=== PATIENT | male | born 1980 | race Caucasian/White ===

== ENCOUNTER 2019-06-20 10:55 | Observation (INO) | payer OTHER, SELFPAY ==
[2019-06-20 10:58] VITALS: BP 168/102; PULSE 108; RESP 18; TEMP 36.6; O2SAT 99; BMI 44.4
--- NOTE | 2019-06-20 11:11 | VDLE_ITS ---
Reason For Study: Pain and swelling RIGHT GSV is normal. CFV is compressible, spontaneous, phasic, competent and demonstrates normal augmentation. FV is compressible, spontaneous, phasic, competent and demonstrates normal augmentation. POP V is compressible, spontaneous, phasic, competent and demonstrates normal augmentation. T/P Trunk is compressible. PTV is compressible. RT PerV is compressible. Procedure Exam performed portable in ED. A preliminary report was called and/or faxed to ED. Interpretation Summary Deep veins of the right lower extremity are patent and compressible segmentally. There is no evidence of right lower extremity deep vein thrombosis. Valvular competence appears intact within the proximal deep venous system on the right . The right greater saphenous vein appears patent and compressible segmentally. Ordering Physician: Logan Espana Referring Physician: Godwin Sutton Performed By: Barbara Chamberlain RVT
[2019-06-20 11:12] VITALS: TEMP 36.6
[2019-06-20] MEDS: 0.9% Normal Saline 1,000 ML 1000 ML IV (11:22)
[2019-06-20 11:38] LABS: Absolute Lymphocyte Count 0.81 X10^3/uL (0.83-4.51); Absolute Neutrophil Count 4.1 X10^3/uL (2.0-7.7); Basophil# 0.01 X10^3/uL; Basophil% 0.2 % (0-1); Eosinophil# 0.03 X10^3/uL; Eosinophils% 0.5 % (0-5); Hematocrit 29.9 % (40-54); Hemoglobin 10.6 g/dL (13.0-16.5); Lymphocyte # 0.81 X10^3/ul (4.0); Lymphocyte % 13.9 % (19-41); Mean Corp Hgb Conc 35.5 g/dL (32-36); Mean Corpuscular Hgb 27.6 pg (27.0-32.0); Mean Corpuscular Volume 77.9 fL (80-94); Mean Platelet Vol. 11.1 fl (6.2-12.0); Monocyte# 0.83 X10^3/uL; Monocyte% 14.3 % (0-10); NRBC Flagged by Analyzer 0 % (0-5); Neutrophil # 4.11 X10^3/uL (2.7-7.7); Neutrophil % 70.6 % (47-70); Platelet Count 108 K/mm3 (150-450); RBC Distribution Width CV 12.4 % (11.6-14.6); RBC Distribution Width SD 34.7 fl (35.1-43.9); Red Blood Count 3.84 M/mm3 (4.6-6.2); White Blood Count 5.8 K/mm3 (4.4-11.0)
[2019-06-20 11:43] LABS: International Normalized Ratio 1.1; Prothrombin Time (Protime)PT. 13.9 SECONDS (11.7-14.9)
[2019-06-20 11:44] LABS: Partial Thromboplast Time 51.1 Seconds (24.1-36.2)
[2019-06-20 11:50] LABS: ALB/GLOB Ratio 0.8 RATIO (0.9-2.4); AST(SGOT) 25 U/L (15-37); Alanine Aminotransfer ALT/SGPT 30 U/L (16-61); Albumin, Serum 3.4 g/dL (3.2-5.0); Alkaline Phosphatase 71 U/L (45-117); Anion Gap 6 (5-15); BUN 51 mg/dL (7-18); BUN/Creat Ratio 21.8 RATIO (10-20); Calcium,Total 9.1 mg/dL (8.5-10.1); Chloride 102 mmol/L (98-107); Creatinine, Serum 2.34 mg/dL (0.70-1.30); EST Glomerular Filtration Rate 33 mL/min (>60); Est Glom Filt Rate - Afr Amer 40 mL/min (>60); Estimated Creatinine Clearance 53.41 ml/min; Globulin 4.2 g/dL (2.2-4.2); Glucose 194 mg/dL (74-106); Potassium 3.9 mmol/L (3.5-5.1); Protein, Total 7.6 g/dL (6.4-8.2); Sodium Level 135 mmol/L (136-145)
[2019-06-20 11:53] LABS: Mucous, Urine 0 SEEN /hpf (<or=2+)
[2019-06-20 11:54] LABS: Lactic Acid 0.9 mmol/L (0.4-2.0)
[2019-06-20 12:01] LABS: Color, Urine Yellow (Yellow); Glucose, Dipstick Normal (Normal); Ketone-Dipstick Negative (Negative); Leukocyte Esterase-Dipstick Negative /ul (Negative); Nitrite-Dipstick Negative (Negative); Occult Blood-Urine 250 /ul (Negative); Protein-Dipstick 100 mg/dl (Negative); Urine Bilirubin Dipstick Negative (Negative); Urine Clarity Sl. Cloudy (Clear); Urine Urobilinogen Normal (Normal)
[2019-06-20 12:06] LABS: Bacteria RARE /hpf (None Seen); Red Blood Cells-Urine 0-5 SEEN /hpf (0-5); Squamous Epithelial Cells - UA 0-5 SEEN /hpf (0-5); White Blood Cells 0-5 SEEN /hpf (0-5)
--- NOTE | 2019-06-20 13:06 | ED.VISSUMM ---
- ER Visit Summary Date of Service: 06/20/19 Chief Complaint: Abnormal labs History of Present Illness: The patient is a 38 M sent for abnormal labs. He had an elevated creatinine on June 16, and then it was repeated earlier today and had elevated. It went from 2.0-2.4. He denies any history of kidney disease. He is a diabetic and has a history of hypertension. He was told to discontinue his metformin. He continues to take insulin and losartan. He also reports right leg pain and swelling. He has right calf tenderness. This started since yesterday. No history of DVT. He has noticed a superficial ulceration to his right great toe. Physical Examination: Afebrile and vital signs unremarkable except blood pressure 168/102. Alert and oriented. Heart regular. Lungs clear. Right calf is diffusely tender and edematous. He has a superficial ulceration to his right great toe. No drainage, bleeding, or surrounding erythema. He does have some erythema to his mid lower leg. Test Results: Hemoglobin 10.6. Platelets 108. BUN 51 and creatinine 2.34. INR 1.1 and PTT 51.1. Urinalysis unremarkable. Lactate 0.9. Lower extremity ultrasound negative. Emergency Department Course and Treatment: Patient presents with acute kidney injury. I do not have baseline labs. He has no known history of kidney problems. He also has anemia and thrombocytopenia. Patient was treated with IV fluids. Lower extremity ultrasound was negative. I suspect he may have cellulitis and he was covered with cefazolin. He is not septic. It does not look like the toe ulceration communicates to the bone. Patient was discussed with Dr. Andrews and will be admitted for further care. Treatment Plan: As above Disposition: Admission Impression: 1. Acute kidney injury 2. Anemia 3. Thrombocytopenia 4. Right lower extremity cellulitis 5. Right foot ulceration This note was generated with [email or web address] dictation software. It may contain incorrect words, spelling, and punctuation that were not noted in review of the chart prior to signing ED Disposition - Plan for ED Patient: Referrals: Ryan Hendrickson PA [Primary Care Provider] -
[2019-06-20] MEDS: Cefazolin 1 GM/50 ML BAG IV ×2 (13:14→22:13)
[2019-06-20 13:15] VITALS: BP 165/98; PULSE 92; RESP 16; O2SAT 100
--- NOTE | 2019-06-20 13:21 | HP.PCM_ITS ---
Problem List (1) Cellulitis of right leg Status: Acute History of Present Illness Date of Admission: 06/20/19 Chief Complaint: abnormal labs The patient is a 38 year old M was brought into the hospital because his lab work was abnormal. Patient had elevated creatinine as outpatient and several days prior it was elevated around 2. Patient instructed to come to the emergency room. No baseline labs revealed compared to the patient states that he has not had a lab work done previously that he is aware of. States that he has been drinking plenty of water which he does continuously. Today, patient developed erythema involving his right lower extremity. Days prior, patient was having a fever chills and nausea but no rash at that time. He states that he may have had cellulitis several years back but nothing recently. Patient received ceftezole and in the emergency room. [] Past Medical History Medical History: Medical History (Last Updated 06/20/19 @ 13:28 by Calixto Andrews DO) DM2 (diabetes mellitus, type 2) E11.9 Neuropathy G62.9 CKD (chronic kidney disease) stage 3, GFR 30-59 ml/min N18.3 HTN (hypertension) I10 Allergies No Known Allergies Allergy (Verified 06/20/19 10:56) Home Medications: Ambulatory Orders Medication Instructions Recorded Insulin Glargine,Hum.rec.anlog 25 unit SQ DAILY 06/20/19 [Lantus] Losartan Potassium [Cozaar] 125 mg PO DAILY 06/20/19 Psychiatric History: No pertinent psych hx Smoking Status: Never smoker Tobacco Use: Non-smoker Alcohol: None Drugs: None - *Family History Maternal History Items: Diabetes Paternal History Items: Diabetes Review of Systems Constitutional: Denies: Chills, Fever, Weight Change Eyes: Denies: Blurred vision, Double vision HEENT: Denies: Head Aches, Sinus Congestion, Sinus Drainage Cardiovascular: Denies: Chest Pain, Palpitations Respiratory: Denies: Cough, Shortness of breath at rest, Sputum production Gastrointestinal: Reports: Nausea. Denies: Abdominal Pain, Vomiting Genitourinary: Denies: Dysuria Musculoskeletal: Denies: Joint Pain, Joint Tenderness Skin: Reports: Wounds - ulcer under right great toe for 2-3 weeks. erythema of RLE. Neurological: Reports: - - neuropathy in feet. Denies: Focal weakness, Numbness, Tingling Psychiatric: Denies: Anxiety, Depression Hematologic/ Lymphatic: Denies: Easy Bruising, Easy Bleeding, Hx of blood clot Comment: A 10 point review of systems were negative except as mentioned in the history of present illness and the other review of systems. VTE Information - Inpt Only VTE Present on Admission: No VTE Mechan Device Prophylaxis: None VTE Pharm Prophylaxis ordered?: No Reason prophylaxis not ordered:: Procedure Not Indicated Patient Problems: Active and Suspected Problems Cellulitis of right leg (Acute) - Physical Exam General: Alert, No apparent distress HEENT: Atraumatic, Normocephalic Oral: Moist Mucosa, No Gingival or Mucosal Lesions/ Ulcerations Neck: No Nodes, Thyroid Normal Size and Texture Lungs: Clear to auscultation, Normal air movement, No rhonchi, No wheeze, No rales Cardiovascular: Regular rate, Regular Rhythm, Normal S1, Normal S2, No murmurs Abdomen: Bowel Sounds Present, Soft, Non Tender, Non-Distended, No Hepato- splenomegaly Extremities: No edema, No Calf Tenderness Skin: - - Superficial ulceration under the right great toe. No purulence can be expressed. Does have erythema with petechial type lesions involving the distal right lower extremity extending proximally up to the knee. Musculoskeletal: No Tenderness to Palpation of Joints or Extremities, No Muscle Wasting Neurological: Neuro grossly intact, Muscle tone normal, Sensory exam intact to light touch and pain Psych/Mental Status: Normal Affect, Appropriate Vital Signs Temp Pulse Resp BP Pulse Ox 36.6 C 92 16 165/98 H 100 06/20/19 11:12 06/20/19 13:15 06/20/19 13:15 06/20/19 13:15 06/20/19 13:15 Oxygen Delivery Method Room Air Weight: 170.097 kg Body Mass Index (BMI) 44.4 Laboratory Tests Past 24 Hrs 06/20/19 06/20/19 06/20/19 11:21 11:21 11:21 WBC 5.8 RBC 3.84 L Hgb 10.6 L Hct 29.9 L MCV 77.9 L MCH 27.6 MCHC 35.5 RDW Std Deviation 34.7 L RDW Coeff of Juli 12.4 Plt Count 108 L MPV 11.1 Immature Gran % (Auto) 0.500 Neut % (Auto) 70.6 H Lymph % (Auto) 13.9 L [place] % (Auto) 14.3 H Eos % (Auto) 0.5 Baso % (Auto) 0.2 Absolute Neuts (auto) 4.1 Absolute Lymphs (auto) 0.81 L Nucleated RBC % 0 PT 13.9 INR 1.1 APTT 51.1 H Sodium 135 L Potassium 3.9 Chloride 102 Carbon Dioxide 27.0 Anion Gap 6 BUN 51 H Creatinine 2.34 H Estim Creat Clear Calc 53.41 Est GFR (MDRD) Af Amer 40 L Est GFR (MDRD) Non-Af 33 L BUN/Creatinine Ratio 21.8 H Glucose 194 H Lactic Acid Calcium 9.1 Total Bilirubin 0.60 AST 25 ALT 30 Alkaline Phosphatase 71 Total Protein 7.6 Albumin 3.4 Globulin 4.2 Albumin/Globulin Ratio 0.8 L Urine Color Urine Clarity Urine pH Ur Specific [place] Urine Protein Urine Glucose (UA) Urine Ketones Urine Occult Blood Urine Nitrite Urine Bilirubin Urine Urobilinogen Ur Leukocyte Esterase Urine RBC Urine WBC Ur Squamous Epith Cells Urine Bacteria Urine Mucus 06/20/19 06/20/19 11:21 11:40 WBC RBC Hgb Hct MCV MCH MCHC RDW Std Deviation RDW Coeff of Juli Plt Count MPV Immature Gran % (Auto) Neut % (Auto) Lymph % (Auto) [place] % (Auto) Eos % (Auto) Baso % (Auto) Absolute Neuts (auto) Absolute Lymphs (auto) Nucleated RBC % PT INR APTT Sodium Potassium Chloride Carbon Dioxide Anion Gap BUN Creatinine Estim Creat Clear Calc Est GFR (MDRD) Af Amer Est GFR (MDRD) Non-Af BUN/Creatinine Ratio Glucose Lactic Acid 0.9 Calcium Total Bilirubin AST ALT Alkaline Phosphatase Total Protein Albumin Globulin Albumin/Globulin Ratio Urine Color Yellow Urine Clarity Sl. Cloudy Urine pH 6.0 Ur Specific [place] 1.010 Urine Protein 100 H Urine Glucose (UA) Normal Urine Ketones Negative Urine Occult Blood 250 H Urine Nitrite Negative Urine Bilirubin Negative Urine Urobilinogen Normal Ur Leukocyte Esterase Negative Urine RBC 0-5 SEEN Urine WBC 0-5 SEEN Ur Squamous Epith Cells 0-5 SEEN Urine Bacteria RARE Urine Mucus 0 SEEN Assessment/Plan All Active Problems Cellulitis of right leg (Acute) 1. Right lower extremity cellulitis * Patient received cefazolin in the emergency room and will continue with that 2. right great toe ulcer * superficial * check xray, if negative, then check MRI to eval for osteomyelitis * off-loading surgical shoe for now 3. CKD3, suspected * No baseline but I suspect the patient is currently at it * Follow-up lab work in the a.m. * If this is indeed chronic, as I suspect, then patient will need follow-up with nephrology as outpatient 4. Diabetes mellitus type 2 * Patient on basal insulin at home. We will start him on sliding scale prandial here * Check an A1c 5. Hypertension * Elevated here * Continue to monitor * Continue losartan for now 6. Thrombocytopenia * Unknown baseline * Monitor 7. VTE prophylaxis: Currently, the patient is observation status, and therefore VTE prophylaxis is not indicated. Discussed with the patient's mother at bedside. Code Visit OBSV E&M: 24361 Initial observation care L3
[2019-06-20 13:49] LABS: Erythrocyte Sedimentation Rate 45 mm/hr (0-15)
[2019-06-20 15:29] VITALS: BMI 43.2
[2019-06-20 15:30] VITALS: BMI 43.3
--- NOTE | 2019-06-20 15:50 | RAD_ITS ---
STUDY: X-RAY - RIGHT FOOT CLINICAL: Male, 38 years old. Ulcer great toe TECHNIQUE: 3 view(s) of the foot. COMPARISON: None. FINDINGS: Normal talus, calcaneus, and tarsal bones. Normal visualized subtalar, talonavicular, calcaneocuboid, tarsal and tarsometatarsal articulations. Normal metatarsi. Normal metatarsophalangeal joint of the great toe. Normal tibial and fibular sesamoid bones. Normal interphalangeal joint of the great toe. Normal phalanges of the great toe. Normal second through fifth metatarsophalangeal joints. Normal interphalangeal joints and phalanges of the lesser toes. The soft tissue structures are unremarkable. RAD/Foot min 3 Views IMPRESSION: Normal x-ray examination of the foot. Unremarkable great toe. Triple phase bone scan or MRI would be more sensitive if clinically warranted. Electronically Signed: Dale Clemons MD at 16:33 EDT , Service support ,
--- NOTE | 2019-06-20 15:58 | MRI_ITS ---
HISTORY: Plantar surface distal phalanx. Toe. Pain for 2 days. Diabetes. Right foot open wound big toe. Plantar surface blister. Dime-sized. Redness.. Technique: Sagittal coronal and axial images were obtained through the right metatarsals and phalanges. Post gadolinium T1 fat-sat series were obtained. 30 mL of Dotarem intravenous gadolinium was utilized. 8 series. 247 images.. Findings: Edema is present mostly within the dorsum of the foot. There is an ulcer on the medial plantar aspect of the great toe, at the level of the proximal first phalanx. No underlying abscess is perceived. The adjacent marrow is not edematous. The adjacent marrow is not enhance. Some inner phalangeal joint arthritis is present. Some metatarsal phalangeal joint arthritis is present. There is been fairly severe fatty infiltration of the muscles of the foot. No pathological tendon thickening or enhancement is perceived. MRI/Lower Ext No Joint W/WO Cont IMPRESSION: Cellulitis over the dorsum of the foot. Ulcer on the plantar medial surface of the great toe at the level of the distal end of the first proximal phalanx. This extends to the flexor tendon. No abscess. No evidence for osteomyelitis. at 2057 Reported and signed by: Vel Rodriguez MD Electronically Signed: Vel Rodriguez MD at 20:55 EDT Tel , Service support ,
[2019-06-20 16:06] LABS: Hemoglobin A1c 8.5 % (4.2-6.3)
[2019-06-20] MEDS: Insulin Lispro 100 UNIT/ML INSULN.PEN SC (16:23)
[2019-06-20 16:25] LABS: Bedside Glucose 165 mg/dL (70-110)
[2019-06-20] MEDS: Glucerna Shake 120 ML LIQUID PO (16:27)
[2019-06-20] MEDS: 0.9% Normal Saline 1,000 ML 150 ML IV (16:29)
[2019-06-20] MEDS: Losartan Potassium 100 MG Tablet PO (18:11)
[2019-06-20] MEDS: hydroCHLOROthiazide 25 MG Tablet PO (18:11)
[2019-06-20 18:15] VITALS: BP 155/97; PULSE 97; RESP 16; TEMP 36.9; O2SAT 100
[2019-06-20 22:10] LABS: Bedside Glucose 199 mg/dL (70-110)
[2019-06-21 00:15] VITALS: BP 144/88; PULSE 96; RESP 18; TEMP 37.3; O2SAT 98
[2019-06-21] MEDS: Cefazolin 1 GM/50 ML BAG IV ×3 (06:16→21:35)
[2019-06-21 06:17] VITALS: BP 144/84; PULSE 87; RESP 18; TEMP 37.3; O2SAT 99
[2019-06-21 06:20] LABS: Absolute Lymphocyte Count 0.99 X10^3/uL (0.83-4.51); Absolute Neutrophil Count 3.1 X10^3/uL (2.0-7.7); Basophil# 0.02 X10^3/uL; Basophil% 0.4 % (0-1); Eosinophil# 0.05 X10^3/uL; Eosinophils% 1.1 % (0-5); Hematocrit 25.8 % (40-54); Lymphocyte # 0.99 X10^3/ul (4.0); Lymphocyte % 20.8 % (19-41); Mean Corp Hgb Conc 34.9 g/dL (32-36); Mean Corpuscular Hgb 27.4 pg (27.0-32.0); Mean Corpuscular Volume 78.7 fL (80-94); Mean Platelet Vol. 10.6 fl (6.2-12.0); Monocyte% 12.6 % (0-10); NRBC Flagged by Analyzer 0 % (0-5); Neutrophil # 3.07 X10^3/uL (2.7-7.7); Neutrophil % 64.7 % (47-70); Platelet Count 107 K/mm3 (150-450); RBC Distribution Width CV 12.3 % (11.6-14.6); RBC Distribution Width SD 35.2 fl (35.1-43.9); Red Blood Count 3.28 M/mm3 (4.6-6.2); White Blood Count 4.8 K/mm3 (4.4-11.0)
[2019-06-21] MEDS: Insulin Lispro 100 UNIT/ML INSULN.PEN SC ×3 (06:28→16:58)
[2019-06-21 06:42] LABS: ALB/GLOB Ratio 0.8 RATIO (0.9-2.4); AST(SGOT) 18 U/L (15-37); Alanine Aminotransfer ALT/SGPT 25 U/L (16-61); Albumin, Serum 2.8 g/dL (3.2-5.0); Alkaline Phosphatase 59 U/L (45-117); Anion Gap 8 (5-15); BUN 44 mg/dL (7-18); BUN/Creat Ratio 21.8 RATIO (10-20); Calcium,Total 8.4 mg/dL (8.5-10.1); Chloride 107 mmol/L (98-107); Creatinine, Serum 2.02 mg/dL (0.70-1.30); EST Glomerular Filtration Rate 39 mL/min (>60); Est Glom Filt Rate - Afr Amer 47 mL/min (>60); Estimated Creatinine Clearance 61.88 ml/min; Globulin 3.6 g/dL (2.2-4.2); Glucose 156 mg/dL (74-106); Potassium 4.2 mmol/L (3.5-5.1); Protein, Total 6.4 g/dL (6.4-8.2); Sodium Level 137 mmol/L (136-145)
[2019-06-21 06:55] LABS: Bedside Glucose 164 mg/dL (70-110)
--- NOTE | 2019-06-21 08:15 | CON.PCM_ITS ---
Reason for Consult Date of Consultation: 06/21/19 Reason for Consultation: Right 1st toe ulcer History of Present Illness: The patient is a 38 year old gentleman with history of diabetes, peripheral neuropathy and other medical problems was seen this morning for right 1st toe ulcer. Patient relates to having ulceration in past, was healed, but recently opened. He relates he has followed with Dr. Shaver in past. Patient relates last time wound was present he used faizan, which he still has at home. He also relates he has had an offloading shoe in the past, but not sure where it is now. Patient has redness and swelling of the right leg. Patient had right foot xrays and MRI which were negative for osteomyelitis. It was noted the ulcer extended to the flexor tendon per radiology read on the MRI. WBC normal. Patient afebrile, resting comfortably in bed. He denies any pain, no fever, chills, nausea or vomiting. Past Medical History Medical History: Medical History (Last Updated 06/20/19 @ 13:28 by Calixto Andrews DO) DM2 (diabetes mellitus, type 2) E11.9 Neuropathy G62.9 CKD (chronic kidney disease) stage 3, GFR 30-59 ml/min N18.3 HTN (hypertension) I10 Allergies No Known Allergies Allergy (Verified 06/20/19 10:56) Home Medications: Ambulatory Orders Medication Instructions Recorded Aspirin E.C. [Ecotrin] 81 mg PO DAILY@0800 06/20/19 Insulin Glargine,Hum.rec.anlog 25 unit SQ QHS 06/20/19 [Lantus] Losartan/Hydrochlorothiazide 1 tab PO DAILY 06/20/19 [Losartan-Hctz 100-25 mg Tab] Metformin HCl [Metformin HCl ER] 750 mg PO DAILY 06/20/19 Psychiatric History: No pertinent psych hx Smoking Status: Never smoker Tobacco Use: Non-smoker Alcohol: None Drugs: None - *Family History Maternal History Items: Diabetes Paternal History Items: Diabetes Patient Problems: Active and Suspected Problems (Last Updated 06/20/19 @ 13:28 by Calixto Andrews DO) Cellulitis of right leg (Acute) - Physical Exam General: Alert, Oriented x3, Cooperative, No apparent distress Extremities: Capillary Refill Less than 3 Seconds, No Calf Tenderness, Peripheral Pulses Normal, - - There is ulceration to the plantar right hallux down to subcutaneous tissue, there is some overlying callus and nonviable tissue, which was debrided and underlying tissue healthy and viable, granular base, no undermining, there is no maloder, no fluctuance, no visible abscess, no crepitus, there is cellulitis to the right lower extremity. There is no probe to bone or deep tissue, no flexor tendon involvement clinically right foot. There are no open lesions left foot or ankle. Pedal pulses intact, CFT < 2 seconds bilateral 1-5 toes. There is peripheral neuropathy present bilateral lower extremity. Chronic charcot foot deformity left - no evidence of acute charcot neuroarthropathy bilateral foot. Muscle strength intact to foot/ankle bilateral. No POP or pain on ROM to the foot/ankle bilateral. Vital Signs Temp Pulse Resp BP Pulse Ox 99.2 F H 87 18 144/84 H 99 06/21/19 06:17 06/21/19 06:17 06/21/19 06:17 06/21/19 06:17 06/21/19 06:17 Oxygen Delivery Method Room Air Weight: 165.607 kg Body Mass Index (BMI) 43.2 Intake and Output for Last 24 Hours 06/19/19 06/20/19 06/21/19 23:59 23:59 23:59 Intake Total 1859 Balance 1859 Laboratory Tests Past 24 Hrs 06/20/19 06/20/19 06/20/19 11:21 11:21 11:21 WBC 5.8 RBC 3.84 L Hgb 10.6 L Hct 29.9 L MCV 77.9 L MCH 27.6 MCHC 35.5 RDW Std Deviation 34.7 L RDW Coeff of Juli 12.4 Plt Count 108 L MPV 11.1 Immature Gran % (Auto) 0.500 Neut % (Auto) 70.6 H Lymph % (Auto) 13.9 L [place] % (Auto) 14.3 H Eos % (Auto) 0.5 Baso % (Auto) 0.2 Absolute Neuts (auto) 4.1 Absolute Lymphs (auto) 0.81 L Nucleated RBC % 0 ESR PT 13.9 INR 1.1 APTT 51.1 H Sodium 135 L Potassium 3.9 Chloride 102 Carbon Dioxide 27.0 Anion Gap 6 BUN 51 H Creatinine 2.34 H Estim Creat Clear Calc 53.41 Est GFR (MDRD) Af Amer 40 L Est GFR (MDRD) Non-Af 33 L BUN/Creatinine Ratio 21.8 H Glucose 194 H Hemoglobin A1c Lactic Acid Calcium 9.1 Total Bilirubin 0.60 AST 25 ALT 30 Alkaline Phosphatase 71 C-React Prot Ext Range Total Protein 7.6 Albumin 3.4 Globulin 4.2 Albumin/Globulin Ratio 0.8 L Urine Color Urine Clarity Urine pH Ur Specific [place] Urine Protein Urine Glucose (UA) Urine Ketones Urine Occult Blood Urine Nitrite Urine Bilirubin Urine Urobilinogen Ur Leukocyte Esterase Urine RBC Urine WBC Ur Squamous Epith Cells Urine Bacteria Urine Mucus 06/20/19 06/20/19 06/20/19 11:21 11:21 11:21 WBC RBC Hgb Hct MCV MCH MCHC RDW Std Deviation RDW Coeff of Juli Plt Count MPV Immature Gran % (Auto) Neut % (Auto) Lymph % (Auto) [place] % (Auto) Eos % (Auto) Baso % (Auto) Absolute Neuts (auto) Absolute Lymphs (auto) Nucleated RBC % ESR 45 H PT INR APTT Sodium Potassium Chloride Carbon Dioxide Anion Gap BUN Creatinine Estim Creat Clear Calc Est GFR (MDRD) Af Amer Est GFR (MDRD) Non-Af BUN/Creatinine Ratio Glucose Hemoglobin A1c Lactic Acid 0.9 Calcium Total Bilirubin AST ALT Alkaline Phosphatase C-React Prot Ext Range 113.00 H Total Protein Albumin Globulin Albumin/Globulin Ratio Urine Color Urine Clarity Urine pH Ur Specific [place] Urine Protein Urine Glucose (UA) Urine Ketones Urine Occult Blood Urine Nitrite Urine Bilirubin Urine Urobilinogen Ur Leukocyte Esterase Urine RBC Urine WBC Ur Squamous Epith Cells Urine Bacteria Urine Mucus 06/20/19 06/20/19 06/21/19 11:21 11:40 06:08 WBC 4.8 RBC 3.28 L Hgb 9.0 L Hct 25.8 L MCV 78.7 L MCH 27.4 MCHC 34.9 RDW Std Deviation 35.2 RDW Coeff of Juli 12.3 Plt Count 107 L MPV 10.6 Immature Gran % (Auto) 0.400 Neut % (Auto) 64.7 Lymph % (Auto) 20.8 [place] % (Auto) 12.6 H Eos % (Auto) 1.1 Baso % (Auto) 0.4 Absolute Neuts (auto) 3.1 Absolute Lymphs (auto) 0.99 Nucleated RBC % 0 ESR PT INR APTT Sodium Potassium Chloride Carbon Dioxide Anion Gap BUN Creatinine Estim Creat Clear Calc Est GFR (MDRD) Af Amer Est GFR (MDRD) Non-Af BUN/Creatinine Ratio Glucose Hemoglobin A1c 8.5 H Lactic Acid Calcium Total Bilirubin AST ALT Alkaline Phosphatase C-React Prot Ext Range Total Protein Albumin Globulin Albumin/Globulin Ratio Urine Color Yellow Urine Clarity Sl. Cloudy Urine pH 6.0 Ur Specific [place] 1.010 Urine Protein 100 H Urine Glucose (UA) Normal Urine Ketones Negative Urine Occult Blood 250 H Urine Nitrite Negative Urine Bilirubin Negative Urine Urobilinogen Normal Ur Leukocyte Esterase Negative Urine RBC 0-5 SEEN Urine WBC 0-5 SEEN Ur Squamous Epith Cells 0-5 SEEN Urine Bacteria RARE Urine Mucus 0 SEEN 06/21/19 06:08 WBC RBC Hgb Hct MCV MCH MCHC RDW Std Deviation RDW Coeff of Juli Plt Count MPV Immature Gran % (Auto) Neut % (Auto) Lymph % (Auto) [place] % (Auto) Eos % (Auto) Baso % (Auto) Absolute Neuts (auto) Absolute Lymphs (auto) Nucleated RBC % ESR PT INR APTT Sodium 137 Potassium 4.2 Chloride 107 Carbon Dioxide 22.0 Anion Gap 8 BUN 44 H Creatinine 2.02 H Estim Creat Clear Calc 61.88 Est GFR (MDRD) Af Amer 47 L Est GFR (MDRD) Non-Af 39 L BUN/Creatinine Ratio 21.8 H Glucose 156 H Hemoglobin A1c Lactic Acid Calcium 8.4 L Total Bilirubin 0.40 AST 18 ALT 25 Alkaline Phosphatase 59 C-React Prot Ext Range Total Protein 6.4 Albumin 2.8 L Globulin 3.6 Albumin/Globulin Ratio 0.8 L Urine Color Urine Clarity Urine pH Ur Specific [place] Urine Protein Urine Glucose (UA) Urine Ketones Urine Occult Blood Urine Nitrite Urine Bilirubin Urine Urobilinogen Ur Leukocyte Esterase Urine RBC Urine WBC Ur Squamous Epith Cells Urine Bacteria Urine Mucus POC Glucose 06/21/19 06/20/19 06/20/19 06:25 22:06 16:20 POC Glucose 164 H 199 H 165 H Assessment/Plan All Active Problems (Last Updated 06/20/19 @ 13:28 by Calixto Andrews DO) Cellulitis of right leg (Acute) Ulceration down to subcutaneous tissue plantar right hallux Cellulitis right lower extremity Poorly controlled diabetes with peripheral neuropathy Other Co-morbidities Reviewed diagnostic data, reviewed labs, right foot xray and MRI findings and images. No evidence of osteomyelitis or abscess formation. Clinically no involvement of the flexor tendon. A culture has been obtained and sent to microbiology for further evaluation. Continue with antibiotics and adjust pending culture results. Ulceration right hallux was debrided using a 15 blade removing nonviable callus tissue, this was done down to the subcutaneous tissue in excisional fashion. Faizan and overlying gauze and silvino dressing applied. Keep ulcer offloaded at all times. Patient has surgical shoe, and will need to follow up [facility] to add offloading insert. Podiatry will follow, thank you for consultation.
--- NOTE | 2019-06-21 09:21 | NURSING ---
wound photo: right great toe
[2019-06-21 09:32] VITALS: BP 150/85; PULSE 94; RESP 18; TEMP 36.9; O2SAT 95
[2019-06-21] MEDS: Glucerna Shake 120 ML LIQUID PO (09:33)
[2019-06-21] MEDS: Aspirin E.C. 81 MG Tablet PO (09:34)
[2019-06-21] MEDS: Losartan Potassium 100 MG Tablet PO (09:34)
[2019-06-21] MEDS: hydroCHLOROthiazide 25 MG Tablet PO (09:34)
--- NOTE | 2019-06-21 10:09 | CON.PCM_ITS ---
Problem List (1) Cellulitis of right leg Status: Acute Reason for Consult: foot infection Consulted by: Dr. Andrews History of Present Illness: The patient is a 38 year old M with DM neuropathy, presented with 2-3 days of progressive R 1st toe swelling, pain, redness. Pain was burning in nature, worse with walking. Some associated nausea and fatigue. No fever. Had callus/blister at that site prior to worsening. No recent abx, no prior h/o foot infection or MRSA, no drainage. Came to ED, admitted on cefazolin, MRI done, podiatry has seen. Feeling much better. Full ROS performed and neg except as noted above. - Medical History Surgical History: includes: DM, neuropathy, obesity Allergies/Adverse Reactions: Allergies No Known Allergies Allergy (Verified 06/20/19 10:56) Home Medications: Ambulatory Orders Medication Instructions Recorded Aspirin E.C. [Ecotrin] 81 mg PO DAILY@0800 06/20/19 Insulin Glargine,Hum.rec.anlog 25 unit SQ QHS 06/20/19 [Lantus] Losartan/Hydrochlorothiazide 1 tab PO DAILY 06/20/19 [Losartan-Hctz 100-25 mg Tab] Metformin HCl [Metformin HCl ER] 750 mg PO DAILY 06/20/19 - Social History Tobacco Use: non-smoker Vital Signs Temp Pulse Resp BP Pulse Ox 98.5 F 94 18 150/85 H 95 06/21/19 09:32 06/21/19 09:32 06/21/19 09:32 06/21/19 09:32 06/21/19 09:32 Oxygen Delivery Method Room Air Weight: 165.607 kg Body Mass Index (BMI) 43.2 Laboratory Tests Past 24 Hrs 06/20/19 06/20/19 06/20/19 11:21 11:21 11:21 WBC 5.8 RBC 3.84 L Hgb 10.6 L Hct 29.9 L MCV 77.9 L MCH 27.6 MCHC 35.5 RDW Std Deviation 34.7 L RDW Coeff of Juli 12.4 Plt Count 108 L MPV 11.1 Immature Gran % (Auto) 0.500 Neut % (Auto) 70.6 H Lymph % (Auto) 13.9 L [place] % (Auto) 14.3 H Eos % (Auto) 0.5 Baso % (Auto) 0.2 Absolute Neuts (auto) 4.1 Absolute Lymphs (auto) 0.81 L Nucleated RBC % 0 ESR PT 13.9 INR 1.1 APTT 51.1 H Sodium 135 L Potassium 3.9 Chloride 102 Carbon Dioxide 27.0 Anion Gap 6 BUN 51 H Creatinine 2.34 H Estim Creat Clear Calc 53.41 Est GFR (MDRD) Af Amer 40 L Est GFR (MDRD) Non-Af 33 L BUN/Creatinine Ratio 21.8 H Glucose 194 H Hemoglobin A1c Lactic Acid Calcium 9.1 Total Bilirubin 0.60 AST 25 ALT 30 Alkaline Phosphatase 71 C-React Prot Ext Range Total Protein 7.6 Albumin 3.4 Globulin 4.2 Albumin/Globulin Ratio 0.8 L Urine Color Urine Clarity Urine pH Ur Specific [place] Urine Protein Urine Glucose (UA) Urine Ketones Urine Occult Blood Urine Nitrite Urine Bilirubin Urine Urobilinogen Ur Leukocyte Esterase Urine RBC Urine WBC Ur Squamous Epith Cells Urine Bacteria Urine Mucus S.aureus Protein A PCR MRSA (PCR) 06/20/19 06/20/19 06/20/19 11:21 11:21 11:21 WBC RBC Hgb Hct MCV MCH MCHC RDW Std Deviation RDW Coeff of Juli Plt Count MPV Immature Gran % (Auto) Neut % (Auto) Lymph % (Auto) [place] % (Auto) Eos % (Auto) Baso % (Auto) Absolute Neuts (auto) Absolute Lymphs (auto) Nucleated RBC % ESR 45 H PT INR APTT Sodium Potassium Chloride Carbon Dioxide Anion Gap BUN Creatinine Estim Creat Clear Calc Est GFR (MDRD) Af Amer Est GFR (MDRD) Non-Af BUN/Creatinine Ratio Glucose Hemoglobin A1c Lactic Acid 0.9 Calcium Total Bilirubin AST ALT Alkaline Phosphatase C-React Prot Ext Range 113.00 H Total Protein Albumin Globulin Albumin/Globulin Ratio Urine Color Urine Clarity Urine pH Ur Specific [place] Urine Protein Urine Glucose (UA) Urine Ketones Urine Occult Blood Urine Nitrite Urine Bilirubin Urine Urobilinogen Ur Leukocyte Esterase Urine RBC Urine WBC Ur Squamous Epith Cells Urine Bacteria Urine Mucus S.aureus Protein A PCR MRSA (PCR) 06/20/19 06/20/19 06/21/19 11:21 11:40 06:08 WBC 4.8 RBC 3.28 L Hgb 9.0 L Hct 25.8 L MCV 78.7 L MCH 27.4 MCHC 34.9 RDW Std Deviation 35.2 RDW Coeff of Juli 12.3 Plt Count 107 L MPV 10.6 Immature Gran % (Auto) 0.400 Neut % (Auto) 64.7 Lymph % (Auto) 20.8 [place] % (Auto) 12.6 H Eos % (Auto) 1.1 Baso % (Auto) 0.4 Absolute Neuts (auto) 3.1 Absolute Lymphs (auto) 0.99 Nucleated RBC % 0 ESR PT INR APTT Sodium Potassium Chloride Carbon Dioxide Anion Gap BUN Creatinine Estim Creat Clear Calc Est GFR (MDRD) Af Amer Est GFR (MDRD) Non-Af BUN/Creatinine Ratio Glucose Hemoglobin A1c 8.5 H Lactic Acid Calcium Total Bilirubin AST ALT Alkaline Phosphatase C-React Prot Ext Range Total Protein Albumin Globulin Albumin/Globulin Ratio Urine Color Yellow Urine Clarity Sl. Cloudy Urine pH 6.0 Ur Specific [place] 1.010 Urine Protein 100 H Urine Glucose (UA) Normal Urine Ketones Negative Urine Occult Blood 250 H Urine Nitrite Negative Urine Bilirubin Negative Urine Urobilinogen Normal Ur Leukocyte Esterase Negative Urine RBC 0-5 SEEN Urine WBC 0-5 SEEN Ur Squamous Epith Cells 0-5 SEEN Urine Bacteria RARE Urine Mucus 0 SEEN S.aureus Protein A PCR MRSA (PCR) 06/21/19 06/21/19 06:08 07:50 WBC RBC Hgb Hct MCV MCH MCHC RDW Std Deviation RDW Coeff of Juli Plt Count MPV Immature Gran % (Auto) Neut % (Auto) Lymph % (Auto) [place] % (Auto) Eos % (Auto) Baso % (Auto) Absolute Neuts (auto) Absolute Lymphs (auto) Nucleated RBC % ESR PT INR APTT Sodium 137 Potassium 4.2 Chloride 107 Carbon Dioxide 22.0 Anion Gap 8 BUN 44 H Creatinine 2.02 H Estim Creat Clear Calc 61.88 Est GFR (MDRD) Af Amer 47 L Est GFR (MDRD) Non-Af 39 L BUN/Creatinine Ratio 21.8 H Glucose 156 H Hemoglobin A1c Lactic Acid Calcium 8.4 L Total Bilirubin 0.40 AST 18 ALT 25 Alkaline Phosphatase 59 C-React Prot Ext Range Total Protein 6.4 Albumin 2.8 L Globulin 3.6 Albumin/Globulin Ratio 0.8 L Urine Color Urine Clarity Urine pH Ur Specific [place] Urine Protein Urine Glucose (UA) Urine Ketones Urine Occult Blood Urine Nitrite Urine Bilirubin Urine Urobilinogen Ur Leukocyte Esterase Urine RBC Urine WBC Ur Squamous Epith Cells Urine Bacteria Urine Mucus S.aureus Protein A PCR Pending MRSA (PCR) Pending - Other Studies Radiology: [] reviewed Other Studies: [] Route of nutrition/ use of supplements: [] Nutritional Intake: [] IV Site: [] Au Catheter: [] - Physical Exam General: Alert, Oriented x3, Cooperative, No apparent distress HEENT: Atraumatic, PERRLA, EOMI Neck: Supple, No Nodes Lungs: Clear to auscultation, Normal air movement Cardiovascular: Regular rate, Regular Rhythm, No murmurs Abdomen: Soft, Non Tender, Non-Distended Extremities: No cyanosis Skin: Ulcer/ Wound - reviewed photo, shallow R 1st toe wound IV Site: Peripheral, without redness Musculoskeletal: No Tenderness to Palpation of Joints or Extremities Neurological: Cranial nerves II-XII grossly intact - Assessment/Plan Antibiotics: [] Assessment/Plan: [] Active and Suspected Problems (Last Updated 06/20/19 @ 13:28 by Calixto Andrews DO) Cellulitis of right leg (Acute) Infected DM R 1st toe wound with h/o peripheral neuropathy - cx and pcr pending. Podiatry following, did not see signs of deeper involvement. Responding well to cefazolin. Cr improved. No fever, no leukocytosis. Plan on home with short course po abx. Will follow, thank you.
--- NOTE | 2019-06-21 10:32 | PN_ITS ---
Patient Problems: Active and Suspected Problems (Last Updated 06/20/19 @ 13:28 by Calixto Andrews DO) Cellulitis of right leg (Acute) Subjective: Feeling good. Decreased erythema of RLE. Vitals/I&O's: Vital Signs Temp Pulse Resp BP Pulse Ox 36.9 C 94 18 150/85 H 95 06/21/19 09:32 06/21/19 09:32 06/21/19 09:32 06/21/19 09:32 06/21/19 09:32 Oxygen Delivery Method Room Air Weight: 165.607 kg Body Mass Index (BMI) 43.2 Intake and Output for Last 24 Hours 06/19/19 06/20/19 06/21/19 23:59 23:59 23:59 Intake Total 1859 Balance 1859 General: Alert, No apparent distress HEENT: Atraumatic, Normocephalic Oral: Moist Mucosa, No Gingival or Mucosal Lesions/ Ulcerations Extremities: No Calf Tenderness, Edema Skin: - - decreased erthema of medial RLE. foot bandaged--did not remove. Psych/Mental Status: Normal Affect, Appropriate Laboratory Results 06/20/19 11:21: WBC 5.8, RBC 3.84 L, Hgb 10.6 L, Hct 29.9 L, MCV 77.9 L, MCH 27.6, MCHC 35.5, RDW Std Deviation 34.7 L, RDW Coeff of Juli 12.4, Plt Count 108 L, MPV 11.1, Immature Gran % (Auto) 0.500, Neut % (Auto) 70.6 H, Lymph % (Auto) 13.9 L, [place] % (Auto) 14.3 H, Eos % (Auto) 0.5, Baso % (Auto) 0.2, Absolute Neuts (auto) 4.1, Absolute Lymphs (auto) 0.81 L, Nucleated RBC % 0 06/20/19 11:21: PT 13.9, INR 1.1, APTT 51.1 H 06/20/19 11:21: Sodium 135 L, Potassium 3.9, Chloride 102, Carbon Dioxide 27.0, Anion Gap 6, BUN 51 H, Creatinine 2.34 H, Estim Creat Clear Calc 53.41, Est GFR (MDRD) Af Amer 40 L, Est GFR (MDRD) Non-Af 33 L, BUN/Creatinine Ratio 21.8 H, Glucose 194 H, Calcium 9.1, Total Bilirubin 0.60, AST 25, ALT 30, Alkaline Phosphatase 71, Total Protein 7.6, Albumin 3.4, Globulin 4.2, Albumin/Globulin Ratio 0.8 L 06/20/19 11:21: Lactic Acid 0.9 06/20/19 11:21: ESR 45 H 06/20/19 11:21: C-React Prot Ext Range 113.00 H 06/20/19 11:21: Hemoglobin A1c 8.5 H 06/20/19 11:40: Urine Color Yellow, Urine Clarity Sl. Cloudy, Urine pH 6.0, Ur Specific [place] 1.010, Urine Protein 100 H, Urine Glucose (UA) Normal, Urine Ketones Negative, Urine Occult Blood 250 H, Urine Nitrite Negative, Urine Bilirubin Negative, Urine Urobilinogen Normal, Ur Leukocyte Esterase Negative, Urine RBC 0-5 SEEN, Urine WBC 0-5 SEEN, Ur Squamous Epith Cells 0-5 SEEN, Urine Bacteria RARE, Urine Mucus 0 SEEN 06/20/19 16:20: POC Glucose 165 H 06/20/19 22:06: POC Glucose 199 H 06/21/19 06:08: WBC 4.8, RBC 3.28 L, Hgb 9.0 L, Hct 25.8 L, MCV 78.7 L, MCH 27.4, MCHC 34.9, RDW Std Deviation 35.2, RDW Coeff of Juli 12.3, Plt Count 107 L, MPV 10.6, Immature Gran % (Auto) 0.400, Neut % (Auto) 64.7, Lymph % (Auto) 20.8, [place] % (Auto) 12.6 H, Eos % (Auto) 1.1, Baso % (Auto) 0.4, Absolute Neuts (auto) 3.1, Absolute Lymphs (auto) 0.99, Nucleated RBC % 0 06/21/19 06:08: Sodium 137, Potassium 4.2, Chloride 107, Carbon Dioxide 22.0, Anion Gap 8, BUN 44 H, Creatinine 2.02 H, Estim Creat Clear Calc 61.88, Est GFR (MDRD) Af Amer 47 L, Est GFR (MDRD) Non-Af 39 L, BUN/Creatinine Ratio 21.8 H, Glucose 156 H, Calcium 8.4 L, Total Bilirubin 0.40, AST 18, ALT 25, Alkaline Phosphatase 59, Total Protein 6.4, Albumin 2.8 L, Globulin 3.6, Albumin/Globulin Ratio 0.8 L 06/21/19 06:25: POC Glucose 164 H 06/21/19 07:50: S.aureus Protein A PCR Pending, MRSA (PCR) Pending Current Medications Acetaminophen (Tylenol) 650 mg PO Q6H PRN PRN PRN Reason: Mild Pain (1-3)/Temp > 100.7 F Aspirin (Ecotrin) 81 mg PO DAILY@0800 [facility] Last Admin: 06/21/19 09:34 Dose: 81 mg Documented by: Dextrose (D50w Syringe) 0 gm IV X1 PRN; Protocol PRN Reason: Hypoglycemia Glucagon () 1 mg IM .X1 PRN PRN Reason: Hypoglycemia Hydrochlorothiazide (Hctz) 25 mg PO DAILY [facility] Last Admin: 06/21/19 09:34 Dose: 25 mg Documented by: Cefazolin Sodium () 1 gm in 50 mls @ 150 mls/hr IV Q8 [facility] Last Admin: 06/21/19 06:16 Dose: 150 mls/hr Documented by: Insulin Glargine (Lantus (Bkc)) 25 units SC DAILY [facility] Last Admin: 06/21/19 09:34 Dose: 25 units Documented by: Insulin Human Lispro (Humalog Kwikpen (Bkc)) 0 unit SC TIDAC [facility]; Protocol Last Admin: 06/21/19 06:28 Dose: 1 u Documented by: Losartan Potassium (Cozaar) 100 mg PO DAILY [facility] Last Admin: 06/21/19 09:34 Dose: 100 mg Documented by: Melatonin (Melatonin) 3 mg PO QHS PRN PRN PRN Reason: INSOMNIA Nutritional Formula (Lactose Free) (Glucerna Shake) 120 ml PO TIDCM [facility] Last Admin: 06/21/19 09:33 Dose: 120 ml Documented by: Ondansetron HCl (Zofran) 4 mg IV Q8H PRN PRN PRN Reason: NAUSEA/VOMITING Senna/Docusate Sodium (Senokot-S, Luci-Colace) 2 tablet PO BID PRN PRN PRN Reason: Constipation Sodium Chloride () 10 - 40 ml IV UD PRN PRN Reason: SALINE FLUSH Medical Necessity - Tobacco Use Smoking Status: Never smoker Tobacco Use: Non-smoker Assessment/Plan All Active Problems (Last Updated 06/20/19 @ 13:28 by Calixto Andrews DO) Cellulitis of right leg (Acute) 1. Right lower extremity cellulitis * Patient received cefazolin in the emergency room and will continue with that 2. right great toe ulcer * superficial * off-loading surgical shoe for now * MRI suggested involvement of flexor tendon. * DW Dr. Johnson, who evaluated and did not feel it actually involved the tendon, clinically. * Deep culture performed. 3. CKD3, suspected * No baseline but I suspect the patient is currently at it * Creatinine down to 2.02 * Follow up with nephrology as outpt * DW patient about proper glycemic and BP control 4. Diabetes mellitus type 2 * Patient on basal insulin at home. We will start him on sliding scale prandial here * A1c 8.5 * Metformin d/c'd given CKD * Increase basal insulin 5. Hypertension * Elevated here * Continue to monitor * Continue losartan for now 6. Thrombocytopenia * Maybe at baseline * Follow up as outpt. 7. VTE prophylaxis: Given prolonged hospitalization, will add LMWH. Greater than 25 minutes, of which greater than 50% of the time was counselling the patient about cellulitis, ulcer. Code Visit Inpatient E&M: 60441 Subs Hosp L2
[2019-06-21 11:36] LABS: Bedside Glucose 249 mg/dL (70-110)
[2019-06-21 13:58] LABS: M R Staph aureus DNA By PCR Negative (Negative); Probe Check PASS; Specimen Processing Control PASS; Staph aureus DNA By PCR NEGATIVE (Negative)
[2019-06-21 14:31] VITALS: BP 154/95; PULSE 91; RESP 16; TEMP 37.1; O2SAT 97
[2019-06-21 16:55] LABS: Bedside Glucose 240 mg/dL (70-110)
[2019-06-21 20:31] VITALS: BP 154/98; PULSE 94; RESP 16; TEMP 37.1; O2SAT 99
[2019-06-21] MEDS: 0.9% NaCl Peripheral Flush Adult/Peds IV ×2 (21:35→22:42)
[2019-06-21 22:51] LABS: Bedside Glucose 235 mg/dL (70-110)
[2019-06-22 02:31] VITALS: BP 145/97; PULSE 85; RESP 16; TEMP 36.8; O2SAT 100
[2019-06-22] MEDS: Cefazolin 1 GM/50 ML BAG IV (06:35)
[2019-06-22] MEDS: 0.9% NaCl Peripheral Flush Adult/Peds IV (06:37)
[2019-06-22 06:40] LABS: Bedside Glucose 192 mg/dL (70-110)
[2019-06-22] MEDS: Insulin Lispro 100 UNIT/ML INSULN.PEN SC (06:46)
[2019-06-22 08:08] VITALS: BP 159/100; PULSE 83; RESP 18; TEMP 36.6; O2SAT 100
[2019-06-22] MEDS: Aspirin E.C. 81 MG Tablet PO (08:10)
[2019-06-22] MEDS: hydroCHLOROthiazide 25 MG Tablet PO (08:14)
--- NOTE | 2019-06-22 10:04 | PCM.PROGNOTE ---
Patient Problems: Active and Suspected Problems (Last Updated 06/20/19 @ 13:28 by Calixto Andrews DO) Cellulitis of right leg (Acute) Subjective: Patient was seen today for follow up ulcer right 1st toe with cellulitis right lower extremity. He relates he slept well, no complaints, no pain, no complaints of fever, chills, nausea or vomiting. He is resting comfortably in bed. - Physical Exam General: Alert, Oriented x3, Cooperative, No apparent distress Vital Signs Temp Pulse Resp BP Pulse Ox 97.8 F 83 18 159/100 H 100 06/22/19 08:08 06/22/19 08:08 06/22/19 08:08 06/22/19 08:08 06/22/19 08:08 Oxygen Delivery Method Room Air Weight: 165.6 kg Body Mass Index (BMI) 43.2 Intake and Output for Last 24 Hours 06/20/19 06/21/19 06/22/19 23:59 23:59 23:59 Intake Total 5310 / 5310 200 / 200 Output Total 0 / 0 Balance 5310 / 5310 200 / 200 Microbiology Past 72 Hours 06/21/19 07:50 Gram Stain - Final Wound - Toe Laboratory Tests Past 24 Hrs 06/21/19 07:50 S.aureus Protein A PCR NEGATIVE MRSA (PCR) Negative POC Glucose 06/22/19 06/21/19 06/21/19 06:33 22:45 16:53 POC Glucose 192 H 235 H 240 H 06/21/19 11:26 POC Glucose 249 H Medical Necessity - Tobacco Use Smoking Status: Never smoker Tobacco Use: Non-smoker Assessment/Plan All Active Problems (Last Updated 06/20/19 @ 13:28 by Calixto Andrews DO) Cellulitis of right leg (Acute) Ulceration down to subcutaneous tissue plantar right hallux - improving Cellulitis right lower extremity - resolving Poorly controlled diabetes with peripheral neuropathy Other Co-morbidities Reviewed diagnostic data, reviewed labs, right foot xray and MRI findings and images - No evidence of osteomyelitis or abscess formation. Clinically no involvement of the flexor tendon. Cellulitis much improved, ulcer healing. A culture has been obtained and sent to microbiology for further evaluation - final results pending. Continue with antibiotics and adjust pending culture results - patient followed up Infectious Disease/Dr. Spangler. Continue with daily dressing changes. Shanel and overlying gauze and silvino dressing applied. Keep ulcer offloaded at all times. Patient has surgical shoe, and will need to [facility] to add offloading insert. [facility].
--- NOTE | 2019-06-22 10:06 | PCM.DC.POD ---
Weight Bearing Status: No weight bearing - No weightbearing right foot especially to toes, ok to put weight only on heel for transitions and for balance. Keep extremity elevated above heart level: Right Leg Cleanse incision/area with: - - Wound care right 1st toe. Cleanse with normal saline solution. Apply faizan with overlying gauze and silvino dressing. Change daily. Allergies/Adverse Reactions: Allergies No Known Allergies Allergy (Verified 06/20/19 10:56) Medications to take at Discharge Aspirin E.C. [Ecotrin] 81 mg PO DAILY@0800 06/20/19 Insulin Glargine,Hum.rec.anlog [Lantus] 25 unit SQ QHS 06/20/19 Losartan/Hydrochlorothiazide [Losartan-Hctz 100-25 mg Tab] 1 tab PO DAILY 06/20/19 Metformin HCl [Metformin HCl ER] 750 mg PO DAILY 06/20/19 Primary Care Physician: Ryan Hendrickson PA [Primary Care Provider] - Test Results: Test results from this visit will be discussed in further detail at your follow-up appointment, if applicable. Please Follow Up With: Sudarshan Johnson DPM - [facility], [address], [place] [address] When: within 1 week, sooner if needed
--- NOTE | 2019-06-22 10:37 | NURSING ---
wound photo: right lower leg
--- NOTE | 2019-06-22 11:00 | DS.PCM_ITS ---
Discharge Date and Diagnosis - Problem List Patient Problems: Active and Suspected Problems (Last Updated 06/20/19 @ 13:28 by Calixto Andrews DO) Cellulitis of right leg (Acute) Date of Admission: 06/20/19 Date of Discharge: 06/22/19 - Primary Discharge Diagnosis Active and Suspected Problems (Last Updated 06/20/19 @ 13:28 by Calixto Andrews DO) Cellulitis of right leg (Acute) 1. Right lower extremity cellulitis * improving * Patient received cefazolin in the emergency room and will continue with that * DW Dr. Spangler, 5 more days of Keflex 2. right great toe ulcer * superficial * off-loading surgical shoe for now * MRI suggested involvement of flexor tendon. * DW Dr. Johnson, who evaluated and did not feel it actually involved the tendon, clinically. * Deep culture performed, wound culture pending. 3. CKD3, suspected * No baseline but I suspect the patient is currently at it * Creatinine down to 2.02 * Follow up with nephrology as outpt * DW patient about proper glycemic and BP control 4. Diabetes mellitus type 2 * Patient on basal insulin at home. We will start him on sliding scale prandial here * A1c 8.5 * Metformin d/c'd given CKD * Increase basal insulin 5. Hypertension * Elevated here * Continue to monitor * Continue losartan for now 6. Thrombocytopenia * Maybe at baseline * Follow up as outpt. Hospital Course and Treatment Imaging Results: Clinical Impression(s) from Imaging Studies Foot X-Ray 06/20/19 15:50 IMPRESSION: Normal x-ray examination of the foot. Unremarkable great toe. Triple phase bone scan or MRI would be more sensitive if clinically warranted. Electronically Signed: Dale Clemons MD at 16:33 EDT , Service support , Lower Extremity MRI 06/20/19 15:58 IMPRESSION: Cellulitis over the dorsum of the foot. Ulcer on the plantar medial surface of the great toe at the level of the distal end of the first proximal phalanx. This extends to the flexor tendon. No abscess. No evidence for osteomyelitis. at 2057 Reported and signed by: Vel Rodriguez MD Electronically Signed: Vel Rodriguez MD at 20:55 EDT Tel , Service support , Consultations 06/21/19 07:16 Consult: Onc/Wound/flagstone layer Routine Comment: Operations: None Procedures: - - bedside debridement of right great toe. Summary of Care Provided: The patient is a 38 year old M sent to the emergency room due to abnormal labs but was also found to have a right lower extremity cellulitis. Patient was started cefazolin and has improved. Seen in consultation by podiatry as well as infectious disease. Patient did have a wound on the anterior aspect of his right great toe. MRI showed possibly involving the tendon but podiatry, on t heir exam, did not feel that actually involve the tendon. Patient have offloading shoes while he is up and follow-up with podiatry in the coming weeks. Patient does have what appears to be chronic kidney disease likely related with high blood pressure and diabetes. Patient advised to follow-up with nephrology as outpatient. Patient made aware that he is not in any imminent danger for falling into dialysis or anything like that nature. [] Patient Problems: Active and Suspected Problems (Last Updated 06/20/19 @ 13:28 by Calixto Andrews DO) Cellulitis of right leg (Acute) - Physical Exam General: Alert, No apparent distress HEENT: Atraumatic, Normocephalic Oral: Moist Mucosa, No Gingival or Mucosal Lesions/ Ulcerations Extremities: No Calf Tenderness, Edema Skin: - - decreased erythema of RLE. Psych/Mental Status: Normal Affect, Appropriate Vital Signs Temp Pulse Resp BP Pulse Ox 36.6 C 83 18 159/100 H 100 06/22/19 08:08 06/22/19 08:08 06/22/19 08:08 06/22/19 08:08 06/22/19 08:08 Oxygen Delivery Method Room Air Weight: 165.6 kg Body Mass Index (BMI) 43.2 Intake and Output for Last 24 Hours 06/20/19 06/21/19 06/22/19 23:59 23:59 23:59 Intake Total 5310 / 5310 200 / 200 Output Total 0 / 0 Balance 5310 / 5310 200 / 200 Microbiology Past 72 Hours 06/21/19 07:50 Gram Stain - Final Wound - Toe Laboratory Tests Past 24 Hrs 06/21/19 07:50 S.aureus Protein A PCR NEGATIVE MRSA (PCR) Negative POC Glucose 06/22/19 06/21/19 06/21/19 06:33 22:45 16:53 POC Glucose 192 H 235 H 240 H 06/21/19 11:26 POC Glucose 249 H Discharge Diet: 1999 Calorie Control Diet Discharge Activity: Return to Normal Activity Weight Bearing Status: No weight bearing - No weightbearing right foot especially to toes, ok to put weight only on heel for transitions and for balance. Keep extremity elevated above heart level: Right Leg Cleanse incision/area with: - - Wound care right 1st toe. Cleanse with normal saline solution. Apply faizan with overlying gauze and silvino dressing. Change daily. Home Medications: Medications to take at Discharge Aspirin E.C. [Ecotrin] 81 mg PO DAILY@0800 06/20/19 Losartan/Hydrochlorothiazide [Losartan-Hctz 100-25 mg Tab] 1 tab PO DAILY 06/20/19 Cephalexin [Keflex] 500 mg PO TID #5 cap 06/22/19 Insulin Glargine [Lantus SoloStar Pen] 30 units SC DAILY pen 06/22/19 Following Prescrptions Were Given to Patient: Cephalexin [Keflex] 500 mg PO TID #5 cap Transmission Status: Pending to [facility]/pharmacy #[id number] Primary Care Physician: Ryan Hendrickson PA [Primary Care Provider] - Please Follow Up With: Sudarshan Johnson DPM - [facility], [address] [place] [address], [place] [address] When: within 1 week, sooner if needed Please Follow Up With: Dominga Barnhart DO - nephrology follow up. When: 1-2 months Disposition: Home Minutes spent on discharge:: 32 Patient Condition:: Good Medical Necessity - Tobacco Use Smoking Status: Never smoker Tobacco Use: Non-smoker Meaningful Use Info Meaningful Use Diagnoses (Choose all that apply): None applicable Code Visit Inpatient E&M: 66449 Disch Hosp
--- NOTE | 2019-06-22 11:06 | PCM.DC ---
- Discharge Diagnoses Current Active Problems: Current Active and Chronic Problems (Last Updated 06/20/19 @ 13:28 by Calixto Andrews DO) Cellulitis of right leg (Acute) You will use the following diet at home:: Calorie/Carbohydrate Controlled (specify 1200, 1400, etc) - 2000 Your food should be the consistency of: Regular Your liquids should be the consistency of: Regular/Thin Discharge Activity: Return to Normal Activity Weight Bearing Status: No weight bearing - No weightbearing right foot especially to toes, ok to put weight only on heel for transitions and for balance. Keep extremity elevated above heart level: Right Leg Call your doctor if you observe: Fever of 101 or Higher, - - increased erthema of RLE Cleanse incision/area with: - - Wound care right 1st toe. Cleanse with normal saline solution. Apply faizan with overlying gauze and silvino dressing. Change daily. Allergies/Adverse Reactions: Allergies No Known Allergies Allergy (Verified 06/20/19 10:56) Medications to take at Discharge Aspirin E.C. [Ecotrin] 81 mg PO DAILY@0800 06/20/19 Losartan/Hydrochlorothiazide [Losartan-Hctz 100-25 mg Tab] 1 tab PO DAILY 06/20/19 Cephalexin [Keflex] 500 mg PO TID #5 cap 06/22/19 Insulin Glargine [Lantus SoloStar Pen] 30 units SC DAILY pen 06/22/19 The following prescriptions were given: Cephalexin [Keflex] 500 mg PO TID #5 cap Transmission Status: Pending to [facility]/pharmacy #[id number] Primary Care Physician: Ryan Hendrickson PA [Primary Care Provider] - Test Results: Test results from this visit will be discussed in further detail at your follow-up appointment, if applicable. Please Follow Up With: Sudarshan Johnson DPM - [facility], [address], [address], [place] [address] When: within 1 week, sooner if needed Please Follow Up With: Dominga Barnhart DO - nephrology follow up. When: 1-2 months Proposed Discharge Date: 06/22/19
[2019-06-22 11:35] VITALS: BP 154/102; PULSE 89; RESP 18; TEMP 36.4; O2SAT 99
[2019-06-22] MEDS: Losartan Potassium 100 MG Tablet PO (11:44)
[2019-06-22 11:51] LABS: Bedside Glucose 294 mg/dL (70-110)
== END 2019-06-22 12:00 | disposition home or self-care (01) ==
LOC: ED 11:57 → MS3 06-21 09:51
PROVIDERS: Emergency Provider Emergency Medicine; Family Provider Physician Assistant; PCP Physician Assistant
DX: E11.621 Type 2 diabetes mellitus with foot ulcer (principal); L03.115 Cellulitis of right lower limb; E11.40 Type 2 diabetes mellitus with diabetic neuropathy, unspecified; N17.9 Acute kidney failure, unspecified; E11.22 Type 2 diabetes mellitus with diabetic chronic kidney disease; I12.9 Hypertensive chronic kidney disease with stage 1 through stage 4 chronic kidney disease, or unspecified chronic kidney disease; N18.3 Chronic kidney disease, stage 3 (moderate); L97.518 Non-pressure chronic ulcer of other part of right foot with other specified severity; Z79.4 Long term (current) use of insulin; Z79.82 Long term (current) use of aspirin; Z79.899 Other long term (current) drug therapy; D69.6 Thrombocytopenia, unspecified; L84 Corns and callosities
CPT/HCPCS: 11042; 36415; 73630; 73720; 80053; 81001; 82962; 83036; 83605; 85025; 85610; 85652; 85730; 86140; 87070; 87077; 87186; 87205; 87640; 93971; 96361; 96365; 96366; 97802; 99218; 99285; A9585; J7030; J7040; A4216; G0378

== ENCOUNTER 2021-09-18 13:27 | Emergency (ER) | payer OTHER, SELFPAY ==
[2021-09-18 13:28] VITALS: BP 168/91; PULSE 95; RESP 17; TEMP 36.5; O2SAT 100; BMI 42.7
--- NOTE | 2021-09-18 14:19 | EDS_ITS ---
HPI HPI - GI History of Present Illness Chief Complaint: Abd Pain Narrative Narrative: Patient presents with right flank to right lower quadrant abdominal pain that has had for the last 2 days. He has not had any vomiting or diarrhea. Of note, he had peritoneal dialysis catheter placed approximately 2 weeks ago. Last week it was checked. He had this done at the [facility]. He is having right lower quadrant to right flank pain. He denies any fever, but states he feels cold. No rigors. He does still make urine but denies any dysuria. He states that he has diabetes type 2 and that they are starting his dialysis early. He was sent in by his electro tech, Dr. Jay for evaluation of his peritoneal fluid and for hepatitis panel. Patient denies any exacerbating or alleviating factors to his abdominal pain. [facility] Medical History CKD (chronic kidney disease) CKD (chronic kidney disease) stage 3, GFR 30-59 ml/min DM2 (diabetes mellitus, type 2) HTN (hypertension) Neuropathy Home Medications aspirin 81 mg PO DAILY@0800 06/20/19 [History Last Taken 06/17/19] losartan-hydrochlorothiazide 1 tab PO DAILY 06/20/19 [History Last Taken 06/19/19] cephalexin 500 mg PO TID #5 cap 06/22/19 [Rx Last Taken Unknown] insulin glargine 30 units SUBCUT DAILY pen 06/22/19 [Rx Last Taken Unknown] Allergy/AdvReac Type Severity Reaction Status Date / Time No Known Allergies Allergy Verified 09/18/21 13:28 Social History Smoking Status: Never smoker ROS ROS ED ROS Narrative Constitutional: No fever, no shaking chills. HEENT: No sore throat. No neck pain. No loss of vision. No rhinorrhea. Cardiovascular: No chest pain. No palpitations. No pedal edema. Respiratory: No cough, no shortness of breath. Abdominal: Right flank to right lower quadrant abdominal pain. No nausea. No vomiting. Genitourinary: No dysuria. No hematuria. Musculoskeletal: No myalgias. No arthralgias. Neurologic: No headaches. No dizziness. No lightheadedness. Skin: No rash. No change in color. Psychiatric: No depression. No anxiety. EXAM Physical Exam Narrative Exam Narrative: Afebrile. Vital signs noted. HEENT: Normocephalic. Atraumatic. PERRL, EOMI. Neck soft and supple. No point tenderness or step off. Cardiovascular: Regular rate and rhythm. No murmurs, rubs, or gallops appreciated. Respiratory: No tachypnea. Lungs clear to auscultation bilaterally. Gastrointestinal: Abdomen soft, mild tenderness to palpation right flank, with normoactive bowel sounds. No rebound or guarding. Positive peritoneal dialysis catheter on left side of abdomen. Laparoscopic port incisions appear clean, dry, and intact without surrounding erythema or purulent drainage. Neurological: Awake. Alert. Nonfocal, nonlateralizing. Skin: No rash. Normal color. No pallor. Musculoskeletal: No pedal edema. Full range of motion extremities. Const Vital Signs: 09/18/21 13:28 09/18/21 16:36 Temperature 97.7 F L Temperature Source Temporal Pulse Rate 95 87 Respiratory Rate 17 18 Blood Pressure 168/91 H 186/94 H Blood Pressure Mean 116 124 Pulse Ox 100 97 Oxygen Delivery Method Room Air Room Air MDM MDM MDM Narrative Medical decision making narrative: Comprehensive work-up was pursued. Dialysis nurse will be called to obtain cell count and cultures of his peritoneal fluid. I have also ordered a hepatitis panel as requested by nephrology. However, I feel he needs additional work-up for his right flank to the lower quadrant abdominal pain. I will obtain basic laboratories including CBC and CMP along with urinalysis, and a CT of the abdomen and pelvis without contrast. WBC count is normal at 10.9, hemoglobin 9.8, normal platelet count of 151. Electrolyte panel shows potassium slightly elevated 5.4, creatinine elevated at 6.0 consistent with his need for peritoneal dialysis. Glucose appropriately elevated at 153 with a normal anion gap of 8. Urinalysis shows negative nitrites and WBCs 0-5. I do not feel that antibiotics are indicated. Clinically, I do not feel that he has peritonitis. He is not febrile, he does not have a white count, and his pain is more in the right lower quadrant. I did obtain a CT of the abdomen and pelvis which showed no acute process. I was able to discuss the patient with Dr. Jay who sent him in. In discussion with the dialysis nurse, he has not started peritoneal dialysis, so there is no fluid to obtain. The plan will be for the patient to be discharged home. Dr. Jay will check with him on Tuesday to see if he has persistent abdominal pain, and he would be required to visit the dialysis center to obtain the washings for cell count and peritoneal fluid culture. I feel he can be discharged safely home with follow-up. Return instructions to the emergency department were reviewed. Patient and mother agreeable to the plan. Disposition is discharged home in stable condition. Lab Data Attestation: I reviewed the patient's lab results. Labs: Laboratory Results - last 24 hr 09/18/21 09/18/21 09/18/21 14:30 14:30 15:08 WBC 10.9 RBC 3.67 L Hgb 9.8 L Hct 28.4 L MCV 77.4 L MCH 26.7 L MCHC 34.5 RDW Std Deviation 36.0 RDW Coeff of Juli 12.8 Plt Count 151 MPV 10.6 Immature Gran % (Auto) 0.500 Neut % (Auto) 88.2 H Lymph % (Auto) 4.6 L [place] % (Auto) 6.0 Eos % (Auto) 0.4 Baso % (Auto) 0.3 Absolute Neuts (auto) 9.7 H Absolute Lymphs (auto) 0.50 L Nucleated RBC % 0 Sodium 136 Potassium 5.4 H Chloride 105 Carbon Dioxide 23.0 Anion Gap 8 BUN 77 H Creatinine 6.00 H Estim Creat Clear Calc 20.42 Est GFR (MDRD) Af Amer 13 L Est GFR (MDRD) Non-Af 11 L BUN/Creatinine Ratio 12.8 Glucose 153 H Calcium 9.1 Total Bilirubin 0.50 AST 11 L ALT 17 Alkaline Phosphatase 129 H Total Protein 7.6 Albumin 3.1 L Globulin 4.5 H Albumin/Globulin Ratio 0.7 L Urine Color Yellow Urine Clarity Sl. Cloudy Urine pH 6.5 Ur Specific [place] 1.010 Urine Protein 500 H Urine Glucose (UA) 100 H Urine Ketones Negative Urine Occult Blood 150 H Urine Nitrite Negative Urine Bilirubin Negative Urine Urobilinogen Normal Ur Leukocyte Esterase Negative Urine RBC 5-10 SEEN Urine WBC 0-5 SEEN Ur Squamous Epith Cells 0-5 SEEN Urine Bacteria 0 SEEN Urine Mucus 0 SEEN Radiography Diagnostic Testing: Clinical Impression(s) from Imaging Studies Abdomen/Pelvis CT 09/18/21 14:53 IMPRESSION: Multiple small gallstones are seen along the dependent portion of the gallbladder lumen. A peritoneal dialysis catheter is seen with the tip in the pelvis. Electronically Signed: Ludwin Conte MD at 15:16 EST , Service support , Discharge Plan Triage Chief Complaint: Abd Pain ED Provider: Yohan Tran Dx/Rx/DC Orders Prescriptions: No Action aspirin 81 MG tablet 81 mg PO DAILY@0800 RF: 0 losartan-hydrochlorothiazide 100MG-2 tablet 1 tab PO DAILY RF: 0 insulin glargine 100 UNITS/ML insulin pen 30 units subcut DAILY RF: 0 cephalexin 500 MG capsule 500 mg PO TID Qty: 5 RF: 0 Primary Care Provider: Ryan Hendrickson
[2021-09-18 14:42] LABS: Absolute Neutrophil Count 9.7 X10^3/uL (2.0-7.7); Basophil# 0.03 X10^3/uL; Basophil% 0.3 % (0-1); Eosinophil# 0.04 X10^3/uL; Eosinophils% 0.4 % (0-5); Hematocrit 28.4 % (40-54); Hemoglobin 9.8 g/dL (13.0-16.5); Lymphocyte % 4.6 % (19-41); Mean Corp Hgb Conc 34.5 g/dL (32-36); Mean Corpuscular Hgb 26.7 pg (27.0-32.0); Mean Corpuscular Volume 77.4 fL (80-94); Mean Platelet Vol. 10.6 fl (6.2-12.0); Monocyte# 0.65 X10^3/uL; NRBC Flagged by Analyzer 0 % (0-5); Neutrophil # 9.65 X10^3/uL (2.7-7.7); Neutrophil % 88.2 % (47-70); POSITIVE DIFFERENTIAL YES; Platelet Count 151 K/mm3 (150-450); RBC Distribution Width CV 12.8 % (11.6-14.6); Red Blood Count 3.67 M/mm3 (4.6-6.2); White Blood Count 10.9 K/mm3 (4.4-11.0)
[2021-09-18 14:43] LABS: Differential Indicated SCAN CRITERIA MET
--- NOTE | 2021-09-18 14:53 | CT_ITS ---
STUDY: CT ABDOMEN AND PELVIS WITHOUT CONTRAST REASON FOR EXAM: Male, 40 years old. Abdominal pain. RADIATION DOSAGE (If Supplied By Facility): CTDIvol = ( 24.18 ) mGy, DLP = ( 1534.48 ) mGycm TECHNIQUE: Transaxial images were obtained from the dome of the diaphragm to the symphysis pubis without oral contrast, and without intravenous contrast. Sagittal and coronal images were reconstructed. Individualized dose optimization techniques were used for this CT. COMPARISON: None. FINDINGS: The visualized lung bases are unremarkable. Mild degree of coronary artery calcifications. Normal liver. There are multiple small gallstones in the dependent portion of the gallbladder lumen.. Normal spleen. Normal pancreas. Normal bilateral adrenal glands. 2 mm nonobstructive calculus is seen in the upper pole calyx of the right kidney. Normal left kidney. Normal visualized stomach. Normal small intestine. There are multiple colonic diverticula consistent with diverticulosis. The appendix is visualized and appears normal. There is scattered atherosclerotic calcification of the abdominal aorta, without a demonstrated aneurysm. Normal inferior vena cava. Normal retroperitoneum. Normal urinary bladder. Calcification of the vas deferens bilaterally. A peritoneal dialysis catheter is seen with the tip in the pelvis. Normal abdominal wall. Increased kyphosis and increased lumbar lordosis. CT/Abdomen/Pelvis without Cont IMPRESSION: Multiple small gallstones are seen along the dependent portion of the gallbladder lumen. A peritoneal dialysis catheter is seen with the tip in the pelvis. Electronically Signed: Ludwin Conte MD at 15:16 EST , Service support ,
[2021-09-18 14:54] LABS: ALB/GLOB Ratio 0.7 RATIO (0.9-2.4); AST(SGOT) 11 U/L (15-37); Alanine Aminotransfer ALT/SGPT 17 U/L (16-61); Albumin, Serum 3.1 g/dL (3.2-5.0); Alkaline Phosphatase 129 U/L (45-117); Anion Gap 8 (5-15); BUN 77 mg/dL (7-18); BUN/Creat Ratio 12.8 RATIO (10-20); Calcium,Total 9.1 mg/dL (8.5-10.1); Chloride 105 mmol/L (98-107); EST Glomerular Filtration Rate 11 mL/min (>60); Est Glom Filt Rate - Afr Amer 13 mL/min (>60); Estimated Creatinine Clearance 20.42 ml/min; Globulin 4.5 g/dL (2.2-4.2); Glucose 153 mg/dL (74-106); Potassium 5.4 mmol/L (3.5-5.1); Protein, Total 7.6 g/dL (6.4-8.2); Sodium Level 136 mmol/L (136-145)
[2021-09-18 15:20] LABS: Bacteria 0 SEEN /hpf (None Seen); Mucous, Urine 0 SEEN /hpf (<or=2+)
[2021-09-18 15:23] LABS: Color, Urine Yellow (Yellow); Glucose, Dipstick 100 mg/dl (Normal); Ketone-Dipstick Negative (Negative); Leukocyte Esterase-Dipstick Negative /ul (Negative); Nitrite-Dipstick Negative (Negative); Occult Blood-Urine 150 /ul (Negative); Protein-Dipstick 500 mg/dl (Negative); Urine Bilirubin Dipstick Negative (Negative); Urine Clarity Sl. Cloudy (Clear); Urine Urobilinogen Normal (Normal); Urine pH 6.5 (5.0 - 8.0)
[2021-09-18 15:34] LABS: Red Blood Cells-Urine 5-10 SEEN /hpf (0-5); Squamous Epithelial Cells - UA 0-5 SEEN /hpf (0-5); White Blood Cells 0-5 SEEN /hpf (0-5)
[2021-09-18 16:36] VITALS: BP 186/94; PULSE 87; RESP 18; O2SAT 97
[2021-09-20 10:07] LABS: HEPATITIS B SURFACE AG Negative (Negative); Hepatitis A IgM Antibody Negative (Negative); Hepatitis B Core AB IgM Negative (Negative)
[2021-09-20 11:37] LABS: Hep C Antibodies 0.1 s/co ratio (0.0-0.9)
== END 2021-09-18 17:25 | disposition home or self-care (01) ==
PROVIDERS: Emergency Provider Emergency Medicine; PCP Physician Assistant
DX: R10.31 Right lower quadrant pain (principal); E11.22 Type 2 diabetes mellitus with diabetic chronic kidney disease; N18.30 Chronic kidney disease, stage 3 unspecified; Z99.2 Dependence on renal dialysis
CPT/HCPCS: 74176; 80053; 80074; 81001; 85025; 99283

== ENCOUNTER 2022-02-04 09:15 | Outpatient (RCR) | payer OTHER, SELFPAY ==
[2022-01-21 08:54] VITALS: BP 143/82; PULSE 95; RESP 20; TEMP 36.8
--- NOTE | 2022-01-21 13:19 | PCM.WC.HP ---
History of Present Illness Date of Service: 01/21/22 Chief Complaint: Post surgical wound History of Wound: Mr Eden is a 41yo who was referred to the wound center by his PCP for post surgical wound closure/care. Had presented to [facility] about 2 weeks ago due to an abdominal abscess. Had incision and drainage done. Surgery was uneventful. Transferred to a [facility] however he left AMA after 2 days because he states that he did not receive good care. Plan was for a wound VAC which he received at his house without any instructions. He states that he has been dressing it with gauze daily to twice daily. He reports some drainage, not foul-smelling. He denies chills, fever or feeling of unwell. Last A1c per patient was about 3 months ago and it was 7.8. Currently on insulin both long-acting and mealtime. He does not know if he had an A1c drawn during his most recent hospital stay. [facility] Medical History (Updated 01/21/22 @ 13:[address] Clyde Cevallos MD) CKD (chronic kidney disease) CKD (chronic kidney disease) stage 3, GFR 30-59 ml/min DM2 (diabetes mellitus, type 2) End stage renal disease on dialysis History of abdominal abscess HTN (hypertension) Insulin dependent diabetes mellitus Neuropathy Nonhealing surgical wound Home Medications aspirin 81 mg PO DAILY@0800 06/20/19 [History Last Taken 06/17/19] losartan-hydrochlorothiazide 1 tab PO DAILY 06/20/19 [History Last Taken 06/19/19] cephalexin 500 mg PO TID #5 cap 06/22/19 [Rx Last Taken Unknown] insulin glargine 30 units SUBCUT DAILY pen 06/22/19 [Rx Last Taken Unknown] amlodipine 5 mg PO DAILY 01/21/22 [History Last Taken Unknown] carvedilol 12.5 mg PO BID 01/21/22 [History Last Taken Unknown] hydralazine TID 01/21/22 [History Last Taken Unknown] insulin glargine [Lantus U-100 Insulin] 10 unit SUBCUT DAILY 01/21/22 [History Last Taken Unknown] Allergy/AdvReac Type Severity Reaction Status Date / Time No Known Allergies Allergy Verified 01/21/22 09:15 Social History (System 10/13/21 @ 08:26 by Autumn Vila) Smoking Status: Never smoker ROS Constitutional Constitutional: Denies fatigue, fever(s), frequent falls, headache(s) or increased appetite Eyes Eyes: Denies change in vision, decreased night vision, diplopia, discharge from eye(s), discongugate gaze or exophthalmos ENT HEENT: Denies dysphagia, ear discharge, ear pain, epistaxis, facial pain or foreign body in nose Cardiovascular Cardiovascular: Denies chest pain at rest, clubbing, cold extremities, dyspnea at rest, easily tiring during activity or erythema on extremities Respiratory/Chest Respiratory/Chest: Denies dusky skin, dyspnea, dyspnea on exertion, excessive phlegm production, hemoptysis or nail bed cyanosis Gastrointestinal Gastrointestinal: Denies abdominal pain, anorexia, chewing difficulty, coffee ground emesis, constipation, cramping, diarrhea or dysphagia Genitourinary Genitourinary: Denies anuria, burning urination, genital lesions, genital pain or low back pain Musculoskeletal Musculoskeletal: Denies joint stiffness, joint swelling, loss of height, muscle cramps or muscle spasms Integumentary Integumentary: Denies erythema, furuncle, hirsutism, jaundice, lesions or nail changes Neurologic Neurologic: Denies abnormal gait, burning sensations, confusion, convulsions, disequilibrium, dizziness or focal weakness Psychiatric Psychiatric: Denies cognitive impairment, confusion, depression, mood swings, panic attacks, suicidal ideation or suicidal thoughts Endocrine Endocrinology: Denies excessive sweating, fatigue, flushing, heat intolerance, increase in ring/shoe/hat size, palpitations or polydipsia Allergic/Immunologic Allergic/Immunologic: Denies tongue swelling, hives, urticaria, eczemia or wheezing Vital Signs Vital Signs Vital Signs: 01/21/22 08:54 Temperature 98.2 F Temperature Source Temporal Pulse Rate 95 Respiratory Rate 20 H Blood Pressure 143/82 H Blood Pressure Mean 102 Blood Pressure Source Monitor Physical Exam Const alert, oriented x3 and no apparent distress General Appearance: cooperative, comfortable and well kempt HEENT normocephalic and head/scalp atraumatic Head and Scalp: normal to inspection and normocephalic Eyes EOMs intact bilaterally General Eye: normal appearance of both eyes Neck full ROM General: normal visual inspection Resp normal respiratory effort and normal air movement Effort and Inspection: able to speak in complete sentences Cardio regular rate, regular rhythm, S1 normal heart sound and S2 normal heart sound Extremity normal to inspection and full ROM Skin Wounds: wounds noted Neuro oriented x3, CN's II-XII intact bilaterally, moves all extremities and no focal motor deficits Psych mental status grossly normal Appearance: grossly normal Attitude: calm Speech: normal speech Thought Process: normal thought process Debridement Note Debridement Note Wound debrided: Left lower abdomen Type of Debridement: Excisional debridement Anesthesia Used: 4% Lidocaine Solution Depth: Down to and including healthy tissue and in the subcutaneous layer Percentage of wound debrided: 100 Instrument Used: 7mm curette Tissue Removed: Devitalized tissue Severity: Fat Layer Exposed Amount of bleeding with debridement: Mild Bleeding Controlled with: Pressure Patient tolerated procedure: Patient tolerated procedure well Post-Debridement Measurements and Additional Note: Post-Debridement Measurements/Treatment - Nurse 1 - General Ulcer Assessment Start: 01/21/22 07:57 Freq: Status: Active Protocol: MIKE Activity Type Activity Date Activity User E-Sign Co-Sign Detail Recorded Client Recorded Date Recorded By Document 01/21/22 08:54 DL [id number] 01/21/22 09:11 DL 01/21/22 08:54 - Today's Visit Information Type of service Initial Visit Arrival Mode Ambulatory Transfer Assistance None Patient Identification Verified (Name & Yes ) Patient Requires Transmission-Based No Precautions Vital Signs Temperature (97.8 F-99.1 F) 98.2 F Temperature Source Temporal Pulse Rate (60-100) 95 Pulse Location Monitor Respiratory Rate (12-18) 20 H Respiratory rate source Observation Blood Pressure (90/60-120/80) 143/82 H Blood Pressure Mean 102 Source Monitor Pain Scale: 0-10 Numeric Is Patient Pain Free? Yes #1 L Abd -Description Dull -Alleviating Factors/Interventions Inactivity/ Resting -Effectiveness of Alleviating Factor/ Completely Intervention effective Communication Assessment Preferred language Lithuanian Able to Read Yes Able to Write No Communication Tools None Right Hearing Abillity Normal Left Hearing Abillity Normal Visual Assistive Devices None Teaching Assessment Preferences Verbal,Written, Demonstration Barriers to Learning None Readiness To Learn Good Willingness to Engage in Self Management Med Activies Readiness to Engage in Self Management Med Activities Anxiety Level Calm Cooperation Cooperative Perception Coherent Interest in Health Problem Asks Questions Education Importance Acknowledges Need Does Patient Smoke tobacco or other No substances Smoking Status Never smoker Is Patient Diabetic Yes Functional Assessment Recent Decline in Ability to Perform Denies Any Declines Culture/Yazidism/Communications Specialist Cultural/Yazidism Needs that may affect No Treatment Plan Would you allow our hospital spinning lathe operator to No meet you for the purpose of spiritual/ emotional support? Communications Specialist to contact place of adventist No WC - Nurse 1 - General Ulcer Measurement Start: 01/21/22 07:57 Freq: Status: Active Protocol: Activity Type Activity Date Activity User E-Sign Co-Sign Detail Recorded Client Recorded Date Recorded By Document 01/21/22 08:54 DL [id number] 01/21/22 09:11 DL 01/21/22 08:54 Wound Center Nurse 1 #1 L Abd -Current Size (cm) - Length 1 -Current Size (cm) - Width 5 -Current Size (cm) - Depth 2.5 -Total Square Cm 5 -Photo Taken Yes -Tunneling Position (O'clock) 3 -Tunneling Distance (cm) 12.2 -Classification - Thickness Full Thickness without Exposed Support Structure -Exudate Amt Medium -Exudate Type Serosanguineous -Wound Margin Distinct, Outline Attached -Granulation Amt Large (67-100%) -Granulation Quality Red -Necrosis Amt None Present (0 %) -Structure Exposed N/A -Texture (Luci-wound Skin Appearance) Scarring -Moisture (Luci-wound Skin Appearance) No Abnormality -Color (Luci-wound Skin Appearance) Assessed -Temperature (Luci-wound Skin No Abnormality Appearance) (Pt Warm) -Tenderness on Palpation (Luci-wound No Skin Appearance) -Ulcer Cleansing Soap and Water -Foul Odor after Cleansing No -Anesthetic Used 4% Lidocaine Solution WC - Nurse 2 - General Ulcer CM Notes Start: 01/21/22 07:57 Freq: Status: Active Protocol: Activity Type Activity Date Activity User E-Sign Co-Sign Detail Recorded Client Recorded Date Recorded By Document 01/21/22 09:37 MW [id number] 01/21/22 09:49 MW 01/21/22 09:37 Wound Center Nurse 2 -Time 09:38 -Correct Patient Yes -Correct Side, Site, Position Yes -Correct Procedure Yes -Procedure Performed Yes -Type of Procedure Debridement -Clinical Debridement Subcutaneous -Tissue Removed Subcutaneous -Post Debridement (cm) - Length 0.2 -Post Debridement (cm) - Width 6.0 -Post Debridement (cm) - Depth 3.8 -Total Square (Post) (cm) 1.20 -Area of Debridement (cm) - Length 0.2 -Area of Debridement (cm) - Width 6.0 -Total Square (Area) (cm) 1.20 -Tunneling Yes -Tunneling Position (O'clock) 3 -Tunneling Distance (cm) 15 -Undermining/Tunneling No -Circular Undermining No -Wound/Ulcer Outcome Not Healed -Ulcer Cleansing Rinsed/ Irrigated with Saline -Foul Odor after Cleansing No -Bioengineered Tissue No -Bleeding Controlled with Pressure -Treatment Response Procedure Tolerated Well -Offloading No -Debridement - Subq, 1st 20sq cm Yes Pain Scale: 0-10 Numeric Is Patient Pain Free? Yes - Nurse 3 - General Ulcer D/C NN Start: 01/21/22 07:57 Freq: Status: Active Protocol: Activity Type Activity Date Activity User E-Sign Co-Sign Detail Recorded Client Recorded Date Recorded By Document 01/21/22 10:33 DL [id number] 01/21/22 10:34 DL 01/21/22 10:33 Wound Care Nurse 3 #1 L Abd -Ulcer Cleansing Rinsed/ Irrigated with Saline -Foul Odor after Cleansing No -Primary Dressing Applied Aquacel Extra -Primary Dressing Covered/Secured with Dry Gauze, Secured with Tape -Other Covering ABD -Aquacel Extra 1 Treatment Response Procedure Tolerated Well Pain Scale: 0-10 Numeric Is Patient Pain Free? Yes - Visit Discharge Discharge Condition Stable Ambulatory Status Ambulatory Transportation Private Auto Charges/Coding Visit Charges Office Visits / Consults: 10250 OV L3 New Procedures Integumentary [id number]: [id number] Jessie subq tissue 20 sq cm/< Assessment/Plan Assessment/Plan (1) Nonhealing surgical wound: CODE(S): T81.89XA - Other complications of procedures, not elsewhere classified, initial encounter (2) History of abdominal abscess: CODE(S): Z87.898 - Personal history of other specified conditions (3) Insulin dependent diabetes mellitus: (4) End stage renal disease on dialysis: CODE(S): N18.6 - End stage renal disease; Z99.2 - Dependence on renal dialysis PLAN: Debridement done as documented above, procedure was well-tolerated. Wound bed looks good. Tunneling 3 and 9:00. Agree with wound VAC, start at 125 mmHg. Will need home health, prescription for home health signed. For now, Aquacel extra daily to twice daily depending on drainage. Cover with gauze and ABD. Optimal diabetes control. States that he uses long-acting insulin and mealtime insulin. Will request records from recent labs done on his hospital stay. Increase protein intake also discussed, patient voiced understanding. His questions were answered and he was advised to call with any further questions or concerns. Follow-up in a week. This note was generated with [employer] dictation software. It may contain incorrect words, spelling, and punctuation that were not noted in checking the note before signing.
[2022-01-28 09:02] VITALS: BP 152/88; PULSE 97; RESP 20; TEMP 36.9
--- NOTE | 2022-01-28 09:53 | PN.PCM_ITS ---
History of Present Illness Date of Service: 01/28/22 Chief Complaint: Post surgical wound History of Wound: Mr Eden is a 41yo who was referred to the wound center by his PCP for post surgical wound closure/care. Had presented to [facility] about 2 weeks ago due to an abdominal abscess. Had incision and drainage done. Surgery was uneventful. Transferred to a long-term however he left AMA after 2 days because he states that he did not receive good care. Plan was for a wound VAC which he received at his house without any instructions. He states that he has been dressing it with gauze daily to twice daily. He reports some drainage, not foul-smelling. He denies chills, fever or feeling of unwell. Last A1c per patient was about 3 months ago and it was 7.8. Currently on insulin both long-acting and mealtime. He does not know if he had an A1c drawn during his most recent hospital stay. Progress of Wound: Yet to start his wound VAC, just received it in the mail. Has been applying Aquacel extra daily. Subjective Subjective No new concerns at this time. Objective Data Objective Data Vital Signs: Vital Signs Temp Pulse Resp BP 98.4 F 97 20 H 152/88 H 01/28/22 09:02 01/28/22 09:02 01/28/22 09:02 01/28/22 09:02 Charges/Coding Procedures Integumentary [id number]: [id number] Jessie subq tissue 20 sq cm/< Physical Exam Const alert, oriented x3 and no apparent distress General Appearance: cooperative, comfortable and well kempt HEENT normocephalic and head/scalp atraumatic Head and Scalp: normal to inspection and normocephalic Eyes EOMs intact bilaterally General Eye: normal appearance of both eyes Neck full ROM General: normal visual inspection Resp normal respiratory effort and normal air movement Effort and Inspection: able to speak in complete sentences Extremity normal to inspection and full ROM Skin Wounds: wounds noted Neuro oriented x3, CN's II-XII intact bilaterally, moves all extremities and no focal motor deficits Psych mental status grossly normal Appearance: grossly normal Attitude: calm Speech: normal speech Thought Process: normal thought process Debridement Note Debridement Note Wound debrided: Left Lower abdomen ( Groin) Type of Debridement: Excisional debridement Anesthesia Used: 4% Lidocaine Solution Depth: Down to and including healthy tissue and in the subcutaneous layer Percentage of wound debrided: 100 Instrument Used: 5mm curette Tissue Removed: Slough and devitalized tissue Severity: Fat Layer Exposed Amount of bleeding with debridement: Mild Bleeding Controlled with: Pressure Patient tolerated procedure: Patient tolerated procedure well Post-Debridement Measurements and Additional Note: Post-Debridement Measurements/Treatment WC - Nurse 1 - General Ulcer Assessment Start: 01/21/22 07:57 Freq: Status: Active Protocol: MIKE Activity Type Activity Date Activity User E-Sign Co-Sign Detail Recorded Client Recorded Date Recorded By Document 01/21/22 08:54 DL [id number] 01/21/22 09:11 DL Document 01/28/22 09:02 DL [id number] 01/28/22 09:12 DL 01/21/22 01/28/22 08:54 09:02 WC - Today's Visit Information Type of service Initial Visit Follow-up Visit (Physician/[facility] ) Arrival Mode Ambulatory Ambulatory Transfer Assistance None None Patient Identification Verified (Name & Yes Yes ) Patient Requires Transmission-Based No Precautions Finger Stick Blood Sugar(mg/dl) (if 183 indicated): Blood Sugar Stated by Patient Vital Signs Temperature (97.8 F-99.1 F) 98.2 F 98.4 F Temperature Source Temporal Temporal Pulse Rate (60-100) 95 97 Pulse Location Monitor Monitor Respiratory Rate (12-18) 20 H 20 H Respiratory rate source Observation Observation Blood Pressure (90/60-120/80) 143/82 H 152/88 H Blood Pressure Mean (mm Hg) 102 109 Source Monitor History Since Last Visit- (Skip if this is Patient's initial visit) Have you changed medications since your No last visit? Any new allergies or adverse reactions No Had a fall/change in ADL's that may No increase risk of falls Signs or symptoms of abuse and/or No neglect since last visit Have you been in the hospital since your No last visit? Has dressing in place as prescribed Yes Has compression in place as prescribed N/A Has offloadiing in place as prescribed N/A Experienced any changes in pain level or No management Pain Scale: 0-10 Numeric Is Patient Pain Free? Yes Yes #1 L Abd -Description Dull -Alleviating Factors/Interventions Inactivity/ Resting -Effectiveness of Alleviating Factor/ Completely Intervention effective Communication Assessment Preferred language [place] Able to Read Yes Able to Write No Communication Tools None Right Hearing Abillity Normal Left Hearing Abillity Normal Visual Assistive Devices None Teaching Assessment Preferences Verbal,Written, Demonstration Barriers to Learning None Readiness To Learn Good Willingness to Engage in Self Management Med Activies Readiness to Engage in Self Management Med Activities Anxiety Level Calm Cooperation Cooperative Perception Coherent Interest in Health Problem Asks Questions Education Importance Acknowledges Need Does Patient Smoke tobacco or other No substances Smoking Status Never smoker Is Patient Diabetic Yes Functional Assessment Recent Decline in Ability to Perform Denies Any Declines Culture/Restorationism/Television Director Cultural/Restorationism Needs that may affect No Treatment Plan Would you allow our [facility] braille operator to No meet you for the purpose of spiritual/ emotional support? Television Director to contact place of mosque No WC - Nurse 1 - General Ulcer Measurement Start: 01/21/22 07:57 Freq: Status: Active Protocol: Activity Type Activity Date Activity User E-Sign Co-Sign Detail Recorded Client Recorded Date Recorded By Document 01/21/22 08:54 DL [id number] 01/21/22 09:11 DL Document 01/28/22 09:02 DL [id number] 01/28/22 09:12 DL 01/21/22 01/28/22 08:54 09:02 Wound Center Nurse 1 #2 L ABD -Current Size (cm) - Length 1 0.8 -Current Size (cm) - Width 5 5.2 -Current Size (cm) - Depth 2.5 2.8 -Total Square Cm 5 4.16 -Photo Taken Yes No -Tunneling Yes -Tunneling Position (O'clock) 3 3 -Tunneling Distance (cm) 12.2 13.5 -Classification - Thickness Full Thickness without Exposed Support Structure -Exudate Amt Medium Medium -Exudate Type Serosanguineous Serosanguineous -Wound Margin Distinct, Distinct, Outline Outline Attached Attached -Granulation Amt Large (67-100%) Large (67-100%) -Granulation Quality Red Red -Necrosis Amt None Present (0 None Present (0 %) %) -Structure Exposed N/A N/A -Texture (Lcui-wound Skin Appearance) Scarring Scarring -Moisture (Luci-wound Skin Appearance) No Abnormality No Abnormality -Color (Luci-wound Skin Appearance) Assessed No Abnormality -Temperature (Luci-wound Skin No Abnormality No Abnormality Appearance) (Pt Warm) (Pt Warm) -Tenderness on Palpation (Luci-wound No No Skin Appearance) -Ulcer Cleansing Soap and Water Not Cleansed -Foul Odor after Cleansing No No -Anesthetic Used 4% Lidocaine 4% Lidocaine Solution Solution WC - Nurse 2 - General Ulcer CM Notes Start: 01/21/22 07:57 Freq: Status: Active Protocol: Activity Type Activity Date Activity User E-Sign Co-Sign Detail Recorded Client Recorded Date Recorded By Document 01/21/22 09:37 MW [id number] 01/21/22 09:49 MW Document 01/28/22 09:26 MW [id number] 01/28/22 09:36 MW 01/21/22 01/28/22 09:37 09:26 Wound Center Nurse 2 #2 L ABD -Time 09:38 09:27 -Correct Patient Yes Yes -Correct Side, Site, Position Yes Yes -Correct Procedure Yes Yes -Procedure Performed Yes Yes -Type of Procedure Debridement Debridement -Clinical Debridement Subcutaneous Subcutaneous -Tissue Removed Subcutaneous Subcutaneous -Post Debridement (cm) - Length 0.2 0.2 -Post Debridement (cm) - Width 6.0 5.5 -Post Debridement (cm) - Depth 3.8 3.4 -Total Square (Post) (cm) 1.20 1.10 -Area of Debridement (cm) - Length 0.2 0.2 -Area of Debridement (cm) - Width 6.0 5.5 -Total Square (Area) (cm) 1.20 1.10 -Tunneling Yes Yes -Tunneling Position (O'clock) 3 3 -Tunneling Distance (cm) 15 11.8 -Undermining/Tunneling No -Circular Undermining No No -Wound/Ulcer Outcome Not Healed Not Healed -Ulcer Cleansing Rinsed/ Rinsed/ Irrigated with Irrigated with Saline Saline -Foul Odor after Cleansing No No -Bioengineered Tissue No No -Bleeding Controlled with Pressure Pressure -Treatment Response Procedure Procedure Tolerated Well Tolerated Well -Offloading No No -Debridement - Subq, 1st 20sq cm Yes Yes Pain Scale: 0-10 Numeric Is Patient Pain Free? Yes Yes DION - Nurse 3 - General Ulcer D/C NN Start: 01/21/22 07:57 Freq: Status: Active Protocol: Activity Type Activity Date Activity User E-Sign Co-Sign Detail Recorded Client Recorded Date Recorded By Document 01/21/22 10:33 DL [id number] 01/21/22 10:34 DL Document 01/28/22 09:36 MW [id number] 01/28/22 09:43 MW 01/21/22 01/28/22 10:33 09:36 Wound Care Nurse 3 #2 L ABD -Ulcer Cleansing Rinsed/ Rinsed/ Irrigated with Irrigated with Saline Saline -Foul Odor after Cleansing No No -Negative Pressure Wound Therapy N/A -Primary Dressing Applied Aquacel Extra Aquacel Extra, Mepilex Border -Primary Dressing Covered/Secured with Dry Gauze, Dry Gauze Secured with Tape -Other Covering ABD -Aquacel Extra 1 1 -Mepilex Border 1 Treatment Response Procedure Procedure Tolerated Well Tolerated Well Pain Scale: 0-10 Numeric Is Patient Pain Free? Yes Yes Teaching: Wound Center Dressing Your Wound -Person Taught Patient -Teaching Method Discussion, Demonstration -Response to teaching Verbalize understanding WC - Visit Discharge Discharge Condition Stable Stable Ambulatory Status Ambulatory Ambulatory Transportation Private Auto Private Auto Accompanied by self Medication Reconcilliation completed & No provided to patient/care provider Assessment/Plan Assessment/Plan (1) Nonhealing surgical wound: CODE(S): T81.89XA - Other complications of procedures, not elsewhere classified, initial encounter (2) History of abdominal abscess: CODE(S): Z87.898 - Personal history of other specified conditions (3) Insulin dependent diabetes mellitus: (4) End stage renal disease on dialysis: CODE(S): N18.6 - End stage renal disease; Z99.2 - Dependence on renal dialysis PLAN: Debridement done as documented above, procedure was well-tolerated. Tunneling and depth with some improvement. Yet to start his wound VAC. Has received the wound vac however did not have the white foam for tunneling and so we cannot start this today. Will come in on Tuesday for nurse visit and to initiate wound VAC. For now, continue Aquacel extra daily to twice daily depend ing on drainage. Cover with gauze and ABD. When available, start Wound Vac at 125 mmHg. Unable to get home health and so he will have his changes here on Tuesday and . Optimal diabetes control. States that he uses long-acting insulin and mealtime insulin. Increase protein intake also discussed, patient voiced understanding. His questions were answered and he was advised to call with any further questions or concerns. Follow-up in a week. This note was generated with [employer] dictation software. It may contain incorrect words, spelling, and punctuation that were not noted in checking the note before signing.
[2022-02-01 13:11] VITALS: BP 189/94; PULSE 93; TEMP 36.1
[2022-02-04 09:04] VITALS: BP 145/82; PULSE 92; RESP 18; TEMP 36.6
--- NOTE | 2022-02-04 09:42 | PN.PCM_ITS ---
History of Present Illness Date of Service: 02/04/22 Chief Complaint: Post surgical wound History of Wound: Mr Eden is a 41yo who was referred to the wound center by his PCP for post surgical wound closure/care. Had presented to [facility] about 2 weeks ago due to an abdominal abscess. Had incision and drainage done. Surgery was uneventful. Transferred to a senior care however he left AMA after 2 days because he states that he did not receive good care. Plan was for a wound VAC which he received at his house without any instructions. He states that he has been dressing it with gauze daily to twice daily. He reports some drainage, not foul-smelling. He denies chills, fever or feeling of unwell. Last A1c per patient was about 3 months ago and it was 7.8. Currently on insulin both long-acting and mealtime. He does not know if he had an A1c drawn during his most recent hospital stay. Progress of Wound: Started wound VAC on Tuesday. Started at 125 mmHg. Tolerating it well so far. Wound is improving. Subjective Subjective No new concerns at this time Objective Data Objective Data Vital Signs: Vital Signs Temp Pulse Resp BP 98 F 92 18 145/82 H 02/04/22 09:04 02/04/22 09:04 02/04/22 09:04 02/04/22 09:04 Oxygen Delivery Method Room Air Charges/Coding Procedures Integumentary 111xxx-113xx: 28087 Jessie subq tissue 20 sq cm/< Physical Exam Const alert, oriented x3 and no apparent distress General Appearance: cooperative, comfortable and well kempt HEENT normocephalic and head/scalp atraumatic Head and Scalp: normal to inspection and normocephalic Eyes EOMs intact bilaterally General Eye: normal appearance of both eyes Neck full ROM General: normal visual inspection Resp normal respiratory effort and normal air movement Effort and Inspection: able to speak in complete sentences Extremity normal to inspection and full ROM Skin Wounds: wounds noted Neuro oriented x3, CN's II-XII intact bilaterally, moves all extremities and no focal motor deficits Psych mental status grossly normal Appearance: grossly normal Attitude: calm Speech: normal speech Thought Process: normal thought process Debridement Note Debridement Note Wound debrided: Left lower abdomen( Groin ) Type of Debridement: Excisional debridement Anesthesia Used: 4% Lidocaine Solution Depth: Down to and including healthy tissue and in the subcutaneous layer Percentage of wound debrided: 100 Instrument Used: 5mm curette Tissue Removed: Slough and devitalized tissue Severity: Fat Layer Exposed Amount of bleeding with debridement: Mild Bleeding Controlled with: Pressure Patient tolerated procedure: Patient tolerated procedure well Post-Debridement Measurements and Additional Note: Post-Debridement Measurements/Treatment WC - Nurse 1 - General Ulcer Assessment Start: 01/21/22 07:57 Freq: Status: Active Protocol: MIKE Activity Type Activity Date Activity User E-Sign Co-Sign Detail Recorded Client Recorded Date Recorded By Document 01/21/22 08:54 DL [id number] 01/21/22 09:11 DL Document 01/28/22 09:02 DL [id number] 01/28/22 09:12 DL Document 02/01/22 13:11 KR [id number] 02/01/22 13:13 KR Document 02/04/22 09:04 MT [id number] 02/04/22 09:16 MT 01/21/22 01/28/22 02/01/22 08:54 09:02 13:11 - Today's Visit Information Type of service Initial Visit Follow-up Visit Nurse-only (Physician/ESCROW PROCESSOR Visit ) Arrival Mode Ambulatory Ambulatory Ambulatory Transfer Assistance None None Accompanied by Patient Identification Verified (Name & Yes Yes Yes ) Patient Requires Transmission-Based No Precautions Finger Stick Blood Sugar(mg/dl) (if 183 142 indicated): Blood Sugar Stated by Stated by Patient Patient Vital Signs Temperature (97.8 F-99.1 F) 98.2 F 98.4 F 97.0 F L Temperature Source Temporal Temporal Temporal Pulse Rate (60-100) 95 97 93 Pulse Location Monitor Monitor Monitor Respiratory Rate (12-18) 20 H 20 H Respiratory rate source Observation Observation Oxygen Delivery Method Blood Pressure (90/60-120/80) 143/82 H 152/88 H 189/94 H Blood Pressure Mean (mm Hg) 102 109 125 Source Monitor Monitor Position Sitting Blood Pressure Location Left Arm History Since Last Visit- (Skip if this is Patient's initial visit) Have you changed medications since your No No last visit? Any new allergies or adverse reactions No No Had a fall/change in ADL's that may No No increase risk of falls Signs or symptoms of abuse and/or No No neglect since last visit Have you been in the hospital since your No No last visit? Has dressing in place as prescribed Yes Yes Has compression in place as prescribed N/A N/A Has offloadiing in place as prescribed N/A N/A Experienced any changes in pain level or No No management Left Footwear Regular Shoe Right Footwear Regular Shoe Pain Scale: 0-10 Numeric Is Patient Pain Free? Yes Yes Yes #1 L Abd -Description Dull -Alleviating Factors/Interventions Inactivity/ Resting -Effectiveness of Alleviating Factor/ Completely Intervention effective Communication Assessment Preferred language Kittitian Able to Read Yes Able to Write No Communication Tools None Right Hearing Abillity Normal Left Hearing Abillity Normal Visual Assistive Devices None Teaching Assessment Preferences Verbal,Written, Demonstration Barriers to Learning None Readiness To Learn Good Willingness to Engage in Self Management Med Activies Readiness to Engage in Self Management Med Activities Anxiety Level Calm Cooperation Cooperative Perception Coherent Interest in Health Problem Asks Questions Education Importance Acknowledges Need Does Patient Smoke tobacco or other No substances Smoking Status Never smoker Is Patient Diabetic Yes Functional Assessment Recent Decline in Ability to Perform Denies Any Declines Culture/Yazidism/Home Management Supervisor Cultural/Yazidism Needs that may affect No Treatment Plan Would you allow our hospital director of guidance to No meet you for the purpose of spiritual/ emotional support? Home Management Supervisor to contact place of nondenominational No 02/04/22 09:04 WC - Today's Visit Information Type of service Follow-up Visit (Physician/ESCROW PROCESSOR ) Arrival Mode Ambulatory Transfer Assistance Accompanied by self Patient Identification Verified (Name & Yes ) Patient Requires Transmission-Based Precautions Finger Stick Blood Sugar(mg/dl) (if 127 indicated): Blood Sugar Stated by Patient Vital Signs Temperature (97.8 F-99.1 F) 98 F Temperature Source Temporal Pulse Rate (60-100) 92 Pulse Location Monitor Respiratory Rate (12-18) 18 Respiratory rate source Observation Oxygen Delivery Method Room Air Blood Pressure (90/60-120/80) 145/82 H Blood Pressure Mean (mm Hg) 103 Source Monitor Position Sitting Blood Pressure Location Right Arm History Since Last Visit- (Skip if this is Patient's initial visit) Have you changed medications since your last visit? Any new allergies or adverse reactions Had a fall/change in ADL's that may increase risk of falls Signs or symptoms of abuse and/or neglect since last visit Have you been in the hospital since your last visit? Has dressing in place as prescribed Yes Has compression in place as prescribed N/A Has offloadiing in place as prescribed N/A Experienced any changes in pain level or No management Left Footwear Regular Shoe Right Footwear Regular Shoe Pain Scale: 0-10 Numeric Is Patient Pain Free? Yes #1 L Abd -Description -Alleviating Factors/Interventions -Effectiveness of Alleviating Factor/ Intervention Communication Assessment Preferred language Able to Read Able to Write Communication Tools Right Hearing Abillity Left Hearing Abillity Visual Assistive Devices Teaching Assessment Preferences Barriers to Learning Readiness To Learn Willingness to Engage in Self Management Activies Readiness to Engage in Self Management Activities Anxiety Level Cooperation Perception Interest in Health Problem Education Importance Does Patient Smoke tobacco or other substances Smoking Status Is Patient Diabetic Functional Assessment Recent Decline in Ability to Perform Culture/Yazidism/Home Management Supervisor Cultural/Yazidism Needs that may affect Treatment Plan Would you allow our [facility] director of guidance to meet you for the purpose of spiritual/ emotional support? Home Management Supervisor to contact place of nondenominational WC - Nurse 1 - General Ulcer Measurement Start: 01/21/22 07:57 Freq: Status: Active Protocol: Activity Type Activity Date Activity User E-Sign Co-Sign Detail Recorded Client Recorded Date Recorded By Document 01/21/22 08:54 DL [id number] 01/21/22 09:11 DL Document 01/28/22 09:02 DL [id number] 01/28/22 09:12 DL Document 02/04/22 09:04 VA [id number] 02/04/22 09:16 VA 01/21/22 01/28/22 02/04/22 08:54 09:02 09:04 Wound Center Nurse 1 #2 L ABD -Current Size (cm) - Length 1 0.8 4.2 -Current Size (cm) - Width 5 5.2 0.5 -Current Size (cm) - Depth 2.5 2.8 1.3 -Total Square Cm 5 4.16 2.10 -Photo Taken Yes No -Tunneling Yes Yes -Tunneling Position (O'clock) 3 3 3 -Tunneling Distance (cm) 12.2 13.5 11 -Classification - Thickness Full Thickness without Exposed Support Structure -Exudate Amt Medium Medium Small -Exudate Type Serosanguineous Serosanguineous Serosanguineous -Wound Margin Distinct, Distinct, Flat & Intact Outline Outline Attached Attached -Granulation Amt Large (67-100%) Large (67-100%) Large (67-100%) -Granulation Quality Red Red Red -Necrosis Amt None Present (0 None Present (0 None Present (0 %) %) %) -Structure Exposed N/A N/A -Texture (Luci-wound Skin Appearance) Scarring Scarring Assessed -Moisture (Luci-wound Skin Appearance) No Abnormality No Abnormality Assessed -Color (Luci-wound Skin Appearance) Assessed No Abnormality Assessed -Temperature (Luci-wound Skin No Abnormality No Abnormality No Abnormality Appearance) (Pt Warm) (Pt Warm) (Pt Warm) -Tenderness on Palpation (Luci-wound No No Yes Skin Appearance) -Ulcer Cleansing Soap and Water Not Cleansed Soap and Water -Foul Odor after Cleansing No No -Anesthetic Used 4% Lidocaine 4% Lidocaine 4% Lidocaine Solution Solution Solution Lower Limb Edema Present NA WC - Nurse 2 - General Ulcer CM Notes Start: 01/21/22 07:57 Freq: Status: Active Protocol: Activity Type Activity Date Activity User E-Sign Co-Sign Detail Recorded Client Recorded Date Recorded By Document 01/21/22 09:37 MW [id number] 01/21/22 09:49 MW Document 01/28/22 09:26 MW [id number] 01/28/22 09:36 MW Document 02/04/22 09:36 MW [id number] 02/04/22 09:40 MW 01/21/22 01/28/22 02/04/22 09:37 09:26 09:36 Wound Center Nurse 2 #2 L ABD -Time 09:38 09:27 09:36 -Correct Patient Yes Yes Yes -Correct Side, Site, Position Yes Yes Yes -Correct Procedure Yes Yes Yes -Procedure Performed Yes Yes Yes -Type of Procedure Debridement Debridement Debridement -Clinical Debridement Subcutaneous Subcutaneous Subcutaneous -Tissue Removed Subcutaneous Subcutaneous Subcutaneous -Post Debridement (cm) - Length 0.2 0.2 0.1 -Post Debridement (cm) - Width 6.0 5.5 4.0 -Post Debridement (cm) - Depth 3.8 3.4 2.8 -Total Square (Post) (cm) 1.20 1.10 0.40 -Area of Debridement (cm) - Length 0.2 0.2 0.1 -Area of Debridement (cm) - Width 6.0 5.5 4.0 -Total Square (Area) (cm) 1.20 1.10 0.40 -Tunneling Yes Yes Yes -Tunneling Position (O'clock) 3 3 3 -Tunneling Distance (cm) 15 11.8 15.0 -Undermining/Tunneling No No -Circular Undermining No No No -Wound/Ulcer Outcome Not Healed Not Healed Not Healed -Ulcer Cleansing Rinsed/ Rinsed/ Rinsed/ Irrigated with Irrigated with Irrigated with Saline Saline Saline -Foul Odor after Cleansing No No No -Bioengineered Tissue No No No -Bleeding Controlled with Pressure Pressure Pressure -Treatment Response Procedure Procedure Procedure Tolerated Well Tolerated Well Tolerated Well -Offloading No No No -Debridement - Subq, 1st 20sq cm Yes Yes Yes Pain Scale: 0-10 Numeric Is Patient Pain Free? Yes Yes Yes WC - Nurse 3 - General Ulcer D/C NN Start: 01/21/22 07:57 Freq: Status: Active Protocol: Activity Type Activity Date Activity User E-Sign Co-Sign Detail Recorded Client Recorded Date Recorded By Document 01/21/22 10:33 DL [id number] 01/21/22 10:34 DL Document 01/28/22 09:36 MW [id number] 01/28/22 09:43 MW Document 02/01/22 13:11 KR [id number] 02/01/22 13:13 KR 01/21/22 01/28/22 02/01/22 10:33 09:36 13:11 Wound Care Nurse 3 #2 L ABD -Ulcer Cleansing Rinsed/ Rinsed/ Soap and Water Irrigated with Irrigated with Saline Saline -Foul Odor after Cleansing No No -Negative Pressure Wound Therapy N/A Continue -Setting (mmHg) 125 -Negative Pressure is Continuous -Regranex (If Applicable) Continue -Primary Dressing Applied Aquacel Extra Aquacel Extra, Mepilex Border -Primary Dressing Covered/Secured with Dry Gauze, Dry Gauze Secured with Tape -Other Covering ABD -NPWT Application Charge NPWT > 50 sq cm ($) -Aquacel Extra 1 1 -Mepilex Border 1 Treatment Response Procedure Procedure Tolerated Well Tolerated Well Vital Signs Temperature (97.8 F-99.1 F) 97.0 F L Temperature Source Temporal Pulse Rate (60-100) 93 Pulse Location Monitor Blood Pressure (90/60-120/80) 189/94 H Blood Pressure Mean (mm Hg) 125 Source Monitor Position Sitting Blood Pressure Location Left Arm Pain Scale: 0-10 Numeric Is Patient Pain Free? Yes Yes Yes Teaching: Wound Center Dressing Your Wound -Person Taught Patient -Teaching Method Discussion, Demonstration -Response to teaching Verbalize understanding WC - Visit Discharge Discharge Condition Stable Stable Stable Ambulatory Status Ambulatory Ambulatory Ambulatory Transportation Private Auto Private Auto Private Auto Accompanied by self Medication Reconcilliation completed & No provided to patient/care provider Assessment/Plan Assessment/Plan (1) Nonhealing surgical wound: CODE(S): T81.89XA - Other complications of procedures, not elsewhere classified, initial encounter (2) History of abdominal abscess: CODE(S): Z87.898 - Personal history of other specified conditions (3) Insulin dependent diabetes mellitus: (4) End stage renal disease on dialysis: CODE(S): N18.6 - End stage renal disease; Z99.2 - Dependence on renal dialysis PLAN: Debridement done as documented above, procedure was well-tolerated. Tolerating wound VAC well so far, wound is improving. Tunneling still persistent. Increase Wound Vac to 150 mmHg. Unable to get home health and so he will have his changes here on Tuesday and . Optimal diabetes control. Increased protein intake also discussed. His questions were answered and he was advised to call with any further questions or concerns. Follow-up in a week. This note was generated with [employer] dictation software. It may contain incorrect words, spelling, and punctuation that were not noted in checking the note before signing.
== END 2022-02-04 23:59 | disposition home or self-care (01) ==
LOC: WC 09:15
PROVIDERS: PCP Physician Assistant; Visit Provider Internal Medicine
DX: T81.89XA Other complications of procedures, not elsewhere classified, initial encounter (principal); Z99.2 Dependence on renal dialysis; E11.40 Type 2 diabetes mellitus with diabetic neuropathy, unspecified; E11.22 Type 2 diabetes mellitus with diabetic chronic kidney disease; I12.0 Hypertensive chronic kidney disease with stage 5 chronic kidney disease or end stage renal disease; N18.6 End stage renal disease; K65.1 Peritoneal abscess; Z79.4 Long term (current) use of insulin; Z79.82 Long term (current) use of aspirin; Z79.899 Other long term (current) drug therapy; Y83.8 Other surgical procedures as the cause of abnormal reaction of the patient, or of later complication, without mention of misadventure at the time of the procedure
CPT/HCPCS: 11042; 97605; 97606; 99213; G0463

== ENCOUNTER 2022-02-21 01:03 | Emergency (ER) | payer OTHER, SELFPAY ==
[2022-02-21 01:04] VITALS: BP 196/100; PULSE 118; RESP 15; TEMP 37; O2SAT 98; BMI 39.4
[2022-02-21 01:06] VITALS: BP 196/100; PULSE 118; RESP 15; TEMP 37; O2SAT 98
--- NOTE | 2022-02-21 01:26 | EDS_ITS ---
HPI History of Present Illness Chief Complaint: Wound Check Informant: patient Onset/Context/Timing Onset: Today (16 hrs or so) Context: Gradual Onset Timing: Continuous Quality: sore Location: at lower abdominal scar Current Severity: Mild Maximum Severity: Moderate Worsened by: palpation Relieved by: after spontaneously ruptured tonight JPTA Associated Symptoms Associated Symptoms: none Narrative Narrative: Patient developed a tender swollen area spontaneously this morning, it worsened throughout the day, at the location of a surgical scar in his lower abdomen. He states he had a peritoneal dialysis catheter that was subsequently removed, this incision was part of the surgery to put it in but not the site at which the catheter was emanating from. The surgery was in November. He has a wound VAC from a abscess/infection that he was admitted [facility] for on IV antibiotics and had poor healing. He has end-stage renal disease and diabetes. He states tonight, he was doing something and the wound spontaneously ruptured and drained a foul-smelling bloody fluid which it is still doing. He made an appointment with someone at his PCPs office for after the weekend but since it ruptured and not he came in. Denies any fevers chills systemic symptoms. [facility] Medical History CKD (chronic kidney disease) CKD (chronic kidney disease) stage 3, GFR 30-59 ml/min DM2 (diabetes mellitus, type 2) End stage renal disease on dialysis History of abdominal abscess HTN (hypertension) Insulin dependent diabetes mellitus Neuropathy Nonhealing surgical wound Home Medications insulin glargine 30 units SUBCUT DAILY pen 06/22/19 [Rx Last Taken Unknown] amlodipine 5 mg PO DAILY 01/21/22 [History Last Taken Unknown] carvedilol 12.5 mg PO BID 01/21/22 [History Last Taken Unknown] hydralazine 25 mg PO TID 01/21/22 [History Last Taken Unknown] insulin glargine [Lantus U-100 Insulin] 60 unit SUBCUT QHS 01/21/22 [History Last Taken Unknown] doxycycline monohydrate 100 mg PO BID #14 capsule 02/21/22 [Rx Last Taken Unknown] Allergy/AdvReac Type Severity Reaction Status Date / Time No Known Allergies Allergy Verified 02/21/22 01:07 Social History Smoking Status: Never smoker ROS ROS ED Constitutional Constitutional ED: Denies chills or fever(s) Gastrointestinal Gastrointestinal: Denies diarrhea, nausea or vomiting Musculoskeletal Musculoskeletal: Denies extremity pain or neck pain Integumentary Reports as per HPI and wounds; Denies Abrasions or rash Neurologic Neurologic: Denies paresthesias or weakness EXAM Physical Exam Const Vital Signs: 02/21/22 01:04 02/21/22 01:06 Temperature 98.6 F 98.6 F Temperature Source Temporal Temporal Pulse Rate 118 H 118 H Respiratory Rate 15 15 Blood Pressure 196/100 H 196/100 H Blood Pressure Mean 132 132 Pulse Ox 98 98 Oxygen Delivery Method Room Air Room Air Positive well nourished and well developed General Appearance ED: well developed and NAD Neck full ROM and supple GI soft to palpation and non-tender GI Narrative: Patient has wound VAC intact with a good seal left lateral lower quadrant. This is a good 15 cm away from the current wound which spontaneously ruptured tonight, infraumbilical, it is superficial in the abdominal wall. Pushing on the area where there are 2 openings in the middle of a surgical scar, there is foul-smelling serosanguineous/purulent material that is thin and expressible. Nursing stated that when they were evaluating her prior to me if it was a lot more than it is now which is barely any. Entire lesion is approximately 3 cm in diameter. No skin induration or erythema. Back/Spine normal ROM and normal to inspection Extremity normal to inspection and full ROM Neuro oriented x3, no focal motor deficits and no sensory deficits noted Sensorium / Orientation: alert Psych mental status grossly normal and thought process normal Skin Skin Narrative: Spontaneously ruptured wound/abscess infraumbilical abdominal wall. Nontender. No surrounding cellulitis. Rashes: no rashes MDM MDM MDM Narrative Medical decision making narrative: I expressed all the fluid that I could from the wound. I irrigated it with 60 cc of sterile saline using a blunt needle, there is no discomfort to the patient and all of the fluid was expressed out of the wound, a fresh dressing was placed with bacitracin, and he was started on doxycycline. I do not think this needs to be further opened up more than it already is, since he already has wounds that are poor at healing and has risk factors for this, I will place him on antibiotics. I do not know what the organism was but he states once he was discharged from the hospital with his other wound he was placed on Augmentin, suggesting it was not MRSA. He had a wound on his toe in the past that was cultured here and it was mostly strep and staph that was not MRSA. Most of them were sensitive to doxycycline so I started him on that give him a dose tonight. Discharge Plan Triage Chief Complaint: Wound Check ED Provider: Austen Bond Dx/Rx/DC Orders Clinical Impression: Abdominal wall abscess Instructions: ED Abscess Incision And Drainage Prescriptions: New doxycycline monohydrate 100 MG capsule 100 mg PO BID Qty: 14 RF: 0 No Action insulin glargine 100 UNITS/ML insulin pen 30 units subcut DAILY RF: 0 carvedilol 12.5 mg Tablet 12.5 mg PO BID RF: 0 hydralazine 25 mg Tablet 25 mg PO TID RF: 0 amlodipine 5 mg Tablet 5 mg PO DAILY RF: 0 Lantus U-100 Insulin 100 unit/mL Cartridge 60 unit SUBCUT QHS RF: 0 Primary Care Provider: Ryan Hendrickson Referrals: Ryan Hendrickson PA [Primary Care Provider] - [facility] appointment Disposition Disposition: Home, Self Care
[2022-02-21] MEDS: Doxycycline 100 MG CAPSULE PO (01:30)
[2022-02-21 01:33] VITALS: BP 154/84; PULSE 108; RESP 16; O2SAT 97
== END 2022-02-21 01:37 | disposition home or self-care (01) ==
LOC: ED 01:36
PROVIDERS: Emergency Provider Emergency Medicine; PCP Physician Assistant; Visit Provider Emergency Medicine
DX: L02.211 Cutaneous abscess of abdominal wall (principal); I12.0 Hypertensive chronic kidney disease with stage 5 chronic kidney disease or end stage renal disease; N18.6 End stage renal disease; Z79.899 Other long term (current) drug therapy
CPT/HCPCS: 99283

== ENCOUNTER 2022-03-04 09:00 | Outpatient (RCR) | payer OTHER, SELFPAY ==
[2022-02-05 00:50] VITALS: BP 145/82; PULSE 92; RESP 18; TEMP 36.6
[2022-02-08 13:33] VITALS: BP 192/98; PULSE 98; RESP 16; TEMP 35.7
[2022-02-11 08:01] VITALS: BP 148/90; PULSE 102; RESP 18; TEMP 36.7
--- NOTE | 2022-02-11 08:45 | PCM.WC.PN ---
History of Present Illness Date of Service: 02/11/22 Chief Complaint: Post surgical wound History of Wound: Mr Eden is a 41yo who was referred to the wound center by his PCP for post surgical wound closure/care. Had presented to [facility] about 2 weeks ago due to an abdominal abscess. Had incision and drainage done. Surgery was uneventful. Transferred to a skilled nursing however he left AMA after 2 days because he states that he did not receive good care. Plan was for a wound VAC which he received at his house without any instructions. He states that he has been dressing it with gauze daily to twice daily. He reports some drainage, not foul-smelling. He denies chills, fever or feeling of unwell. Last A1c per patient was about 3 months ago and it was 7.8. Currently on insulin both long-acting and mealtime. He does not know if he had an A1c drawn during his most recent hospital stay. Progress of Wound: Tolerating wound VAC well. Wound is improving. Denies any new concerns at this time. Subjective Subjective No new concerns. Objective Data Objective Data Vital Signs: Vital Signs Temp Pulse Resp BP 98.1 F 102 H 18 148/90 H 02/11/22 08:01 02/11/22 08:01 02/11/22 08:01 02/11/22 08:01 Charges/Coding Procedures Integumentary 111xxx-113xx: 48757 Jessie subq tissue 20 sq cm/< Physical Exam Const alert, oriented x3 and no apparent distress General Appearance: cooperative, comfortable and well kempt HEENT normocephalic and head/scalp atraumatic Head and Scalp: normal to inspection and normocephalic Eyes EOMs intact bilaterally General Eye: normal appearance of both eyes Neck full ROM General: normal visual inspection Resp normal respiratory effort and normal air movement Effort and Inspection: able to speak in complete sentences Extremity normal to inspection and full ROM Skin Wounds: wounds noted Neuro oriented x3, CN's II-XII intact bilaterally, moves all extremities and no focal motor deficits Psych mental status grossly normal Appearance: grossly normal Attitude: calm Speech: normal speech Thought Process: normal thought process Debridement Note Debridement Note Wound debrided: Left groin (lower abdomen) Type of Debridement: Excisional debridement Anesthesia Used: 4% Lidocaine Solution Depth: Down to and including healthy tissue and in the subcutaneous layer Percentage of wound debrided: 100 Instrument Used: 5mm curette Tissue Removed: Slough and devitalized tissue Severity: Fat Layer Exposed Amount of bleeding with debridement: Mild Bleeding Controlled with: Pressure Patient tolerated procedure: Patient tolerated procedure well Post-Debridement Measurements and Additional Note: Post-Debridement Measurements/Treatment DION - Nurse 1 - General Ulcer Assessment Start: 02/08/22 13:32 Freq: Status: Active Protocol: MIKE Activity Type Activity Date Activity User E-Sign Co-Sign Detail Recorded Client Recorded Date Recorded By Document 02/08/22 13:33 DL [id number] 02/08/22 13:35 DL Document 02/11/22 08:01 DL [id number] 02/11/22 08:06 DL 02/08/22 02/11/22 13:33 08:01 WC - Today's Visit Information Type of service Follow-up Visit Follow-up Visit (Physician/SHEET METAL HELPER (Physician/SHEET METAL HELPER ) ) Arrival Mode Ambulatory Ambulatory Transfer Assistance None None Patient Identification Verified (Name & Yes Yes ) Patient Requires Transmission-Based No No Precautions Finger Stick Blood Sugar(mg/dl) (if 119 indicated): Blood Sugar Stated by Patient Vital Signs Temperature (97.8 F-99.1 F) 96.2 F L 98.1 F Temperature Source Temporal Temporal Pulse Rate (60-100) 98 102 H Pulse Location Monitor Monitor Respiratory Rate (12-18) 16 18 Respiratory rate source Observation Observation Blood Pressure (90/60-120/80) 192/98 H 148/90 H Blood Pressure Mean (mm Hg) 129 109 Source Monitor Monitor History Since Last Visit- (Skip if this is Patient's initial visit) Have you changed medications since your No No last visit? Any new allergies or adverse reactions No No Had a fall/change in ADL's that may No No increase risk of falls Signs or symptoms of abuse and/or No No neglect since last visit Have you been in the hospital since your No No last visit? Has dressing in place as prescribed Yes Has compression in place as prescribed N/A N/A Has offloadiing in place as prescribed N/A N/A Experienced any changes in pain level or No No management Pain Scale: 0-10 Numeric Is Patient Pain Free? Yes Yes DION - Nurse 1 - General Ulcer Measurement Start: 02/08/22 13:32 Freq: Status: Active Protocol: Activity Type Activity Date Activity User E-Sign Co-Sign Detail Recorded Client Recorded Date Recorded By Document 02/08/22 13:33 DL [id number] 02/08/22 13:35 DL Document 02/11/22 08:01 DL [id number] 02/11/22 08:06 DL 02/08/22 02/11/22 13:33 08:01 Wound Center Nurse 1 #2 L ABD -Current Size (cm) - Length 0.4 -Current Size (cm) - Width 2 -Current Size (cm) - Depth 2 -Total Square Cm 0.8 -Photo Taken Yes -Tunneling Position (O'clock) 3 -Tunneling Distance (cm) 10.2 -Exudate Amt Medium -Exudate Type Serosanguineous -Wound Margin Distinct, Distinct, Outline Outline Attached Attached -Granulation Amt Large (67-100%) -Granulation Quality Red -Necrosis Amt None Present (0 %) -Structure Exposed N/A N/A -Texture (Luci-wound Skin Appearance) Scarring Scarring -Moisture (Luci-wound Skin Appearance) No Abnormality No Abnormality -Color (Luci-wound Skin Appearance) No Abnormality No Abnormality -Temperature (Luci-wound Skin No Abnormality No Abnormality Appearance) (Pt Warm) (Pt Warm) -Tenderness on Palpation (Luci-wound No Skin Appearance) -Ulcer Cleansing Soap and Water Soap and Water -Foul Odor after Cleansing No No -Anesthetic Used 4% Lidocaine Solution WC - Nurse 2 - General Ulcer CM Notes Start: 02/08/22 13:32 Freq: Status: Active Protocol: Activity Type Activity Date Activity User E-Sign Co-Sign Detail Recorded Client Recorded Date Recorded By Document 02/11/22 08:32 MW [id number] 02/11/22 08:37 MW 02/11/22 08:32 Wound Center Nurse 2 -Time 08:32 -Correct Patient Yes -Correct Side, Site, Position Yes -Correct Procedure Yes -Procedure Performed Yes -Type of Procedure Debridement -Clinical Debridement Subcutaneous -Tissue Removed Subcutaneous -Post Debridement (cm) - Length 0.1 -Post Debridement (cm) - Width 2.5 -Post Debridement (cm) - Depth 1.9 -Total Square (Post) (cm) 0.25 -Area of Debridement (cm) - Length 0.1 -Area of Debridement (cm) - Width 2.5 -Total Square (Area) (cm) 0.25 -Tunneling Yes -Tunneling Position (O'clock) 3 -Tunneling Distance (cm) 10.0 -Undermining/Tunneling No -Circular Undermining No -Wound/Ulcer Outcome Not Healed -Ulcer Cleansing Rinsed/ Irrigated with Saline -Foul Odor after Cleansing No -Bioengineered Tissue No -Bleeding Controlled with Pressure -Treatment Response Procedure Tolerated Well -Offloading No -Debridement - Subq, 1st 20sq cm Yes Pain Scale: 0-10 Numeric Is Patient Pain Free? Yes WC - Nurse 3 - General Ulcer D/C NN Start: 02/08/22 13:32 Freq: Status: Active Protocol: Activity Type Activity Date Activity User E-Sign Co-Sign Detail Recorded Client Recorded Date Recorded By Document 02/08/22 13:33 DL [id number] 02/08/22 13:35 DL Document 02/11/22 08:39 DL [id number] 02/11/22 08:42 DL 02/08/22 02/11/22 13:33 08:39 Vital Signs Temperature (97.8 F-99.1 F) 96.2 F L Temperature Source Temporal Pulse Rate (60-100) 98 Pulse Location Monitor Respiratory Rate (12-18) 16 Respiratory rate source Observation Blood Pressure (90/60-120/80) 192/98 H Blood Pressure Mean (mm Hg) 129 Source Monitor Pain Scale: 0-10 Numeric Is Patient Pain Free? Yes Yes Wound Care Nurse 3 #2 L ABD -Ulcer Cleansing Soap and Water Rinsed/ Irrigated with Saline -Foul Odor after Cleansing No No -Negative Pressure Wound Therapy Continue Continue -Setting (mmHg) 150 150 -Negative Pressure is Continuous Continuous -NPWT Application Charge NPWT </= 50 sq NPWT > 50 sq cm cm ($) ($) Treatment Response Procedure Procedure Tolerated Well Tolerated Well WC - Visit Discharge Discharge Condition Stable Stable Ambulatory Status Ambulatory Ambulatory Transportation Private Auto Private Auto Assessment/Plan Assessment/Plan (1) Nonhealing surgical wound: CODE(S): T81.89XA - Other complications of procedures, not elsewhere classified, initial encounter (2) History of abdominal abscess: CODE(S): Z87.898 - Personal history of other specified conditions (3) Insulin dependent diabetes mellitus: (4) End stage renal disease on dialysis: CODE(S): N18.6 - End stage renal disease; Z99.2 - Dependence on renal dialysis PLAN: Debridement done as documented above, procedure was well-tolerated. Tolerating wound VAC well so far, wound is improving. Tunneling still present but some improvement noted.. Continue wound VAC at 150 mmHg. Unable to get home health and so he will have his changes here on Tuesday and . Optimal diabetes control. Increased protein intake also discussed. His questions were answered and he was advised to call with any further questions or concerns. Follow-up in 2 weeks. This note was generated with [employer] dictation software. It may contain incorrect words, spelling, and punctuation that were not noted in checking the note before signing.
[2022-02-15 13:15] VITALS: PULSE 92; TEMP 36.1
[2022-02-18 08:03] VITALS: BP 127/79; PULSE 91; RESP 18; TEMP 36
[2022-02-22 13:37] VITALS: BP 172/103; PULSE 105; RESP 16; TEMP 36.2
[2022-02-25 08:09] VITALS: BP 137/90; PULSE 103; RESP 16; TEMP 36.8
--- NOTE | 2022-02-25 09:11 | PCM.WC.PN ---
History of Present Illness Date of Service: 02/25/22 Chief Complaint: Post surgical wound History of Wound: Mr Eden is a 41yo who was referred to the wound center by his PCP for post surgical wound closure/care. Had presented to [facility] about 2 weeks ago due to an abdominal abscess. Had incision and drainage done. Surgery was uneventful. Transferred to a intermediate however he left AMA after 2 days because he states that he did not receive good care. Plan was for a wound VAC which he received at his house without any instructions. He states that he has been dressing it with gauze daily to twice daily. He reports some drainage, not foul-smelling. He denies chills, fever or feeling of unwell. Last A1c per patient was about 3 months ago and it was 7.8. Currently on insulin both long-acting and mealtime. He does not know if he had an A1c drawn during his most recent hospital stay. Progress of Wound: Initial postsurgical wound is healing well however, presents with a new mid upper abdomen opening/ulceration. He states that it started out with a swelling which subsequently started draining blood. Went to the emergency room where he had further probing and manipulation with small substances expressed. Area since then has opened up even further. This was a previous surgical scar/site. Has another area of swelling in his lower abdomen. Subjective Subjective No acute concerns at this time. Objective Data Objective Data Vital Signs: Vital Signs Temp Pulse Resp BP 98.2 F 103 H 16 137/90 H 02/25/22 08:09 02/25/22 08:09 02/25/22 08:09 02/25/22 08:09 Oxygen Delivery Method Room Air Charges/Coding Procedures Integumentary 111xxx-113xx: [id number] Jessie subq tissue 20 sq cm/< Physical Exam Const alert, oriented x3 and no apparent distress General Appearance: cooperative, comfortable and well kempt HEENT normocephalic and head/scalp atraumatic Head and Scalp: normal to inspection and normocephalic Eyes EOMs intact bilaterally General Eye: normal appearance of both eyes Neck full ROM General: normal visual inspection Resp normal respiratory effort and normal air movement Effort and Inspection: able to speak in complete sentences Extremity normal to inspection and full ROM Skin Wounds: wounds noted Neuro oriented x3, CN's II-XII intact bilaterally, moves all extremities and no focal motor deficits Psych mental status grossly normal Appearance: grossly normal Attitude: calm Speech: normal speech Thought Process: normal thought process Debridement Note Debridement Note Wound debrided: Left-sided lower abdomen/groin Type of Debridement: Excisional debridement Anesthesia Used: 4% Lidocaine Solution Depth: Down to and including healthy tissue and in the subcutaneous layer Percentage of wound debrided: 100 Instrument Used: 5mm curette Tissue Removed: Slough and devitalized tissue Severity: Fat Layer Exposed Amount of bleeding with debridement: Mild Bleeding Controlled with: Pressure Patient tolerated procedure: Patient tolerated procedure well Post-Debridement Measurements and Additional Note: Post-Debridement Measurements/Treatment - Nurse 1 - General Ulcer Assessment Start: 02/08/22 13:32 Freq: Status: Active Protocol: MIKE Activity Type Activity Date Activity User E-Sign Co-Sign Detail Recorded Client Recorded Date Recorded By Document 02/08/22 13:33 DL [id number] 02/08/22 13:35 DL Document 02/11/22 08:01 DL [id number] 02/11/22 08:06 DL Document 02/15/22 13:15 KR [id number] 02/15/22 13:35 KR Document 02/18/22 08:03 DL [id number] 02/18/22 08:22 DL Document 02/22/22 13:37 [facility] [id number] 02/22/22 13:39 [facility] Document 02/25/22 08:09 [facility] [id number] 02/25/22 08:22 [facility] 02/08/22 02/11/22 02/15/22 13:33 08:01 13:15 - Today's Visit Information Type of service Follow-up Visit Follow-up Visit Nurse-only (Physician/SERVICE CLEANER (Physician/SERVICE CLEANER Visit ) ) Arrival Mode Ambulatory Ambulatory Ambulatory Transfer Assistance None None Patient Identification Verified (Name & Yes Yes Yes ) Patient Requires Transmission-Based No No Precautions Finger Stick Blood Sugar(mg/dl) (if 119 indicated): Blood Sugar Stated by Patient Vital Signs Temperature (97.8 F-99.1 F) 96.2 F L 98.1 F 97.0 F L Temperature Source Temporal Temporal Temporal Pulse Rate (60-100) 98 102 H 92 Pulse Location Monitor Monitor Monitor Respiratory Rate (12-18) 16 18 Respiratory rate source Observation Observation Oxygen Delivery Method Blood Pressure (90/60-120/80) 192/98 H 148/90 H Blood Pressure Mean (mm Hg) 129 109 Source Monitor Monitor Position Blood Pressure Location Comment History Since Last Visit- (Skip if this is Patient's initial visit) Have you changed medications since your No No No last visit? Any new allergies or adverse reactions No No No Had a fall/change in ADL's that may No No No increase risk of falls Signs or symptoms of abuse and/or No No No neglect since last visit Have you been in the hospital since your No No No last visit? Has dressing in place as prescribed Yes Yes Has compression in place as prescribed N/A N/A N/A Has offloadiing in place as prescribed N/A N/A N/A Experienced any changes in pain level or No No No management Left Footwear Right Footwear Other Footwear Pain Scale: 0-10 Numeric Is Patient Pain Free? Yes Yes Yes 02/18/22 02/22/22 02/25/22 08:03 13:37 08:09 - Today's Visit Information Type of service Nurse-only Nurse-only Follow-up Visit Visit Visit (Physician/SERVICE CLEANER ) Arrival Mode Ambulatory Ambulatory Ambulatory Transfer Assistance Stretcher None None Patient Identification Verified (Name & Yes Yes Yes ) Patient Requires Transmission-Based No No No Precautions Finger Stick Blood Sugar(mg/dl) (if didnt check 110 indicated): Blood Sugar Stated by Stated by Patient Patient Vital Signs Temperature (97.8 F-99.1 F) 96.8 F L 97.2 F L 98.2 F Temperature Source Temporal Temporal Temporal Pulse Rate (60-100) 91 105 H 103 H Pulse Location Monitor Monitor Monitor Respiratory Rate (12-18) 18 16 16 Respiratory rate source Observation Observation Observation Oxygen Delivery Method Room Air Room Air Blood Pressure (90/60-120/80) 127/79 H 172/103 H 137/90 H Blood Pressure Mean (mm Hg) 95 126 105 Source Monitor Monitor Monitor Position Sitting Sitting Blood Pressure Location Left Arm Left Arm Comment Removed VAC deputy chief counsel pt ea yesterday to visit on bp's. shower. pt states they' re always ^ before dialysis History Since Last Visit- (Skip if this is Patient's initial visit) Have you changed medications since your No No No last visit? Any new allergies or adverse reactions No No No Had a fall/change in ADL's that may No No No increase risk of falls Signs or symptoms of abuse and/or No No No neglect since last visit Have you been in the hospital since your No Yes No last visit? Has dressing in place as prescribed No No Yes Has compression in place as prescribed N/A N/A N/A Has offloadiing in place as prescribed N/A N/A Experienced any changes in pain level or No No No management Left Footwear Regular Shoe Regular Shoe Right Footwear Regular Shoe Regular Shoe Other Footwear showered and removed vac prior to visit Pain Scale: 0-10 Numeric Is Patient Pain Free? Yes Yes Yes WC - Nurse 1 - General Ulcer Measurement Start: 02/08/22 13:32 Freq: Status: Active Protocol: Activity Type Activity Date Activity User E-Sign Co-Sign Detail Recorded Client Recorded Date Recorded By Document 02/08/22 13:33 DL [id number] 02/08/22 13:35 DL Document 02/11/22 08:01 DL [id number] 02/11/22 08:06 DL Document 02/18/22 08:03 DL [id number] 02/18/22 08:22 DL Document 02/25/22 08:09 BMF [id number] 02/25/22 08:22 BMF 02/08/22 02/11/22 02/18/22 13:33 08:01 08:03 Wound Center Nurse 1 #3- L MIDLINE ABD -Combined with other wound -Current Size (cm) - Length -Current Size (cm) - Width -Current Size (cm) - Depth -Total Square Cm -Date of Last Picture (Recall this field) -Photo Taken -Epithelialization -Tunneling -Undermining/Tunneling -Circular Undermining -Exudate Amt -Exudate Type -Wound Margin -Granulation Amt -Granulation Quality -Slough/Fibrin -Necrosis Amt -Texture (Luci-wound Skin Appearance) -Moisture (Luci-wound Skin Appearance) -Color (Luci-wound Skin Appearance) -Temperature (Luci-wound Skin Appearance) -Tenderness on Palpation (Luci-wound Skin Appearance) -Ulcer Cleansing -Foul Odor after Cleansing -Anesthetic Used #2 L ABD -Combined with other wound -Current Size (cm) - Length 0.4 3 -Current Size (cm) - Width 2 -Current Size (cm) - Depth 2 -Total Square Cm 0.8 -Date of Last Picture (Recall this field) -Photo Taken Yes -Epithelialization -Tunneling -Tunneling Position (O'clock) 3 3 -Tunneling Distance (cm) 10.2 5.8 -Undermining/Tunneling -Circular Undermining -Exudate Amt Medium Small -Exudate Type Serosanguineous Serosanguineous -Wound Margin Distinct, Distinct, Distinct, Outline Outline Outline Attached Attached Attached -Granulation Amt Large (67-100%) Large (67-100%) -Granulation Quality Red Red -Slough/Fibrin -Necrosis Amt None Present (0 None Present (0 %) %) -Structure Exposed N/A N/A N/A -Texture (Luci-wound Skin Appearance) Scarring Scarring Scarring -Moisture (Luci-wound Skin Appearance) No Abnormality No Abnormality No Abnormality -Color (Luci-wound Skin Appearance) No Abnormality No Abnormality No Abnormality -Temperature (Luci-wound Skin No Abnormality No Abnormality Appearance) (Pt Warm) (Pt Warm) -Tenderness on Palpation (Luci-wound No Skin Appearance) -Ulcer Cleansing Soap and Water Soap and Water Soap and Water -Foul Odor after Cleansing No No No -Anesthetic Used 4% Lidocaine Solution 02/25/22 08:09 Wound Center Nurse 1 #3- L MIDLINE ABD -Combined with other wound No -Current Size (cm) - Length 0.3 -Current Size (cm) - Width 2.3 -Current Size (cm) - Depth 3.4 -Total Square Cm 0.69 -Date of Last Picture (Recall this 02/25/22 field) -Photo Taken Yes -Epithelialization None Present -Tunneling No -Undermining/Tunneling No -Circular Undermining No -Exudate Amt Medium -Exudate Type Sanguineous -Wound Margin Distinct, Outline Attached -Granulation Amt Large (67-100%) -Granulation Quality Red -Slough/Fibrin No -Necrosis Amt None Present (0 %) -Texture (Luci-wound Skin Appearance) Assessed, Scarring -Moisture (Luci-wound Skin Appearance) Assessed -Color (Luci-wound Skin Appearance) Assessed -Temperature (Luci-wound Skin No Abnormality Appearance) (Pt Warm) -Tenderness on Palpation (Luci-wound No Skin Appearance) -Ulcer Cleansing Soap and Water -Foul Odor after Cleansing No -Anesthetic Used 4% Lidocaine Solution #2 L ABD -Combined with other wound No -Current Size (cm) - Length 0.1 -Current Size (cm) - Width 1.3 -Current Size (cm) - Depth 0.8 -Total Square Cm 0.13 -Date of Last Picture (Recall this 02/25/22 field) -Photo Taken Yes -Epithelialization None Present -Tunneling Yes -Tunneling Position (O'clock) 3 -Tunneling Distance (cm) 5.4 -Undermining/Tunneling No -Circular Undermining No -Exudate Amt Medium -Exudate Type Sanguineous -Wound Margin Distinct, Outline Attached -Granulation Amt Large (67-100%) -Granulation Quality Red -Slough/Fibrin No -Necrosis Amt None Present (0 %) -Structure Exposed -Texture (Luci-wound Skin Appearance) Assessed, Scarring -Moisture (Luci-wound Skin Appearance) Assessed -Color (Luci-wound Skin Appearance) Assessed -Temperature (Luci-wound Skin No Abnormality Appearance) (Pt Warm) -Tenderness on Palpation (Luci-wound No Skin Appearance) -Ulcer Cleansing Soap and Water -Foul Odor after Cleansing No -Anesthetic Used 4% Lidocaine Solution WC - Nurse 2 - General Ulcer CM Notes Start: 02/08/22 13:32 Freq: Status: Active Protocol: Activity Type Activity Date Activity User E-Sign Co-Sign Detail Recorded Client Recorded Date Recorded By Document 02/11/22 08:32 MW [id number] 02/11/22 08:37 MW Document 02/25/22 08:29 MW [id number] 02/25/22 08:42 MW 02/11/22 02/25/22 08:32 08:29 Wound Center Nurse 2 #3- L MIDLINE ABD -Time 08:30 -Correct Patient Yes -Correct Side, Site, Position Yes -Correct Procedure Yes -Procedure Performed Yes -Type of Procedure Debridement -Clinical Debridement Subcutaneous -Tissue Removed Subcutaneous -Post Debridement (cm) - Length 0.4 -Post Debridement (cm) - Width 2.7 -Post Debridement (cm) - Depth 2.7 -Total Square (Post) (cm) 1.08 -Area of Debridement (cm) - Length 0.4 -Area of Debridement (cm) - Width 2.7 -Total Square (Area) (cm) 1.08 -Tunneling No -Undermining/Tunneling No -Circular Undermining No -Wound/Ulcer Outcome Not Healed -Ulcer Cleansing Rinsed/ Irrigated with Saline -Foul Odor after Cleansing No -Bioengineered Tissue No -Bleeding Controlled with Pressure -Treatment Response Procedure Tolerated Well -Offloading No -Debridement - Subq, 1st 20sq cm Yes #2 L ABD -Time 08:32 08:30 -Correct Patient Yes Yes -Correct Side, Site, Position Yes Yes -Correct Procedure Yes Yes -Procedure Performed Yes Yes -Type of Procedure Debridement Debridement -Clinical Debridement Subcutaneous Subcutaneous -Tissue Removed Subcutaneous Subcutaneous -Post Debridement (cm) - Length 0.1 0.1 -Post Debridement (cm) - Width 2.5 1.5 -Post Debridement (cm) - Depth 1.9 1.5 -Total Square (Post) (cm) 0.25 0.15 -Area of Debridement (cm) - Length 0.1 0.1 -Area of Debridement (cm) - Width 2.5 1.5 -Total Square (Area) (cm) 0.25 0.15 -Tunneling Yes Yes -Tunneling Position (O'clock) 3 3 -Tunneling Distance (cm) 10.0 6.3 -Undermining/Tunneling No No -Circular Undermining No No -Wound/Ulcer Outcome Not Healed Not Healed -Ulcer Cleansing Rinsed/ Rinsed/ Irrigated with Irrigated with Saline Saline -Foul Odor after Cleansing No No -Bioengineered Tissue No No -Bleeding Controlled with Pressure Pressure -Treatment Response Procedure Procedure Tolerated Well Tolerated Well -Offloading No No -Debridement - Subq, 1st 20sq cm Yes No Pain Scale: 0-10 Numeric Is Patient Pain Free? Yes Yes - Nurse 3 - General Ulcer D/C NN Start: 02/08/22 13:32 Freq: Status: Active Protocol: Activity Type Activity Date Activity User E-Sign Co-Sign Detail Recorded Client Recorded Date Recorded By Document 02/08/22 13:33 DL [id number] 02/08/22 13:35 DL Document 02/11/22 08:39 DL [id number] 02/11/22 08:42 DL Edit Result 02/11/22 08:39 DL (1) [id number] 02/11/22 14:34 PL Document 02/15/22 13:15 KR [id number] 02/15/22 13:35 KR Document 02/18/22 08:22 DL [id number] 02/18/22 08:27 DL Document 02/22/22 13:37 BMF [id number] 02/22/22 13:39 BMF Document 02/25/22 08:45 MW [id number] 02/25/22 08:47 MW (1) #2 L ABD - NPWT Application Charge NPWT > 50 sq cm ($ => NPWT & Debridement ) => (nc) 02/08/22 02/11/22 02/15/22 13:33 08:39 13:15 Vital Signs Temperature (97.8 F-99.1 F) 96.2 F L 97.0 F L Temperature Source Temporal Temporal Pulse Rate (60-100) 98 92 Pulse Location Monitor Monitor Respiratory Rate (12-18) 16 Respiratory rate source Observation Oxygen Delivery Method Blood Pressure (90/60-120/80) 192/98 H Blood Pressure Mean (mm Hg) 129 Source Monitor Position Blood Pressure Location Comment Pain Scale: 0-10 Numeric Is Patient Pain Free? Yes Yes Yes Teaching: Wound Center Dressing Your Wound -Person Taught -Teaching Method -Response to teaching Wound Care Nurse 3 #3- L MIDLINE ABD -Ulcer Cleansing -Foul Odor after Cleansing -Negative Pressure Wound Therapy -Other Dressing -Other Covering #2 L ABD -Ulcer Cleansing Soap and Water Rinsed/ Rinsed/ Irrigated with Irrigated with Saline Saline -Foul Odor after Cleansing No No -Negative Pressure Wound Therapy Continue Continue Continue -Setting (mmHg) 150 150 -Negative Pressure is Continuous Continuous Continuous -Regranex (If Applicable) Continue -Other Dressing -Other Covering -NPWT Application Charge NPWT </= 50 sq NPWT & NPWT </= 50 sq cm ($) Debridement (nc cm ($) ) Treatment Response Procedure Procedure Tolerated Well Tolerated Well WC - Visit Discharge Discharge Condition Stable Stable Stable Ambulatory Status Ambulatory Ambulatory Ambulatory Transportation Private Auto Private Auto Private Auto Accompanied by Medication Reconcilliation completed & provided to patient/care provider Clinical Summary of Care Provided 02/18/22 02/22/22 02/25/22 08:22 13:37 08:45 Vital Signs Temperature (97.8 F-99.1 F) 97.2 F L Temperature Source Temporal Pulse Rate (60-100) 105 H Pulse Location Monitor Respiratory Rate (12-18) 16 Respiratory rate source Observation Oxygen Delivery Method Room Air Blood Pressure (90/60-120/80) 172/103 H Blood Pressure Mean (mm Hg) 126 Source Monitor Position Sitting Blood Pressure Location Left Arm Comment deputy chief counsel pt ea visit on bp's. pt states they' re always ^ before dialysis Pain Scale: 0-10 Numeric Is Patient Pain Free? Yes Yes Yes Teaching: Wound Center Dressing Your Wound -Person Taught Patient -Teaching Method Discussion -Response to teaching Verbalize understanding Wound Care Nurse 3 #3- L MIDLINE ABD -Ulcer Cleansing Rinsed/ Irrigated with Saline -Foul Odor after Cleansing No -Negative Pressure Wound Therapy N/A -Other Dressing black foam -Other Covering wound vac #2 L ABD -Ulcer Cleansing Soap and Water Soap and Water Rinsed/ Irrigated with Saline -Foul Odor after Cleansing No No No -Negative Pressure Wound Therapy Continue Continue N/A -Setting (mmHg) 150 150 -Negative Pressure is Continuous Continuous -Regranex (If Applicable) -Other Dressing black foam -Other Covering white foam to tunnel -NPWT Application Charge NPWT > 50 sq cm NPWT </= 50 sq NPWT & ($) cm ($) Debridement (nc ) Treatment Response Procedure Procedure Procedure Tolerated Well Tolerated Well Tolerated Well WC - Visit Discharge Discharge Condition Stable Stable Stable Ambulatory Status Ambulatory Ambulatory Ambulatory Transportation Private Auto Private Auto Private Auto Accompanied by self Medication Reconcilliation completed & No provided to patient/care provider Clinical Summary of Care Provided Yes Additional Wound Wound debrided: Mid ( Superior ) abdomen Type of Debridement: Excisional debridement Anesthesia Used: 4% Lidocaine Solution Depth: Down to and including healthy tissue and in the subcutaneous layer Percentage of wound debrided: 100 Instrument Used: 5mm curette Tissue Removed: Slough and devitalized tissue Severity: Fat Layer Exposed Amount of bleeding with debridement: Mild Bleeding Controlled with: Compression and gauze Patient tolerated procedure: Patient tolerated procedure well Assessment/Plan Assessment/Plan (1) Nonhealing surgical wound: CODE(S): T81.89XA - Other complications of procedures, not elsewhere classified, initial encounter (2) History of abdominal abscess: CODE(S): Z87.898 - Personal history of other specified conditions (3) Insulin dependent diabetes mellitus: (4) End stage renal disease on dialysis: CODE(S): N18.6 - End stage renal disease; Z99.2 - Dependence on renal dialysis (5) Skin ulcer of abdominal wall with fat layer exposed: CODE(S): L98.492 - Non-pressure chronic ulcer of skin of other sites with fat layer exposed (6) Abdominal wall abscess: CODE(S): L02.211 - Cutaneous abscess of abdominal wall PLAN: Debridement done as documented above, procedure was well-tolerated. Initial nonhealing surgical wound is improving however presents with a new mid abdominal ulcer which appears to have started out as an abscess again. Has a little area of abscess in his lower abdomen as well. It appears that he may have skin colonization. He was advised to do/use Hibiclens wash daily. Instructions given on how to. Tolerating wound VAC well so far, left-sided wound is improving. Tunneling still present but some improvement noted.. Continue wound VAC at 150 mmHg. Bridge with mid abdominal ulcer. Unable to get home health and so he will have his changes here on Tuesday and . Optimal diabetes control. Increased protein intake also discussed. His questions were answered and he was advised to call with any further questions or concerns. Follow-up in 1 week. This note was generated with [email or web address] software. It may contain incorrect words, spelling, and punctuation that were not noted in checking the note before signing.
[2022-03-01 13:25] VITALS: BP 180/97; PULSE 96; RESP 16; TEMP 35.7
[2022-03-04 08:57] VITALS: BP 149/89; PULSE 100; RESP 20; TEMP 36.6
--- NOTE | 2022-03-04 12:24 | PN.PCM_ITS ---
History of Present Illness Date of Service: 03/04/22 Chief Complaint: Post surgical wound History of Wound: Mr Eden is a 41yo who was referred to the wound center by his PCP for post surgical wound closure/care. Had presented to [facility] about 2 weeks ago due to an abdominal abscess. Had incision and drainage done. Surgery was uneventful. Transferred to a longterm however he left AMA after 2 days because he states that he did not receive good care. Plan was for a wound VAC which he received at his house without any instructions. He states that he has been dressing it with gauze daily to twice daily. He reports some drainage, not foul-smelling. He denies chills, fever or feeling of unwell. Last A1c per patient was about 3 months ago and it was 7.8. Currently on insulin both long-acting and mealtime. He does not know if he had an A1c drawn during his most recent hospital stay. Progress of Wound: Improving. No new concerns at this time. Objective Data Objective Data Vital Signs: Vital Signs Temp Pulse Resp BP 98 F 100 20 H 149/89 H 03/04/22 08:57 03/04/22 08:57 03/04/22 08:57 03/04/22 08:57 Oxygen Delivery Method Room Air Charges/Coding Procedures Integumentary [id number]: [id number] Jessie subq tissue 20 sq cm/< Physical Exam Const alert, oriented x3 and no apparent distress General Appearance: cooperative, comfortable and well kempt HEENT normocephalic and head/scalp atraumatic Head and Scalp: normal to inspection and normocephalic Eyes EOMs intact bilaterally General Eye: normal appearance of both eyes Neck full ROM General: normal visual inspection Resp normal respiratory effort and normal air movement Effort and Inspection: able to speak in complete sentences Extremity normal to inspection and full ROM Skin Wounds: wounds noted Neuro oriented x3, CN's II-XII intact bilaterally, moves all extremities and no focal motor deficits Psych mental status grossly normal Appearance: grossly normal Attitude: calm Speech: normal speech Thought Process: normal thought process Debridement Note Debridement Note Wound debrided: Mid abdomen Type of Debridement: Excisional debridement Anesthesia Used: 4% Lidocaine Solution Depth: Down to and including healthy tissue and in the subcutaneous layer Percentage of wound debrided: 100 Instrument Used: 5mm curette Tissue Removed: Slough and devitalized tissue Severity: Fat Layer Exposed Amount of bleeding with debridement: Mild Bleeding Controlled with: Pressure Patient tolerated procedure: Patient tolerated procedure well Post-Debridement Measurements and Additional Note: Post-Debridement Measurements/Treatment - Nurse 1 - General Ulcer Assessment Start: 02/08/22 13:32 Freq: Status: Active Protocol: MIKE Activity Type Activity Date Activity User E-Sign Co-Sign Detail Recorded Client Recorded Date Recorded By Document 02/08/22 13:33 DL [id number] 02/08/22 13:35 DL Document 02/11/22 08:01 DL [id number] 02/11/22 08:06 DL Document 02/15/22 13:15 KR [id number] 02/15/22 13:35 KR Document 02/18/22 08:03 DL [id number] 02/18/22 08:22 DL Document 02/22/22 13:37 BMF [id number] 02/22/22 13:39 BMF Document 02/25/22 08:09 BMF [id number] 02/25/22 08:22 BMF Document 03/01/22 13:25 BMF [id number] 03/01/22 13:29 BMF Document 03/04/22 08:57 DL [id number] 03/04/22 09:06 DL 02/08/22 02/11/22 02/15/22 13:33 08:01 13:15 - Today's Visit Information Type of service Follow-up Visit Follow-up Visit Nurse-only (Physician/[facility]ER (Physician/CRATER AND PACKER Visit ) ) Arrival Mode Ambulatory Ambulatory Ambulatory Transfer Assistance None None Patient Identification Verified (Name & Yes Yes Yes ) Patient Requires Transmission-Based No No Precautions Finger Stick Blood Sugar(mg/dl) (if 119 indicated): Blood Sugar Stated by Patient Vital Signs Temperature (97.8 F-99.1 F) 96.2 F L 98.1 F 97.0 F L Temperature Source Temporal Temporal Temporal Pulse Rate (60-100) 98 102 H 92 Pulse Location Monitor Monitor Monitor Respiratory Rate (12-18) 16 18 Respiratory rate source Observation Observation Oxygen Delivery Method Blood Pressure (90/60-120/80) 192/98 H 148/90 H Blood Pressure Mean (mm Hg) 129 109 Source Monitor Monitor Position Blood Pressure Location Comment History Since Last Visit- (Skip if this is Patient's initial visit) Have you changed medications since your No No No last visit? Any new allergies or adverse reactions No No No Had a fall/change in ADL's that may No No No increase risk of falls Signs or symptoms of abuse and/or No No No neglect since last visit Have you been in the hospital since your No No No last visit? Has dressing in place as prescribed Yes Yes Has compression in place as prescribed N/A N/A N/A Has offloadiing in place as prescribed N/A N/A N/A Experienced any changes in pain level or No No No management Left Footwear Right Footwear Other Footwear Pain Scale: 0-10 Numeric Is Patient Pain Free? Yes Yes Yes 02/18/22 02/22/22 02/25/22 08:03 13:37 08:09 WC - Today's Visit Information Type of service Nurse-only Nurse-only Follow-up Visit Visit Visit (Physician/CRATER [employer] PACKER ) Arrival Mode Ambulatory Ambulatory Ambulatory Transfer Assistance Stretcher None None Patient Identification Verified (Name & Yes Yes Yes ) Patient Requires Transmission-Based No No No Precautions Finger Stick Blood Sugar(mg/dl) (if didnt check 110 indicated): Blood Sugar Stated by Stated by Patient Patient Vital Signs Temperature (97.8 F-99.1 F) 96.8 F L 97.2 F L 98.2 F Temperature Source Temporal Temporal Temporal Pulse Rate (60-100) 91 105 H 103 H Pulse Location Monitor Monitor Monitor Respiratory Rate (12-18) 18 16 16 Respiratory rate source Observation Observation Observation Oxygen Delivery Method Room Air Room Air Blood Pressure (90/60-120/80) 127/79 H 172/103 H 137/90 H Blood Pressure Mean (mm Hg) 95 126 105 Source Monitor Monitor Monitor Position Sitting Sitting Blood Pressure Location Left Arm Left Arm Comment Removed VAC adoption counselor pt ea yesterday to visit on bp's. shower. pt states they' re always ^ before dialysis History Since Last Visit- (Skip if this is Patient's initial visit) Have you changed medications since your No No No last visit? Any new allergies or adverse reactions No No No Had a fall/change in ADL's that may No No No increase risk of falls Signs or symptoms of abuse and/or No No No neglect since last visit Have you been in the hospital since your No Yes No last visit? Has dressing in place as prescribed No No Yes Has compression in place as prescribed N/A N/A N/A Has offloadiing in place as prescribed N/A N/A Experienced any changes in pain level or No No No management Left Footwear Regular Shoe Regular Shoe Right Footwear Regular Shoe Regular Shoe Other Footwear showered and removed vac prior to visit Pain Scale: 0-10 Numeric Is Patient Pain Free? Yes Yes Yes 03/01/22 03/04/22 13:25 08:57 WC - Today's Visit Information Type of service Nurse-only Follow-up Visit Visit (Physician/[employer]ER ) Arrival Mode Ambulatory Cane Transfer Assistance None None Patient Identification Verified (Name & Yes Yes ) Patient Requires Transmission-Based No No Precautions Finger Stick Blood Sugar(mg/dl) (if didnt check indicated): Blood Sugar Stated by Patient Vital Signs Temperature (97.8 F-99.1 F) 96.2 F L 98 F Temperature Source Temporal Temporal Pulse Rate (60-100) 96 100 Pulse Location Monitor Monitor Respiratory Rate (12-18) 16 20 H Respiratory rate source Observation Observation Oxygen Delivery Method Room Air Blood Pressure (90/60-120/80) 180/97 H 149/89 H Blood Pressure Mean (mm Hg) 124 109 Source Monitor Monitor Position Sitting Blood Pressure Location Left Arm Comment History Since Last Visit- (Skip if this is Patient's initial visit) Have you changed medications since your No No last visit? Any new allergies or adverse reactions No No Had a fall/change in ADL's that may No No increase risk of falls Signs or symptoms of abuse and/or No No neglect since last visit Have you been in the hospital since your No No last visit? Has dressing in place as prescribed Yes Yes Has compression in place as prescribed N/A N/A Has offloadiing in place as prescribed N/A N/A Experienced any changes in pain level or No No management Left Footwear Regular Shoe Right Footwear Regular Shoe Other Footwear pt removed drsg prior to visit to shower Pain Scale: 0-10 Numeric Is Patient Pain Free? Yes Yes - Nurse 1 - General Ulcer Measurement Start: 02/08/22 13:32 Freq: Status: Active Protocol: Activity Type Activity Date Activity User E-Sign Co-Sign Detail Recorded Client Recorded Date Recorded By Document 02/08/22 13:33 DL [id number] 02/08/22 13:35 DL Document 02/11/22 08:01 DL [id number] 02/11/22 08:06 DL Document 02/18/22 08:03 DL [id number] 02/18/22 08:22 DL Document 02/25/22 08:09 BMF [id number] 02/25/22 08:22 BMF Document 03/04/22 08:57 DL [id number] 03/04/22 09:06 DL 02/08/22 02/11/22 02/18/22 13:33 08:01 08:03 Wound Center Nurse 1 #3- L MIDLINE ABD -Combined with other wound -Current Size (cm) - Length -Current Size (cm) - Width -Current Size (cm) - Depth -Total Square Cm -Date of Last Picture (Recall this field) -Photo Taken -Epithelialization -Tunneling -Tunneling Position (O'clock) -Tunneling Distance (cm) -Undermining/Tunneling -Circular Undermining -Exudate Amt -Exudate Type -Wound Margin -Granulation Amt -Granulation Quality -Slough/Fibrin -Necrosis Amt -Structure Exposed -Texture (Luci-wound Skin Appearance) -Moisture (Luci-wound Skin Appearance) -Color (Luci-wound Skin Appearance) -Temperature (Luci-wound Skin Appearance) -Tenderness on Palpation (Luci-wound Skin Appearance) -Ulcer Cleansing -Foul Odor after Cleansing -Anesthetic Used #2 L ABD -Combined with other wound -Current Size (cm) - Length 0.4 3 -Current Size (cm) - Width 2 -Current Size (cm) - Depth 2 -Total Square Cm 0.8 -Date of Last Picture (Recall this field) -Photo Taken Yes -Epithelialization -Tunneling -Tunneling Position (O'clock) 3 3 -Tunneling Distance (cm) 10.2 5.8 -Undermining/Tunneling -Circular Undermining -Exudate Amt Medium Small -Exudate Type Serosanguineous Serosanguineous -Wound Margin Distinct, Distinct, Distinct, Outline Outline Outline Attached Attached Attached -Granulation Amt Large (67-100%) Large (67-100%) -Granulation Quality Red Red -Slough/Fibrin -Necrosis Amt None Present (0 None Present (0 %) %) -Structure Exposed N/A N/A N/A -Texture (Luci-wound Skin Appearance) Scarring Scarring Scarring -Moisture (Luci-wound Skin Appearance) No Abnormality No Abnormality No Abnormality -Color (Luci-wound Skin Appearance) No Abnormality No Abnormality No Abnormality -Temperature (Luci-wound Skin No Abnormality No Abnormality Appearance) (Pt Warm) (Pt Warm) -Tenderness on Palpation (Luci-wound No Skin Appearance) -Ulcer Cleansing Soap and Water Soap and Water Soap and Water -Foul Odor after Cleansing No No No -Anesthetic Used 4% Lidocaine Solution 02/25/22 03/04/22 08:09 08:57 Wound Center Nurse 1 #3- L MIDLINE ABD -Combined with other wound No -Current Size (cm) - Length 0.3 0.2 -Current Size (cm) - Width 2.3 1.7 -Current Size (cm) - Depth 3.4 5 -Total Square Cm 0.69 0.34 -Date of Last Picture (Recall this 02/25/22 field) -Photo Taken Yes No -Epithelialization None Present -Tunneling No -Tunneling Position (O'clock) 12 -Tunneling Distance (cm) 5 -Undermining/Tunneling No -Circular Undermining No -Exudate Amt Medium Medium -Exudate Type Sanguineous Sanguineous -Wound Margin Distinct, Distinct, Outline Outline Attached Attached -Granulation Amt Large (67-100%) Large (67-100%) -Granulation Quality Red Red -Slough/Fibrin No -Necrosis Amt None Present (0 None Present (0 %) %) -Structure Exposed N/A -Texture (Luci-wound Skin Appearance) Assessed, Scarring Scarring -Moisture (Luci-wound Skin Appearance) Assessed No Abnormality -Color (Luci-wound Skin Appearance) Assessed No Abnormality -Temperature (Luci-wound Skin No Abnormality No Abnormality Appearance) (Pt Warm) (Pt Warm) -Tenderness on Palpation (Luci-wound No No Skin Appearance) -Ulcer Cleansing Soap and Water Soap and Water -Foul Odor after Cleansing No No -Anesthetic Used 4% Lidocaine 4% Lidocaine Solution Solution #2 L ABD -Combined with other wound No -Current Size (cm) - Length 0.1 0.2 -Current Size (cm) - Width 1.3 0.5 -Current Size (cm) - Depth 0.8 0.4 -Total Square Cm 0.13 0.10 -Date of Last Picture (Recall this 02/25/22 field) -Photo Taken Yes No -Epithelialization None Present -Tunneling Yes -Tunneling Position (O'clock) 3 9 -Tunneling Distance (cm) 5.4 4.2 -Undermining/Tunneling No -Circular Undermining No -Exudate Amt Medium Medium -Exudate Type Sanguineous Serosanguineous -Wound Margin Distinct, Distinct, Outline Outline Attached Attached -Granulation Amt Large (67-100%) Large (67-100%) -Granulation Quality Red Red -Slough/Fibrin No -Necrosis Amt None Present (0 None Present (0 %) %) -Structure Exposed N/A -Texture (Luci-wound Skin Appearance) Assessed, Scarring Scarring -Moisture (Luci-wound Skin Appearance) Assessed No Abnormality -Color (Luci-wound Skin Appearance) Assessed No Abnormality -Temperature (Luci-wound Skin No Abnormality No Abnormality Appearance) (Pt Warm) (Pt Warm) -Tenderness on Palpation (Luci-wound No No Skin Appearance) -Ulcer Cleansing Soap and Water Soap and Water -Foul Odor after Cleansing No No -Anesthetic Used 4% Lidocaine 4% Lidocaine Solution Solution WC - Nurse 2 - General Ulcer CM Notes Start: 02/08/22 13:32 Freq: Status: Active Protocol: Activity Type Activity Date Activity User E-Sign Co-Sign Detail Recorded Client Recorded Date Recorded By Document 02/11/22 08:32 MW [id number] 02/11/22 08:37 MW Document 02/25/22 08:29 MW [id number] 02/25/22 08:42 MW Document 03/04/22 09:17 MW [id number] 03/04/22 09:24 MW 02/11/22 02/25/22 03/04/22 08:32 08:29 09:17 Wound Center Nurse 2 #3- L MIDLINE ABD -Time 08:30 09:17 -Correct Patient Yes Yes -Correct Side, Site, Position Yes Yes -Correct Procedure Yes Yes -Procedure Performed Yes Yes -Type of Procedure Debridement Debridement -Clinical Debridement Subcutaneous Subcutaneous -Tissue Removed Subcutaneous Subcutaneous -Post Debridement (cm) - Length 0.4 0.1 -Post Debridement (cm) - Width 2.7 2.0 -Post Debridement (cm) - Depth 2.7 2.5 -Total Square (Post) (cm) 1.08 0.20 -Area of Debridement (cm) - Length 0.4 0.1 -Area of Debridement (cm) - Width 2.7 2.0 -Total Square (Area) (cm) 1.08 0.20 -Tunneling No No -Undermining/Tunneling No No -Circular Undermining No No -Wound/Ulcer Outcome Not Healed Not Healed -Ulcer Cleansing Rinsed/ Rinsed/ Irrigated with Irrigated with Saline Saline -Foul Odor after Cleansing No No -Bioengineered Tissue No No -Bleeding Controlled with Pressure Pressure -Treatment Response Procedure Procedure Tolerated Well Tolerated Well -Offloading No No -Debridement - Subq, 1st 20sq cm Yes Yes #2 L ABD -Time 08:32 08:30 09:18 -Correct Patient Yes Yes Yes -Correct Side, Site, Position Yes Yes Yes -Correct Procedure Yes Yes Yes -Procedure Performed Yes Yes Yes -Type of Procedure Debridement Debridement Debridement -Clinical Debridement Subcutaneous Subcutaneous Subcutaneous -Tissue Removed Subcutaneous Subcutaneous Subcutaneous -Post Debridement (cm) - Length 0.1 0.1 0.1 -Post Debridement (cm) - Width 2.5 1.5 0.5 -Post Debridement (cm) - Depth 1.9 1.5 1.1 -Total Square (Post) (cm) 0.25 0.15 0.05 -Area of Debridement (cm) - Length 0.1 0.1 0.1 -Area of Debridement (cm) - Width 2.5 1.5 0.5 -Total Square (Area) (cm) 0.25 0.15 0.05 -Tunneling Yes Yes Yes -Tunneling Position (O'clock) 3 3 3 -Tunneling Distance (cm) 10.0 6.3 4.4 -Undermining/Tunneling No No No -Circular Undermining No No No -Wound/Ulcer Outcome Not Healed Not Healed Not Healed -Ulcer Cleansing Rinsed/ Rinsed/ Rinsed/ Irrigated with Irrigated with Irrigated with Saline Saline Saline -Foul Odor after Cleansing No No No -Bioengineered Tissue No No No -Bleeding Controlled with Pressure Pressure Pressure -Treatment Response Procedure Procedure Procedure Tolerated Well Tolerated Well Tolerated Well -Offloading No No No -Debridement - Subq, 1st 20sq cm Yes No No Pain Scale: 0-10 Numeric Is Patient Pain Free? Yes Yes Yes WC - Nurse 3 - General Ulcer D/C NN Start: 02/08/22 13:32 Freq: Status: Active Protocol: Activity Type Activity Date Activity User E-Sign Co-Sign Detail Recorded Client Recorded Date Recorded By Document 02/08/22 13:33 DL [id number] 02/08/22 13:35 DL Document 02/11/22 08:39 DL [id number] 02/11/22 08:42 DL Edit Result 02/11/22 08:39 DL (1) [id number] 02/11/22 14:34 PL Document 02/15/22 13:15 KR [id number] 02/15/22 13:35 KR Document 02/18/22 08:22 DL [id number] 02/18/22 08:27 DL Document 02/22/22 13:37 BMF [id number] 02/22/22 13:39 BMF Document 02/25/22 08:45 MW [id number] 02/25/22 08:47 MW Document 03/01/22 13:25 BMF [id number] 03/01/22 13:29 BMF Document 03/04/22 09:30 BMF [id number] 03/04/22 09:31 BMF (1) #2 L ABD - NPWT Application Charge NPWT > 50 sq cm ($ => NPWT & Debridement ) => (nc) 02/08/22 02/11/22 02/15/22 13:33 08:39 13:15 Vital Signs Temperature (97.8 F-99.1 F) 96.2 F L 97.0 F L Temperature Source Temporal Temporal Pulse Rate (60-100) 98 92 Pulse Location Monitor Monitor Respiratory Rate (12-18) 16 Respiratory rate source Observation Oxygen Delivery Method Blood Pressure (90/60-120/80) 192/98 H Blood Pressure Mean (mm Hg) 129 Source Monitor Position Blood Pressure Location Comment Pain Scale: 0-10 Numeric Is Patient Pain Free? Yes Yes Yes Teaching: Wound Center Dressing Your Wound -Person Taught -Teaching Method -Response to teaching Wound Care Nurse 3 #3- L MIDLINE ABD -Ulcer Cleansing -Foul Odor after Cleansing -Negative Pressure Wound Therapy -Setting (mmHg) -Negative Pressure is -Other Dressing -Other Covering -NPWT Application Charge #2 L ABD -Ulcer Cleansing Soap and Water Rinsed/ Rinsed/ Irrigated with Irrigated with Saline Saline -Foul Odor after Cleansing No No -Negative Pressure Wound Therapy Continue Continue Continue -Setting (mmHg) 150 150 -Negative Pressure is Continuous Continuous Continuous -Regranex (If Applicable) Continue -Other Dressing -Other Covering -NPWT Application Charge NPWT </= 50 sq NPWT & NPWT </= 50 sq cm ($) Debridement (nc cm ($) ) Treatment Response Procedure Procedure Tolerated Well Tolerated Well WC - Visit Discharge Discharge Condition Stable Stable Stable Ambulatory Status Ambulatory Ambulatory Ambulatory Transportation Private Auto Private Auto Private Auto Accompanied by Medication Reconcilliation completed & provided to patient/care provider Clinical Summary of Care Provided 02/18/22 02/22/22 02/25/22 08:22 13:37 08:45 Vital Signs Temperature (97.8 F-99.1 F) 97.2 F L Temperature Source Temporal Pulse Rate (60-100) 105 H Pulse Location Monitor Respiratory Rate (12-18) 16 Respiratory rate source Observation Oxygen Delivery Method Room Air Blood Pressure (90/60-120/80) 172/103 H Blood Pressure Mean (mm Hg) 126 Source Monitor Position Sitting Blood Pressure Location Left Arm Comment adoption counselor pt ea visit on bp's. pt states they' re always ^ before dialysis Pain Scale: 0-10 Numeric Is Patient Pain Free? Yes Yes Yes Teaching: Wound Center Dressing Your Wound -Person Taught Patient -Teaching Method Discussion -Response to teaching Verbalize understanding Wound Care Nurse 3 #3- L MIDLINE ABD -Ulcer Cleansing Rinsed/ Irrigated with Saline -Foul Odor after Cleansing No -Negative Pressure Wound Therapy N/A -Setting (mmHg) -Negative Pressure is -Other Dressing black foam -Other Covering wound vac -NPWT Application Charge #2 L ABD -Ulcer Cleansing Soap and Water Soap and Water Rinsed/ Irrigated with Saline -Foul Odor after Cleansing No No No -Negative Pressure Wound Therapy Continue Continue N/A -Setting (mmHg) 150 150 -Negative Pressure is Continuous Continuous -Regranex (If Applicable) -Other Dressing black foam -Other Covering white foam to tunnel -NPWT Application Charge NPWT > 50 sq cm NPWT </= 50 sq NPWT & ($) cm ($) Debridement (nc ) Treatment Response Procedure Procedure Procedure Tolerated Well Tolerated Well Tolerated Well WC - Visit Discharge Discharge Condition Stable Stable Stable Ambulatory Status Ambulatory Ambulatory Ambulatory Transportation Private Auto Private Auto Private Auto Accompanied by self Medication Reconcilliation completed & No provided to patient/care provider Clinical Summary of Care Provided Yes 03/01/22 03/04/22 13:25 09:30 Vital Signs Temperature (97.8 F-99.1 F) 96.2 F L Temperature Source Temporal Pulse Rate (60-100) 96 Pulse Location Monitor Respiratory Rate (12-18) 16 Respiratory rate source Observation Oxygen Delivery Method Room Air Blood Pressure (90/60-120/80) 180/97 H Blood Pressure Mean (mm Hg) 124 Source Monitor Position Sitting Blood Pressure Location Left Arm Comment Pain Scale: 0-10 Numeric Is Patient Pain Free? Yes Yes Teaching: Wound Center Dressing Your Wound -Person Taught -Teaching Method -Response to teaching Wound Care Nurse 3 #3- L MIDLINE ABD -Ulcer Cleansing Soap and Water Rinsed/ Irrigated with Saline -Foul Odor after Cleansing No No -Negative Pressure Wound Therapy Continue Continue -Setting (mmHg) 150 150 -Negative Pressure is Continuous Continuous -Other Dressing vac per dl mender hand -Other Covering -NPWT Application Charge NPWT </= 50 sq NPWT - Multiple cm ($) Locations #2 L ABD -Ulcer Cleansing Soap and Water Rinsed/ Irrigated with Saline -Foul Odor after Cleansing No No -Negative Pressure Wound Therapy Continue Continue -Setting (mmHg) 150 150 -Negative Pressure is Continuous Continuous -Regranex (If Applicable) -Other Dressing vac per dl mender hand -Other Covering -NPWT Application Charge NPWT - Multiple NPWT & Locations Debridement (nc ) Treatment Response Procedure Procedure Tolerated Well Tolerated Well WC - Visit Discharge Discharge Condition Stable Stable Ambulatory Status Ambulatory Ambulatory Transportation Private Auto Private Auto Accompanied by Medication Reconcilliation completed & provided to patient/care provider Clinical Summary of Care Provided Additional Wound Wound debrided: Left lower abdomen/groin Type of Debridement: Excisional debridement Anesthesia Used: 4% Lidocaine Solution Depth: Down to and including healthy tissue and in the subcutaneous layer Percentage of wound debrided: 100 Instrument Used: 3mm curette Tissue Removed: Slough and devitalized tissue Severity: Fat Layer Exposed Amount of bleeding with debridement: Mild Bleeding Controlled with: Pressure Patient tolerated procedure: Patient tolerated procedure well Assessment/Plan Assessment/Plan (1) Nonhealing surgical wound: CODE(S): T81.89XA - Other complications of procedures, not elsewhere classified, initial encounter (2) History of abdominal abscess: CODE(S): Z87.898 - Personal history of other specified conditions (3) Insulin dependent diabetes mellitus: (4) End stage renal disease on dialysis: CODE(S): N18.6 - End stage renal disease; Z99.2 - Dependence on renal dialysis (5) Skin ulcer of abdominal wall with fat layer exposed: CODE(S): L98.492 - Non-pressure chronic ulcer of skin of other sites with fat layer exposed (6) Abdominal wall abscess: CODE(S): L02.211 - Cutaneous abscess of abdominal wall PLAN: Debridement done as documented above, procedure was well-tolerated. Improving. No new concerns at this time. Continue wound VAC at 150 mmHg to left lower abdomen/groin. Bridge with mid abdominal ulcer. Unable to get home health and so he will have his changes here on Tuesday and . Optimal diabetes control. Increased protein intake also discussed. His questions were answered and he was advised to call with any further questions or concerns. Follow-up in 1 week. This note was generated with [employer] dictation software. It may contain incorrect words, spelling, and punctuation that were not noted in checking the note before signing.
== END 2022-03-06 23:59 | disposition home or self-care (01) ==
LOC: WC 09:00
PROVIDERS: PCP Physician Assistant; Visit Provider Internal Medicine
DX: T81.89XA Other complications of procedures, not elsewhere classified, initial encounter (principal); E11.622 Type 2 diabetes mellitus with other skin ulcer; L98.492 Non-pressure chronic ulcer of skin of other sites with fat layer exposed; Z99.2 Dependence on renal dialysis; E11.22 Type 2 diabetes mellitus with diabetic chronic kidney disease; N18.6 End stage renal disease; Z79.4 Long term (current) use of insulin; L02.211 Cutaneous abscess of abdominal wall
CPT/HCPCS: 11042; 97605; 97606

== ENCOUNTER 2022-03-25 08:15 | Outpatient (RCR) | payer OTHER, SELFPAY ==
[2022-03-07 00:41] VITALS: BP 149/89; PULSE 100; RESP 20; TEMP 36.6
[2022-03-08 13:47] VITALS: BP 184/98; PULSE 92; RESP 20; TEMP 36.8
[2022-03-11 08:06] VITALS: BP 157/93; PULSE 93; RESP 16; TEMP 35.9
--- NOTE | 2022-03-11 10:23 | PCM.WC.PN ---
History of Present Illness Date of Service: 03/11/22 Chief Complaint: Post surgical wound History of Wound: Mr Eden is a 41yo who was referred to the wound center by his PCP for post surgical wound closure/care. Had presented to [facility] about 2 weeks ago due to an abdominal abscess. Had incision and drainage done. Surgery was uneventful. Transferred to a fpc however he left AMA after 2 days because he states that he did not receive good care. Plan was for a wound VAC which he received at his house without any instructions. He states that he has been dressing it with gauze daily to twice daily. He reports some drainage, not foul-smelling. He denies chills, fever or feeling of unwell. Last A1c per patient was about 3 months ago and it was 7.8. Currently on insulin both long-acting and mealtime. He does not know if he had an A1c drawn during his most recent hospital stay. Progress of Wound: No significant change in size. Had some concerns with the foam doing changes. Objective Data Objective Data Vital Signs: Vital Signs Temp Pulse Resp BP 96.7 F L 93 16 157/93 H 03/11/22 08:06 03/11/22 08:06 03/11/22 08:06 03/11/22 08:06 Oxygen Delivery Method Room Air Charges/Coding Procedures Integumentary 111xxx-113xx: [id number] Jessie subq tissue 20 sq cm/< Physical Exam Const alert, oriented x3 and no apparent distress General Appearance: cooperative, comfortable and well kempt HEENT normocephalic and head/scalp atraumatic Head and Scalp: normal to inspection and normocephalic Eyes EOMs intact bilaterally General Eye: normal appearance of both eyes Neck full ROM General: normal visual inspection Resp normal respiratory effort and normal air movement Effort and Inspection: able to speak in complete sentences Extremity normal to inspection and full ROM Skin Wounds: wounds noted Neuro oriented x3, CN's II-XII intact bilaterally, moves all extremities and no focal motor deficits Psych mental status grossly normal Appearance: grossly normal Attitude: calm Speech: normal speech Thought Process: normal thought process Debridement Note Debridement Note Wound debrided: Mid upper abdomen Type of Debridement: Excisional debridement Anesthesia Used: 4% Lidocaine Solution Depth: Down to and including healthy tissue and in the subcutaneous layer Percentage of wound debrided: 100 Instrument Used: 5mm curette Tissue Removed: Slough and devitalized tissue Severity: Fat Layer Exposed Amount of bleeding with debridement: Mild Bleeding Controlled with: Pressure Patient tolerated procedure: Patient tolerated procedure well Post-Debridement Measurements and Additional Note: Post-Debridement Measurements/Treatment [facility] Nurse 1 - General Ulcer Assessment Start: 03/08/22 13:47 Freq: Status: Active Protocol: MIKE Activity Type Activity Date Activity User E-Sign Co-Sign Detail Recorded Client Recorded Date Recorded By Document 03/08/22 13:47 DL [id number] 03/08/22 13:51 DL Document 03/11/22 08:06 BM [id number] 03/11/22 08:12 BMF 03/08/22 03/11/22 13:47 08:06 - Today's Visit Information Type of service Nurse-only Follow-up Visit Visit (Physician/ELECTRON[employer] WARFARE SPECIALIST ) Arrival Mode Ambulatory Ambulatory Transfer Assistance None None Patient Identification Verified (Name & Yes Yes ) Patient Requires Transmission-Based No No Precautions Vital Signs Temperature (97.8 F-99.1 F) 98.3 F 96.7 F L Temperature Source Temporal Temporal Pulse Rate (60-100) 92 93 Pulse Location Monitor Monitor Respiratory Rate (12-18) 20 H 16 Respiratory rate source Observation Observation Oxygen Delivery Method Room Air Blood Pressure (90/60-120/80) 184/98 H 157/93 H Blood Pressure Mean (mm Hg) 126 114 Source Monitor Monitor Position Supine Blood Pressure Location Left Arm History Since Last Visit- (Skip if this is Patient's initial visit) Have you changed medications since your No No last visit? Any new allergies or adverse reactions No No Had a fall/change in ADL's that may No No increase risk of falls Signs or symptoms of abuse and/or No No neglect since last visit Have you been in the hospital since your No No last visit? Has dressing in place as prescribed No Has compression in place as prescribed Yes N/A Has offloadiing in place as prescribed N/A N/A Experienced any changes in pain level or No No management Left Footwear Regular Shoe Regular Shoe Right Footwear Regular Shoe Regular Shoe Other Footwear showered and removed vac prior to visit Pain Scale: 0-10 Numeric Is Patient Pain Free? Yes Yes [facility] Nurse 1 - General Ulcer Measurement Start: 03/08/22 13:47 Freq: Status: Active Protocol: Activity Type Activity Date Activity User E-Sign Co-Sign Detail Recorded Client Recorded Date Recorded By Document 03/11/22 08:06 [facility] [id number] 03/11/22 08:12 [facility] 03/11/22 08:06 Wound Center Nurse 1 #3- L MIDLINE ABD -Current Size (cm) - Length 0.2 -Current Size (cm) - Width 2 -Current Size (cm) - Depth 0.6 -Total Square Cm 0.4 -Date of Last Picture (Recall this 03/11/22 field) -Photo Taken Yes -Epithelialization Small 1-33% -Tunneling No -Undermining/Tunneling No -Circular Undermining No -Exudate Amt Medium -Exudate Type Sanguineous -Wound Margin Distinct, Outline Attached -Granulation Amt Large (67-100%) -Granulation Quality Red -Slough/Fibrin No -Necrosis Amt None Present (0 %) -Texture (Luci-wound Skin Appearance) Assessed, Scarring -Moisture (Luci-wound Skin Appearance) Assessed -Color (Luci-wound Skin Appearance) Assessed -Temperature (Luci-wound Skin No Abnormality Appearance) (Pt Warm) -Tenderness on Palpation (Luci-wound No Skin Appearance) -Ulcer Cleansing Rinsed/ Irrigated with Saline -Foul Odor after Cleansing No -Anesthetic Used 4% Lidocaine Solution #2 L ABD -Combined with other wound No -Current Size (cm) - Length 0.1 -Current Size (cm) - Width 0.4 -Current Size (cm) - Depth 0.3 -Total Square Cm 0.04 -Date of Last Picture (Recall this 03/11/22 field) -Photo Taken Yes -Epithelialization Small 1-33% -Tunneling Yes -Tunneling Position (O'clock) 3 -Tunneling Distance (cm) 3.6 -Undermining/Tunneling No -Circular Undermining No -Exudate Amt Medium -Exudate Type Sanguineous -Wound Margin Distinct, Outline Attached -Granulation Amt Large (67-100%) -Granulation Quality Red -Slough/Fibrin No -Necrosis Amt None Present (0 %) -Texture (Luci-wound Skin Appearance) Assessed, Scarring -Moisture (Luci-wound Skin Appearance) Assessed -Color (Luci-wound Skin Appearance) Assessed -Temperature (Luci-wound Skin No Abnormality Appearance) (Pt Warm) -Tenderness on Palpation (Luci-wound No Skin Appearance) -Ulcer Cleansing Rinsed/ Irrigated with Saline -Foul Odor after Cleansing No -Anesthetic Used 4% Lidocaine Solution WC - Nurse 2 - General Ulcer CM Notes Start: 03/08/22 13:47 Freq: Status: Active Protocol: Activity Type Activity Date Activity User E-Sign Co-Sign Detail Recorded Client Recorded Date Recorded By Document 03/11/22 08:30 MW [id number] 03/11/22 08:42 MW 03/11/22 08:30 Wound Center Nurse 2 #3- L MIDLINE ABD -Time 08:31 -Correct Patient Yes -Correct Side, Site, Position Yes -Correct Procedure Yes -Procedure Performed Yes -Type of Procedure Debridement -Clinical Debridement Subcutaneous -Tissue Removed Subcutaneous -Post Debridement (cm) - Length 0.1 -Post Debridement (cm) - Width 1.8 -Post Debridement (cm) - Depth 3.5 -Total Square (Post) (cm) 0.18 -Area of Debridement (cm) - Length 0.1 -Area of Debridement (cm) - Width 3.5 -Total Square (Area) (cm) 0.35 -Tunneling No -Undermining/Tunneling No -Circular Undermining No -Wound/Ulcer Outcome Not Healed -Ulcer Cleansing Rinsed/ Irrigated with Saline -Foul Odor after Cleansing No -Bioengineered Tissue No -Treatment Response Procedure Tolerated Well -Offloading No -Debridement - Subq, 1st 20sq cm Yes #2 L ABD -Time 08:32 -Correct Patient Yes -Correct Side, Site, Position Yes -Correct Procedure Yes -Procedure Performed Yes -Type of Procedure Debridement -Clinical Debridement Subcutaneous -Tissue Removed Subcutaneous -Post Debridement (cm) - Length 0.1 -Post Debridement (cm) - Width 0.5 -Post Debridement (cm) - Depth 1.0 -Total Square (Post) (cm) 0.05 -Area of Debridement (cm) - Length 0.1 -Area of Debridement (cm) - Width 0.5 -Total Square (Area) (cm) 0.05 -Tunneling Yes -Tunneling Position (O'clock) 3 -Tunneling Distance (cm) 4.5 -Undermining/Tunneling No -Circular Undermining No -Wound/Ulcer Outcome Not Healed -Ulcer Cleansing Rinsed/ Irrigated with Saline -Foul Odor after Cleansing No -Bioengineered Tissue No -Bleeding Controlled with Pressure -Treatment Response Procedure Tolerated Well -Offloading No -Debridement - Subq, 1st 20sq cm No Pain Scale: 0-10 Numeric Is Patient Pain Free? Yes - Nurse 3 - General Ulcer D/C NN Start: 03/08/22 13:47 Freq: Status: Active Protocol: Activity Type Activity Date Activity User E-Sign Co-Sign Detail Recorded Client Recorded Date Recorded By Document 03/08/22 13:47 DL [id number] 03/08/22 13:51 DL Document 03/11/22 08:44 BMF [id number] 03/11/22 08:45 BMF 03/08/22 03/11/22 13:47 08:44 Vital Signs Temperature (97.8 F-99.1 F) 98.3 F Temperature Source Temporal Pulse Rate (60-100) 92 Pulse Location Monitor Respiratory Rate (12-18) 20 H Respiratory rate source Observation Blood Pressure (90/60-120/80) 184/98 H Blood Pressure Mean (mm Hg) 126 Source Monitor Pain Scale: 0-10 Numeric Is Patient Pain Free? Yes Yes Wound Care Nurse 3 #3- L MIDLINE ABD -Ulcer Cleansing Soap and Water Rinsed/ Irrigated with Saline -Foul Odor after Cleansing No No -Negative Pressure Wound Therapy Continue Continue -Setting (mmHg) 150 150 -Negative Pressure is Continuous Continuous -Other Dressing white foam; drsg per [place] educational speech language clinician -NPWT Application Charge NPWT </= 50 sq NPWT & cm ($) Debridement (nc ) #2 L ABD -Ulcer Cleansing Soap and Water Rinsed/ Irrigated with Saline -Foul Odor after Cleansing No No -Negative Pressure Wound Therapy Continue -Setting (mmHg) 150 -Negative Pressure is Continuous -Primary Dressing Applied Aquacel Extra -Other Dressing drsg per [place] educational speech language clinician -Primary Dressing Covered/Secured with Secured with Tape,Other -Other Covering abd -NPWT Application Charge NPWT - Multiple Locations -Aquacel Extra 1 Treatment Response Procedure Procedure Tolerated Well Tolerated Well WC - Visit Discharge Discharge Condition Stable Stable Ambulatory Status Ambulatory Ambulatory Transportation Private Auto Private Auto Additional Wound Wound debrided: Left Lower abdomen( Groin ) Type of Debridement: Excisional debridement Anesthesia Used: 4% Lidocaine Solution Depth: Down to and including healthy tissue and in the subcutaneous layer Percentage of wound debrided: 100 Instrument Used: 3mm curette and - (1mm) Tissue Removed: Slough and devitalized tissue Severity: Fat Layer Exposed Amount of bleeding with debridement: Mild Bleeding Controlled with: Pressure Assessment/Plan Assessment/Plan (1) Nonhealing surgical wound: CODE(S): T81.89XA - Other complications of procedures, not elsewhere classified, initial encounter (2) History of abdominal abscess: CODE(S): Z87.898 - Personal history of other specified conditions (3) Insulin dependent diabetes mellitus: (4) End stage renal disease on dialysis: CODE(S): N18.6 - End stage renal disease; Z99.2 - Dependence on renal dialysis (5) Skin ulcer of abdominal wall with fat layer exposed: CODE(S): L98.492 - Non-pressure chronic ulcer of skin of other sites with fat layer exposed (6) Abdominal wall abscess: CODE(S): L02.211 - Cutaneous abscess of abdominal wall PLAN: Debridement done as documented above, procedure was well-tolerated. No significant change in the past week. Wound VAC holiday to left sided abdomen/groin wound and continue wound VAC at 150 mmHg to the mid abdominal (upper) wound. Unable to get home health and so he will have his changes here on Tuesday and . Pack left lower abdomen/groin wound with Aquacel extra. Change daily to twice daily depending on drainage. Optimal diabetes control. Increased protein intake also discussed. His questions were answered and he was advised to call with any further questions or concerns. Follow-up in 1 week. This note was generated with [employer]ation software. It may contain incorrect words, spelling, and punctuation that were not noted in checking the note before signing.
[2022-03-15 13:17] VITALS: BP 143/98; PULSE 97; RESP 18; TEMP 36.8
[2022-03-18 08:59] VITALS: BP 151/100; PULSE 95; RESP 18; TEMP 36.3
--- NOTE | 2022-03-18 12:57 | PCM.WC.PN ---
History of Present Illness Date of Service: 03/18/22 Chief Complaint: Post surgical wound History of Wound: Mr Eden is a 41yo who was referred to the wound center by his PCP for post surgical wound closure/care. Had presented to [facility] about 2 weeks ago due to an abdominal abscess. Had incision and drainage done. Surgery was uneventful. Transferred to a assisted however he left AMA after 2 days because he states that he did not receive good care. Plan was for a wound VAC which he received at his house without any instructions. He states that he has been dressing it with gauze daily to twice daily. He reports some drainage, not foul-smelling. He denies chills, fever or feeling of unwell. Last A1c per patient was about 3 months ago and it was 7.8. Currently on insulin both long-acting and mealtime. He does not know if he had an A1c drawn during his most recent hospital stay. Progress of Wound: Upper abdominal ulcer is improving. Left lower abdomen becoming increasingly difficult to use the wound VAC or pack. Objective Data Objective Data Vital Signs: Vital Signs Temp Pulse Resp BP 97.4 F L 95 18 151/100 H 03/18/22 08:59 03/18/22 08:59 03/18/22 08:59 03/18/22 08:59 Oxygen Delivery Method Room Air Charges/Coding Procedures Integumentary 111xxx-113xx: [id number] Jessie subq tissue 20 sq cm/< Physical Exam Const alert, oriented x3 and no apparent distress General Appearance: cooperative, comfortable and well kempt HEENT normocephalic and head/scalp atraumatic Head and Scalp: normal to inspection and normocephalic Eyes EOMs intact bilaterally General Eye: normal appearance of both eyes Neck full ROM General: normal visual inspection Resp normal respiratory effort and normal air movement Effort and Inspection: able to speak in complete sentences Extremity normal to inspection and full ROM Skin Wounds: wounds noted Neuro oriented x3, CN's II-XII intact bilaterally, moves all extremities and no focal motor deficits Psych mental status grossly normal Appearance: grossly normal Attitude: calm Speech: normal speech Thought Process: normal thought process Debridement Note Debridement Note Wound debrided: Needed (upper) abdomen Type of Debridement: Excisional debridement Anesthesia Used: 4% Lidocaine Solution Depth: Down to and including healthy tissue and in the subcutaneous layer Percentage of wound debrided: 100 Instrument Used: 5mm curette Tissue Removed: Slough and devitalized tissue Severity: Fat Layer Exposed Amount of bleeding with debridement: Mild Bleeding Controlled with: Pressure Patient tolerated procedure: Patient tolerated procedure well Post-Debridement Measurements and Additional Note: Post-Debridement Measurements/Treatment - Nurse 1 - General Ulcer Assessment Start: 03/08/22 13:47 Freq: Status: Active Protocol: MIKE Activity Type Activity Date Activity User E-Sign Co-Sign Detail Recorded Client Recorded Date Recorded By Document 03/08/22 13:47 DL [id number] 03/08/22 13:51 DL Document 03/11/22 08:06 BMF [id number] 03/11/22 08:12 BMF Document 03/15/22 13:17 DL [id number] 03/15/22 13:44 DL Document 03/18/22 08:59 DL [id number] 03/18/22 09:09 DL 03/08/22 03/11/22 03/15/22 13:47 08:06 13:17 - Today's Visit Information Type of service Nurse-only Follow-up Visit Nurse-only Visit (Physician/FRUIT GRADING SUPERVISOR Visit ) Arrival Mode Ambulatory Ambulatory Ambulatory Transfer Assistance None None None Patient Identification Verified (Name & Yes Yes Yes ) Patient Requires Transmission-Based No No No Precautions Finger Stick Blood Sugar(mg/dl) (if didnt check indicated): Blood Sugar Stated by Patient Vital Signs Temperature (97.8 F-99.1 F) 98.3 F 96.7 F L 98.2 F Temperature Source Temporal Temporal Temporal Pulse Rate (60-100) 92 93 97 Pulse Location Monitor Monitor Monitor Respiratory Rate (12-18) 20 H 16 18 Respiratory rate source Observation Observation Observation Oxygen Delivery Method Room Air Blood Pressure (90/60-120/80) 184/98 H 157/93 H 143/98 H Blood Pressure Mean (mm Hg) 126 114 113 Source Monitor Monitor Monitor Position Supine Blood Pressure Location Left Arm History Since Last Visit- (Skip if this is Patient's initial visit) Have you changed medications since your No No No last visit? Any new allergies or adverse reactions No No No Had a fall/change in ADL's that may No No No increase risk of falls Signs or symptoms of abuse and/or No No No neglect since last visit Have you been in the hospital since your No No No last visit? Has dressing in place as prescribed No Yes Has compression in place as prescribed Yes N/A N/A Has offloadiing in place as prescribed N/A N/A N/A Experienced any changes in pain level or No No No management Left Footwear Regular Shoe Regular Shoe Right Footwear Regular Shoe Regular Shoe Other Footwear showered and removed vac prior to visit Pain Scale: 0-10 Numeric Is Patient Pain Free? Yes Yes Yes 03/18/22 08:59 - Today's Visit Information Type of service Follow-up Visit (Physician/FRUIT GRADING SUPERVISOR ) Arrival Mode Ambulatory Transfer Assistance None Patient Identification Verified (Name & Yes ) Patient Requires Transmission-Based No Precautions Finger Stick Blood Sugar(mg/dl) (if indicated): Blood Sugar Vital Signs Temperature (97.8 F-99.1 F) 97.4 F L Temperature Source Temporal Pulse Rate (60-100) 95 Pulse Location Monitor Respiratory Rate (12-18) 18 Respiratory rate source Observation Oxygen Delivery Method Blood Pressure (90/60-120/80) 151/100 H Blood Pressure Mean (mm Hg) 117 Source Monitor Position Blood Pressure Location History Since Last Visit- (Skip if this is Patient's initial visit) Have you changed medications since your No last visit? Any new allergies or adverse reactions No Had a fall/change in ADL's that may No increase risk of falls Signs or symptoms of abuse and/or No neglect since last visit Have you been in the hospital since your No last visit? Has dressing in place as prescribed Yes Has compression in place as prescribed N/A Has offloadiing in place as prescribed N/A Experienced any changes in pain level or No management Left Footwear Right Footwear Other Footwear Pain Scale: 0-10 Numeric Is Patient Pain Free? Yes - Nurse 1 - General Ulcer Measurement Start: 03/08/22 13:47 Freq: Status: Active Protocol: Activity Type Activity Date Activity User E-Sign Co-Sign Detail Recorded Client Recorded Date Recorded By Document 03/11/22 08:06 [facility] [id number] 03/11/22 08:12 BMF Document 03/15/22 13:17 DL [id number] 03/15/22 13:44 DL Document 03/18/22 08:59 DL [id number] 03/18/22 09:09 DL 03/11/22 03/15/22 03/18/22 08:06 13:17 08:59 Wound Center Nurse 1 #3- L MIDLINE ABD -Current Size (cm) - Length 0.2 0.3 -Current Size (cm) - Width 2 1 -Current Size (cm) - Depth 0.6 2.5 2 -Total Square Cm 0.4 0.3 -Date of Last Picture (Recall this 03/11/22 field) -Photo Taken Yes No No -Epithelialization Small 1-33% -Tunneling No -Tunneling Position (O'clock) 12 -Tunneling Distance (cm) 2.5 -Undermining/Tunneling No -Circular Undermining No -Exudate Amt Medium Small Medium -Exudate Type Sanguineous Serosanguineous Sanguineous -Wound Margin Distinct, Distinct, Distinct, Outline Outline Outline Attached Attached Attached -Granulation Amt Large (67-100%) Large (67-100%) Large (67-100%) -Granulation Quality Red Red Red -Slough/Fibrin No -Necrosis Amt None Present (0 None Present (0 None Present (0 %) %) %) -Structure Exposed N/A N/A -Texture (Luci-wound Skin Appearance) Assessed, Scarring Scarring Scarring -Moisture (Luci-wound Skin Appearance) Assessed No Abnormality No Abnormality -Color (Luci-wound Skin Appearance) Assessed No Abnormality No Abnormality -Temperature (Luci-wound Skin No Abnormality No Abnormality No Abnormality Appearance) (Pt Warm) (Pt Warm) (Pt Warm) -Tenderness on Palpation (Luci-wound No No No Skin Appearance) -Ulcer Cleansing Rinsed/ Soap and Water Soap and Water Irrigated with Saline -Foul Odor after Cleansing No No Yes, Due to Product Use -Anesthetic Used 4% Lidocaine 4% Lidocaine Solution Solution #2 L ABD -Combined with other wound No -Current Size (cm) - Length 0.1 0.2 -Current Size (cm) - Width 0.4 0.2 -Current Size (cm) - Depth 0.3 2.3 6 -Total Square Cm 0.04 0.04 -Date of Last Picture (Recall this 03/11/22 field) -Photo Taken Yes No -Epithelialization Small 1-33% -Tunneling Yes -Tunneling Position (O'clock) 3 9 -Tunneling Distance (cm) 3.6 6 -Undermining/Tunneling No -Circular Undermining No -Exudate Amt Medium Medium Medium -Exudate Type Sanguineous Serosanguineous Serosanguineous -Wound Margin Distinct, Distinct, Distinct, Outline Outline Outline Attached Attached Attached -Granulation Amt Large (67-100%) Large (67-100%) Large (67-100%) -Granulation Quality Red Red Red -Slough/Fibrin No -Necrosis Amt None Present (0 None Present (0 None Present (0 %) %) %) -Structure Exposed N/A N/A -Texture (Luci-wound Skin Appearance) Assessed, Scarring Scarring Scarring -Moisture (Luci-wound Skin Appearance) Assessed No Abnormality No Abnormality -Color (Luci-wound Skin Appearance) Assessed No Abnormality No Abnormality -Temperature (Luci-wound Skin No Abnormality No Abnormality No Abnormality Appearance) (Pt Warm) (Pt Warm) (Pt Warm) -Tenderness on Palpation (Luci-wound No No No Skin Appearance) -Ulcer Cleansing Rinsed/ Soap and Water Soap and Water Irrigated with Saline -Foul Odor after Cleansing No No No -Anesthetic Used 4% Lidocaine 4% Lidocaine Solution Solution WC - Nurse 2 - General Ulcer CM Notes Start: 03/08/22 13:47 Freq: Status: Active Protocol: Activity Type Activity Date Activity User E-Sign Co-Sign Detail Recorded Client Recorded Date Recorded By Document 03/11/22 08:30 MW [id number] 03/11/22 08:42 MW Document 03/18/22 09:23 MW [id number] 03/18/22 09:28 MW 03/11/22 03/18/22 08:30 09:23 Wound Center Nurse 2 #3- L MIDLINE ABD -Time 08:31 09:23 -Correct Patient Yes Yes -Correct Side, Site, Position Yes Yes -Correct Procedure Yes Yes -Procedure Performed Yes Yes -Type of Procedure Debridement Debridement -Clinical Debridement Subcutaneous Subcutaneous -Tissue Removed Subcutaneous Subcutaneous -Post Debridement (cm) - Length 0.1 0.3 -Post Debridement (cm) - Width 1.8 1.9 -Post Debridement (cm) - Depth 3.5 1.9 -Total Square (Post) (cm) 0.18 0.57 -Area of Debridement (cm) - Length 0.1 0.3 -Area of Debridement (cm) - Width 3.5 1.9 -Total Square (Area) (cm) 0.35 0.57 -Tunneling No No -Undermining/Tunneling No No -Circular Undermining No No -Wound/Ulcer Outcome Not Healed Not Healed -Ulcer Cleansing Rinsed/ Rinsed/ Irrigated with Irrigated with Saline Saline -Foul Odor after Cleansing No No -Bioengineered Tissue No No -Bleeding Controlled with Pressure -Treatment Response Procedure Procedure Tolerated Well Tolerated Well -Offloading No No -Debridement - Subq, 1st 20sq cm Yes Yes #2 L ABD -Time 08:32 09:23 -Correct Patient Yes Yes -Correct Side, Site, Position Yes Yes -Correct Procedure Yes Yes -Procedure Performed Yes Yes -Type of Procedure Debridement Debridement -Clinical Debridement Subcutaneous Subcutaneous -Tissue Removed Subcutaneous Subcutaneous -Post Debridement (cm) - Length 0.1 0.1 -Post Debridement (cm) - Width 0.5 0.5 -Post Debridement (cm) - Depth 1.0 0.9 -Total Square (Post) (cm) 0.05 0.05 -Area of Debridement (cm) - Length 0.1 0.1 -Area of Debridement (cm) - Width 0.5 0.5 -Total Square (Area) (cm) 0.05 0.05 -Tunneling Yes Yes -Tunneling Position (O'clock) 3 3 -Tunneling Distance (cm) 4.5 -Undermining/Tunneling No No -Circular Undermining No No -Wound/Ulcer Outcome Not Healed Not Healed -Ulcer Cleansing Rinsed/ Rinsed/ Irrigated with Irrigated with Saline Saline -Foul Odor after Cleansing No No -Bioengineered Tissue No No -Bleeding Controlled with Pressure Pressure -Treatment Response Procedure Procedure Tolerated Well Tolerated Well -Offloading No No -Debridement - Subq, 1st 20sq cm No No Pain Scale: 0-10 Numeric Is Patient Pain Free? Yes Yes WC - Nurse 3 - General Ulcer D/C NN Start: 03/08/22 13:47 Freq: Status: Active Protocol: Activity Type Activity Date Activity User E-Sign Co-Sign Detail Recorded Client Recorded Date Recorded By Document 03/08/22 13:47 JADE [id number] 03/08/22 13:51 DL Document 03/11/22 08:44 BMF [id number] 03/11/22 08:45 BMF Document 03/15/22 13:17 DL [id number] 03/15/22 13:44 DL Edit Result 03/15/22 13:17 DL (1) [id number] 03/16/22 11:37 PL Document 03/18/22 09:53 DL [id number] 03/18/22 09:54 DL (1) #3- L MIDLINE ABD - NPWT Application Charge NPWT </= 50 sq cm => NPWT </= 50 sq cm ($) => (disp) ($) 03/08/22 03/11/22 03/15/22 13:47 08:44 13:17 Vital Signs Temperature (97.8 F-99.1 F) 98.3 F 98.2 F Temperature Source Temporal Temporal Pulse Rate (60-100) 92 97 Pulse Location Monitor Monitor Respiratory Rate (12-18) 20 H 18 Respiratory rate source Observation Observation Blood Pressure (90/60-120/80) 184/98 H 143/98 H Blood Pressure Mean (mm Hg) 126 113 Source Monitor Monitor Pain Scale: 0-10 Numeric Is Patient Pain Free? Yes Yes Yes Wound Care Nurse 3 #3- L MIDLINE ABD -Ulcer Cleansing Soap and Water Rinsed/ Soap and Water Irrigated with Saline -Foul Odor after Cleansing No No No -Negative Pressure Wound Therapy Continue Continue Continue -Setting (mmHg) 150 150 150 -Negative Pressure is Continuous Continuous Continuous -Other Dressing white foam; drsg per ak data communications engineer -NPWT Application Charge NPWT </= 50 sq NPWT & NPWT </= 50 sq cm ($) Debridement (nc cm (disp) ($) ) #2 L ABD -Ulcer Cleansing Soap and Water Rinsed/ Soap and Water Irrigated with Saline -Foul Odor after Cleansing No No No -Negative Pressure Wound Therapy Continue -Setting (mmHg) 150 -Negative Pressure is Continuous -Primary Dressing Applied Aquacel Extra Aquacel Extra -Other Dressing drsg per ak data communications engineer -Primary Dressing Covered/Secured with Secured with Dry Gauze, Tape,Other Secured with Tape -Other Covering abd -NPWT Application Charge NPWT - Multiple Locations -Aquacel Extra 1 1 -Promogran Treatment Response Procedure Procedure Procedure Tolerated Well Tolerated Well Tolerated Well WC - Visit Discharge Discharge Condition Stable Stable Stable Ambulatory Status Ambulatory Ambulatory Ambulatory Transportation Private Auto Private Auto modu Auto Notes: Pt C/O being tired and nauseated today , rash noted to L Groin, weepy and very tender to touch . Seen by Mauri Holden,LORENA instructed to use Triple ATB ointment till seen by Dr. Mart Anand. Bacitracin used today in clinic. 03/18/22 09:53 Vital Signs Temperature (97.8 F-99.1 F) Temperature Source Pulse Rate (60-100) Pulse Location Respiratory Rate (12-18) Respiratory rate source Blood Pressure (90/60-120/80) Blood Pressure Mean (mm Hg) Source Pain Scale: 0-10 Numeric Is Patient Pain Free? Yes Wound Care Nurse 3 #3- L MIDLINE ABD -Ulcer Cleansing Soap and Water -Foul Odor after Cleansing No -Negative Pressure Wound Therapy Continue -Setting (mmHg) 150 -Negative Pressure is Continuous -Other Dressing -NPWT Application Charge NPWT </= 50 sq cm ($) #2 L ABD -Ulcer Cleansing Soap and Water -Foul Odor after Cleansing No -Negative Pressure Wound Therapy -Setting (mmHg) -Negative Pressure is -Primary Dressing Applied Promogran -Other Dressing -Primary Dressing Covered/Secured with Dry Gauze, Secured with Tape -Other Covering -NPWT Application Charge -Aquacel Extra -Promogran 2 Treatment Response Procedure Tolerated Well WC - Visit Discharge Discharge Condition Stable Ambulatory Status Ambulatory Transportation Private Auto Notes: Additional Wound Wound debrided: Left lower abdomen Type of Debridement: Excisional debridement Anesthesia Used: 4% Lidocaine Solution Depth: Down to and including healthy tissue and in the subcutaneous layer Percentage of wound debrided: 100 Instrument Used: - (1 mm) Severity: Fat Layer Exposed Amount of bleeding with debridement: Mild Bleeding Controlled with: Pressure Patient tolerated procedure: Patient tolerated procedure well Assessment/Plan Assessment/Plan (1) Nonhealing surgical wound: CODE(S): T81.89XA - Other complications of procedures, not elsewhere classified, initial encounter (2) History of abdominal abscess: CODE(S): Z87.898 - Personal history of other specified conditions (3) Insulin dependent diabetes mellitus: (4) End stage renal disease on dialysis: CODE(S): N18.6 - End stage renal disease; Z99.2 - Dependence on renal dialysis (5) Skin ulcer of abdominal wall with fat layer exposed: CODE(S): L98.492 - Non-pressure chronic ulcer of skin of other sites with fat layer exposed (6) Abdominal wall abscess: CODE(S): L02.211 - Cutaneous abscess of abdominal wall PLAN: Debridement done as documented above, procedure was well-tolerated. Left lower abdomen still with tunneling at 3:00. Switch to Promogran as it is becoming increasingly difficult to pack. Change daily to twice daily depending on drainage. Continue wound VAC to mid upper abdominal ulcer at 150 mmHg. Come in on Tuesday for next visit/change. Optimal diabetes control. Increased protein intake also discussed. His questions were answered and he was advised to call with any further questions or concerns. Follow-up in 1 week. This note was generated with [employer] dictation software. It may contain incorrect words, spelling, and punctuation that were not noted in checking the note before signing.
[2022-03-22 11:25] VITALS: BP 176/101; PULSE 97; RESP 20; TEMP 36.6
[2022-03-25 08:09] VITALS: BP 163/100; PULSE 101; RESP 16; TEMP 35.4
--- NOTE | 2022-03-25 11:20 | PCM.WC.PN ---
History of Present Illness Date of Service: 03/25/22 Chief Complaint: Post surgical wound History of Wound: Mr Eden is a 41yo who was referred to the wound center by his PCP for post surgical wound closure/care. Had presented to [facility] about 2 weeks ago due to an abdominal abscess. Had incision and drainage done. Surgery was uneventful. Transferred to a detention however he left AMA after 2 days because he states that he did not receive good care. Plan was for a wound VAC which he received at his house without any instructions. He states that he has been dressing it with gauze daily to twice daily. He reports some drainage, not foul-smelling. He denies chills, fever or feeling of unwell. Last A1c per patient was about 3 months ago and it was 7.8. Currently on insulin both long-acting and mealtime. He does not know if he had an A1c drawn during his most recent hospital stay. Progress of Wound: Upper abdominal ulcer is improving. Left inferior abdominal wall wound with significant drainage, increased pain and redness. No significant change in size however, patient also has a new left upper thigh abscess which is also significantly tender. Objective Data Objective Data Vital Signs: Vital Signs Temp Pulse Resp BP 95.8 F L 101 H 16 163/100 H 03/25/22 08:09 03/25/22 08:09 03/25/22 08:09 03/25/22 08:09 Oxygen Delivery Method Room Air Charges/Coding Visit Charges Office Visits / Consults: 56872 OV L3 Est Physical Exam Const alert, oriented x3 and no apparent distress General Appearance: cooperative, comfortable and well kempt HEENT normocephalic and head/scalp atraumatic Head and Scalp: normal to inspection and normocephalic Eyes EOMs intact bilaterally General Eye: normal appearance of both eyes Neck full ROM General: normal visual inspection Resp normal respiratory effort and normal air movement Effort and Inspection: able to speak in complete sentences Extremity normal to inspection and full ROM Skin Wounds: wounds noted Neuro oriented x3, CN's II-XII intact bilaterally, moves all extremities and no focal motor deficits Psych mental status grossly normal Appearance: grossly normal Attitude: calm Speech: normal speech Thought Process: normal thought process Debridement Note Debridement Note Post-Debridement Measurements and Additional Note: Post-Debridement Measurements/Treatment WC - Nurse 1 - General Ulcer Assessment Start: 03/08/22 13:47 Freq: Status: Active Protocol: WC.LOWEXT Activity Type Activity Date Activity User E-Sign Co-Sign Detail Recorded Client Recorded Date Recorded By Document 03/08/22 13:47 DL [id number] 03/08/22 13:51 DL Document 03/11/22 08:06 BMF [id number] 03/11/22 08:12 BMF Document 03/15/22 13:17 DL [id number] 03/15/22 13:44 DL Document 03/18/22 08:59 DL [id number] 03/18/22 09:09 DL Document 03/22/22 11:25 DL [id number] 03/22/22 12:14 DL Document 03/25/22 08:09 BMF [id number] 03/25/22 08:22 BMF 03/08/22 03/11/22 03/15/22 13:47 08:06 13:17 - Today's Visit Information Type of service Nurse-only Follow-up Visit Nurse-only Visit (Physician/PLANNING OFFICIAL Visit ) Arrival Mode Ambulatory Ambulatory Ambulatory Transfer Assistance None None None Patient Identification Verified (Name & Yes Yes Yes ) Patient Requires Transmission-Based No No No Precautions Finger Stick Blood Sugar(mg/dl) (if didnt check indicated): Blood Sugar Stated by Patient Vital Signs Temperature (97.8 F-99.1 F) 98.3 F 96.7 F L 98.2 F Temperature Source Temporal Temporal Temporal Pulse Rate (60-100) 92 93 97 Pulse Location Monitor Monitor Monitor Respiratory Rate (12-18) 20 H 16 18 Respiratory rate source Observation Observation Observation Oxygen Delivery Method Room Air Blood Pressure (90/60-120/80) 184/98 H 157/93 H 143/98 H Blood Pressure Mean (mm Hg) 126 114 113 Source Monitor Monitor Monitor Position Supine Blood Pressure Location Left Arm Comment History Since Last Visit- (Skip if this is Patient's initial visit) Have you changed medications since your No No No last visit? Any new allergies or adverse reactions No No No Had a fall/change in ADL's that may No No No increase risk of falls Signs or symptoms of abuse and/or No No No neglect since last visit Have you been in the hospital since your No No No last visit? Has dressing in place as prescribed No Yes Has compression in place as prescribed Yes N/A N/A Has offloadiing in place as prescribed N/A N/A N/A Experienced any changes in pain level or No No No management Left Footwear Regular Shoe Regular Shoe Right Footwear Regular Shoe Regular Shoe Other Footwear showered and removed vac prior to visit Pain Scale: 0-10 Numeric Is Patient Pain Free? Yes Yes Yes 03/18/22 03/22/22 03/25/22 08:59 11:25 08:09 WC - Today's Visit Information Type of service Follow-up Visit Nurse-only Follow-up Visit (Physician/PLANNING OFFICIAL Visit (Physician/PLANNING OFFICIAL ) ) Arrival Mode Ambulatory Ambulatory Ambulatory Transfer Assistance None None None Patient Identification Verified (Name & Yes Yes Yes ) Patient Requires Transmission-Based No No No Precautions Finger Stick Blood Sugar(mg/dl) (if 128 148 indicated): Blood Sugar Stated by Stated by Patient Patient Vital Signs Temperature (97.8 F-99.1 F) 97.4 F L 97.8 F 95.8 F L Temperature Source Temporal Temporal Temporal Pulse Rate (60-100) 95 97 101 H Pulse Location Monitor Monitor Monitor Respiratory Rate (12-18) 18 20 H 16 Respiratory rate source Observation Observation Observation Oxygen Delivery Method Room Air Blood Pressure (90/60-120/80) 151/100 H 176/101 H 163/100 H Blood Pressure Mean (mm Hg) 117 126 121 Source Monitor Monitor Monitor Position Sitting Blood Pressure Location Left Arm Comment pt reports q visit that his bp is always high before dialysis History Since Last Visit- (Skip if this is Patient's initial visit) Have you changed medications since your No No No last visit? Any new allergies or adverse reactions No No No Had a fall/change in ADL's that may No No No increase risk of falls Signs or symptoms of abuse and/or No No No neglect since last visit Have you been in the hospital since your No No No last visit? Has dressing in place as prescribed Yes Yes Yes Has compression in place as prescribed N/A N/A N/A Has offloadiing in place as prescribed N/A N/A N/A Experienced any changes in pain level or No No No management Left Footwear Regular Shoe Right Footwear Regular Shoe Other Footwear Pain Scale: 0-10 Numeric Is Patient Pain Free? Yes Yes Yes WC - Nurse 1 - General Ulcer Measurement Start: 03/08/22 13:47 Freq: Status: Active Protocol: Activity Type Activity Date Activity User E-Sign Co-Sign Detail Recorded Client Recorded Date Recorded By Document 03/11/22 08:06 BMF [id number] 03/11/22 08:12 BMF Document 03/15/22 13:17 DL [id number] 03/15/22 13:44 DL Document 03/18/22 08:59 DL [id number] 03/18/22 09:09 DL Document 03/22/22 11:25 DL [id number] 03/22/22 12:14 DL Document 03/25/22 08:09 BMF [id number] 03/25/22 08:22 BMF 03/11/22 03/15/22 03/18/22 08:06 13:17 08:59 Wound Center Nurse 1 #3- L MIDLINE ABD -Combined with other wound -Current Size (cm) - Length 0.2 0.3 -Current Size (cm) - Width 2 1 -Current Size (cm) - Depth 0.6 2.5 2 -Total Square Cm 0.4 0.3 -Date of Last Picture (Recall this 03/11/22 field) -Photo Taken Yes No No -Epithelialization Small 1-33% -Tunneling No -Tunneling Position (O'clock) 12 -Tunneling Distance (cm) 2.5 -Undermining/Tunneling No -Circular Undermining No -Exudate Amt Medium Small Medium -Exudate Type Sanguineous Serosanguineous Sanguineous -Wound Margin Distinct, Distinct, Distinct, Outline Outline Outline Attached Attached Attached -Granulation Amt Large (67-100%) Large (67-100%) Large (67-100%) -Granulation Quality Red Red Red -Slough/Fibrin No -Necrosis Amt None Present (0 None Present (0 None Present (0 %) %) %) -Structure Exposed N/A N/A -Texture (Luci-wound Skin Appearance) Assessed, Scarring Scarring Scarring -Moisture (Luci-wound Skin Appearance) Assessed No Abnormality No Abnormality -Color (Luci-wound Skin Appearance) Assessed No Abnormality No Abnormality -Temperature (Luci-wound Skin No Abnormality No Abnormality No Abnormality Appearance) (Pt Warm) (Pt Warm) (Pt Warm) -Tenderness on Palpation (Luci-wound No No No Skin Appearance) -Ulcer Cleansing Rinsed/ Soap and Water Soap and Water Irrigated with Saline -Foul Odor after Cleansing No No Yes, Due to Product Use -Anesthetic Used 4% Lidocaine 4% Lidocaine Solution Solution #2 L ABD -Combined with other wound No -Current Size (cm) - Length 0.1 0.2 -Current Size (cm) - Width 0.4 0.2 -Current Size (cm) - Depth 0.3 2.3 6 -Total Square Cm 0.04 0.04 -Date of Last Picture (Recall this 03/11/22 field) -Photo Taken Yes No -Epithelialization Small 1-33% -Tunneling Yes -Tunneling Position (O'clock) 3 9 -Tunneling Distance (cm) 3.6 6 -Undermining/Tunneling No -Circular Undermining No -Exudate Amt Medium Medium Medium -Exudate Type Sanguineous Serosanguineous Serosanguineous -Wound Margin Distinct, Distinct, Distinct, Outline Outline Outline Attached Attached Attached -Granulation Amt Large (67-100%) Large (67-100%) Large (67-100%) -Granulation Quality Red Red Red -Slough/Fibrin No -Necrosis Amt None Present (0 None Present (0 None Present (0 %) %) %) -Necrotic Tissue Type -Structure Exposed N/A N/A -Texture (Luci-wound Skin Appearance) Assessed, Scarring Scarring Scarring -Moisture (Luci-wound Skin Appearance) Assessed No Abnormality No Abnormality -Color (Luci-wound Skin Appearance) Assessed No Abnormality No Abnormality -Temperature (Luci-wound Skin No Abnormality No Abnormality No Abnormality Appearance) (Pt Warm) (Pt Warm) (Pt Warm) -Tenderness on Palpation (Luci-wound No No No Skin Appearance) -Ulcer Cleansing Rinsed/ Soap and Water Soap and Water Irrigated with Saline -Foul Odor after Cleansing No No No -Anesthetic Used 4% Lidocaine 4% Lidocaine Solution Solution -Wound Comment(s) 03/22/22 03/25/22 11:25 08:09 Wound Center Nurse 1 #3- L MIDLINE ABD -Combined with other wound No -Current Size (cm) - Length 0.1 -Current Size (cm) - Width 0.8 -Current Size (cm) - Depth 2.4 -Total Square Cm 0.08 -Date of Last Picture (Recall this field) -Photo Taken No -Epithelialization None Present -Tunneling No -Tunneling Position (O'clock) 12 -Tunneling Distance (cm) 1.2 -Undermining/Tunneling No -Circular Undermining No -Exudate Amt Medium Medium -Exudate Type Serosanguineous Sanguineous -Wound Margin Distinct, Distinct, Outline Outline Attached Attached -Granulation Amt Large (67-100%) Large (67-100%) -Granulation Quality Red Red -Slough/Fibrin No -Necrosis Amt None Present (0 None Present (0 %) %) -Structure Exposed N/A -Texture (Luci-wound Skin Appearance) Scarring Assessed -Moisture (Luci-wound Skin Appearance) No Abnormality Assessed -Color (Luci-wound Skin Appearance) No Abnormality Assessed -Temperature (Luci-wound Skin No Abnormality No Abnormality Appearance) (Pt Warm) (Pt Warm) -Tenderness on Palpation (Luci-wound No No Skin Appearance) -Ulcer Cleansing Soap and Water Soap and Water -Foul Odor after Cleansing No No -Anesthetic Used 4% Lidocaine Solution #2 L ABD -Combined with other wound No -Current Size (cm) - Length 0.2 0.1 -Current Size (cm) - Width 0.2 0.3 -Current Size (cm) - Depth 0.4 0.1 -Total Square Cm 0.04 0.03 -Date of Last Picture (Recall this field) -Photo Taken No -Epithelialization None Present -Tunneling Yes -Tunneling Position (O'clock) 3 -Tunneling Distance (cm) 12 -Undermining/Tunneling No -Circular Undermining No -Exudate Amt Medium Large -Exudate Type Sanguineous Sanguineous -Wound Margin Distinct, Outline Attached -Granulation Amt Small (1-33%) -Granulation Quality [place] -Slough/Fibrin -Necrosis Amt -Necrotic Tissue Type Adherent Slough -Structure Exposed N/A -Texture (Luci-wound Skin Appearance) Scarring Assessed, Localized Edema -Moisture (Luci-wound Skin Appearance) No Abnormality Assessed -Color (Luci-wound Skin Appearance) No Abnormality Assessed, Erythema -Temperature (Luci-wound Skin No Abnormality No Abnormality Appearance) (Pt Warm) (Pt Warm) -Tenderness on Palpation (Luci-wound Yes Yes Skin Appearance) -Ulcer Cleansing Soap and Water Soap and Water -Foul Odor after Cleansing No No -Anesthetic Used 4% Lidocaine Solution -Wound Comment(s) xl amt of purulent/ sanguineous drainage to. very tender for patient. did not probe for depth, will update md. ASHLEY - Nurse 2 - General Ulcer CM Notes Start: 03/08/22 13:47 Freq: Status: Active Protocol: Activity Type Activity Date Activity User E-Sign Co-Sign Detail Recorded Client Recorded Date Recorded By Document 03/11/22 08:30 MW [id number] 03/11/22 08:42 MW Document 03/18/22 09:23 MW [id number] 03/18/22 09:28 MW Document 03/25/22 08:32 MW [id number] 03/25/22 08:42 MW 03/11/22 03/18/22 03/25/22 08:30 09:23 08:32 Wound Center Nurse 2 #3- L MIDLINE ABD -Time 08:31 09:23 08:32 -Correct Patient Yes Yes Yes -Correct Side, Site, Position Yes Yes Yes -Correct Procedure Yes Yes Yes -Procedure Performed Yes Yes No -Type of Procedure Debridement Debridement -Clinical Debridement Subcutaneous Subcutaneous -Tissue Removed Subcutaneous Subcutaneous -Post Debridement (cm) - Length 0.1 0.3 0.1 -Post Debridement (cm) - Width 1.8 1.9 0.8 -Post Debridement (cm) - Depth 3.5 1.9 2.4 -Total Square (Post) (cm) 0.18 0.57 0.08 -Area of Debridement (cm) - Length 0.1 0.3 -Area of Debridement (cm) - Width 3.5 1.9 -Total Square (Area) (cm) 0.35 0.57 -Tunneling No No No -Undermining/Tunneling No No No -Circular Undermining No No No -Wound/Ulcer Outcome Not Healed Not Healed Not Healed -Ulcer Cleansing Rinsed/ Rinsed/ Rinsed/ Irrigated with Irrigated with Irrigated with Saline Saline Saline -Foul Odor after Cleansing No No -Bioengineered Tissue No No -Bleeding Controlled with Pressure NA -Treatment Response Procedure Procedure Procedure Tolerated Well Tolerated Well Tolerated Well -Offloading No No No -Debridement - Subq, 1st 20sq cm Yes Yes #2 L ABD -Time 08:32 09:23 08:35 -Correct Patient Yes Yes Yes -Correct Side, Site, Position Yes Yes Yes -Correct Procedure Yes Yes Yes -Procedure Performed Yes Yes No -Type of Procedure Debridement Debridement -Clinical Debridement Subcutaneous Subcutaneous -Tissue Removed Subcutaneous Subcutaneous -Post Debridement (cm) - Length 0.1 0.1 0.1 -Post Debridement (cm) - Width 0.5 0.5 0.3 -Post Debridement (cm) - Depth 1.0 0.9 0.1 -Total Square (Post) (cm) 0.05 0.05 0.03 -Area of Debridement (cm) - Length 0.1 0.1 -Area of Debridement (cm) - Width 0.5 0.5 -Total Square (Area) (cm) 0.05 0.05 -Tunneling Yes Yes -Tunneling Position (O'clock) 3 3 -Tunneling Distance (cm) 4.5 -Undermining/Tunneling No No -Circular Undermining No No -Wound/Ulcer Outcome Not Healed Not Healed -Ulcer Cleansing Rinsed/ Rinsed/ Irrigated with Irrigated with Saline Saline -Foul Odor after Cleansing No No -Bioengineered Tissue No No -Bleeding Controlled with Pressure Pressure -Treatment Response Procedure Procedure Tolerated Well Tolerated Well -Offloading No No -Debridement - Subq, 1st 20sq cm No No Pain Scale: 0-10 Numeric Is Patient Pain Free? Yes Yes No left lower abd -Description Sharp -Intensity 5 -Duration (hours) Acute -Pain Behavior No Change in Behavior -Alleviating Factors/Interventions None -Comments sent to ER for evluation WC - Nurse 3 - General Ulcer D/C NN Start: 03/08/22 13:47 Freq: Status: Active Protocol: Activity Type Activity Date Activity User E-Sign Co-Sign Detail Recorded Client Recorded Date Recorded By Document 03/08/22 13:47 DL [id number] 03/08/22 13:51 DL Document 03/11/22 08:44 [facility] [id number] 03/11/22 08:45 BM Document 03/15/22 13:17 DL [id number] 03/15/22 13:44 DL Edit Result 03/15/22 13:17 DL (1) [id number] 03/16/22 11:37 PL Document 03/18/22 09:53 DL [id number] 03/18/22 09:54 DL Edit Result 03/18/22 09:53 DL (2) [id number] 03/22/22 07:09 PL Document 03/22/22 11:25 DL [id number] 03/22/22 12:14 DL Edit Result 03/22/22 11:25 DL (3) [id number] 03/23/22 07:19 PL Document 03/25/22 08:43 MW [id number] 03/25/22 08:44 MW (1) #3- L MIDLINE ABD - NPWT Application Charge NPWT </= 50 sq cm => NPWT </= 50 sq cm ($) => (disp) ($) (2) #3- L MIDLINE ABD - NPWT Application Charge NPWT </= 50 sq cm => NPWT & Debridement ($) => (nc) (3) #2 L ABD - NPWT Application Charge NPWT </= 50 sq cm => NPWT - Multiple ($) => Locations 03/08/22 03/11/22 03/15/22 13:47 08:44 13:17 Vital Signs Temperature (97.8 F-99.1 F) 98.3 F 98.2 F Temperature Source Temporal Temporal Pulse Rate (60-100) 92 97 Pulse Location Monitor Monitor Respiratory Rate (12-18) 20 H 18 Respiratory rate source Observation Observation Blood Pressure (90/60-120/80) 184/98 H 143/98 H Blood Pressure Mean (mm Hg) 126 113 Source Monitor Monitor Pain Scale: 0-10 Numeric Is Patient Pain Free? Yes Yes Yes Wound Care Nurse 3 #3- L MIDLINE ABD -Ulcer Cleansing Soap and Water Rinsed/ Soap and Water Irrigated with Saline -Foul Odor after Cleansing No No No -Negative Pressure Wound Therapy Continue Continue Continue -Setting (mmHg) 150 150 150 -Negative Pressure is Continuous Continuous Continuous -Other Dressing white foam; drsg per [facility] lpn -Primary Dressing Covered/Secured with -NPWT Application Charge NPWT </= 50 sq NPWT & NPWT </= 50 sq cm ($) Debridement (nc cm (disp) ($) ) #2 L ABD -Ulcer Cleansing Soap and Water Rinsed/ Soap and Water Irrigated with Saline -Foul Odor after Cleansing No No No -Negative Pressure Wound Therapy Continue -Setting (mmHg) 150 -Negative Pressure is Continuous -Primary Dressing Applied Aquacel Extra Aquacel Extra -Other Dressing drsg per [facility] lpn -Primary Dressing Covered/Secured with Secured with Dry Gauze, Tape,Other Secured with Tape -Other Covering abd -NPWT Application Charge NPWT - Multiple Locations -Aquacel Extra 1 1 -Promogran Treatment Response Procedure Procedure Procedure Tolerated Well Tolerated Well Tolerated Well WC - Visit Discharge Discharge Condition Stable Stable Stable Ambulatory Status Ambulatory Ambulatory Ambulatory Transportation Private Auto Private Auto Private Auto Medication Reconcilliation completed & provided to patient/care provider Clinical Summary of Care Provided Notes: Pt C/O being tired and nauseated today , rash noted to L Groin, weepy and very tender to touch . Seen by Mauri Holden CNP instructed to use Triple ATB ointment till seen by Dr. Mart Anand. Bacitracin used today in clinic. 03/18/22 03/22/22 03/25/22 09:53 11:25 08:43 Vital Signs Temperature (97.8 F-99.1 F) 97.8 F Temperature Source Temporal Pulse Rate (60-100) 97 Pulse Location Monitor Respiratory Rate (12-18) 20 H Respiratory rate source Observation Blood Pressure (90/60-120/80) 176/101 H Blood Pressure Mean (mm Hg) 126 Source Monitor Pain Scale: 0-10 Numeric Is Patient Pain Free? Yes Yes Yes Wound Care Nurse 3 #3- L MIDLINE ABD -Ulcer Cleansing Soap and Water Soap and Water -Foul Odor after Cleansing No No -Negative Pressure Wound Therapy Continue Continue -Setting (mmHg) 150 150 -Negative Pressure is Continuous Continuous -Other Dressing white foam to abd tunnel -Primary Dressing Covered/Secured with Dry Gauze, Secured with Tape -NPWT Application Charge NPWT & NPWT </= 50 sq Debridement (nc cm ($) ) #2 L ABD -Ulcer Cleansing Soap and Water Soap and Water -Foul Odor after Cleansing No No -Negative Pressure Wound Therapy Continue -Setting (mmHg) 150 -Negative Pressure is Continuous -Primary Dressing Applied Promogran -Other Dressing abd -Primary Dressing Covered/Secured with Dry Gauze, Dry Gauze, Secured with Secured with Tape Tape -Other Covering -NPWT Application Charge NPWT - Multiple Locations -Aquacel Extra -Promogran 2 Treatment Response Procedure Procedure Procedure Tolerated Well Tolerated Well Tolerated Well WC - Visit Discharge Discharge Condition Stable Stable Stable Ambulatory Status Ambulatory Ambulatory Ambulatory Transportation Private Auto Private Auto Private Auto Medication Reconcilliation completed & No provided to patient/care provider Clinical Summary of Care Provided Yes Notes: Pts L Lower Abd ulcer tunnel at 3 increased to 12cm, pt c/o of bleeding alot, changed the dressing x2 daily for last [address] Cevallos called and instructed to start Vac again . Bridged with upper midline ulcer. Pt also has a rash again adjacent to ulcer and is very tender during dressing change to ulcer and rash area. Will f/u on with Dr. Cevallos . Instructed to call if has any other issues. Assessment/Plan Assessment/Plan (1) Nonhealing surgical wound: CODE(S): T81.89XA - Other complications of procedures, not elsewhere classified, initial encounter (2) History of abdominal abscess: CODE(S): Z87.898 - Personal history of other specified conditions (3) Insulin dependent diabetes mellitus: (4) End stage renal disease on dialysis: CODE(S): N18.6 - End stage renal disease; Z99.2 - Dependence on renal dialysis (5) Skin ulcer of abdominal wall with fat layer exposed: CODE(S): L98.492 - Non-pressure chronic ulcer of skin of other sites with fat layer exposed (6) Abdominal wall abscess: CODE(S): L02.211 - Cutaneous abscess of abdominal wall PLAN: No debridement completed today. There is a lot of drainage from his left lower abdominal wound. Also increased tenderness and a new significantly sized and tender abscess noted on his left proximal thigh. He reports pain in his groin region as a whole. Following his last CT scan prior to his initial incision and drainage, he states that a lot of purulent collection was noted. When he went to [facility], only the left groin area was incised and as documented previously has had spontaneous drainage of his mid upper abdominal ulcer. Now a new left thigh which is significantly sized and tender. He was advised that he will definitely need more incision and drainage and possibly reopening of his left groin area. Since most of his care is done at the [facility] and initial drainage was done at [facility], he was advised to go over to the emergency room at [facility] and possibly get readmitted and reevaluated. He voiced understanding. If not admitted, we will see in a week. Optimal diabetes control. Also currently on dialysis. This note was generated with [employer] dictation software. It may contain incorrect words, spelling, and punctuation that were not noted in checking the note before signing.
== END 2022-04-06 23:59 | disposition home or self-care (01) ==
LOC: WC 08:15
PROVIDERS: PCP Physician Assistant; Visit Provider Internal Medicine
DX: T81.89XA Other complications of procedures, not elsewhere classified, initial encounter (principal); E11.622 Type 2 diabetes mellitus with other skin ulcer; L98.492 Non-pressure chronic ulcer of skin of other sites with fat layer exposed; Z99.2 Dependence on renal dialysis; E11.22 Type 2 diabetes mellitus with diabetic chronic kidney disease; E11.40 Type 2 diabetes mellitus with diabetic neuropathy, unspecified; N18.6 End stage renal disease; I12.0 Hypertensive chronic kidney disease with stage 5 chronic kidney disease or end stage renal disease; Z79.4 Long term (current) use of insulin; L02.211 Cutaneous abscess of abdominal wall; Z79.82 Long term (current) use of aspirin; Z79.899 Other long term (current) drug therapy
CPT/HCPCS: 11042; 97605; 97607; 99213; G0463

== ENCOUNTER 2022-04-22 09:15 | Outpatient (RCR) | payer OTHER, SELFPAY ==
[2022-04-07 00:58] VITALS: BP 163/100; PULSE 101; RESP 16; TEMP 35.4
[2022-04-08 08:00] VITALS: BP 157/97; PULSE 91; RESP 16; TEMP 36.4
--- NOTE | 2022-04-08 09:09 | PN.PCM_ITS ---
History of Present Illness Date of Service: 04/08/22 Chief Complaint: Post surgical wound History of Wound: Mr Eden is a 41yo who was referred to the wound center by his PCP for post surgical wound closure/care. Had presented to [facility] about 2 weeks ago due to an abdominal abscess. Had incision and drainage done. Surgery was uneventful. Transferred to a detention however he left AMA after 2 days because he states that he did not receive good care. Plan was for a wound VAC which he received at his house without any instructions. He states that he has been dressing it with gauze daily to twice daily. He reports some drainage, not foul-smelling. He denies chills, fever or feeling of unwell. Last A1c per patient was about 3 months ago and it was 7.8. Currently on insulin both long-acting and mealtime. He does not know if he had an A1c drawn during his most recent hospital stay. Progress of Wound: New postsurgical wounds following I&D of left groin and left hip area. This was done at [facility]. He was also discharged on antibiotics. He states that his left hip has felt better post I and D. Initial significant drainage from the Left hip area. Subjective Subjective No new concerns at this time. Objective Data Objective Data Vital Signs: Vital Signs Temp Pulse Resp BP 97.6 F L 91 16 157/97 H 04/08/22 08:00 04/08/22 08:00 04/08/22 08:00 04/08/22 08:00 Charges/Coding Procedures Integumentary 111xxx-113xx: [id number] Jessie subq tissue 20 sq cm/< Physical Exam Const alert, oriented x3 and no apparent distress General Appearance: cooperative, comfortable and well kempt HEENT normocephalic and head/scalp atraumatic Head and Scalp: normal to inspection and normocephalic Eyes EOMs intact bilaterally General Eye: normal appearance of both eyes Neck full ROM General: normal visual inspection Resp normal respiratory effort and normal air movement Effort and Inspection: able to speak in complete sentences Extremity normal to inspection and full ROM Skin Wounds: wounds noted Neuro oriented x3, CN's II-XII intact bilaterally, moves all extremities and no focal motor deficits Psych mental status grossly normal Appearance: grossly normal Attitude: calm Speech: normal speech Thought Process: normal thought process Debridement Note Debridement Note Wound debrided: Left lower abdomen Type of Debridement: Excisional debridement Anesthesia Used: 4% Lidocaine Solution Depth: Down to and including healthy tissue and in the subcutaneous layer Percentage of wound debrided: 100 Instrument Used: 3mm curette Tissue Removed: SLough and devitalized tissue Severity: Fat Layer Exposed Amount of bleeding with debridement: Mild Bleeding Controlled with: Pressure Patient tolerated procedure: Patient tolerated procedure well Post-Debridement Measurements and Additional Note: Post-Debridement Measurements/Treatment WC - Nurse 1 - General Ulcer Assessment Start: 04/08/22 07:59 Freq: Status: Active Protocol: MIKE Activity Type Activity Date Activity User E-Sign Co-Sign Detail Recorded Client Recorded Date Recorded By Document 04/08/22 08:00 GISELL [id number] 04/08/22 08:08 GISELL 04/08/22 08:00 WC - Today's Visit Information Type of service Follow-up Visit (Physician/CONSUMER PRODUCT ADVISOR ) Arrival Mode Ambulatory Patient Identification Verified (Name & Yes ) Patient Requires Transmission-Based No Precautions Finger Stick Blood Sugar(mg/dl) (if 128 indicated): Blood Sugar Stated by Patient Vital Signs Temperature (97.8 F-99.1 F) 97.6 F L Temperature Source Temporal Pulse Rate (60-100) 91 Pulse Location Monitor Respiratory Rate (12-18) 16 Respiratory rate source Observation Blood Pressure (90/60-120/80) 157/97 H Blood Pressure Mean (mm Hg) 117 Source Monitor Position Semi-Fowlers Blood Pressure Location Left Arm History Since Last Visit- (Skip if this is Patient's initial visit) Have you changed medications since your Yes last visit? Any new allergies or adverse reactions No Had a fall/change in ADL's that may No increase risk of falls Signs or symptoms of abuse and/or No neglect since last visit Have you been in the hospital since your Yes last visit? Has dressing in place as prescribed Yes Has compression in place as prescribed N/A Has offloadiing in place as prescribed N/A Left Footwear Regular Shoe Right Footwear Regular Shoe Pain Scale: 0-10 Numeric Is Patient Pain Free? Yes DION Santamaria Nurse 1 - General Ulcer Measurement Start: 04/08/22 07:59 Freq: Status: Active Protocol: Activity Type Activity Date Activity User E-Sign Co-Sign Detail Recorded Client Recorded Date Recorded By Document 04/08/22 08:00 GISELL [id number] 04/08/22 08:08 GISELL 04/08/22 08:00 Wound Center Nurse 1 5-left groin -Combined with other wound No -Current Size (cm) - Length 0.5 -Current Size (cm) - Width 0.2 -Current Size (cm) - Depth 0.5 -Total Square Cm 0.10 -Photo Taken Yes -Epithelialization Large 67-100% -Tunneling No -Undermining/Tunneling No -Circular Undermining No -Classification - Thickness Full Thickness without Exposed Support Structure -Exudate Amt Small -Exudate Type Serosanguineous -Wound Margin Indistinct, Non -Visible -Granulation Amt Small (1-33%) -Granulation Quality Erin -Slough/Fibrin Yes -Necrosis Amt Small (1-33%) -Necrotic Tissue Type Adherent Slough -Structure Exposed N/A -Texture (Luci-wound Skin Appearance) Assessed -Moisture (Luci-wound Skin Appearance) Assessed,Dry/ Scaly -Color (Luci-wound Skin Appearance) Assessed -Temperature (Luci-wound Skin No Abnormality Appearance) (Pt Warm) -Tenderness on Palpation (Luci-wound No Skin Appearance) -Ulcer Cleansing Wound Cleanser -Foul Odor after Cleansing No -Anesthetic Used 4% Lidocaine Solution 4-left hip -Current Size (cm) - Length 0.4 -Current Size (cm) - Width 0.2 -Current Size (cm) - Depth 0.3 -Total Square Cm 0.08 -Photo Taken Yes -Epithelialization Large 67-100% -Tunneling No -Undermining/Tunneling No -Circular Undermining No -Classification - Thickness Full Thickness without Exposed Support Structure -Exudate Amt None Present -Wound Margin Flat & Intact -Granulation Amt Small (1-33%) -Granulation Quality Erin -Slough/Fibrin Yes -Necrosis Amt Small (1-33%) -Necrotic Tissue Type Adherent Slough -Structure Exposed N/A -Texture (Luci-wound Skin Appearance) Assessed -Moisture (Luci-wound Skin Appearance) Assessed,Dry/ Scaly -Color (Luci-wound Skin Appearance) Assessed -Temperature (Luci-wound Skin No Abnormality Appearance) (Pt Warm) -Ulcer Cleansing Wound Cleanser -Foul Odor after Cleansing No -Anesthetic Used 4% Lidocaine Solution #3- L MIDLINE ABD -Combined with other wound No -Current Size (cm) - Length 0 -Current Size (cm) - Width 0 -Current Size (cm) - Depth 0 -Total Square Cm 0 -Photo Taken Yes -Epithelialization Large 67-100% #2 L ABD -Combined with other wound No -Current Size (cm) - Length 0.3 -Current Size (cm) - Width 1.0 -Current Size (cm) - Depth 0.4 -Total Square Cm 0.30 -Photo Taken Yes -Epithelialization Large 67-100% -Tunneling Yes -Tunneling Position (O'clock) 3 -Tunneling Distance (cm) 15 Lower Limb Edema Present NA WC - Nurse 2 - General Ulcer CM Notes Start: 04/08/22 07:59 Freq: Status: Active Protocol: Activity Type Activity Date Activity User E-Sign Co-Sign Detail Recorded Client Recorded Date Recorded By Document 04/08/22 08:22 MW [id number] 04/08/22 08:33 MW 04/08/22 08:22 Wound Center Nurse 2 5-left groin -Time 08:27 -Correct Patient Yes -Correct Side, Site, Position Yes -Correct Procedure Yes -Procedure Performed Yes -Type of Procedure Debridement -Clinical Debridement Subcutaneous -Tissue Removed Subcutaneous -Post Debridement (cm) - Length 0.2 -Post Debridement (cm) - Width 5.0 -Post Debridement (cm) - Depth 0.9 -Total Square (Post) (cm) 1.00 -Area of Debridement (cm) - Length 0.2 -Area of Debridement (cm) - Width 5.0 -Total Square (Area) (cm) 1.00 -Tunneling No -Undermining/Tunneling No -Circular Undermining No -Wound/Ulcer Outcome Not Healed -Ulcer Cleansing Rinsed/ Irrigated with Saline -Foul Odor after Cleansing No -Bioengineered Tissue No -Bleeding Controlled with Pressure -Treatment Response Procedure Tolerated Well -Offloading No -Debridement - Subq, 1st 20sq cm No 4-left hip -Time 08:26 -Correct Patient Yes -Correct Side, Site, Position Yes -Correct Procedure Yes -Procedure Performed Yes -Type of Procedure Debridement -Clinical Debridement Subcutaneous -Tissue Removed Subcutaneous -Post Debridement (cm) - Length 0.8 -Post Debridement (cm) - Width 1.5 -Post Debridement (cm) - Depth 1.5 -Total Square (Post) (cm) 1.20 -Area of Debridement (cm) - Length 0.8 -Area of Debridement (cm) - Width 1.5 -Total Square (Area) (cm) 1.20 -Tunneling No -Undermining/Tunneling No -Circular Undermining No -Wound/Ulcer Outcome Not Healed -Ulcer Cleansing Rinsed/ Irrigated with Saline -Foul Odor after Cleansing No -Bioengineered Tissue No -Bleeding Controlled with Pressure -Treatment Response Procedure Tolerated Well -Offloading No -Debridement - Subq, 1st 20sq cm No #3- L MIDLINE ABD -Time 08:25 -Correct Patient Yes -Correct Side, Site, Position Yes -Correct Procedure Yes -Procedure Performed No -Post Debridement (cm) - Length 0 -Post Debridement (cm) - Width 0 -Post Debridement (cm) - Depth 0 -Total Square (Post) (cm) 0 -Wound/Ulcer Outcome Healed- Epithelialized #2 L ABD -Time 08:25 -Correct Patient Yes -Correct Side, Site, Position Yes -Correct Procedure Yes -Procedure Performed Yes -Type of Procedure Debridement -Clinical Debridement Subcutaneous -Tissue Removed Subcutaneous -Post Debridement (cm) - Length 0.5 -Post Debridement (cm) - Width 2.0 -Post Debridement (cm) - Depth 0.9 -Total Square (Post) (cm) 1.00 -Area of Debridement (cm) - Length 0.5 -Area of Debridement (cm) - Width 2.0 -Total Square (Area) (cm) 1.00 -Tunneling Yes -Tunneling Position (O'clock) 3 -Tunneling Distance (cm) 9.5 -Undermining/Tunneling No -Circular Undermining No -Wound/Ulcer Outcome Not Healed -Ulcer Cleansing Rinsed/ Irrigated with Saline -Foul Odor after Cleansing No -Bioengineered Tissue No -Bleeding Controlled with Pressure -Treatment Response Procedure Tolerated Well -Offloading No -Debridement - Subq, 1st 20sq cm Yes Pain Scale: 0-10 Numeric Is Patient Pain Free? Yes WC - Nurse 3 - General Ulcer D/C NN Start: 04/08/22 07:59 Freq: Status: Active Protocol: Activity Type Activity Date Activity User E-Sign Co-Sign Detail Recorded Client Recorded Date Recorded By Document 04/08/22 08:44 DL [id number] 04/08/22 08:45 DL 04/08/22 08:44 Wound Care Nurse 3 5-left groin -Ulcer Cleansing Rinsed/ Irrigated with Saline -Foul Odor after Cleansing No -Primary Dressing Applied Aquacel Extra -Primary Dressing Covered/Secured with Dry Gauze, Secured with Tape -Aquacel Extra 1 4-left hip -Ulcer Cleansing Rinsed/ Irrigated with Saline -Foul Odor after Cleansing No -Other Dressing aqaucel ex -Primary Dressing Covered/Secured with Dry Gauze, Secured with Tape #2 L ABD -Ulcer Cleansing Rinsed/ Irrigated with Saline -Foul Odor after Cleansing No -Other Dressing aquacel ex Treatment Response Procedure Tolerated Well Pain Scale: 0-10 Numeric Is Patient Pain Free? Yes WC - Visit Discharge Discharge Condition Stable Ambulatory Status Ambulatory Transportation Private Auto Additional Wound Wound debrided: Left Hip Type of Debridement: Excisional debridement Anesthesia Used: 4% Lidocaine Solution Depth: Down to and including healthy tissue and in the subcutaneous layer Percentage of wound debrided: 100 Instrument Used: 3mm curette Tissue Removed: Slough and devitalized tissue Severity: Fat Layer Exposed Amount of bleeding with debridement: Mild Bleeding Controlled with: Pressure Patient tolerated procedure: Patient tolerated procedure well Assessment/Plan Assessment/Plan (1) Nonhealing surgical wound: CODE(S): T81.89XA - Other complications of procedures, not elsewhere classified, initial encounter (2) History of abdominal abscess: CODE(S): Z87.898 - Personal history of other specified conditions (3) Insulin dependent diabetes mellitus: (4) End stage renal disease on dialysis: CODE(S): N18.6 - End stage renal disease; Z99.2 - Dependence on renal dialysis (5) Skin ulcer of abdominal wall with fat layer exposed: CODE(S): L98.492 - Non-pressure chronic ulcer of skin of other sites with fat layer exposed (6) Abdominal wall abscess: CODE(S): L02.211 - Cutaneous abscess of abdominal wall PLAN: As above, status post I&D following hospital stay. He states that he was also placed on IV antibiotics. Had initially presented to [facility] however no significant intervention was done. He states that he had a bedside minimal I&D and this was not helpful. Following worsening, presented to [facility] where he had surgical debridement/I&D. This helped relieve symptoms better. Left hip with initial significant drainage however this is said to be improving. Still tunnel at the left lower abdomen extends about 9.5 cm. Hira bruno wound VAC at 150 however, patient did not come in with his VAC and unable to bring it in tomorrow. He will come in on Tuesday. In the meantime, Aquacel extra to all, change daily to twice daily depending on drainage. He has an appointment with his primary care physician today and we will recheck his A1c, optimal diabetes control. Also currently on dialysis. His questions were answered and he was advised to call with any further questions or concerns. This note was generated with [employer] dictation software. It may contain incorrect words, spelling, and punctuation that were not noted in checking the note before signing.
[2022-04-15 09:01] VITALS: BP 143/97; PULSE 94; RESP 20; TEMP 36.6
--- NOTE | 2022-04-15 13:15 | PCM.WC.PN ---
History of Present Illness Date of Service: 04/15/22 Chief Complaint: Post surgical wound History of Wound: Mr Eden is a 41yo who was referred to the wound center by his PCP for post surgical wound closure/care. Had presented to [facility] about 2 weeks ago due to an abdominal abscess. Had incision and drainage done. Surgery was uneventful. Transferred to a correction however he left AMA after 2 days because he states that he did not receive good care. Plan was for a wound VAC which he received at his house without any instructions. He states that he has been dressing it with gauze daily to twice daily. He reports some drainage, not foul-smelling. He denies chills, fever or feeling of unwell. Last A1c per patient was about 3 months ago and it was 7.8. Currently on insulin both long-acting and mealtime. He does not know if he had an A1c drawn during his most recent hospital stay. Progress of Wound: Left lateral hip is healed. Left groin with improvement. Left lower abdomen however with worsening of the tunnel. Has not used his wound VAC, did not come in for a nurse visit on Tuesday. Subjective Subjective No new concerns at this time. Objective Data Objective Data Vital Signs: Vital Signs Temp Pulse Resp BP 97.8 F 94 20 H 143/97 H 04/15/22 09:01 04/15/22 09:01 04/15/22 09:01 04/15/22 09:01 Charges/Coding Procedures Integumentary 111xxx-113xx: [id number] Jessie subq tissue 20 sq cm/< Physical Exam Const alert, oriented x3 and no apparent distress General Appearance: cooperative, comfortable and well kempt HEENT normocephalic and head/scalp atraumatic Head and Scalp: normal to inspection and normocephalic Eyes EOMs intact bilaterally General Eye: normal appearance of both eyes Neck full ROM General: normal visual inspection Resp normal respiratory effort and normal air movement Effort and Inspection: able to speak in complete sentences Extremity normal to inspection and full ROM Skin Wounds: wounds noted Neuro oriented x3, CN's II-XII intact bilaterally, moves all extremities and no focal motor deficits Psych mental status grossly normal Appearance: grossly normal Attitude: calm Speech: normal speech Thought Process: normal thought process Debridement Note Debridement Note Wound debrided: Left lower abdomen Type of Debridement: Excisional debridement Anesthesia Used: 4% Lidocaine Solution Depth: Down to and including healthy tissue and in the subcutaneous layer Percentage of wound debrided: 100 Instrument Used: 5mm curette Tissue Removed: Slough and devitalized tissue Severity: Fat Layer Exposed Amount of bleeding with debridement: Mild Bleeding Controlled with: Pressure Patient tolerated procedure: Patient tolerated procedure well Post-Debridement Measurements and Additional Note: Post-Debridement Measurements/Treatment DION - Nurse 1 - General Ulcer Assessment Start: 04/08/22 07:59 Freq: Status: Active Protocol: MIKE Activity Type Activity Date Activity User E-Sign Co-Sign Detail Recorded Client Recorded Date Recorded By Document 04/08/22 08:00 JF [id number] 04/08/22 08:08 JF Document 04/15/22 09:01 DL [id number] 04/15/22 09:13 DL 04/08/22 04/15/22 08:00 09:01 DION - Today's Visit Information Type of service Follow-up Visit Follow-up Visit (Physician/PRODUCT SUPPORT CONSULTANT (Physician/PRODUCT SUPPORT CONSULTANT ) ) Arrival Mode Ambulatory Ambulatory Transfer Assistance None Patient Identification Verified (Name & Yes Yes ) Patient Requires Transmission-Based No No Precautions Finger Stick Blood Sugar(mg/dl) (if 128 200 indicated): Blood Sugar Stated by Stated by Patient Patient Vital Signs Temperature (97.8 F-99.1 F) 97.6 F L 97.8 F Temperature Source Temporal Temporal Pulse Rate (60-100) 91 94 Pulse Location Monitor Monitor Respiratory Rate (12-18) 16 20 H Respiratory rate source Observation Observation Blood Pressure (90/60-120/80) 157/97 H 143/97 H Blood Pressure Mean (mm Hg) 117 112 Source Monitor Position Semi-Fowlers Blood Pressure Location Left Arm History Since Last Visit- (Skip if this is Patient's initial visit) Have you changed medications since your Yes No last visit? Any new allergies or adverse reactions No No Had a fall/change in ADL's that may No No increase risk of falls Signs or symptoms of abuse and/or No No neglect since last visit Have you been in the hospital since your Yes No last visit? Has dressing in place as prescribed Yes Yes Has compression in place as prescribed N/A N/A Has offloadiing in place as prescribed N/A N/A Experienced any changes in pain level or No management Left Footwear Regular Shoe Right Footwear Regular Shoe Pain Scale: 0-10 Numeric Is Patient Pain Free? Yes Yes WC - Nurse 1 - General Ulcer Measurement Start: 04/08/22 07:59 Freq: Status: Active Protocol: Activity Type Activity Date Activity User E-Sign Co-Sign Detail Recorded Client Recorded Date Recorded By Document 04/08/22 08:00 JF [id number] 04/08/22 08:08 JF Document 04/15/22 09:01 DL [id number] 04/15/22 09:13 DL 04/08/22 04/15/22 08:00 09:01 Wound Center Nurse 1 5-left groin -Combined with other wound No -Current Size (cm) - Length 0.5 0.4 -Current Size (cm) - Width 0.2 0.2 -Current Size (cm) - Depth 0.5 0.2 -Total Square Cm 0.10 0.08 -Photo Taken Yes No -Epithelialization Large 67-100% -Tunneling No -Undermining/Tunneling No -Circular Undermining No -Classification - Thickness Full Thickness without Exposed Support Structure -Exudate Amt Small None Present -Exudate Type Serosanguineous -Wound Margin Indistinct, Non Distinct, -Visible Outline Attached -Granulation Amt Small (1-33%) Small (1-33%) -Granulation Quality [place] -Slough/Fibrin Yes -Necrosis Amt Small (1-33%) Small (1-33%) -Necrotic Tissue Type Adherent Slough Adherent Slough -Structure Exposed N/A N/A -Texture (Luci-wound Skin Appearance) Assessed Scarring -Moisture (Luci-wound Skin Appearance) Assessed,Dry/ No Abnormality Scaly -Color (Luci-wound Skin Appearance) Assessed No Abnormality -Temperature (Luci-wound Skin No Abnormality No Abnormality Appearance) (Pt Warm) (Pt Warm) -Tenderness on Palpation (Luci-wound No No Skin Appearance) -Ulcer Cleansing Wound Cleanser Rinsed/ Irrigated with Saline -Foul Odor after Cleansing No No -Anesthetic Used 4% Lidocaine 5% Lidocaine Solution Gel 4-left hip -Current Size (cm) - Length 0.4 0.2 -Current Size (cm) - Width 0.2 0.2 -Current Size (cm) - Depth 0.3 0.2 -Total Square Cm 0.08 0.04 -Photo Taken Yes No -Epithelialization Large 67-100% -Tunneling No -Undermining/Tunneling No -Circular Undermining No -Classification - Thickness Full Thickness without Exposed Support Structure -Exudate Amt None Present None Present -Wound Margin Flat & Intact Distinct, Outline Attached -Granulation Amt Small (1-33%) Small (1-33%) -Granulation Quality [place] Red -Slough/Fibrin Yes -Necrosis Amt Small (1-33%) None Present (0 %) -Necrotic Tissue Type Adherent Slough -Structure Exposed N/A N/A -Texture (Luci-wound Skin Appearance) Assessed Scarring -Moisture (Luci-wound Skin Appearance) Assessed,Dry/ No Abnormality Scaly -Color (Luci-wound Skin Appearance) Assessed No Abnormality -Temperature (Luci-wound Skin No Abnormality No Abnormality Appearance) (Pt Warm) (Pt Warm) -Tenderness on Palpation (Luci-wound No Skin Appearance) -Ulcer Cleansing Wound Cleanser Rinsed/ Irrigated with Saline -Foul Odor after Cleansing No No -Anesthetic Used 4% Lidocaine 5% Lidocaine Solution Gel #3- L MIDLINE ABD -Combined with other wound No -Current Size (cm) - Length 0 -Current Size (cm) - Width 0 -Current Size (cm) - Depth 0 -Total Square Cm 0 -Photo Taken Yes -Epithelialization Large 67-100% #2 L ABD -Combined with other wound No -Current Size (cm) - Length 0.3 1.3 -Current Size (cm) - Width 1.0 0.3 -Current Size (cm) - Depth 0.4 0.5 -Total Square Cm 0.30 0.39 -Photo Taken Yes No -Epithelialization Large 67-100% -Tunneling Yes Yes -Tunneling Position (O'clock) 3 3 -Tunneling Distance (cm) 15 15 -Exudate Amt Small -Exudate Type Serosanguineous -Wound Margin Distinct, Outline Attached -Granulation Amt Small (1-33%) -Granulation Quality Red -Necrosis Amt None Present (0 %) -Structure Exposed N/A -Texture (Luci-wound Skin Appearance) Scarring -Moisture (Luci-wound Skin Appearance) No Abnormality -Color (Luci-wound Skin Appearance) No Abnormality -Temperature (Luci-wound Skin No Abnormality Appearance) (Pt Warm) -Tenderness on Palpation (Luci-wound No Skin Appearance) -Foul Odor after Cleansing No -Anesthetic Used 5% Lidocaine Gel Lower Limb Edema Present NA WC - Nurse 2 - General Ulcer CM Notes Start: 04/08/22 07:59 Freq: Status: Active Protocol: Activity Type Activity Date Activity User E-Sign Co-Sign Detail Recorded Client Recorded Date Recorded By Document 04/08/22 08:22 MW [id number] 04/08/22 08:33 MW Document 04/15/22 09:27 MW [id number] 04/15/22 09:36 MW 04/08/22 04/15/22 08:22 09:27 Wound Center Nurse 2 5-left groin -Time 08: 09:29 -Correct Patient Yes Yes -Correct Side, Site, Position Yes Yes -Correct Procedure Yes Yes -Procedure Performed Yes Yes -Type of Procedure Debridement Debridement -Clinical Debridement Subcutaneous Subcutaneous -Tissue Removed Subcutaneous Subcutaneous -Post Debridement (cm) - Length 0.2 0.1 -Post Debridement (cm) - Width 5.0 0.7 -Post Debridement (cm) - Depth 0.9 0.5 -Total Square (Post) (cm) 1.00 0.07 -Area of Debridement (cm) - Length 0.2 0.1 -Area of Debridement (cm) - Width 5.0 0.7 -Total Square (Area) (cm) 1.00 0.07 -Tunneling No No -Undermining/Tunneling No No -Circular Undermining No No -Wound/Ulcer Outcome Not Healed Not Healed -Ulcer Cleansing Rinsed/ Rinsed/ Irrigated with Irrigated with Saline Saline -Foul Odor after Cleansing No No -Bioengineered Tissue No No -Bleeding Controlled with Pressure Pressure -Treatment Response Procedure Procedure Tolerated Well Tolerated Well -Offloading No No -Debridement - Subq, 1st 20sq cm No Yes 4-left hip -Time 08:26 09:29 -Correct Patient Yes Yes -Correct Side, Site, Position Yes Yes -Correct Procedure Yes Yes -Procedure Performed Yes No -Type of Procedure Debridement -Clinical Debridement Subcutaneous -Tissue Removed Subcutaneous -Post Debridement (cm) - Length 0.8 0 -Post Debridement (cm) - Width 1.5 0 -Post Debridement (cm) - Depth 1.5 0 -Total Square (Post) (cm) 1.20 0 -Area of Debridement (cm) - Length 0.8 -Area of Debridement (cm) - Width 1.5 -Total Square (Area) (cm) 1.20 -Tunneling No -Undermining/Tunneling No -Circular Undermining No -Wound/Ulcer Outcome Not Healed Healed- Epithelialized -Ulcer Cleansing Rinsed/ Irrigated with Saline -Foul Odor after Cleansing No -Bioengineered Tissue No -Bleeding Controlled with Pressure -Treatment Response Procedure Tolerated Well -Offloading No -Debridement - Subq, 1st 20sq cm No #3- L MIDLINE ABD -Time 08:25 -Correct Patient Yes -Correct Side, Site, Position Yes -Correct Procedure Yes -Procedure Performed No -Post Debridement (cm) - Length 0 -Post Debridement (cm) - Width 0 -Post Debridement (cm) - Depth 0 -Total Square (Post) (cm) 0 -Wound/Ulcer Outcome Healed- Epithelialized #2 L ABD -Time 08:25 09:31 -Correct Patient Yes Yes -Correct Side, Site, Position Yes Yes -Correct Procedure Yes Yes -Procedure Performed Yes Yes -Type of Procedure Debridement Debridement -Clinical Debridement Subcutaneous Subcutaneous -Tissue Removed Subcutaneous Subcutaneous -Post Debridement (cm) - Length 0.5 0.3 -Post Debridement (cm) - Width 2.0 1.3 -Post Debridement (cm) - Depth 0.9 14.6 -Total Square (Post) (cm) 1.00 0.39 -Area of Debridement (cm) - Length 0.5 0.3 -Area of Debridement (cm) - Width 2.0 1.3 -Total Square (Area) (cm) 1.00 0.39 -Tunneling Yes No -Tunneling Position (O'clock) 3 -Tunneling Distance (cm) 9.5 -Undermining/Tunneling No No -Circular Undermining No No -Wound/Ulcer Outcome Not Healed Not Healed -Ulcer Cleansing Rinsed/ Rinsed/ Irrigated with Irrigated with Saline Saline -Foul Odor after Cleansing No No -Bioengineered Tissue No No -Bleeding Controlled with Pressure Pressure -Treatment Response Procedure Procedure Tolerated Well Tolerated Well -Offloading No No -Debridement - Subq, 1st 20sq cm Yes No Pain Scale: 0-10 Numeric Is Patient Pain Free? Yes Yes WC - Nurse 3 - General Ulcer D/C NN Start: 04/08/22 07:59 Freq: Status: Active Protocol: Activity Type Activity Date Activity User E-Sign Co-Sign Detail Recorded Client Recorded Date Recorded By Document 04/08/22 08:44 DL [id number] 04/08/22 08:45 DL Document 04/15/22 09:48 RB [id number] 04/15/22 09:48 RB 04/08/22 04/15/22 08:44 09:48 Wound Care Nurse 3 5-left groin -Ulcer Cleansing Rinsed/ Irrigated with Saline -Foul Odor after Cleansing No -Primary Dressing Applied Aquacel Extra Nugauze, Iodoform -Other Dressing abd -Primary Dressing Covered/Secured with Dry Gauze, Secured with Tape -Aquacel Extra 1 -Nugauze, Iodoform 1/4 1 4-left hip -Ulcer Cleansing Rinsed/ Irrigated with Saline -Foul Odor after Cleansing No -Other Dressing aqaucel ex -Primary Dressing Covered/Secured with Dry Gauze, Secured with Tape #2 L ABD -Ulcer Cleansing Rinsed/ Irrigated with Saline -Foul Odor after Cleansing No -Other Dressing aquacel ex abd Treatment Response Procedure Procedure Tolerated Well Tolerated Well Pain Scale: 0-10 Numeric Is Patient Pain Free? Yes Yes WC - Visit Discharge Discharge Condition Stable Stable Ambulatory Status Ambulatory Ambulatory Transportation Private Auto Private Auto Medication Reconcilliation completed & No provided to patient/care provider Clinical Summary of Care Provided Yes Additional Wound Wound debrided: Left groin Type of Debridement: Excisional debridement Anesthesia Used: 4% Lidocaine Solution Depth: Down to and including healthy tissue and in the subcutaneous layer Percentage of wound debrided: 100 Instrument Used: 3mm curette Tissue Removed: Slough and devitalized tissue Severity: Fat Layer Exposed Amount of bleeding with debridement: Mild Bleeding Controlled with: Pressure Patient tolerated procedure: Patient tolerated procedure well Assessment/Plan Assessment/Plan (1) Nonhealing surgical wound: CODE(S): T81.89XA - Other complications of procedures, not elsewhere classified, initial encounter (2) History of abdominal abscess: CODE(S): Z87.898 - Personal history of other specified conditions (3) Insulin dependent diabetes mellitus: (4) End stage renal disease on dialysis: CODE(S): N18.6 - End stage renal disease; Z99.2 - Dependence on renal dialysis (5) Skin ulcer of abdominal wall with fat layer exposed: CODE(S): L98.492 - Non-pressure chronic ulcer of skin of other sites with fat layer exposed (6) Abdominal wall abscess: CODE(S): L02.211 - Cutaneous abscess of abdominal wall PLAN: Left lateral hip is healed. Left lower abdomen tunnel at 3:00 increased to about 15 cm, did not come in with his wound VAC, he states that he did not have a canister and has been trying to get 1. Left groin with some improvement. Strongly advised to come in with his wound VAC, he states that he will work Tuesday. In the meantime, iodoform to all, change daily to twice daily depending on drainage. Recent A1c is at 9.5, he states that he is working with his primary care physician for better control. Optimal diabetes control strongly recommended. Also currently on dialysis. His questions were answered and he was advised to call with any further questions or concerns. Follow-up in 1 week. This note was generated with [employer] dictation software. It may contain incorrect words, spelling, and punctuation that were not noted in checking the note before signing.
--- NOTE | 2022-04-15 13:23 | WC ---
Wound vac supplies ordered from [facility] to include 2 boxes of canister, 1 box of white foam, 1 box of simplace black foam dressing kits. Supplies to be delivered to patients home Tuesday04/16/22. Confirmation #[id number].
[2022-04-19 14:20] VITALS: BP 160/93; PULSE 93; RESP 20; TEMP 36.3
[2022-04-22 09:23] VITALS: BP 157/87; PULSE 98; RESP 16; TEMP 36.2
--- NOTE | 2022-04-22 11:17 | PCM.WC.PN ---
History of Present Illness Date of Service: 04/22/22 Chief Complaint: Post surgical wound History of Wound: Mr Eden is a 41yo who was referred to the wound center by his PCP for post surgical wound closure/care. Had presented to [facility] about 2 weeks ago due to an abdominal abscess. Had incision and drainage done. Surgery was uneventful. Transferred to a senior living however he left AMA after 2 days because he states that he did not receive good care. Plan was for a wound VAC which he received at his house without any instructions. He states that he has been dressing it with gauze daily to twice daily. He reports some drainage, not foul-smelling. He denies chills, fever or feeling of unwell. Last A1c per patient was about 3 months ago and it was 7.8. Currently on insulin both long-acting and mealtime. He does not know if he had an A1c drawn during his most recent hospital stay. Progress of Wound: Lateral hip and groin healed. Left lower abdomen still with significant tunneling at 3:00 and no change in size. Subjective Subjective No new concerns at this time. Objective Data Objective Data Vital Signs: Vital Signs Temp Pulse Resp BP 97.2 F L 98 16 157/87 H 04/22/22 09:23 04/22/22 09:23 04/22/22 09:23 04/22/22 09:23 Oxygen Delivery Method Room Air Charges/Coding Procedures Integumentary 111xxx-113xx: [id number] Jessie subq tissue 20 sq cm/< Physical Exam Const alert, oriented x3 and no apparent distress General Appearance: cooperative, comfortable and well kempt HEENT normocephalic and head/scalp atraumatic Head and Scalp: normal to inspection and normocephalic Eyes EOMs intact bilaterally General Eye: normal appearance of both eyes Neck full ROM General: normal visual inspection Resp normal respiratory effort and normal air movement Effort and Inspection: able to speak in complete sentences Extremity normal to inspection and full ROM Skin Wounds: wounds noted Neuro oriented x3, CN's II-XII intact bilaterally, moves all extremities and no focal motor deficits Psych mental status grossly normal Appearance: grossly normal Attitude: calm Speech: normal speech Thought Process: normal thought process Debridement Note Debridement Note Wound debrided: Left lower abdomen Type of Debridement: Excisional debridement Anesthesia Used: 4% Lidocaine Solution Depth: Down to and including healthy tissue and in the subcutaneous layer Percentage of wound debrided: 100 Instrument Used: 3mm curette Tissue Removed: Slough and devitalized tissue Severity: Fat Layer Exposed Amount of bleeding with debridement: Mild Bleeding Controlled with: Pressure Patient tolerated procedure: Patient tolerated procedure well Post-Debridement Measurements and Additional Note: Post-Debridement Measurements/Treatment - Nurse 1 - General Ulcer Assessment Start: 04/08/22 07:59 Freq: Status: Active Protocol: MIKE Activity Type Activity Date Activity User E-sign Co-sign Detail Recorded Client Recorded Date Recorded By Document 04/08/22 08:00 JF [id number] 04/08/22 08:08 JF Document 04/15/22 09:01 DL [id number] 04/15/22 09:13 DL Document 04/19/22 14:20 DL [id number] 04/19/22 14:44 DL Document 04/22/22 09:23 [facility] [id number] 04/22/22 09:32 [facility] 04/08/22 04/15/22 04/19/22 08:00 09:01 14:20 - Today's Visit Information Type of service Follow-up Visit Follow-up Visit Nurse-only (Physician/MATERIALS PLANNER/PRODUCTION PLANNER (Physician/MATERIALS PLANNER/PRODUCTION PLANNER Visit ) ) Arrival Mode Ambulatory Ambulatory Ambulatory Transfer Assistance None None Patient Identification Verified (Name & Yes Yes Yes ) Patient Requires Transmission-Based No No No Precautions Finger Stick Blood Sugar(mg/dl) (if 128 200 didnt check indicated): Blood Sugar Stated by Stated by Stated by Patient Patient Patient Vital Signs Temperature (97.8 F-99.1 F) 97.6 F L 97.8 F 97.3 F L Temperature Source Temporal Temporal Temporal Pulse Rate (60-100) 91 94 93 Pulse Location Monitor Monitor Monitor Respiratory Rate (12-18) 16 20 H 20 H Respiratory rate source Observation Observation Observation Oxygen Delivery Method Blood Pressure (90/60-120/80) 157/97 H 143/97 H 160/93 H Blood Pressure Mean (mm Hg) 117 112 115 Source Monitor Monitor Position Semi-Fowlers Blood Pressure Location Left Arm History Since Last Visit- (Skip if this is Patient's initial visit) Have you changed medications since your Yes No No last visit? Any new allergies or adverse reactions No No No Had a fall/change in ADL's that may No No No increase risk of falls Signs or symptoms of abuse and/or No No No neglect since last visit Have you been in the hospital since your Yes No No last visit? Has dressing in place as prescribed Yes Yes No Has compression in place as prescribed N/A N/A N/A Has offloadiing in place as prescribed N/A N/A N/A Experienced any changes in pain level or No No management Left Footwear Regular Shoe Right Footwear Regular Shoe Pain Scale: 0-10 Numeric Is Patient Pain Free? Yes Yes Yes 04/22/22 09:23 WC - Today's Visit Information Type of service Follow-up Visit (Physician/MATERIALS PLANNER/PRODUCTION PLANNER ) Arrival Mode Ambulatory Transfer Assistance None Patient Identification Verified (Name & Yes ) Patient Requires Transmission-Based No Precautions Finger Stick Blood Sugar(mg/dl) (if indicated): Blood Sugar Vital Signs Temperature (97.8 F-99.1 F) 97.2 F L Temperature Source Temporal Pulse Rate (60-100) 98 Pulse Location Monitor Respiratory Rate (12-18) 16 Respiratory rate source Observation Oxygen Delivery Method Room Air Blood Pressure (90/60-120/80) 157/87 H Blood Pressure Mean (mm Hg) 110 Source Monitor Position Sitting Blood Pressure Location Left Arm History Since Last Visit- (Skip if this is Patient's initial visit) Have you changed medications since your No last visit? Any new allergies or adverse reactions No Had a fall/change in ADL's that may No increase risk of falls Signs or symptoms of abuse and/or No neglect since last visit Have you been in the hospital since your No last visit? Has dressing in place as prescribed Yes Has compression in place as prescribed N/A Has offloadiing in place as prescribed N/A Experienced any changes in pain level or No management Left Footwear Regular Shoe Right Footwear Regular Shoe Pain Scale: 0-10 Numeric Is Patient Pain Free? Yes - Nurse 1 - General Ulcer Measurement Start: 04/08/22 07:59 Freq: Status: Active Protocol: Activity Type Activity Date Activity User E-sign Co-sign Detail Recorded Client Recorded Date Recorded By Document 04/08/22 08:00 GISELL [id number] 04/08/22 08:08 JF Document 04/15/22 09:01 DL [id number] 04/15/22 09:13 DL Document 04/19/22 14:20 DL [id number] 04/19/22 14:44 DL Document 04/22/22 09:23 [facility] [id number] 04/22/22 09:32 [facility] 04/08/22 04/15/22 04/19/22 08:00 09:01 14:20 Wound Center Nurse 1 5-left groin -Combined with other wound No -Current Size (cm) - Length 0.5 0.4 0 -Current Size (cm) - Width 0.2 0.2 0 -Current Size (cm) - Depth 0.5 0.2 0 -Total Square Cm 0.10 0.08 0 -Photo Taken Yes No -Epithelialization Large 67-100% -Tunneling No -Undermining/Tunneling No -Circular Undermining No -Classification - Thickness Full Thickness without Exposed Support Structure -Exudate Amt Small None Present None Present -Exudate Type Serosanguineous Serosanguineous -Wound Margin Indistinct, Non Distinct, Flat & Intact -Visible Outline Attached -Granulation Amt Small (1-33%) Small (1-33%) Large (67-100%) -Granulation Quality [place] -Slough/Fibrin Yes -Necrosis Amt Small (1-33%) Small (1-33%) None Present (0 %) -Necrotic Tissue Type Adherent Slough Adherent Slough -Structure Exposed N/A N/A N/A -Texture (Luci-wound Skin Appearance) Assessed Scarring Scarring -Moisture (Luci-wound Skin Appearance) Assessed,Dry/ No Abnormality No Abnormality Scaly -Color (Luci-wound Skin Appearance) Assessed No Abnormality No Abnormality -Temperature (Luci-wound Skin No Abnormality No Abnormality No Abnormality Appearance) (Pt Warm) (Pt Warm) (Pt Warm) -Tenderness on Palpation (Luci-wound No No No Skin Appearance) -Ulcer Cleansing Wound Cleanser Rinsed/ Soap and Water Irrigated with Saline -Foul Odor after Cleansing No No No -Anesthetic Used 4% Lidocaine 5% Lidocaine Solution Gel 4-left hip -Current Size (cm) - Length 0.4 0.2 -Current Size (cm) - Width 0.2 0.2 -Current Size (cm) - Depth 0.3 0.2 -Total Square Cm 0.08 0.04 -Photo Taken Yes No -Epithelialization Large 67-100% -Tunneling No -Undermining/Tunneling No -Circular Undermining No -Classification - Thickness Full Thickness without Exposed Support Structure -Exudate Amt None Present None Present -Wound Margin Flat & Intact Distinct, Outline Attached -Granulation Amt Small (1-33%) Small (1-33%) -Granulation Quality [place] Red -Slough/Fibrin Yes -Necrosis Amt Small (1-33%) None Present (0 %) -Necrotic Tissue Type Adherent Slough -Structure Exposed N/A N/A -Texture (Luci-wound Skin Appearance) Assessed Scarring -Moisture (Luci-wound Skin Appearance) Assessed,Dry/ No Abnormality Scaly -Color (Luci-wound Skin Appearance) Assessed No Abnormality -Temperature (Luci-wound Skin No Abnormality No Abnormality Appearance) (Pt Warm) (Pt Warm) -Tenderness on Palpation (Luci-wound No Skin Appearance) -Ulcer Cleansing Wound Cleanser Rinsed/ Irrigated with Saline -Foul Odor after Cleansing No No -Anesthetic Used 4% Lidocaine 5% Lidocaine Solution Gel #3- L MIDLINE ABD -Combined with other wound No -Current Size (cm) - Length 0 -Current Size (cm) - Width 0 -Current Size (cm) - Depth 0 -Total Square Cm 0 -Photo Taken Yes -Epithelialization Large 67-100% #2 L ABD -Combined with other wound No -Current Size (cm) - Length 0.3 1.3 -Current Size (cm) - Width 1.0 0.3 -Current Size (cm) - Depth 0.4 0.5 14.5 -Total Square Cm 0.30 0.39 -Photo Taken Yes No -Epithelialization Large 67-100% -Tunneling Yes Yes -Tunneling Position (O'clock) 3 3 -Tunneling Distance (cm) 15 15 -Undermining/Tunneling -Circular Undermining -Exudate Amt Small Medium -Exudate Type Serosanguineous Serosanguineous -Wound Margin Distinct, Distinct, Outline Outline Attached Attached -Granulation Amt Small (1-33%) Small (1-33%) -Granulation Quality Red Red -Slough/Fibrin -Necrosis Amt None Present (0 None Present (0 %) %) -Structure Exposed N/A N/A -Texture (Luci-wound Skin Appearance) Scarring Scarring -Moisture (Luci-wound Skin Appearance) No Abnormality No Abnormality -Color (Luci-wound Skin Appearance) No Abnormality No Abnormality -Temperature (Luci-wound Skin No Abnormality No Abnormality Appearance) (Pt Warm) (Pt Warm) -Tenderness on Palpation (Luci-wound No No Skin Appearance) -Ulcer Cleansing Soap and Water -Foul Odor after Cleansing No No -Anesthetic Used 5% Lidocaine Gel Lower Limb Edema Present NA 04/22/22 09:23 Wound Center Nurse 1 5-left groin -Combined with other wound No -Current Size (cm) - Length 0.1 -Current Size (cm) - Width 0.1 -Current Size (cm) - Depth 0.1 -Total Square Cm 0.01 -Photo Taken -Epithelialization Large 67-100% -Tunneling No -Undermining/Tunneling No -Circular Undermining No -Classification - Thickness -Exudate Amt -Exudate Type -Wound Margin -Granulation Amt -Granulation Quality -Slough/Fibrin -Necrosis Amt -Necrotic Tissue Type -Structure Exposed -Texture (Luci-wound Skin Appearance) Assessed, Scarring -Moisture (Luci-wound Skin Appearance) Assessed -Color (Luci-wound Skin Appearance) Assessed -Temperature (Luci-wound Skin No Abnormality Appearance) (Pt Warm) -Tenderness on Palpation (Luci-wound No Skin Appearance) -Ulcer Cleansing Rinsed/ Irrigated with Saline -Foul Odor after Cleansing No -Anesthetic Used 4% Lidocaine Solution 4-left hip -Current Size (cm) - Length -Current Size (cm) - Width -Current Size (cm) - Depth -Total Square Cm -Photo Taken -Epithelialization -Tunneling -Undermining/Tunneling -Circular Undermining -Classification - Thickness -Exudate Amt -Wound Margin -Granulation Amt -Granulation Quality -Slough/Fibrin -Necrosis Amt -Necrotic Tissue Type -Structure Exposed -Texture (Luci-wound Skin Appearance) -Moisture (Luci-wound Skin Appearance) -Color (Luci-wound Skin Appearance) -Temperature (Luci-wound Skin Appearance) -Tenderness on Palpation (Luci-wound Skin Appearance) -Ulcer Cleansing -Foul Odor after Cleansing -Anesthetic Used #3- L MIDLINE ABD -Combined with other wound -Current Size (cm) - Length -Current Size (cm) - Width -Current Size (cm) - Depth -Total Square Cm -Photo Taken -Epithelialization #2 L ABD -Combined with other wound No -Current Size (cm) - Length 0.3 -Current Size (cm) - Width 1.4 -Current Size (cm) - Depth 8.5 -Total Square Cm 0.42 -Photo Taken No -Epithelialization None Present -Tunneling No -Tunneling Position (O'clock) -Tunneling Distance (cm) -Undermining/Tunneling No -Circular Undermining No -Exudate Amt Large -Exudate Type Serosanguineous -Wound Margin Distinct, Outline Attached -Granulation Amt Large (67-100%) -Granulation Quality Red -Slough/Fibrin No -Necrosis Amt None Present (0 %) -Structure Exposed -Texture (Luci-wound Skin Appearance) Assessed, Scarring -Moisture (Luci-wound Skin Appearance) Assessed -Color (Luci-wound Skin Appearance) Assessed -Temperature (Luci-wound Skin No Abnormality Appearance) (Pt Warm) -Tenderness on Palpation (Luci-wound No Skin Appearance) -Ulcer Cleansing Soap and Water -Foul Odor after Cleansing No -Anesthetic Used 4% Lidocaine Solution Lower Limb Edema Present WC - Nurse 2 - General Ulcer CM Notes Start: 04/08/22 07:59 Freq: Status: Active Protocol: Activity Type Activity Date Activity User E-sign Co-sign Detail Recorded Client Recorded Date Recorded By Document 04/08/22 08:22 MW [id number] 04/08/22 08:33 MW Document 04/15/22 09:27 MW [id number] 04/15/22 09:36 MW Document 04/22/22 10:03 MW [id number] 04/22/22 10:11 MW 04/08/22 04/15/22 04/22/22 08:22 09:27 10:03 Wound Center Nurse 2 5-left groin -Time 08:27 09:29 10:03 -Correct Patient Yes Yes Yes -Correct Side, Site, Position Yes Yes Yes -Correct Procedure Yes Yes Yes -Procedure Performed Yes Yes No -Type of Procedure Debridement Debridement -Clinical Debridement Subcutaneous Subcutaneous -Tissue Removed Subcutaneous Subcutaneous -Post Debridement (cm) - Length 0.2 0.1 0 -Post Debridement (cm) - Width 5.0 0.7 0 -Post Debridement (cm) - Depth 0.9 0.5 0 -Total Square (Post) (cm) 1.00 0.07 0 -Area of Debridement (cm) - Length 0.2 0.1 -Area of Debridement (cm) - Width 5.0 0.7 -Total Square (Area) (cm) 1.00 0.07 -Tunneling No No -Undermining/Tunneling No No -Circular Undermining No No -Wound/Ulcer Outcome Not Healed Not Healed Healed- Epithelialized -Ulcer Cleansing Rinsed/ Rinsed/ Irrigated with Irrigated with Saline Saline -Foul Odor after Cleansing No No -Bioengineered Tissue No No -Bleeding Controlled with Pressure Pressure -Treatment Response Procedure Procedure Tolerated Well Tolerated Well -Offloading No No -Debridement - Subq, 1st 20sq cm No Yes 4-left hip -Time 08:26 09:29 -Correct Patient Yes Yes -Correct Side, Site, Position Yes Yes -Correct Procedure Yes Yes -Procedure Performed Yes No -Type of Procedure Debridement -Clinical Debridement Subcutaneous -Tissue Removed Subcutaneous -Post Debridement (cm) - Length 0.8 0 -Post Debridement (cm) - Width 1.5 0 -Post Debridement (cm) - Depth 1.5 0 -Total Square (Post) (cm) 1.20 0 -Area of Debridement (cm) - Length 0.8 -Area of Debridement (cm) - Width 1.5 -Total Square (Area) (cm) 1.20 -Tunneling No -Undermining/Tunneling No -Circular Undermining No -Wound/Ulcer Outcome Not Healed Healed- Epithelialized -Ulcer Cleansing Rinsed/ Irrigated with Saline -Foul Odor after Cleansing No -Bioengineered Tissue No -Bleeding Controlled with Pressure -Treatment Response Procedure Tolerated Well -Offloading No -Debridement - Subq, 1st 20sq cm No #3- L MIDLINE ABD -Time 08:25 -Correct Patient Yes -Correct Side, Site, Position Yes -Correct Procedure Yes -Procedure Performed No -Post Debridement (cm) - Length 0 -Post Debridement (cm) - Width 0 -Post Debridement (cm) - Depth 0 -Total Square (Post) (cm) 0 -Wound/Ulcer Outcome Healed- Epithelialized #2 L ABD -Time 08:25 09:31 10:03 -Correct Patient Yes Yes Yes -Correct Side, Site, Position Yes Yes Yes -Correct Procedure Yes Yes Yes -Procedure Performed Yes Yes Yes -Type of Procedure Debridement Debridement Debridement -Clinical Debridement Subcutaneous Subcutaneous Subcutaneous -Tissue Removed Subcutaneous Subcutaneous Subcutaneous -Post Debridement (cm) - Length 0.5 0.3 0.2 -Post Debridement (cm) - Width 2.0 1.3 1.5 -Post Debridement (cm) - Depth 0.9 14.6 1.4 -Total Square (Post) (cm) 1.00 0.39 0.30 -Area of Debridement (cm) - Length 0.5 0.3 0.2 -Area of Debridement (cm) - Width 2.0 1.3 1.5 -Total Square (Area) (cm) 1.00 0.39 0.30 -Tunneling Yes No Yes -Tunneling Position (O'clock) 3 3 -Tunneling Distance (cm) 9.5 15.0 -Undermining/Tunneling No No No -Circular Undermining No No No -Wound/Ulcer Outcome Not Healed Not Healed Not Healed -Ulcer Cleansing Rinsed/ Rinsed/ Rinsed/ Irrigated with Irrigated with Irrigated with Saline Saline Saline -Foul Odor after Cleansing No No No -Bioengineered Tissue No No No -Bleeding Controlled with Pressure Pressure Pressure -Treatment Response Procedure Procedure Procedure Tolerated Well Tolerated Well Tolerated Well -Offloading No No No -Debridement - Subq, 1st 20sq cm Yes No Yes Pain Scale: 0-10 Numeric Is Patient Pain Free? Yes Yes Yes WC - Nurse 3 - General Ulcer D/C NN Start: 04/08/22 07:59 Freq: Status: Active Protocol: Activity Type Activity Date Activity User E-sign Co-sign Detail Recorded Client Recorded Date Recorded By Document 04/08/22 08:44 DL [id number] 04/08/22 08:45 DL Document 04/15/22 09:48 RB [id number] 04/15/22 09:48 RB Document 04/19/22 14:20 DL [id number] 04/19/22 14:44 DL 04/08/22 04/15/22 04/19/22 08:44 09:48 14:20 Wound Care Nurse 3 5-left groin -Ulcer Cleansing Rinsed/ Irrigated with Saline -Foul Odor after Cleansing No -Primary Dressing Applied Aquacel Extra Nugauze, Iodoform -Other Dressing abd -Primary Dressing Covered/Secured with Dry Gauze, Secured with Tape -Aquacel Extra 1 -Nugauze, Iodoform 1/4 1 4-left hip -Ulcer Cleansing Rinsed/ Irrigated with Saline -Foul Odor after Cleansing No -Other Dressing aqaucel ex -Primary Dressing Covered/Secured with Dry Gauze, Secured with Tape #2 L ABD -Ulcer Cleansing Rinsed/ Soap and Water Irrigated with Saline -Foul Odor after Cleansing No No -Negative Pressure Wound Therapy Continue -Setting (mmHg) 150 -Negative Pressure is Continuous -Other Dressing aquacel ex abd -NPWT Application Charge NPWT </= 50 sq cm ($) Treatment Response Procedure Procedure Procedure Tolerated Well Tolerated Well Tolerated Well Vital Signs Temperature (97.8 F-99.1 F) 97.3 F L Temperature Source Temporal Pulse Rate (60-100) 93 Pulse Location Monitor Respiratory Rate (12-18) 20 H Respiratory rate source Observation Blood Pressure (90/60-120/80) 160/93 H Blood Pressure Mean (mm Hg) 115 Source Monitor Pain Scale: 0-10 Numeric Is Patient Pain Free? Yes Yes Yes WC - Visit Discharge Discharge Condition Stable Stable Stable Ambulatory Status Ambulatory Ambulatory Ambulatory Transportation Private Auto Private Auto Private Auto Medication Reconcilliation completed & No provided to patient/care provider Clinical Summary of Care Provided Yes Assessment/Plan Assessment/Plan (1) Nonhealing surgical wound: CODE(S): T81.89XA - Other complications of procedures, not elsewhere classified, initial encounter (2) History of abdominal abscess: CODE(S): Z87.898 - Personal history of other specified conditions (3) Insulin dependent diabetes mellitus: (4) End stage renal disease on dialysis: CODE(S): N18.6 - End stage renal disease; Z99.2 - Dependence on renal dialysis (5) Skin ulcer of abdominal wall with fat layer exposed: CODE(S): L98.492 - Non-pressure chronic ulcer of skin of other sites with fat layer exposed (6) Abdominal wall abscess: CODE(S): L02.211 - Cutaneous abscess of abdominal wall PLAN: Plan Left lateral hip and groin are healed. Left lower abdomen still with significant tunneling and no change. I am concerned about a possible sinus tract which may surgical management. He was advised to follow-up with his general surgeon at [place]. He states that his last surgery was performed by Dr. Biggs. We will fax records over. In the meantime, continue wound VAC at 150 mmHg. He will come in on Tuesday for change. Recent A1c is at 9.5, he states that he is working with his primary care physician for better control. Optimal diabetes control strongly recommended. Also currently on dialysis. His questions were answered and he was advised to call with any further questions or concerns. He states that he is not available next , I am not available to after, he will come in in here for wound VAC changes until his appointment in 3 weeks. As above, he has been advised to follow-up with general surgery as well. This note was generated with [employer] dictation software. It may contain incorrect words, spelling, and punctuation that were not noted in checking the note before signing.
== END 2022-05-06 23:59 | disposition home or self-care (01) ==
LOC: WC 09:15
PROVIDERS: PCP Physician Assistant; Visit Provider Internal Medicine
DX: T81.89XA Other complications of procedures, not elsewhere classified, initial encounter (principal); E11.622 Type 2 diabetes mellitus with other skin ulcer; L98.492 Non-pressure chronic ulcer of skin of other sites with fat layer exposed; Z99.2 Dependence on renal dialysis; E11.22 Type 2 diabetes mellitus with diabetic chronic kidney disease; N18.6 End stage renal disease; Z79.4 Long term (current) use of insulin; L02.211 Cutaneous abscess of abdominal wall
CPT/HCPCS: 11042; 97605

== ENCOUNTER 2023-01-17 10:54 | Emergency (ER) | payer OTHER, SELFPAY ==
[2023-01-17 10:55] VITALS: BP 213/106; PULSE 84; RESP 18; TEMP 36.2; O2SAT 100; BMI 37.9
--- NOTE | 2023-01-17 11:54 | EX.ED.DYSGE1 ---
HPI History of Present Illness Chief Complaint: Flank Pain Informant: patient Onset/Context/Timing Onset: Days (4) Context: Gradual Onset Timing: Continuous Quality: Dull Location: Right flank Worsened by: Nothing Relieved by: Nothing Narrative Narrative: Patient presents with right flank pain that has been getting worse over the last 4 days. Patient describes his pain as dull. Patient states the pain is localized to the right flank and low back area. Patient states nothing makes it worse and nothing makes it better. Patient states she is unable to find position of comfort. Patient denies any dysuria or hematuria. Patient denies any history of kidney stones. Patient does admit to some nausea. Patient denies any vomiting. Patient midst to some urinary frequency. Patient denies any fevers but admits to some subjective chills. [facility] Medical History (Updated 01/17/23 @ 14:[address] Calixto Sheehan, DO) CKD (chronic kidney disease) CKD (chronic kidney disease) stage 3, GFR 30-59 ml/min DM2 (diabetes mellitus, type 2) End stage renal disease on dialysis History of abdominal abscess HTN (hypertension) Insulin dependent diabetes mellitus Neuropathy Nonhealing surgical wound Skin ulcer of abdominal wall with fat layer exposed Surgically constructed arteriovenous fistula Home Medications insulin glargine 100 unit/mL (3 mL) subcutaneous pen 30 units (0.3 mL) subcut DAILY 06/22/19 [Rx Last Taken Unknown] amlodipine 5 mg tablet 5 mg PO DAILY 01/21/22 [History Last Taken Unknown] carvedilol 12.5 mg tablet 12.5 mg PO BID 01/21/22 [History Last Taken Unknown] hydralazine 25 mg tablet 25 mg PO TID 01/21/22 [History Last Taken Unknown] insulin glargine 100 unit/mL subcutaneous cartridge 60 unit subcut QHS 01/21/22 [History Last Taken Unknown] doxycycline monohydrate 100 mg capsule 100 mg PO BID #14 CAPSULES 02/21/22 [Rx Last Taken Unknown] hydrocodone-acetaminophen 5-325mg 5mg-325mg 1 tab PO Q6H PRN PRN Pain 3 days #10 TABLETS 01/17/23 [Rx Last Taken Unknown] Allergy/AdvReac Type Severity Reaction Status Date / Time sitagliptin [From ] AdvReac Upset Verified 01/17/23 10:55 Stomach Social History Smoking Status: Never smoker ROS ROS ED Constitutional Constitutional ED: Reports chills and subjective; Denies fever(s) Eyes Eyes: Denies blurry vision or change in vision ENT ENT ED: Denies rhinorrhea or sore throat Cardiovascular Cardiovascular: Denies chest pain or palpitations Respiratory/Chest Respiratory/Chest: Denies cough or dyspnea Gastrointestinal Gastrointestinal: Reports nausea; Denies vomiting Genitourinary Genitourinary ED: Reports urinary frequency; Denies dysuria or hematuria Musculoskeletal Musculoskeletal: Reports back pain; Denies neck pain Integumentary Denies abscess or rash Neurologic Neurologic: Denies headache(s) or weakness Allergic/Immunologic Allergic/Immunologic ED: Denies mouth swelling or urticaria EXAM Physical Exam Const Vital Signs: 01/17/23 10:55 01/17/23 12:04 Temperature 97.2 F L Temperature Source Temporal Pulse Rate 84 Respiratory Rate 18 Respiratory Effort Normal Non-Labored Respiratory Pattern Normal Blood Pressure 213/106 H Blood Pressure Mean 141 Pulse Ox 100 Oxygen Delivery Method Room Air Positive well nourished and well developed General Appearance ED: well developed HEENT Reports moist mucous membranes Neck supple and no JVD Resp normal respiratory effort and clear to auscultation bilaterally Cardio regular rate, regular rhythm and no murmurs GI normal to inspection, nondistended, normoactive bowel sounds and non-tender Palpation: soft Back/Spine General Back: CVA tenderness right Extremity normal to inspection General Extremety ED: Negative for edema or tenderness General Extremity: Negative for edema Neuro oriented x3, CN's II-XII intact bilaterally and no sensory deficits noted Sensorium / Orientation: alert Motor Exam: strength 5/5 throughout Psych mental status grossly normal Skin no rashes or lesions noted MDM MDM MDM Narrative Medical decision making narrative: Differential diagnosis includes renal calculus, pyelonephritis, urinary tract infection, gastroenteritis, and electrolyte abnormality. CBC will be obtained to assess for leukocytosis and anemia. Basic metabolic profile will be obtained to assess for renal function and electrolyte abnormality. Urinalysis will be obtained to assess for urinary tract infection and hematuria. CT scan of the abdomen pelvis will be obtained to assess for renal calculus. History & Record Review Additional record(s) reviewed:: Prior labs Lab Data Lab results narrative: CBC was reviewed. There is a mild anemia with a hemoglobin of 12.0 hematocrit 34.5. This is actually improved compared to previous results. Basic metabolic profile was reviewed. BUN was 62 and creatinine was 7.33. These are consistent with prior results. Potassium was slightly elevated at 5.3. Glucose was 219. Urinalysis was reviewed. Occult blood was 150 with 10-25 red blood cells. There is no evidence of urinary tract infection. Labs: Laboratory Results - last 24 hr 01/17/23 01/17/23 01/17/23 11:30 11:30 12:03 WBC 6.9 RBC 4.27 L Hgb 12.0 L Hct 34.5 L MCV 80.8 MCH 28.1 MCHC 34.8 RDW Std Deviation 40.9 RDW Coeff of Juli 14.2 Plt Count 141 L MPV 10.1 Immature Gran % (Auto) 0.400 Neut % (Auto) 73.6 H Lymph % (Auto) 16.6 L [place] % (Auto) 7.1 Eos % (Auto) 1.7 Baso % (Auto) 0.6 Absolute Neuts (auto) 5.1 Absolute Lymphs (auto) 1.14 Nucleated RBC % 0 Sodium 131 L Potassium 5.3 H Chloride 99 Carbon Dioxide 22.0 Anion Gap 10 BUN 62 H Creatinine 7.33 H Estim Creat Clear Calc 16.38 Est GFR (MDRD) Af Amer 11 L Est GFR (MDRD) Non-Af 9 L BUN/Creatinine Ratio 8.5 L Glucose 219 H Calcium 9.6 Urine Color Yellow Urine Clarity Clear Urine pH 8.0 Ur Specific [place] 1.015 Urine Protein 500 H Urine Glucose (UA) 1000 H Urine Ketones Negative Urine Occult Blood 150 H Urine Nitrite Negative Urine Bilirubin Negative Urine Urobilinogen Normal Ur Leukocyte Esterase Negative Urine RBC 10-25 SEEN Urine WBC 0 SEEN Ur Squamous Epith Cells 0-5 SEEN Urine Bacteria 0 SEEN Urine Mucus 0 SEEN Radiography Diagnostic Testing: Clinical Impression(s) from Imaging Studies Abdomen/Pelvis CT 01/17/23 11:58 IMPRESSION: 1. Multiple gallstones 2. Multiple nonobstructing tiny bilateral kidney stones without hydronephrosis or hydroureter Electronically Signed: David Sequeira MD at 12:49 EDT Reading Location ID and State: [facility] / [place] , Service support , CT scan of the abdomen and pelvis was obtained. There are multiple gallstones. There are multiple renal calculi but no evidence of obstruction. There is no hydronephrosis or hydroureter. This was interpreted by the radiologist and was also independently interpreted by myself. Treatment and Re-Evaluation :: Patient was given a dose of morphine here. Patient was advised of his findings. Patient was instructed to go to his dialysis appointment today. Patient was given a prescription for a short course of [place]. Patient was instructed to follow-up with his primary care physician in 5 to 7 days. Patient understood and was agreeable with the plan. All questions were answered. Discharge Plan Triage Chief Complaint: Flank Pain ED Provider: Calixto Sheehan Dx/Rx/DC Orders Clinical Impression: Acute right flank pain, End stage renal disease on dialysis Instructions: ED Flank Pain, Uncertain Cause Prescriptions: New hydrocodone-acetaminophen [hydrocodone-acetaminophen] 5-325 mg tablet 1 tab PO Q6H PRN PRN (Reason: Pain) 3 Days Qty: 10 0RF No Action insulin glargine 100 UNITS/ML insulin pen 30 units subcut DAILY 0RF carvedilol 12.5 mg Tablet 12.5 mg PO BID hydralazine 25 mg Tablet 25 mg PO TID amlodipine 5 mg Tablet 5 mg PO DAILY Lantus U-100 Insulin 100 unit/mL Cartridge 60 unit SUBCUT QHS doxycycline monohydrate 100 MG capsule 100 mg PO BID Qty: 14 0RF Primary Care Provider: Ryan Hendrickson Referrals: Ryan Hendrickson PA [Primary Care Provider] - 5-7 Days Disposition Disposition: Home, Self Care
--- NOTE | 2023-01-17 11:58 | CT_ITS ---
STUDY: CT ABDOMEN AND PELVIS WITHOUT CONTRAST REASON FOR EXAM: Male, 42 years old. Right flank pain RADIATION DOSAGE (If Supplied By Facility): CTDIvol = ( 24.01 ) mGy, DLP = ( 1433.94 ) mGycm TECHNIQUE: Transaxial images were obtained from the dome of the diaphragm to the symphysis pubis without oral contrast, and without intravenous contrast. Sagittal and coronal images were reconstructed. Individualized dose optimization techniques were used for this CT. COMPARISON: CT of abdomen and pelvis dated September 18, 2021 FINDINGS: The visualized lung bases are unremarkable. The visualized portions of the heart are within normal limits. Normal liver. There are multiple gallstones. Normal spleen. Normal pancreas. Normal bilateral adrenal glands. Redemonstration of several tiny calyceal stones scattered throughout both kidneys. No hydronephrosis or hydroureter is seen. There is mild chronic perinephric stranding around both kidneys likely due to chronic inflammation. The stones measure no more than 1 to 2 mm in diameter. Extensive atherosclerotic calcifications of the bilateral renal arteries are also present. Normal visualized stomach. Normal small intestine. Normal colon. The appendix is visualized and appears normal. No free air or free fluid or bowel dilatation is seen. There is no evidence of bowel obstruction. There is diffuse atherosclerotic calcification of the abdominal aorta, without a demonstrated aneurysm. Normal inferior vena cava. Normal retroperitoneum. Normal urinary bladder. Left of midline lower abdominal wall sinus tract and close cutaneous fistula is seen in the region of a previous percutaneous drainage catheter which has since been removed. No air is seen in the sinus tract. There are no abscess collections or inflammation around a sinus tract. There are diffuse degenerative changes of the visualized lumbar spine. CT/Abdomen/Pelvis without Cont IMPRESSION: 1. Multiple gallstones 2. Multiple nonobstructing tiny bilateral kidney stones without hydronephrosis or hydroureter Electronically Signed: David Sequeira MD at 12:49 EDT ,
[2023-01-17 12:10] LABS: Bacteria 0 SEEN /hpf (None Seen); Mucous, Urine 0 SEEN /hpf (<or=2+); White Blood Cells 0 SEEN /hpf (0-5)
[2023-01-17] MEDS: Morphine 4 MG/ML Syringe IV (12:12)
[2023-01-17 12:15] LABS: Color, Urine Yellow (Yellow); Glucose, Dipstick 1000 mg/dl (Normal); Ketone-Dipstick Negative (Negative); Leukocyte Esterase-Dipstick Negative /ul (Negative); Nitrite-Dipstick Negative (Negative); Occult Blood-Urine 150 /ul (Negative); Protein-Dipstick 500 mg/dl (Negative); Specific Gravity, Urine 1.015 (1.002-1.030); Urine Bilirubin Dipstick Negative (Negative); Urine Clarity Clear (Clear); Urine Urobilinogen Normal (Normal)
[2023-01-17 12:22] LABS: Anion Gap 10 (5-15); BUN 62 mg/dL (7-18); BUN/Creat Ratio 8.5 RATIO (10-20); Calcium,Total 9.6 mg/dL (8.5-10.1); Chloride 99 mmol/L (98-107); Creatinine, Serum 7.33 mg/dL (0.70-1.30); EST Glomerular Filtration Rate 9 mL/min (>60); Est Glom Filt Rate - Afr Amer 11 mL/min (>60); Estimated Creatinine Clearance 16.38 ml/min; Glucose 219 mg/dL (74-106); Potassium 5.3 mmol/L (3.5-5.1); Sodium Level 131 mmol/L (136-145)
[2023-01-17 12:25] LABS: Red Blood Cells-Urine 10-25 SEEN /hpf (0-5); Squamous Epithelial Cells - UA 0-5 SEEN /hpf (0-5)
[2023-01-17 12:32] LABS: Absolute Lymphocyte Count 1.14 X10^3/uL (0.83-4.51); Absolute Neutrophil Count 5.1 X10^3/uL (2.0-7.7); Basophil# 0.04 X10^3/uL; Basophil% 0.6 % (0-1); Eosinophil# 0.12 X10^3/uL; Eosinophils% 1.7 % (0-5); Hematocrit 34.5 % (40-54); Lymphocyte # 1.14 X10^3/ul (0.83-4.51); Lymphocyte % 16.6 % (19-41); Mean Corp Hgb Conc 34.8 g/dL (32-36); Mean Corpuscular Hgb 28.1 pg (27.0-32.0); Mean Corpuscular Volume 80.8 fL (80-94); Mean Platelet Vol. 10.1 fl (6.2-12.0); Monocyte# 0.49 X10^3/uL; Monocyte% 7.1 % (0-10); NRBC Flagged by Analyzer 0 % (0-5); Neutrophil # 5.06 X10^3/uL (2.7-7.7); Neutrophil % 73.6 % (47-70); Platelet Count 141 K/mm3 (150-450); RBC Distribution Width CV 14.2 % (11.6-14.6); RBC Distribution Width SD 40.9 fl (35.1-43.9); Red Blood Count 4.27 M/mm3 (4.6-6.2); White Blood Count 6.9 K/mm3 (4.4-11.0)
== END 2023-01-17 15:07 | disposition home or self-care (01) ==
PROVIDERS: Emergency Provider Emergency Medicine; PCP Physician Assistant; Visit Provider Emergency Medicine
DX: R10.9 Unspecified abdominal pain (principal); Z99.2 Dependence on renal dialysis; N18.6 End stage renal disease
CPT/HCPCS: 74176; 80048; 81001; 85025; 96374; 99283

== ENCOUNTER 2023-11-16 15:58 | Emergency (ER) | payer OTHER, SELFPAY ==
[2023-11-16 15:59] VITALS: BP 199/100; PULSE 89; RESP 20; TEMP 36.1; O2SAT 98; O2SAT 99
[2023-11-16 16:07] VITALS: O2SAT 99
[2023-11-16 16:47] VITALS: PULSE 83; O2SAT 95
--- NOTE | 2023-11-16 17:26 | EDS_ITS ---
HPI History of Present Illness Chief Complaint: Shortness of Breath PFSH [facility] Medical History (Updated 11/16/23 @ 19:[address] Demarcus Harrell DO) CKD (chronic kidney disease) CKD (chronic kidney disease) stage 3, GFR 30-59 ml/min DM2 (diabetes mellitus, type 2) End stage renal disease on dialysis History of abdominal abscess HTN (hypertension) Insulin dependent diabetes mellitus Neuropathy Nonhealing surgical wound Skin ulcer of abdominal wall with fat layer exposed Surgically constructed arteriovenous fistula Home Medications insulin glargine 100 unit/mL (3 mL) subcutaneous pen 30 units (0.3 mL) subcut DAILY 06/22/19 [Rx Last Taken Unknown] amlodipine 5 mg tablet 5 mg PO DAILY 01/21/22 [History Last Taken Unknown] carvedilol 12.5 mg tablet 12.5 mg PO BID 01/21/22 [History Last Taken Unknown] hydralazine 25 mg tablet 25 mg PO TID 01/21/22 [History Last Taken Unknown] insulin glargine 100 unit/mL subcutaneous cartridge 60 unit subcut QHS 01/21/22 [History Last Taken Unknown] doxycycline monohydrate 100 mg capsule 100 mg PO BID #14 CAPSULES 02/21/22 [Rx Last Taken Unknown] hydrocodone-acetaminophen 5-325mg 5mg-325mg 1 tab PO Q6H PRN PRN Pain 3 days #10 TABLETS 01/17/23 [Rx Last Taken Unknown] Allergy/AdvReac Type Severity Reaction Status Date / Time sitagliptin [From ] AdvReac Upset Verified 01/17/23 10:55 Stomach Social History Smoking Status: Never smoker EXAM Physical Exam Const Vital Signs: 11/16/23 15:59 11/16/23 16:07 11/16/23 16:47 Temperature 96.9 F L Temperature Source Temporal Pulse Rate 89 83 Respiratory Rate 20 H Respiratory Effort Respiratory Depth Respiratory Pattern Blood Pressure 199/100 H Blood Pressure Mean 133 Pulse Ox 99 99 95 Oxygen Delivery Method Room Air Room Air Room Air 11/16/23 17:43 11/16/23 17:43 11/16/23 17:45 Temperature 98 F Temperature Source Temporal Pulse Rate 82 Respiratory Rate 20 H Respiratory Effort Normal Non-Labored Respiratory Depth Normal Respiratory Pattern Normal Blood Pressure 196/96 H Blood Pressure Mean 129 Pulse Ox 95 Oxygen Delivery Method Room Air Room Air Room Air 11/16/23 19:24 Temperature Temperature Source Pulse Rate 78 Respiratory Rate 16 Respiratory Effort Respiratory Depth Respiratory Pattern Blood Pressure 187/74 H Blood Pressure Mean 111 Pulse Ox 97 Oxygen Delivery Method [facility] Narrative Medical decision making narrative: HISTORY OF PRESENT ILLNESS: 42-year-old male here with shortness of breath. Notes he gets dialysis (MWF) last full session tuesday 11/14. Patient notes just prior to arrival he was undergoing dialysis treatment. He states just 1 dialysis started he became short of breath and dizzy. He further states symptoms resolved shortly after. No chest pain or shortness of breath. Denies any dizziness at this time. The patient denies recent surgery in the last 4 weeks or immobilization in the last 3 days, denies previous diagnosis of DVT or PE, hemoptysis, unilateral leg swelling or malignancy with treatment the last 6 months or palliative. No estrogen use noted. REVIEW OF SYSTEMS: Pertinent positives: Shortness of breath, dizziness Pertinent negatives: Slurred speech, focal weakness, chest pain, loss of consciousness PHYSICAL EXAM: Nursing triage notes reviewed, Vital signs reviewed Constitutional: please see mdm HENT: MMM Eyes: Pupils equal round and reactive to light, Extraocular muscles intact Neck: No stridor, no JVD, full neck ROM Lungs: Clear to auscultation, No wheezing or rales. No increased work of breathing, no conversational dyspnea, no accessory muscle use, no nasal flaring. No respiratory distress noted Heart: Regular rate and rhythm, No murmurs, No rubs and No gallops, 2+ distal pulses (radial, femoral, posterior tibial) in all extremities Abdomen: Soft, there is no tenderness, rigidity, rebound or guarding, no obvious peritoneal signs, no palpable pulsatile abdominal masses, no auscultated abdominal bruit : No CVAT Extremities: No edema Neuro: N alert and oriented x3, neuro exam at baseline, cranial nerves II through XII are intact. No pain with extraocular muscle movement. There is negative test of skew. 5 of 5 strength in upper and lower extremities in flexion extension. Intact sensation to light touch in upper and lower extremity dermatomes. No truncal or extremity ataxia. No dysdiadochokinesia. Normal gait. 2+ reflexes in upper and lower extremities. No meningeal signs. Negative Babinski. NIH of 0. Skin: No rash or lesions noted MEDICAL DECISION MAKING: Chief Complaint: Shortness of breath External records reviewed: COVID-positive after [place] Factors affecting care: ESRD on dialysis, type 2 diabetes, hypertension MDM Narrative: Patient was initially hypertensive otherwise hemodynamically stable, afebrile, nontoxic-appearing. No focal cardiopulmonary normalities. I considered the following differential diagnosis: ACS, arrhythmia, anemia, COVID, flu, pneumonia ALL IMAGES (IF OBTAINED) HAVE BEEN PERSONALLY REVIEWED AND INTERPRETED BY MYSELF. EKG with normal sinus rhythm, left ax deviation, prolonged QT interval, no STEMI I have personally reviewed the patient's chest x-ray. Chest x-ray is unremarkable for pulmonary edema, pneumothorax, pneumonia or focal cardiopulmonary abnormality. High-sensitivity troponin is negative, no evidence of myocardial ischemia CBC with no leukocytosis, baseline anemia, noted thrombocytopenia that is similar to prior BMP with ESRD, no significant electrolyte abnormalities COVID Positive The synthesis of the patient's history, physical exam, labs, and images suggest COVID-19. Patient not hypoxic does not require hospitalization at this time. Will not Give Paxlovid given end-stage renal disease. The patient and/or family, caregivers express understanding. The patient and/or family, caregivers agrees with the plan. Shared decision making: I will have a discussion with the patient and or visitors regarding risk/benefits of further testing or admission. They will be made aware of of the risk/benefits inherent in this decision they will be given the opportunity to voice understanding. Total critical care time today provided was at least 0 minutes. This excludes separately billable procedures. Critical care time (if documented) is secondary to the patient having high probability of clinically significant/life threatening deterioration in the patient's condition which required my urgent intervention. Impression: 1. COVID-19 2. End-stage renal disease 3. Thrombocytopenia Dispo: Discharge Lab Data Labs: Laboratory Results - last 24 hr 11/16/23 17:42 WBC 7.0 RBC 3.39 L Hgb 9.7 L Hct 29.3 L MCV 86.4 MCH 28.6 MCHC 33.1 RDW Std Deviation 44.0 H RDW Coeff of Juli 14.4 Plt Count 135 L MPV 10.4 Immature Gran % (Auto) 0.600 Neut % (Auto) 78.4 H Lymph % (Auto) 9.4 L [place] % (Auto) 8.9 Eos % (Auto) 1.7 Baso % (Auto) 1.0 Absolute Neuts (auto) 5.5 Absolute Lymphs (auto) 0.65 L Nucleated RBC % 0 Sodium 136 Potassium 4.4 Chloride 99 Carbon Dioxide 31.0 Anion Gap 6 BUN 40 H Creatinine 6.09 H Estim Creat Clear Calc 24.83 Est GFR (MDRD) Af Amer 13 L Est GFR (MDRD) Non-Af 11 L BUN/Creatinine Ratio 6.6 L Glucose 208 H Calcium 8.9 Troponin I High Sens 19 Radiography Diagnostic Testing: Clinical Impression(s) from Imaging Studies Chest X-Ray 11/16/23 17:54 IMPRESSION: Hypoventilatory exam with basilar atelectasis. Electronically Signed: Austen Miner MD at 18:19 EST , Discharge Plan Triage Chief Complaint: Shortness of Breath ED Provider: Demarcus Harrell Dx/Rx/DC Orders Clinical Impression: COVID-19, Acute dyspnea Instructions: Coronavirus Disease 2019 (COVID-19): Overview Prescriptions: No Action insulin glargine 100 UNITS/ML insulin pen 30 units subcut DAILY 0RF carvedilol 12.5 mg Tablet 12.5 mg PO BID hydralazine 25 mg Tablet 25 mg PO TID amlodipine 5 mg Tablet 5 mg PO DAILY Lantus U-100 Insulin 100 unit/mL Cartridge 60 unit SUBCUT QHS doxycycline monohydrate 100 MG capsule 100 mg PO BID Qty: 14 0RF hydrocodone-acetaminophen [hydrocodone-acetaminophen] 5-325 mg tablet 1 tab PO Q6H PRN PRN (Reason: Pain) 3 Days Qty: 10 0RF Primary Care Provider: Ryan Hendrickson Referrals: Ryan Hendrickson PA [Primary Care Provider] - Activity Restrictions/Additional Instructions: Thank you for trusting us with your care today! You have been diagnosed with COVID-19. Please take Tylenol (2 pills, 650 mg), ibuprofen (2 pills, 400 mg) every 6 hours as needed for pain and fever control. Please return to the emergency department if your symptoms change or worsen. Specifically you develop worsening shortness of breath, chest pain or if you lose consciousness. Please follow with your primary care physician for further outpatient evaluation and management. Please call your pressurization mechanic and arrange outpatient dialysis either tomorrow or at your already scheduled Tuesday appointment. Disposition Disposition: Home, Self Care Discharge Date/Time: 11/16/23 19:25
--- NOTE | 2023-11-16 17:28 | EKG12_ITS ---
Test Reason : SOB Blood Pressure : / mmHG Vent. Rate : 081 BPM Atrial Rate : 081 BPM P-R Int : 166 ms QRS Dur : 088 ms QT Int : 432 ms P-R-T Axes : 028 -34 019 degrees QTc Int : 501 ms Normal sinus rhythm Left axis deviation Minimal voltage criteria for LVH, may be normal variant ( R in aVL ) Prolonged QT Abnormal ECG Confirmed by J CARLOS ADKINS, NIA ([id number]), deputy editor in chief CANDY SMALL ([id number]) on 11/18/2023 7:12:05 AM Referred By: Confirmed By:NIA WHITMAN MD
--- NOTE | 2023-11-16 17:39 | NURSING ---
NO OLD EKGS
[2023-11-16 17:43] VITALS: BP 196/96; PULSE 82; RESP 20; TEMP 36.6; O2SAT 95; BMI 40.4
[2023-11-16 17:45] VITALS: O2SAT 94
[2023-11-16 17:51] LABS: Absolute Lymphocyte Count 0.65 X10^3/uL (0.83-4.51); Absolute Neutrophil Count 5.5 X10^3/uL (2.0-7.7); Basophil# 0.07 X10^3/uL; Eosinophil# 0.12 X10^3/uL; Eosinophils% 1.7 % (0-5); Hematocrit 29.3 % (40-54); Hemoglobin 9.7 g/dL (13.0-16.5); Lymphocyte # 0.65 X10^3/ul (0.83-4.51); Lymphocyte % 9.4 % (19-41); Mean Corp Hgb Conc 33.1 g/dL (32-36); Mean Corpuscular Hgb 28.6 pg (27.0-32.0); Mean Corpuscular Volume 86.4 fL (80-94); Mean Platelet Vol. 10.4 fl (6.2-12.0); Monocyte# 0.62 X10^3/uL; Monocyte% 8.9 % (0-10); NRBC Flagged by Analyzer 0 % (0-5); Neutrophil # 5.45 X10^3/uL (2.7-7.7); Neutrophil % 78.4 % (47-70); Platelet Count 135 K/mm3 (150-450); RBC Distribution Width CV 14.4 % (11.6-14.6); Red Blood Count 3.39 M/mm3 (4.6-6.2)
--- NOTE | 2023-11-16 17:54 | RAD_ITS ---
STUDY: X-RAY CHEST REASON FOR EXAM: Male, 42 years old. SOB TECHNIQUE: Single AP portable view of the chest. COMPARISON: None. FINDINGS: There are monitoring devices. The lungs are underexpanded. There is basilar atelectasis. There is no demonstrated pleural abnormality. Normal size heart. Normal mediastinum and ana. Normal visualized pulmonary arteries. Normal visualized aortic arch and descending thoracic aorta. Normal visualized thoracic spine. Normal visualized ribs, clavicles, and shoulders. There is no demonstrated abnormality of the visualized soft tissue structures of the upper abdomen. RAD/Chest 1 View (Portable) IMPRESSION: Hypoventilatory exam with basilar atelectasis. Electronically Signed: Austen Miner MD at 18:19 EST ,
[2023-11-16 18:10] LABS: Anion Gap 6 (5-15); BUN 40 mg/dL (7-18); BUN/Creat Ratio 6.6 RATIO (10-20); Calcium,Total 8.9 mg/dL (8.5-10.1); Chloride 99 mmol/L (98-107); Creatinine, Serum 6.09 mg/dL (0.70-1.30); EST Glomerular Filtration Rate 11 mL/min (>60); Est Glom Filt Rate - Afr Amer 13 mL/min (>60); Estimated Creatinine Clearance 24.83 ml/min; Glucose 208 mg/dL (74-106); Potassium 4.4 mmol/L (3.5-5.1); Sodium Level 136 mmol/L (136-145); Troponin-I HS 19 pg/mL (3.0-78.0)
[2023-11-16 19:24] VITALS: BP 187/74; PULSE 78; RESP 16; O2SAT 97
== END 2023-11-16 19:25 | disposition home or self-care (01) ==
PROVIDERS: Emergency Provider Emergency Medicine; PCP Physician Assistant; Visit Provider Emergency Medicine
DX: U07.1 COVID-19 (principal); Z99.2 Dependence on renal dialysis; E11.22 Type 2 diabetes mellitus with diabetic chronic kidney disease; E11.40 Type 2 diabetes mellitus with diabetic neuropathy, unspecified; N18.6 End stage renal disease; D69.6 Thrombocytopenia, unspecified; Z79.4 Long term (current) use of insulin
CPT/HCPCS: 71045; 80048; 84484; 85025; 87631; 93005; 99284; A4216

== ENCOUNTER 2024-06-04 15:53 | Emergency (ER) | payer OTHER, SELFPAY ==
[2024-06-04 15:54] VITALS: BP 189/80; PULSE 89; RESP 19; TEMP 37.1; O2SAT 97; BMI 40.9
--- NOTE | 2024-06-04 16:00 | EKG12_ITS ---
Test Reason : WEAKNESS Blood Pressure : / mmHG Vent. Rate : 088 BPM Atrial Rate : 088 BPM P-R Int : 190 ms QRS Dur : 090 ms QT Int : 414 ms P-R-T Axes : 047 -29 034 degrees QTc Int : 500 ms Normal sinus rhythm Minimal voltage criteria for LVH, may be normal variant ( R in aVL ) Prolonged QT Abnormal ECG Confirmed by DEION ADKINS, JINNY ([id number]), clinical editor ARLETTE VILLASENOR ([id number]) on 06/08/2024 9:57:54 AM Referred By: Confirmed By:MANOLO ALBARRAN MD
--- NOTE | 2024-06-04 16:01 | EDS_ITS ---
HPI History of Present Illness Chief Complaint: Weakness Detail of Chief Complaint: Generalized weakness during dialysis Informant: patient Onset/Context/Timing Onset: Hours (0.5 hours prior to presentation and) Context: Sudden Onset Timing: Continuous Quality: Generalized weakness, shortness of breath Location: Generalized Current Severity: Mild Maximum Severity: Moderate Worsened by: Nothing Relieved by: nothing Associated Symptoms Associated Symptoms: Shortness of breath Narrative Narrative: Patient is a 43-year-old male with history of end-stage renal disease on hemodialysis Tuesday, Tuesday and Tuesday who presents from dialysis because of the generalized weakness with shortness of breath. This occurred shortly after he was placed on dialysis. He had a significant drop in blood pressure from systolic of 200 down to 115. He states they gave him fluids back. His weight prior to dialysis was 149 kg. He denies headache, double vision blurred vision loss of vision. Eyes riggs ears decreased hearing. No trouble with speech or swallowing. She denies paresthesia, anesthesia or motor weakness upper or lower extremities. He denies problems with coordination or balance. He denies problems with speech. He denies chest discomfort of any type. He denies abdominal pain or back pain. He denies nausea, vomiting or diarrhea. He still makes urine. Denies dysuria, frequency, urgency or hematuria. Prior similar symptoms: No Recent Illness/Hospitalization: No PFSH [facility] Medical History Surgically constructed arteriovenous fistula Skin ulcer of abdominal wall with fat layer exposed End stage renal disease on dialysis Insulin dependent diabetes mellitus History of abdominal abscess Nonhealing surgical wound CKD (chronic kidney disease) Neuropathy CKD (chronic kidney disease) stage 3, GFR 30-59 ml/min HTN (hypertension) DM2 (diabetes mellitus, type 2) Home Medications ?Medication ?Instructions ?Recorded ?Last Taken ?Type insulin glargine 100 unit/mL (3 30 units (0.3 mL) subcut DAILY 06/22/19 Unknown Rx mL) subcutaneous pen amlodipine 5 mg tablet 5 mg PO DAILY 01/21/22 Unknown History carvedilol 12.5 mg tablet 12.5 mg PO BID 01/21/22 Unknown History hydralazine 25 mg tablet 25 mg PO TID 01/21/22 Unknown History insulin glargine 100 unit/mL 60 unit subcut QHS 01/21/22 Unknown History subcutaneous cartridge doxycycline monohydrate 100 mg 100 mg PO BID #14 CAPSULES 02/21/22 Unknown Rx capsule hydrocodone-acetaminophen 5-325mg 1 tab PO Q6H PRN PRN Pain 3 days 01/17/23 Unknown Rx 5mg-325mg #10 TABLETS Allergy/AdvReac Type Severity Reaction Status Date / Time sitagliptin (From Nov) AdvReac Upset Verified 01/17/23 10:55 Stomach Social History Smoking Status: Never smoker ROS ROS ED Constitutional Constitutional ED: Denies chills, fever(s), subjective, sweats or weight loss Eyes Eyes: Denies blurry vision, change in vision or diplopia ENT ENT ED: Denies ear pain, rhinorrhea or sore throat Cardiovascular Cardiovascular: Denies chest pain, orthopnea, palpitations, paroxysmal nocturnal dyspnea or racing heartbeat Respiratory/Chest Respiratory/Chest: Reports cough and dyspnea; Denies dyspnea on exertion, orthopnea, paroxysmal nocturnal dyspnea or sputum Gastrointestinal Gastrointestinal: Denies abdominal pain, constipation, diarrhea, melena, nausea or vomiting Genitourinary Genitourinary ED: Denies dysuria, hematuria or urinary frequency Musculoskeletal Musculoskeletal: Denies arthralgias, back pain, myalgias or neck pain Integumentary Denies Abrasions or rash Neurologic Neurologic: Reports weakness; Denies headache(s) or paresthesias Psychiatric Psychiatric: Denies anxiety or depression Endocrine Endocrinology: Denies cold intolerance or heat intolerance Hematologic/Lymphatic Hematologic/Lymphatic: Reports systems reviewed and no addt'l complaints, except as documented Allergic/Immunologic Allergic/Immunologic ED: Denies mouth swelling, tongue swelling or urticaria EXAM Physical Exam Const Vital Signs: 06/04/24 15:54 06/04/24 16:08 06/04/24 17:54 Temperature 98.8 F Temperature Source Oral Pulse Rate 89 77 Respiratory Rate 19 H 16 Respiratory Effort Short of Breath Respiratory Pattern Normal Blood Pressure 189/80 H 183/88 H Blood Pressure Mean 116 119 Pulse Ox 97 94 Oxygen Delivery Method Room Air Room Air Positive well nourished and well developed Constitutional Narrative: BMI is 40.9. Patient appears pale. He does not appear well but does not appear toxic. General Appearance ED: well developed, NAD and pallor; Negative for cyanotic or diaphoretic HEENT Reports dry mucous membranes HEENT Narrative: Ears are normal. Nares are patent without discharge. Posterior pharynx reveals no abnormality. Uvula is midline there is no deviation with of the tongue with protrusion. Negative for trauma or tenderness Mouth ED: Yes dry mucous membranes Mouth: dry mucous membranes Eyes PERRL and EOMs intact bilaterally Eyes Narrative: There may be pallor to his conjunctive up. General Eye ED: Negative for scleral icterus Neck no lymphadenopathy, supple and no JVD Chest Wall inspection of chest normal and palpation of chest normal Resp normal respiratory effort and clear to auscultation bilaterally Cardio regular rate, regular rhythm, S1 normal heart sound, S2 normal heart sound and no murmurs GI normal to inspection, nondistended, normoactive bowel sounds, non-tender, non- distended and no masses; Negative for hepatosplenomegaly Back/Spine no CVA tenderness Extremity Negative for normal to inspection Extremity Narrative: Multiple wounds noted without evidence of infection. The patient does have pitting edema of 2 to 4 mm right and left leg. General Extremety ED: Yes edema; Negative for tenderness General Extremity: edema Neuro oriented x3 and CN's II-XII intact bilaterally Sensorium / Orientation: alert Psych mental status grossly normal Skin no rashes or lesions noted, No no wounds and No skin turgor normal General Skin Exam: pallor; Negative for jaundice MDM MDM MDM Narrative Medical decision making narrative: Symptoms may be due to the rapid drop in his blood pressure. His blood pressure is now normalized. Will obtain CBC to assess H&H and compared to prior. Will obtain BMP since he does not have complete dialysis to make sure his electrolytes are within normal range. Because of him complaining of cough for the past 2 weeks a chest x-ray was obtained. EKG because of his vague symptoms to assess for dysrhythmia or acute ischemia. Lab Data Attestation: I reviewed the patient's lab results. Lab results narrative: CBC reveals mild anemia with an H&H of 10.2 and 29.8. Indices are normal. White count is normal. Labs: Laboratory Results - last 24 hr 06/04/24 16:05 WBC 7.4 RBC 3.54 L Hgb 10.2 L Hct 29.8 L MCV 84.2 MCH 28.8 MCHC 34.2 RDW Std Deviation 49.1 H RDW Coeff of Juli 16.4 H Plt Count 111 L MPV 12.4 H Immature Gran % (Auto) 1.200 H Neut % (Auto) 82.5 H Lymph % (Auto) 9.3 L [place] % (Auto) 5.0 Eos % (Auto) 1.6 Baso % (Auto) 0.4 Absolute Neuts (auto) 6.1 Absolute Lymphs (auto) 0.69 L Nucleated RBC % 0 Sodium 135 L Potassium 4.3 Chloride 97 L Carbon Dioxide 30.0 Anion Gap 8 BUN 56 H Creatinine 6.39 H Estim Creat Clear Calc 23.60 Est GFR (MDRD) Af Amer 12 L Est GFR (MDRD) Non-Af 10 L BUN/Creatinine Ratio 8.8 L Glucose 299 H Calcium 9.3 Radiography Chest X-Ray - ED: 2 View and Read by ED Physician (There is no acute process noted. There is no evidence of infiltrate or CHF. There is no pleural effusion. Cardiac silhouette is normal. [place] is normal. [place] structures un remarkable. This was independently reviewed interpreted by me.) Diagnostic Testing: Clinical Impression(s) from Imaging Studies Chest X-Ray 06/04/24 16:10 IMPRESSION: No radiographic evidence of acute cardiopulmonary disease. Electronically Signed: Leo Gimenez MD at 16:27 EDT , EKG Initial EKG: Attestation: I personally reviewed and interpreted this EKG as follows: Interpretation: Sinus Rhythm (Rate is 88. RI interval is 190 ms. Cures duration 90 ms. QT duration 114 ms. [place] is normal. The QT is prolonged with a QTc of 500 ms. Computer is reading minimal evidence of LVH. I am not in agreement.) Treatment and Re-Evaluation :: Patient was reassessed at 1907. Other than feeling slightly tired he states he feels back to baseline. He was informed of the results. Requested Tylenol just for mild aches. This was ordered. He will be discharged to home. Suspect patient's symptoms were due to a significant rapid drop in his blood pressure during dialysis. Discharge Plan Triage Chief Complaint: Weakness ED Provider: Kirk Conti Dx/Rx/DC Orders Clinical Impression: Orthostatic lightheadedness, Insulin dependent diabetes mellitus, End stage renal disease on dialysis, Elevated blood pressure reading with diagnosis of hypertension Instructions: ED Low Blood Pressure, All Causes Prescriptions: No Action insulin glargine 100 UNITS/ML insulin pen 30 units subcut DAILY 0RF carvedilol 12.5 mg Tablet 12.5 mg PO BID hydralazine 25 mg Tablet 25 mg PO TID amlodipine 5 mg Tablet 5 mg PO DAILY Lantus U-100 Insulin 100 unit/mL Cartridge 60 unit SUBCUT QHS doxycycline monohydrate 100 MG capsule 100 mg PO BID Qty: 14 0RF hydrocodone-acetaminophen [hydrocodone-acetaminophen] 5-325 mg tablet 1 tab PO Q6H PRN PRN (Reason: Pain) 3 Days Qty: 10 0RF Primary Care Provider: Ryan Hendrickson Referrals: Ryan Hendrickson PA [Primary Care Provider] - 1 Week Print Language: [place] Disposition Disposition: Home, Self Care
--- NOTE | 2024-06-04 16:10 | RAD_ITS ---
EXAM: XR CHEST, 2 VIEWS CLINICAL INDICATION: Shortness of breath, cough for 2 weeks TECHNIQUE: Frontal and lateral views of the chest. COMPARISON: 11/16/2023 FINDINGS: LUNGS AND PLEURAL SPACES: Unremarkable. No consolidation or edema. No pneumothorax. No effusion. HEART: Unremarkable. Cardiac silhouette not enlarged. MEDIASTINUM: Central airways and mediastinal contour are unremarkable. BONES/JOINTS: Unremarkable. No acute fracture. SOFT TISSUES: Unremarkable. RAD/Chest PA and Lateral IMPRESSION: No radiographic evidence of acute cardiopulmonary disease. Electronically Signed: Leo Gimenez MD at 16:27 EDT ,
[2024-06-04 16:15] LABS: Absolute Lymphocyte Count 0.69 X10^3/uL (0.83-4.51); Absolute Neutrophil Count 6.1 X10^3/uL (2.0-7.7); Basophil# 0.03 X10^3/uL; Basophil% 0.4 % (0-1); Eosinophil# 0.12 X10^3/uL; Eosinophils% 1.6 % (0-5); Hematocrit 29.8 % (40-54); Hemoglobin 10.2 g/dL (13.0-16.5); Lymphocyte # 0.69 X10^3/ul (0.83-4.51); Lymphocyte % 9.3 % (19-41); Mean Corp Hgb Conc 34.2 g/dL (32-36); Mean Corpuscular Hgb 28.8 pg (27.0-32.0); Mean Corpuscular Volume 84.2 fL (80-94); Mean Platelet Vol. 12.4 fl (6.2-12.0); Monocyte# 0.37 X10^3/uL; NRBC Flagged by Analyzer 0 % (0-5); Neutrophil % 82.5 % (47-70); Platelet Count 111 K/mm3 (150-450); RBC Distribution Width CV 16.4 % (11.6-14.6); RBC Distribution Width SD 49.1 fl (35.1-43.9); Red Blood Count 3.54 M/mm3 (4.6-6.2); White Blood Count 7.4 K/mm3 (4.4-11.0)
[2024-06-04 16:31] LABS: Anion Gap 8 (5-15); BUN 56 mg/dL (7-18); BUN/Creat Ratio 8.8 RATIO (10-20); Calcium,Total 9.3 mg/dL (8.5-10.1); Chloride 97 mmol/L (98-107); Creatinine, Serum 6.39 mg/dL (0.70-1.30); EST Glomerular Filtration Rate 10 mL/min (>60); Est Glom Filt Rate - Afr Amer 12 mL/min (>60); Glucose 299 mg/dL (74-106); Potassium 4.3 mmol/L (3.5-5.1); Sodium Level 135 mmol/L (136-145)
[2024-06-04 17:54] VITALS: BP 183/88; PULSE 77; RESP 16; O2SAT 94
[2024-06-04] MEDS: Acetaminophen 325 MG Tablet 650 MG PO (19:18)
[2024-06-04 19:19] VITALS: BP 185/92; PULSE 89; RESP 24; TEMP 36.3; O2SAT 95
== END 2024-06-04 19:21 | disposition home or self-care (01) ==
PROVIDERS: Emergency Provider Emergency Medicine; PCP Physician Assistant; Visit Provider Emergency Medicine
DX: R42 Dizziness and giddiness (principal); N18.6 End stage renal disease; I12.0 Hypertensive chronic kidney disease with stage 5 chronic kidney disease or end stage renal disease; E11.22 Type 2 diabetes mellitus with diabetic chronic kidney disease; Z79.4 Long term (current) use of insulin; E11.40 Type 2 diabetes mellitus with diabetic neuropathy, unspecified; Z99.2 Dependence on renal dialysis
CPT/HCPCS: 71046; 80048; 85025; 93005; 99283; A4216

== ENCOUNTER 2024-08-06 15:49 | Observation (INO) | payer OTHER, SELFPAY ==
[2024-08-06] VITALS (7 sets, daily range): BP systolic 180–238; BP diastolic 90–128; PULSE 78–88; RESP 16–20; TEMP 36.6–36.9; O2SAT 92–98; BMI 41.0
--- NOTE | 2024-08-06 16:08 | EKG12_ITS ---
Test Reason : Blood Pressure : / mmHG Vent. Rate : 081 BPM Atrial Rate : 081 BPM P-R Int : 188 ms QRS Dur : 094 ms QT Int : 442 ms P-R-T Axes : 028 -27 021 degrees QTc Int : 513 ms Normal sinus rhythm Minimal voltage criteria for LVH, may be normal variant ( R in aVL ) Prolonged QT Abnormal ECG Confirmed by NIA WHITMAN MD [id number]), medical editor ARLETTE VILLASENOR ([id number]) on 08/07/2024 8:47:34 AM Referred By: Hua Lanza Confirmed By:NIA WHITMAN MD
--- NOTE | 2024-08-06 16:44 | ED.VIS.DYS ---
HPI History of Present Illness Chief Complaint: Shortness of Breath Narrative Narrative: Chief complaint and HPI: Shortness of breath. 43-year-old male with history of DM2, CKD 4 on dialysis Tuesday, Tuesday, Tuesday, HTN presents for evaluation of shortness of breath. Patient presents from dialysis. He only received 1 hour of his 4 hours of dialysis. Patient states he has recently been more fluid overloaded than his baseline in which he is requiring hemodialysis on Tuesday as well. Patient states he did receive dialysis Tuesday. Patient states that he has had a chronic cough since November when he was diagnosed with COVID-19. He states he has noticed that he has had increased shortness of breath for the past week. Worse with exertion. He states intermittently the past 3 days he has had yellow sputum. He denies any fever, chills, URI type symptoms, chest pain abdominal pain, nausea, vomiting, dysuria. Denies a history of DVT/PE, blood clotting disorder, recent trauma or surgery, unilateral leg swelling, known malignancy, travel. Review of systems: See HPI Medications: As listed on the chart Allergies: As listed on the chart PFSH: Per chart Vital signs: As listed on the chart. Reviewed. Physical exam: Gen: A&O x3, NAD Head: Normocephalic, atraumatic Eyes: No sclera icterus, conjunctiva clear ENT: Moist mucous membranes Neck: Trachea midline CV: RRR, no murmurs, +2 pitting peripheral edema Resp: Lungs CTA BL but diminished in the bilateral bases, no w/r/c GI: Abd soft, non-distended, non-tender, no r/r/g Musc: Full ROM, no deformity Skin: Warm, dry, diffuse anasarca Neuro: Alert, oriented, grossly intact, sensation intact Psych: Cooperative, appropriate mood and affect [facility] Medical History (Updated 08/06/24 @ 19:[address] Hua Lanza, ) Diabetes Kidney stones Dialysis patient Kidney disease Non-smoker On home oxygen therapy Surgically constructed arteriovenous fistula Skin ulcer of abdominal wall with fat layer exposed End stage renal disease on dialysis Insulin dependent diabetes mellitus History of abdominal abscess Nonhealing surgical wound CKD (chronic kidney disease) Neuropathy CKD (chronic kidney disease) stage 3, GFR 30-59 ml/min HTN (hypertension) DM2 (diabetes mellitus, type 2) Home Medications ?Medication ?Instructions ?Recorded ?Last Taken ?Type insulin glargine 100 unit/mL 60 unit subcut QHS 01/21/22 08/05/24 History subcutaneous cartridge carvedilol 25 mg tablet 50 mg PO BID 08/06/24 08/06/24 History furosemide 80 mg tablet 80 mg PO DAILY 08/06/24 08/05/24 History hydralazine 50 mg tablet 50 mg PO TID 08/06/24 08/06/24 History losartan 100 mg tablet 100 mg PO DAILY 08/06/24 08/06/24 History Allergy/AdvReac Type Severity Reaction Status Date / Time sitagliptin (From Novuv) AdvReac Upset Verified 08/06/24 15:50 Stomach Social History Smoking Status: Never smoker EXAM Physical Exam Const Vital Signs: 08/06/24 15:49 08/06/24 16:08 08/06/24 16:49 Temperature 97.8 F Temperature Source Oral Pulse Rate 88 81 Respiratory Rate 16 16 Respiratory Effort Respiratory Depth Respiratory Pattern Blood Pressure 190/90 H 203/118 H Blood Pressure Mean 123 146 Pulse Ox 95 94 Oxygen Delivery Method Room Air Room Air Room Air 08/06/24 16:50 08/06/24 18:00 Temperature Temperature Source Pulse Rate 81 Respiratory Rate 18 Respiratory Effort Short of Breath Respiratory Depth Normal Respiratory Pattern Normal Blood Pressure 238/128 H Blood Pressure Mean 164 Pulse Ox 92 Oxygen Delivery Method MDM MDM MDM Narrative Medical decision making narrative: 43-year-old male with history of DM2 on dialysis, HTN presents for evaluation of shortness of breath. Patient endorses shortness of breath for the past week. Progressively worsening. He has had acute increase peripheral edema requiring increase in dialysis. Patient only received 1 hour of his dialysis today. On arrival he is afebrile and nonhypoxic on room air. Differential diagnosis includes but is not limited to fluid overload from dialysis, pneumonia, viral illness. Low suspicion for ACS and PE. EKG and chest x-ray reviewed. See below. CBC without leukocytosis. Patient has baseline anemia and thrombocytopenia. D-dimer unremarkable. Troponin unremarkable. BMP shows baseline CKD with creatinine of 4.84. COVID, flu, RSV negative. Patient shortness of breath is likely secondary to his fluid overload from his CKD. Patient became hypertensive into the 200s. This is likely secondary to the need for dialysis. IV labetalol ordered. We contacted the dialysis unit here at the hospital. They were unable to perform dialysis today. Will be able to perform it tomorrow. Given patient's symptomatic fluid overload as well as missed dialysis and hypertension, patient will warrant admission for dialysis. Patient updated all his results and confirmed understand the plan. Hospital service excepted admission. Dr. Lanza. EKG: Interpreted by me/EM physician: EKG shows normal sinus rhythm without any acute ischemic changes. Patient does have prolonged QT C of 513. Heart rate 81. Diagnostic: Interpreted by me/EM physician: Chest x-ray with mild pneumonia, pneumothorax, effusion. Patient does have some mild pulmonary edema. Impression: 1. Shortness of breath secondary to fluid overload 2. ESRD on HD with missed dialysis 4. Chronic anemia and thrombocytopenia 5. Hypertension Lab Data Labs: Laboratory Results - last 24 hr 08/06/24 16:58 WBC 5.5 RBC 3.51 L Hgb 9.7 L Hct 30.1 L MCV 85.8 MCH 27.6 MCHC 32.2 RDW Std Deviation 50.6 H RDW Coeff of Juli 16.3 H Plt Count 88 L MPV 11.6 Immature Gran % (Auto) 1.100 H Neut % (Auto) 80.0 H Lymph % (Auto) 8.2 L [place] % (Auto) 8.5 Eos % (Auto) 1.5 Baso % (Auto) 0.7 Absolute Neuts (auto) 4.4 Absolute Lymphs (auto) 0.45 L Nucleated RBC % 0 Differential Comment SCANNED Platelet Estimate MOD DEC PT 16.0 H INR 1.3 D-Dimer Quant (PE/DVT) 0.38 Sodium 139 Potassium 3.6 Chloride 98 Carbon Dioxide 30.0 Anion Gap 10 BUN 32 H Creatinine 4.84 H Estim Creat Clear Calc 31.21 Est GFR (MDRD) Af Amer 17 L Est GFR (MDRD) Non-Af 14 L BUN/Creatinine Ratio 6.6 L Glucose 256 H Calcium 9.0 Troponin I High Sens 17 Radiography Diagnostic Testing: Clinical Impression(s) from Imaging Studies Chest X-Ray 08/06/24 17:10 IMPRESSION: Diminished inspiratory effort and minor basilar atelectasis Electronically Signed: Sudarshan Deshpande MD at 17:26 EDT , Discharge Plan Disposition Disposition: Acute Care Hospital [facility] Discharge Date/Time: 08/06/24 19:27
--- NOTE | 2024-08-06 17:10 | RAD_ITS ---
STUDY: X-RAY CHEST REASON FOR EXAM: Male, 43 years old. chest pain TECHNIQUE: AP portable COMPARISON: June 04, 2024 FINDINGS: There is less than optimal inspiratory effort with mild bibasilar atelectasis. There is no demonstrated pleural abnormality. Heart is enlarged Normal mediastinum and ana. Normal visualized pulmonary arteries. Normal visualized aortic arch and descending thoracic aorta. Normal visualized thoracic spine. Normal visualized ribs, clavicles, and shoulders. There is no demonstrated abnormality of the visualized soft tissue structures of the upper abdomen. RAD/Chest 1 View (Portable) IMPRESSION: Diminished inspiratory effort and minor basilar atelectasis Electronically Signed: Sudarshan Deshpande MD at 17:26 EDT ,
[2024-08-06 17:15] LABS: Absolute Lymphocyte Count 0.45 X10^3/uL (0.83-4.51); Absolute Neutrophil Count 4.4 X10^3/uL (2.0-7.7); Basophil# 0.04 X10^3/uL; Basophil% 0.7 % (0-1); Eosinophil# 0.08 X10^3/uL; Eosinophils% 1.5 % (0-5); Hematocrit 30.1 % (40-54); Hemoglobin 9.7 g/dL (13.0-16.5); Lymphocyte # 0.45 X10^3/ul (0.83-4.51); Lymphocyte % 8.2 % (19-41); Mean Corp Hgb Conc 32.2 g/dL (32-36); Mean Corpuscular Hgb 27.6 pg (27.0-32.0); Mean Corpuscular Volume 85.8 fL (80-94); Mean Platelet Vol. 11.6 fl (6.2-12.0); Monocyte# 0.47 X10^3/uL; Monocyte% 8.5 % (0-10); NRBC Flagged by Analyzer 0 % (0-5); Neutrophil # 4.41 X10^3/uL (2.7-7.7); POSITIVE COUNT YES; POSITIVE DIFFERENTIAL YES; Platelet Count 88 K/mm3 (150-450); RBC Distribution Width CV 16.3 % (11.6-14.6); RBC Distribution Width SD 50.6 fl (35.1-43.9); Red Blood Count 3.51 M/mm3 (4.6-6.2); White Blood Count 5.5 K/mm3 (4.4-11.0)
[2024-08-06 17:27] LABS: Differential Indicated SCAN CRITERIA MET
[2024-08-06 17:32] LABS: Anion Gap 10 (5-15); BUN 32 mg/dL (7-18); BUN/Creat Ratio 6.6 RATIO (10-20); Chloride 98 mmol/L (98-107); Creatinine, Serum 4.84 mg/dL (0.70-1.30); EST Glomerular Filtration Rate 14 mL/min (>60); Est Glom Filt Rate - Afr Amer 17 mL/min (>60); Estimated Creatinine Clearance 31.21 ml/min; Glucose 256 mg/dL (74-106); International Normalized Ratio 1.3; Potassium 3.6 mmol/L (3.5-5.1); Sodium Level 139 mmol/L (136-145); Troponin-I HS (w/2H Reflex) 17 pg/mL (3.0-78.0)
[2024-08-06 17:52] LABS: D-Dimer Quantitative (DVT/PE) 0.38 FEU/ug/m (0.27-0.49)
[2024-08-06 18:31] LABS: Differential Comment SCANNED; Platelet Estimate MOD DEC (ADEQ)
[2024-08-06] MEDS: Labetalol (Prefilled) 20 MG/4 ML IV (18:35)
[2024-08-06 19:06] LABS: Reflex Troponin-HS? (from REC) Y
--- NOTE | 2024-08-06 19:07 | PCM.HP.STD ---
HPI - General General Date of Admission: 08/06/24 Date of Service: 08/06/24 Chief Complaint: Shortness of breath and volume overload HPI Narrative DARREN FERNANDO, is a 43 M who presented to [facility] ED on 08/06/2024 from dialysis for worsening shortness of breath. Patient only completed 1 of 4 hours of dialysis before being sent to the ED. He reportedly was having significant shortness of breath with hyperventilation so dialysis was discontinued. Workup in the ED was largely unremarkable. Chest x-ray showed minor basilar atelectasis and diminished inspiratory effort but no significant volume overload. COVID/flu testing was negative. However, patient's blood pressure was running high consistently in the 210s to 220s systolic. Was given a dose of IV labetalol with only minor improvement. There was concern that he would not be able to be dialyzed at the dialysis center tomorrow, so hospitalist was contacted for admission. I saw the patient at bedside in the ED. Patient was sitting up comfortably in bed, conversing normally, in no acute distress. He was breathing comfortably on room air at rest with oxygen saturations in the low to mid 90s. He stated that his shortness of breath during dialysis has happened now the past 3 sessions. They have been putting him on supplemental oxygen each time but his symptoms are only somewhat improved. However, his symptoms improve once dialysis is stopped. He does feel more volume overloaded in his legs for normal but denies any shortness of breath at rest. He follows with Dr. Ardon. Has been on dialysis for about 2 years. He does still make urine; states he urinates 3-4 times daily and estimates it is about 1 to 2 cups of urine each time. He was previously on Bumex but this was not working as well as it initially did so he was recently switched to Lasix 80 mg daily. He otherwise denies any headache or chest pain. Denies any fevers or chills. No other acute concerns at this time. [facility] Medical History (Updated 08/06/24 @ 19:[address] Hua Lanza, ) Diabetes Kidney stones Dialysis patient Kidney disease Non-smoker On home oxygen therapy Surgically constructed arteriovenous fistula Skin ulcer of abdominal wall with fat layer exposed End stage renal disease on dialysis Insulin dependent diabetes mellitus History of abdominal abscess Nonhealing surgical wound CKD (chronic kidney disease) Neuropathy CKD (chronic kidney disease) stage 3, GFR 30-59 ml/min HTN (hypertension) DM2 (diabetes mellitus, type 2) Home Medications ?Medication ?Instructions ?Recorded ?Last Taken ?Type insulin glargine 100 unit/mL 60 unit subcut QHS 01/21/22 08/05/24 History subcutaneous cartridge carvedilol 25 mg tablet 50 mg PO BID 08/06/24 08/06/24 History furosemide 80 mg tablet 80 mg PO DAILY 08/06/24 08/05/24 History hydralazine 50 mg tablet 50 mg PO TID 08/06/24 08/06/24 History losartan 100 mg tablet 100 mg PO DAILY 08/06/24 08/06/24 History Allergy/AdvReac Type Severity Reaction Status Date / Time sitagliptin (From ) AdvReac Upset Verified 08/06/24 15:50 Stomach Social History Smoking Status: Never smoker ROS Constitutional Constitutional: Denies chills, fatigue, fever(s) or weakness Eyes Eyes: Denies change in vision Cardiovascular Cardiovascular: Denies chest pain Respiratory/Chest Respiratory/Chest: Denies cough, productive cough, shortness of breath at rest, shortness of breath with exertion or wheezing Gastrointestinal Gastrointestinal: Denies abdominal pain Neurologic Neurologic: Denies dizziness, focal weakness or headache(s) Vital Signs Vital Signs Vital Signs: 08/06/24 15:49 08/06/24 16:08 08/06/24 16:49 Temperature 97.8 F Temperature Source Oral Pulse Rate 88 81 Respiratory Rate 16 16 Respiratory Effort Respiratory Depth Respiratory Pattern Blood Pressure 190/90 H 203/118 H Blood Pressure Mean 123 146 Pulse Ox 95 94 Oxygen Delivery Method Room Air Room Air Room Air 08/06/24 16:50 08/06/24 18:00 Temperature Temperature Source Pulse Rate 81 Respiratory Rate 18 Respiratory Effort Short of Breath Respiratory Depth Normal Respiratory Pattern Normal Blood Pressure 238/128 H Blood Pressure Mean 164 Pulse Ox 92 Oxygen Delivery Method Weight Weight: 153 kg Body Mass Index (BMI) 41.0 Physical Exam Const alert, oriented x3 and no apparent distress Constitutional Narrative: Middle-age male, morbidly obese, sitting up comfortably in bed, conversing normally, in no acute distress. General Appearance: cooperative and comfortable HEENT normocephalic, head/scalp atraumatic, hearing grossly normal bilaterally, nasal mucous membranes and turbinates normal and moist oral mucous membranes Eyes PERRL, EOMs intact bilaterally and conjunctivae normal Neck full ROM Chest inspection of chest normal Resp normal respiratory effort and no use of accessory muscles Resp Narrative: Breathing comfortably on room air at rest. Mild to moderately decreased breath sounds bilaterally throughout, suspect in part due to body habitus. No wheezing or crackles noted. Cardio regular rate, regular rhythm, no murmurs and peripheral pulses 2+ throughout GI normal to inspection, nondistended, normoactive bowel sounds, soft to palpation, non-tender and non-distended Back/Spine normal ROM Extremity full ROM Extremity Narrative: +3-4 lower extremity pitting edema noted up to the knee. Skin no rashes or lesions noted Neuro moves all extremities and no focal motor deficits Speech: speech normal Psych mental status grossly normal Results Lab / Micro Data 08/06/24 16:58 08/06/24 16:58 Labs: Laboratory Results - last 24 hr 08/06/24 16:58: WBC 5.5, RBC 3.51 L, Hgb 9.7 L, Hct 30.1 L, MCV 85.8, MCH 27.6, MCHC 32.2, RDW Std Deviation 50.6 H, RDW Coeff of Juli 16.3 H, Plt Count 88 L, MPV 11.6, Immature Gran % (Auto) 1.100 H, Neut % (Auto) 80.0 H, Lymph % (Auto) 8.2 L, [place] % (Auto) 8.5, Eos % (Auto) 1.5, Baso % (Auto) 0.7, Absolute Neuts (auto) 4.4, Absolute Lymphs (auto) 0.45 L, Nucleated RBC % 0, Differential Comment SCANNED, Platelet Estimate MOD DEC, PT 16.0 H, INR 1.3, D-Dimer Quant (PE/DVT) 0.38, Sodium 139, Potassium 3.6, Chloride 98, Carbon Dioxide 30.0, Anion Gap 10, BUN 32 H, Creatinine 4.84 H, Estim Creat Clear Calc 31.21, Est GFR (MDRD) Af Amer 17 L, Est GFR (MDRD) Non-Af 14 L, BUN/Creatinine Ratio 6.6 L, Glucose 256 H, Calcium 9.0, Troponin I High Sens 17 Micro: Microbiology 08/06/24 16:58 Mucosa - Nose SARS-CoV-2, Influenza & RSV (PCR) - Final Imaging Radiology Impression Chest X-Ray 08/06/24 17:10 IMPRESSION: Diminished inspiratory effort and minor basilar atelectasis Electronically Signed: Sudarshan Deshpande MD at 17:26 EDT Reading Location ID and State: [facility] / [place] Tel , Service support , Assessment & Plan Assessment/Plan (1) Volume overload: (2) End stage renal disease on dialysis: (3) HTN (hypertension): PLAN: Plan Patient is a 43-year-old male who presented to [facility] ED on 08/06/2024 from dialysis for worsening shortness of breath. 1. Volume overload in setting of ESRD on HD ? Admit under observation status to PCU. Nephrology consulted. Patient with volume overload secondary to stopping HD session early today. Will need HD tomorrow, then will likely be okay for discharge home with resumption of HD MWF at dialysis center. Does make some urine, will start IV Bumex 2 mg 3 times daily to assist with volume removal. 2. Hypertension ? Hypertensive to 210s to 220s systolic in the ED. Presumed secondary to volume overload. No chest pain or significant pulmonary edema noted, low concern for hypertensive urgency. Started on IV Bumex as noted above. Will continue home Coreg, amlodipine, hydralazine and losartan and add IV hydralazine as needed until dialysis can be done tomorrow. 3. Type 2 diabetes mellitus with hyperglycemia ? Home regimen of Lantus 60 units at night. Blood glucose 256 on admit. Will treat with Lantus 45 units at night and sliding scale insulin with meals while inpatient, adjust as needed. 4. Chronic anemia of renal disease ? Hemoglobin 9.7 on admit, at baseline. Stable. 5. Chronic thrombocytopenia ? Platelets 88 on admit. Slightly below baseline of 100-120. Suspect this is due to dilution from volume overload. No need to monitor further while inpatient. 6. Morbid obesity ? BMI 41 on admit. Complicates hospital course, care and prognosis. DVT prophylaxis: Heparin subcu CODE STATUS: Full code, verified Expected disposition: Home, 1 to 2 days Total clinical time spent by myself addressing the patient's medical issues, reviewing all the data, and collaborating with patient's care team: 55 minutes. Charges/Coding Visit Charges Inpatient E&M: 78509 Init Hosp L2
[2024-08-06 19:53] LABS: Troponin-I HS 19 pg/mL (3.0-78.0)
[2024-08-06 20:39] LABS: Bedside Glucose 183 mg/dL (74-106)
[2024-08-06] MEDS: Bumetanide 1 MG/4 ML Vial 2 MG IV ×2 (20:44→22:23)
[2024-08-06] MEDS: hydrALAZINE 50 MG Tablet PO (20:45)
[2024-08-06] MEDS: Insulin Lispro 100 UNIT/ML INSULN.PEN SC (20:46)
[2024-08-06] MEDS: Carvedilol 25 MG Tablet 50 MG PO (22:22)
[2024-08-06] MEDS: Insulin Glargine-YFGN 100 UNIT/ML Pen 45 UNIT SC (22:23)
[2024-08-07] VITALS (15 sets, daily range): BP systolic 68–246; BP diastolic 77–99; PULSE 67–77; RESP 14–17; TEMP 36.3–36.8; O2SAT 94–98; BMI 41.0; BMI 39.9
[2024-08-07] MEDS: hydrALAZINE 50 MG Tablet PO ×2 (06:04→13:37)
[2024-08-07] MEDS: Bumetanide 1 MG/4 ML Vial 2 MG IV ×2 (06:04→13:38)
[2024-08-07] MEDS: Insulin Lispro 100 UNIT/ML INSULN.PEN SC ×2 (06:44→12:51)
[2024-08-07 07:06] LABS: Bedside Glucose 166 mg/dL (74-106)
[2024-08-07] MEDS: 0.9% Normal Saline 1,000 ML IV.SOLN. 1000 ML OPERA.SITE (09:28)
--- NOTE | 2024-08-07 11:13 | CT_ITS ---
STUDY: CTA CHEST REASON FOR EXAM: Male, 43 years old. dyspnea, rule out PE RADIATION DOSAGE (If Supplied By Facility): CTDIvol = ( 26.5 ) mGy, DLP = ( 662.89 ) mGycm TECHNIQUE: The examination was performed with the intravenous administration of IV 100mL Isovue-370. Post-processing of the angiographic images was performed, with multiplanar reformation and 3D reconstruction. Individualized dose optimization techniques were used for this CT. COMPARISON: Chest x-ray 08/06/2024 FINDINGS: Normal enhancement of the main pulmonary artery and right and left pulmonary arteries. Normal enhancement of the bilateral peripheral pulmonary arteries. There is no demonstrated pulmonary embolism. Normal thoracic aorta and visualized great vessels. There is no demonstrated aortic dissection. Normal heart and pericardium. There is a small pericardial effusion. Small reactive reactive mediastinal lymph nodes. Normal hilar regions. Normal visualized trachea and bronchi. The lungs are well expanded. Mild emphysema. No noncalcified nodule or mass. Some dependent bibasilar atelectasis. Normal pleura. Normal chest wall structures. Normal osseous structures. Normal visualized upper abdomen. CT/CTA Chest W/WO Contrast IMPRESSION: Normal CTA chest examination, without a demonstrated pulmonary embolism or arterial dissection. Electronically Signed: Kwadwo Delgado MD at 13:56 EDT ,
--- NOTE | 2024-08-07 11:24 | PCM.CONS.R ---
Assessment & Plan Assessment/Plan (1) End stage renal disease on dialysis: (2) Volume overload: (3) HTN (hypertension): PLAN: Plan This is a 43-year-old male with past medical history significant for ESRD on hemodialysis who was at dialysis yesterday but about 1 hour into dialysis session felt breathless, short of breath with no improvement after oxygen applied, EMS summoned and patient was taken to the ER. Workup in ER included chest x-ray which was clear. Patient was hypertensive in ER. He was admitted. Patient is undergoing dialysis today for fluid removal, aiming to remove around 4 to 5 L. Patient's EDW 143 kg, predialysis weight yesterday 154 kg. Patient has been recently having a large fluid gains, not getting to EDW and because of this his dialysis was increased to 4 days weekly. Reviewed importance of following fluid restriction and low-sodium diet. Breathing has improved and patient is tolerating fluid removal with dialysis today however we recommend CT chest to rule out PE. This should be done today. Discussed nephrology plan with Dr. Malik. If patient discharged today he will go to dialysis tomorrow. Continue current bp meds. To note, bp is usually elevated at start of dialysis but as dialysis session goes on blood pressures improve to even the point of going on low side and patient feels symptomatic. Patient is on hydralazine, carvedilol, amlodipine, furosemide. HPI Consult Data Date of Consult: 08/07/24 HPI Narrative HPI Narrative: DARREN FERNANDO, is a 43 M with past medical history significant for ESRD on hemodialysis at [facility] who was at dialysis yesterday however about 1 hour into dialysis session patient felt short of breath, oxygen applied but continued to feel even worse, breathless therefore EMS summoned patient was taken to the emergency room for evaluation and treatment. Chest x-ray on admission did not show any pulmonary edema, COVID and flu testing were negative, systolic blood pressure 210 on admission, patient was given IV labetalol with some improvement in BP. Patient was admitted for further evaluation and treatment. This morning patient reports he feels better overall, states breathing has improved. Patient was seen and examined on dialysis today. [facility] Medical History (Updated 08/06/24 @ 19:[address] Hua Lanza, DO) Diabetes Kidney stones Dialysis patient Kidney disease Non-smoker On home oxygen therapy Surgically constructed arteriovenous fistula Skin ulcer of abdominal wall with fat layer exposed End stage renal disease on dialysis Insulin dependent diabetes mellitus History of abdominal abscess Nonhealing surgical wound CKD (chronic kidney disease) Neuropathy CKD (chronic kidney disease) stage 3, GFR 30-59 ml/min HTN (hypertension) DM2 (diabetes mellitus, type 2) Home Medications ?Medication ?Instructions ?Recorded ?Last Taken ?Type insulin glargine 100 unit/mL 60 unit subcut QHS 01/21/22 08/05/24 History subcutaneous cartridge carvedilol 25 mg tablet 50 mg PO BID 08/06/24 08/06/24 History furosemide 80 mg tablet 80 mg PO DAILY 08/06/24 08/05/24 History hydralazine 50 mg tablet 50 mg PO TID 08/06/24 08/06/24 History losartan 100 mg tablet 100 mg PO DAILY 08/06/24 08/06/24 History Allergy/AdvReac Type Severity Reaction Status Date / Time sitagliptin (From Novuvpr) AdvReac Upset Verified 08/06/24 15:50 Stomach Social History Smoking Status: Never smoker ROS ROS Narrative As in HPI and past medical history Physical Exam Narrative Alert and oriented x 3, no apparent distress S1, S2, RRR Lung sounds clear anteriorly, diminished posterior breath sounds Abdomen soft, rounded Pitting edema bilateral lower legs AV fistula accessed for dialysis Lab / Micro Data 08/06/24 16:58 08/06/24 16:58 Labs: Laboratory Results - last 24 hr 08/06/24 16:58: WBC 5.5, RBC 3.51 L, Hgb 9.7 L, Hct 30.1 L, MCV 85.8, MCH 27.6, MCHC 32.2, RDW Std Deviation 50.6 H, RDW Coeff of Juli 16.3 H, Plt Count 88 L, MPV 11.6, Immature Gran % (Auto) 1.100 H, Neut % (Auto) 80.0 H, Lymph % (Auto) 8.2 L, [place] % (Auto) 8.5, Eos % (Auto) 1.5, Baso % (Auto) 0.7, Absolute Neuts (auto) 4.4, Absolute Lymphs (auto) 0.45 L, Nucleated RBC % 0, Differential Comment SCANNED, Platelet Estimate MOD DEC, PT 16.0 H, INR 1.3, D-Dimer Quant (PE/DVT) 0.38, Sodium 139, Potassium 3.6, Chloride 98, Carbon Dioxide 30.0, Anion Gap 10, BUN 32 H, Creatinine 4.84 H, Estim Creat Clear Calc 31.21, Est GFR (MDRD) Af Amer 17 L, Est GFR (MDRD) Non-Af 14 L, BUN/Creatinine Ratio 6.6 L, Glucose 256 H, Calcium 9.0, Troponin I High Sens 17 08/06/24 19:18: Troponin I High Sens 08/06/24 20:11: POC Glucose 183 H 08/07/24 06:42: POC Glucose 166 H Micro: Microbiology 08/06/24 16:58 Mucosa - Nose SARS-CoV-2, Influenza & RSV (PCR) - Final Imaging Radiology Impression Chest X-Ray 08/06/24 17:10 IMPRESSION: Diminished inspiratory effort and minor basilar atelectasis Electronically Signed: Sudarshan Deshpande MD at 17:26 EDT ,
[2024-08-07 12:18] LABS: Bedside Glucose 164 mg/dL (74-106)
--- NOTE | 2024-08-07 13:05 | CHAPLAIN ---
Type of Pastoral Visit _x__ Initial Visit ___ Follow-up Visit ___ On-call Visit ___ General Patient Visit ___ Spiritual Assessment ___ Family Conference ___ Bereavement ___ Rapid Response ___ Code Blue ___ Other (describe below) Pastoral Care Referral From _x__ Patient ___ Family ___ Nurse ___ Physician ___ Director Of Cardiology Service Line ___ Sandblast Or Shotblast Equipment Tender ___ Other (describe below) Sacrament/Intervention _x__ Active listening ___ Anointing ___ Confucianist ___ Bereavement ___ Communion ___ Emilia exploration ___ ___ Life review _x__ Prayer ___ Reconciliation ___ Sacrament of Sick ___ Supportive presence ___ Wedding ___ Other (describe below) Pastoral Comments patient is very welcoming and is about to begin a dialysis treatment; pt's mother is also in the room; pt says that he is doing fine; pt says that a prayer would be a good deed for him; pt again states that he is fine without worries or concerns
[2024-08-07] MEDS: Losartan Potassium 100 MG Tablet PO (13:37)
[2024-08-07] MEDS: Heparin Injection (Vial) 5,000 UNIT/ML VIAL 5000 UNIT SC (13:37)
[2024-08-07] MEDS: 0.9% Saline Lock 10 ML Syringe IV (13:42)
--- NOTE | 2024-08-07 13:53 | NURSING ---
AM medications late d/t pt getting dialysis and then to CT right after dialysis complete.
--- NOTE | 2024-08-07 14:27 | DCINST_ITS ---
Discharge Instructions Diet Discharge Diet: 2000 Calorie Control Diet Activity Discharge Activity: Return to Normal Activity Weight Bearing Status: Full weight bearing Follow Up Care Test Results: Test results from this visit will be discussed in further detail at your follow- up appointment, if applicable. Discharge Plan Admission Admit Date/Time: 08/06/24 18:37 Primary Reason for Your Visit: dyspnea, hypertension Attending Provider: Jorge Malik Primary Care Provider: Ryan Hendrickson Consulting Providers: Lamont Ardon; Hua Lanza Discharge Orders/Prescriptions Prescriptions: New alprazolam 1 mg tablet 1 mg PO UD PRN (Reason: anxiety) Qty: 40 0RF Rx Instructions: 1/2 to one- 1/2 hr before dialysis for anxiety, use caution if driving, can cause sleepiness Continued insulin glargine 100 unit/mL Cartridge 60 unit SUBCUT QHS carvedilol 25 mg tablet 50 mg PO BID furosemide 80 mg tablet 80 mg PO DAILY hydralazine 50 mg tablet 50 mg PO TID Discontinued losartan 100 mg tablet 100 mg PO DAILY Referrals / Follow Up: Ryan Hendrickson, PA [Primary Care Provider] - Disposition Disposition (needs filled in before D/C Order can be placed): Home, Self Care
--- NOTE | 2024-08-07 14:48 | DS.PCM_ITS ---
Providers Date of Admission: 08/06/24 Date of Discharge: 08/07/24 Primary Care Physician: MEHDI Rosales Consultations 08/06/24 20:09 Consult: Nephrology Routine Consulting Provider: Lamont Ardon Reason for Consult: ESRD on HD EMERGENT Consult: No MD Notified: Yes Date Notified: 08/06/24 Time Notified: 20:27 Method of Notification: Answering Service Reason For Visit: FLUID OVERLOAD ESRD ON HD Diagnosis Discharge Diagnosis (1) End stage renal disease on dialysis: Status: Acute Code(s): N18.6 - End stage renal disease; Z99.2 - Dependence on renal dialysis (2) Volume overload: Status: Acute Code(s): E87.70 - Fluid overload, unspecified (3) HTN (hypertension): Status: Chronic Code(s): I10 - Essential (primary) hypertension Plan 1. Dyspnea-etiology unclear #2 uncontrolled hypertension #3 anxiety disorder #4 type 2 diabetes #5 morbid obesity Medications at Discharge Home Medications insulin glargine 100 unit/mL subcutaneous cartridge 60 unit subcut [facility] diabetes 01/21/22 carvedilol 25 mg tablet 50 mg PO BID blood pressure 08/06/24 furosemide 80 mg tablet 80 mg PO DAILY diuretic 08/06/24 hydralazine 50 mg tablet 50 mg PO TID blood pressure 08/06/24 alprazolam 1 mg tablet 1 mg PO UD PRN anxiety #40 tabs 08/07/24 Hospital Course Operations None Procedures Dialysis Summary of Care Provided Minutes Spent on Discharge: 31 Hospital Course: This 43-year-old white male was seen in the emergency room at [facility] after being sent from his dialysis center due to complaints of shortness of breath an hour into his dialysis treatment. Workup in the emergency room included a chest x-ray which showed no evidence of acute process, patient's pulse ox was well above 90% on room air. Patient was placed in observation status on PCU and seen in consultation by nephrology. The following day he underwent dialysis. Patient also underwent a CT of the chest to rule out pulmonary embolism, CTA did not show any evidence of pulmonary emboli. Patient's blood pressure was elevated during his hospitalization but did drop significantly during dialysis. On 08/07/2024, patient was seen and examined: On examination he appeared in good health and spirits. Vital signs as documented. Skin warm and dry and without overt rashes. Neck without JVD, neck was supple, trachea midline, thyroid was normal. Lungs clear bilaterally, normal air movement was noted. Heart exam notable for regular rhythm, normal sounds and absence of murmurs, rubs or gallops. Abdomen unremarkable and without evidence of organomegaly, masses, or abdominal aortic enlargement. Bowel sounds are present, abdomen is not distended. Extremities nonedematous, no cyanosis was noted, no clubbing was noted. Neuro: Cranial nerves II through XII are grossly intact, no focal motor deficits were noted, sensation to light touch and pinprick intact, motor exam 5/5 throughout. Psych: Patient is alert and oriented x3, he does not appear anxious or depressed, he does not appear agitated. Patient was discharged home in stable condition on 08/07/2024. Weight / BMI Weight Weight: 148.7 kg Body Mass Index (BMI) 39.9 ABG / Lab / Microbiology Data 08/06/24 16:58 08/06/24 16:58 Laboratory: Laboratory Results - last 24 hr 08/06/24 16:58: WBC 5.5, RBC 3.51 L, Hgb 9.7 L, Hct 30.1 L, MCV 85.8, MCH 27.6, MCHC 32.2, RDW Std Deviation 50.6 H, RDW Coeff of Juli 16.3 H, Plt Count 88 L, MPV 11.6, Immature Gran % (Auto) 1.100 H, Neut % (Auto) 80.0 H, Lymph % (Auto) 8.2 L, [place] % (Auto) 8.5, Eos % (Auto) 1.5, Baso % (Auto) 0.7, Absolute Neuts (auto) 4.4, Absolute Lymphs (auto) 0.45 L, Nucleated RBC % 0, Differential Comment SCANNED, Platelet Estimate MOD DEC, PT 16.0 H, INR 1.3, D-Dimer Quant (PE/DVT) 0.38, Sodium 139, Potassium 3.6, Chloride 98, Carbon Dioxide 30.0, Anion Gap 10, BUN 32 H, Creatinine 4.84 H, Estim Creat Clear Calc 31.21, Est GFR (MDRD) Af Amer 17 L, Est GFR (MDRD) Non-Af 14 L, BUN/Creatinine Ratio 6.6 L, G lucose 256 H, Calcium 9.0, Troponin I High Sens 17 08/06/24 19:18: Troponin I High Sens 19 08/06/24 20:11: POC Glucose 183 H 08/07/24 06:42: POC Glucose 166 H 08/07/24 11:30: POC Glucose 164 H Microbiology: Microbiology 08/06/24 16:58 Mucosa - Nose SARS-CoV-2, Influenza & RSV (PCR) - Final Radiography Diagnostic Testing: Radiology Impression Chest X-Ray 08/06/24 17:10 IMPRESSION: Diminished inspiratory effort and minor basilar atelectasis Electronically Signed: Sudarshan Deshpande MD at 17:26 EDT , Chest CTA 08/07/24 11:13 IMPRESSION: Normal CTA chest examination, without a demonstrated pulmonary embolism or arterial dissection. Electronically Signed: Kwadwo Delgado MD at 13:56 EDT , D/C Instructions Discharge Diet: 2000 Calorie Control Diet Weight Bearing Status: Full weight bearing Meaningful Use Info Meaningful Use Meaningful Use Diagnoses (Choose all that apply): None applicable Ischemic Stroke Statin Dosing Therapy Reference: STATIN DOSE THERAPY REFERENCE: * Patients > 75 years receive moderate or high dose statin therapy. * Patients 75 years or YOUNGER should receive HIGH intensity statin dose unless contraindicated. You will be required to document reason for non-treatment if statin daily dose does not meet guidelines. HIGH DOSE STATIN THERAPY DAILY Atorvastatin > than or = to 40 mg Rosuvastatin > than or = to 20 mg Amlodipine + Atorvastatin > than or = to 2.5/40 mg Ezetimibe + Simvastatin 10/80 mg Simvastatin 80mg Discharge Plan Admission Admit Date/Time: 08/06/24 18:37 Primary Reason for Your Visit: dyspnea, hypertension Attending Provider: Jorge Malik Primary Care Provider: Ryan Hendrickson Consulting Providers: Lamont Ardon; Hua Lanza Discharge Orders/Prescriptions Prescriptions: New alprazolam 1 mg tablet 1 mg PO UD PRN (Reason: anxiety) Qty: 40 0RF Rx Instructions: 1/2 to one- 1/2 hr before dialysis for anxiety, use caution if driving, can cause sleepiness Continued insulin glargine 100 unit/mL Cartridge 60 unit SUBCUT QHS carvedilol 25 mg tablet 50 mg PO BID furosemide 80 mg tablet 80 mg PO DAILY hydralazine 50 mg tablet 50 mg PO TID Discontinued losartan 100 mg tablet 100 mg PO DAILY Referrals / Follow Up: Ryan Hendrickson PA [Primary Care Provider] - 08/14/24 3:40 pm Disposition Disposition (needs filled in before D/C Order can be placed): Home, Self Care Charges/Coding Visit Charges Inpatient E&M: 89945 Disch Hosp >30min
--- NOTE | 2024-08-07 15:05 | CASEMGMT ---
Noted DC order. RN CM into pt room, pt states he does not have any DC needs at this time. Family able to transport pt home. pt denies any questions or concerns at this time.
[2024-08-07] MEDS: Carvedilol 25 MG Tablet 50 MG PO (15:22)
== END 2024-08-07 14:48 | disposition home or self-care (01) ==
LOC: ED 17:07 → PCU 19:18
PROVIDERS: Admitting Provider Hospitalist; Emergency Provider Surgery; PCP Physician Assistant; Referring Provider Hospitalist; Visit Provider Internal Medicine
DX: E87.70 Fluid overload, unspecified (principal); I12.0 Hypertensive chronic kidney disease with stage 5 chronic kidney disease or end stage renal disease; N18.6 End stage renal disease; E66.01 Morbid (severe) obesity due to excess calories; Z68.41 Body mass index [BMI] 40.0-44.9, adult; E11.22 Type 2 diabetes mellitus with diabetic chronic kidney disease; Z79.4 Long term (current) use of insulin; E11.40 Type 2 diabetes mellitus with diabetic neuropathy, unspecified; E11.65 Type 2 diabetes mellitus with hyperglycemia; Z86.16 Personal history of COVID-19; R06.02 Shortness of breath; Z99.2 Dependence on renal dialysis; D69.6 Thrombocytopenia, unspecified; D63.1 Anemia in chronic kidney disease; Z79.899 Other long term (current) drug therapy; Z99.81 Dependence on supplemental oxygen
CPT/HCPCS: 71045; 71275; 80048; 82962; 84484; 85025; 85379; 85610; 87631; 90937; 93005; 94668; 96372; 96374; 96375; 96376; 99221; 99284; J7030; Q9967; A4216; G0257; G0378

== ENCOUNTER 2024-08-15 15:32 | Observation (INO) | payer OTHER, SELFPAY ==
[2024-08-15] VITALS (12 sets, daily range): BP systolic 167–190; BP diastolic 64–101; PULSE 75–83; RESP 17–27; TEMP 36–36.6; O2SAT 91–100; BMI 42.7; BMI 40.6
--- NOTE | 2024-08-15 15:47 | ED.RN ---
Dr. Macias bedside
--- NOTE | 2024-08-15 15:51 | EKG12_ITS ---
Test Reason : UNRESPONSIVE Blood Pressure : / mmHG Vent. Rate : 082 BPM Atrial Rate : 082 BPM P-R Int : 194 ms QRS Dur : 096 ms QT Int : 422 ms P-R-T Axes : 033 -24 020 degrees QTc Int : 493 ms Normal sinus rhythm Prolonged QT Abnormal ECG Confirmed by J CARLOS ADKINS, NIA ([id number]), index editor ARLETTE VILLASENOR ([id number]) on 08/17/2024 2:05:15 PM Referred By: LIU Confirmed By:NIA WHITMAN MD
--- NOTE | 2024-08-15 15:51 | EDS_ITS ---
HPI History of Present Illness Chief Complaint: Unresponsive Informant: patient, EMS and other (Per dialysis center.) Onset/Context/Timing Onset: Today Context: Sudden Onset Timing: Continuous Current Severity: Mild Maximum Severity: Severe Narrative Narrative: 43-year-old male history of end-stage renal disease, dialysis and diabetes. To date he was at dialysis he is dialyzed Tuesday. And when they are just taking off fluid before they started actually dialysis he became unresponsive. They did not feel pulse and started CPR which lasted about 5 minutes and he came to. He was given no medications. There is no specific abnormal rhythm that they diagnosed. He has no cardiac history. Patient states he had a similar episode 1 to 2 weeks ago and was hospitalized for 2 days 4. Send just felt lightheaded before it happened. He denies any chest pain. He denies any headache or abdominal pain. Prior similar symptoms: Yes Recent Illness/Hospitalization: Yes PFSH PFS Medical History Diabetes Kidney stones Dialysis patient Kidney disease Non-smoker On home oxygen therapy Surgically constructed arteriovenous fistula Skin ulcer of abdominal wall with fat layer exposed End stage renal disease on dialysis Insulin dependent diabetes mellitus History of abdominal abscess Nonhealing surgical wound CKD (chronic kidney disease) Neuropathy CKD (chronic kidney disease) stage 3, GFR 30-59 ml/min HTN (hypertension) DM2 (diabetes mellitus, type 2) Home Medications ?Medication ?Instructions ?Recorded ?Last Taken ?Type insulin glargine 100 unit/mL 60 unit subcut QHS diabetes 01/21/22 08/05/24 History subcutaneous cartridge carvedilol 25 mg tablet 50 mg PO BID blood pressure 08/06/24 08/06/24 History furosemide 80 mg tablet 80 mg PO DAILY diuretic 08/06/24 08/05/24 History hydralazine 50 mg tablet 50 mg PO TID blood pressure 08/06/24 08/06/24 History alprazolam 1 mg tablet 1 mg PO UD PRN anxiety #40 tabs 08/07/24 Unknown Rx Allergy/AdvReac Type Severity Reaction Status Date / Time sitagliptin (From Novuv) AdvReac Upset Verified 08/06/24 15:50 Stomach Social History Smoking Status: Never smoker ROS ROS ED ROS Narrative Denies recent illness. Constitutional Constitutional ED: Denies chills or fever(s) Eyes Eyes: Denies blurry vision ENT ENT ED: Denies ear pain Cardiovascular Cardiovascular: Denies chest pain Respiratory/Chest Respiratory/Chest: Denies cough Gastrointestinal Gastrointestinal: Denies abdominal pain Genitourinary Genitourinary ED: Denies dysuria Musculoskeletal Musculoskeletal: Denies arthralgias Integumentary Denies abscess Neurologic Neurologic: Denies headache(s) Psychiatric Psychiatric: Denies anxiety Endocrine Endocrinology: Denies cold intolerance Hematologic/Lymphatic Hematologic/Lymphatic: Reports none Allergic/Immunologic Allergic/Immunologic ED: Denies mouth swelling, tongue swelling or urticaria EXAM Physical Exam Narrative Exam Narrative: Well-appearing 42-year-old male. Sitting upright in bed. Vital signs are stable afebrile. On 2 L he is 90%. Patient does not look septic toxic or in distress. Currently there is no family with him. H EENT exam pupils round react light. No trauma to his face. No facial droop. Normal speech. Neck nontender. No JVD. Lungs clear to auscultation bilateral. Heart regular rhythm rate about 80 no murmur. Chest wall mildly tender over sternum. No bruising. No redness. No tenderness to his ribs. Abdomen soft, nontender, nondistended normal bowel sounds without peritoneal signs. Pelvic girdle intact. Moving all 4 extremities. 5 of 5 insulation and flooring assembler strength. Dorsi plantarflexion intact. 1+ pitting edema both lower extremities. Neurologically he is awake and alert no focal motor deficits. Answering questions following commands. Const Vital Signs: 08/15/24 15:33 08/15/24 15:33 08/15/24 15:39 Temperature 96.8 F L 96.8 F L Temperature Source Axillary Axillary Pulse Rate 82 82 82 Respiratory Rate 26 H 27 H 26 H Respiratory Effort Respiratory Pattern Blood Pressure 190/101 H 190/101 H 190/101 H Blood Pressure Mean 130 130 130 Pulse Ox 98 96 96 Oxygen Delivery Method Nasal Cannula Nasal Cannula Oxygen Flow Rate (L/min) 2 2 08/15/24 15:43 08/15/24 15:43 08/15/24 15:51 Temperature Temperature Source Pulse Rate Respiratory Rate Respiratory Effort Normal Respiratory Pattern Normal Blood Pressure Blood Pressure Mean Pulse Ox 99 97 Oxygen Delivery Method Nasal Cannula Nasal Cannula Oxygen Flow Rate (L/min) 2 2 Positive well nourished and well developed; Negative for cachectic, contractures or unkempt General Appearance ED: well developed and NAD; Negative for unkempt, cachectic, contractures, cyanotic, diaphoretic or pallor Nutritional Appearance: Negative for cachectic HEENT Reports moist mucous membranes Negative for trauma or tenderness Eyes PERRL and EOMs intact bilaterally General Eye ED: Negative for pale conjunctiva or scleral icterus Neck no lymphadenopathy, supple and no JVD General: Negative for tenderness Lymph Lymphatic: Negative for other Chest Wall inspection of chest normal; Negative for palpation of chest normal Chest Narrative: Mild sternal tenderness. Resp normal respiratory effort and clear to auscultation bilaterally Effort and Inspection: Negative for retractions Auscultation: Negative for rales, rhonchi or wheezes Cardio regular rate, regular rhythm, S1 normal heart sound, S2 normal heart sound and no murmurs GI normal to inspection, nondistended, normoactive bowel sounds, non-tender, non- distended and no masses Palpation: soft; Negative for tender, guarding or rebound tenderness present Back/Spine no CVA tenderness General Back: Negative for CVA tenderness Cervical Spine: Negative for cervical spine tenderness Thoracic Spine / Upper Back: Negative for thoracic spinal tenderness Extremity Negative for normal to inspection Extremity Narrative: 1+ pitting edema bilaterally. Equal and symmetrical. General Extremety ED: Yes edema; Negative for tenderness General Extremity: edema Neuro oriented x3 and CN's II-XII intact bilaterally Sensorium / Orientation: alert and orientation impaired; Negative for lethargic or stuporous Motor Exam: strength 5/5 throughout Psych mental status grossly normal Appearance: Negative for unkempt Attitude: No agitated Mood & Affect: Negative for depressed, anxious or tearful Skin no rashes or lesions noted and no wounds General Skin Exam: Negative for jaundice or pallor Lesions: No lesion noted Rashes: No rashes noted Trauma: Negative for abrasion Wounds: Negative for wounds noted MDM MDM MDM Narrative Medical decision making narrative: 43-year-old diabetic male while he was getting dialysis as they were taking off fluid he had sudden onset of lightheadedness and had an unresponsive episode where they could not obtain a pulse and started did CPR for 5 minutes and again 2. No free of rest symptoms intermittent lightheaded. Denies any chest pain, abdominal pain or headache. No undergo a cardiac workup. Differential would include dysrhythmia versus other etiologies. Repeat exam patient is doing well at 4:[address] a call and spoke to the patient's nurse at the dialysis center. Basically he started getting lightheaded during dialysis. He dropped his blood pressure got fluid bolus then a second fluid bolus and a third fluid bolus. He became unresponsive and had no carotid or femoral pulse or a pulse like it fine with ultrasound. They started CPR did it for 4 to 5 minutes then he came to. He was never on a shelter monitor the entire time. He has done this before but he is never needed CPR. And always before when he checked his blood sugar it was fine. Patient I discussed his workup. In light that he was unresponsive today, had no pulse and required 4 to 5 minutes of CPR I do think he warrants observation overnight for further evaluation and watch for possible dysrhythmia. Patient is comfortable with that plan. At the hospitalist on page. History & Record Review Discussion w/independent historian: Patient Additional record(s) reviewed:: Prior inpatient record, Prior outpatient record, Prior ED visit and Prior labs Lab Data Attestation: I reviewed the patient's lab results. Lab results narrative: CBC shows white count 8. H&H 11.1 and 34.6. Patient is a chronic anemia. Platelet count of 109. Electrolytes show sodium 135. Potassium 5.8. Gap 9. BUN/creatinine is 60 and 7.84 consistent with his history of end-stage renal disease. Glucose 247. Initial troponin 16. Chest x-ray chronic changes. Possible left pleural effusion. Labs: Laboratory Results - last 24 hr 08/15/24 08/15/24 15:36 15:42 WBC 8.1 RBC 3.99 L Hgb 11.1 L Hct 34.6 L MCV 86.7 MCH 27.8 MCHC 32.1 RDW Std Deviation 50.2 H RDW Coeff of Juli 16.1 H Plt Count 109 L MPV 10.9 Immature Gran % (Auto) 1.500 H Neut % (Auto) 87.0 H Lymph % (Auto) 5.[address] [place] % (Auto) 4.2 Eos % (Auto) 1.4 Baso % (Auto) 0.9 Absolute Neuts (auto) 7.0 Absolute Lymphs (auto) 0.40 L Nucleated RBC % 0 Sodium 135 L Potassium 5.8 H Chloride 97 L Carbon Dioxide 29.0 Anion Gap 9 BUN 60 H Creatinine 7.84 H* Estim Creat Clear Calc 19.70 Est GFR (MDRD) Af Amer 10 L Est GFR (MDRD) Non-Af 8 L BUN/Creatinine Ratio 7.7 L Glucose 247 H Calcium 9.7 Troponin I High Sens 16 POC Glucose 238 H Radiography Chest X-Ray - ED: 2 View, Read by ED Physician, Read by Radiologist, Heart, Mediastinum, Bony Structures, No Acute Disease and Left Effusion Diagnostic Testing: Clinical Impression(s) from Imaging Studies Chest X-Ray 08/15/24 15:56 IMPRESSION: Possible mild left pleural effusion. Bibasilar atelectasis. Electronically Signed: Gilbert Wade DO at 16:19 EDT Reading Location ID and State: [facility] / [place] Tel [phone], Service support , Chest x-ray, 2 views, AP and lateral, interpreted both by myself and radiologist. Normal cardiac silhouette. Possible small left pleural effusion. No obvious sternal fracture. No pneumothorax. Rhythm Strip Rhythm Strip: Sinus Rhythm Rate: 82 Ectopy: None EKG Initial EKG: Attestation: I personally reviewed and interpreted this EKG as follows: Interpretation: Sinus Rhythm and No Acute Injury Pattern Comments: Normal sinus rhythm rate of 82 no acute signs of [place] or ischemia. Prolonged QT of 422. Discharge Plan Triage Chief Complaint: Unresponsive ED Provider: Art Macias Dx/Rx/DC Orders Clinical Impression: Syncope, Cardiac arrest with pulseless electrical activity, History of end stage renal disease, Dialysis patient, History of diabetes mellitus, Acute hyperkalemia Prescriptions: No Action insulin glargine 100 unit/mL Cartridge 60 unit SUBCUT QHS carvedilol 25 mg tablet 50 mg PO BID furosemide 80 mg tablet 80 mg PO DAILY hydralazine 50 mg tablet 50 mg PO TID alprazolam 1 mg tablet 1 mg PO UD PRN (Reason: anxiety) Qty: 40 0RF Rx Instructions: 1/2 to one- 1/2 hr before dialysis for anxiety, use caution if driving, can cause sleepiness Primary Care Provider: Ryan Hendrickson Referrals: Ryan Hendrickson PA [Primary Care Provider] - Print Language: Danish Disposition Disposition: Acute Care Hospital [facility]
[2024-08-15 15:55] LABS: Bedside Glucose 238 mg/dL (74-106)
--- NOTE | 2024-08-15 15:56 | RAD_ITS ---
INDICATION: post arrest. Sternal pain post CPR. EXAMINATION/TECHNIQUE: X-RAY - XR Chest 2 Views COMPARISON: August 15, 2024 at 16:08 hours FINDINGS: LINES/DEVICES: None. LUNGS: Possible mild left pleural effusion. Bibasilar atelectasis. No pneumothorax. MEDIASTINUM AND CARDIOVASCULAR STRUCTURES: Cardiac silhouette not enlarged. Central airways and mediastinal contour are unremarkable. BONES AND SOFT TISSUES: Degenerative changes. RAD/Chest PA and Lateral IMPRESSION: Possible mild left pleural effusion. Bibasilar atelectasis. Electronically Signed: Gilbert Wade DO at 16:19 EDT Reading Location ID and State: [facility] / [place] Tel [phone], Service support ,
[2024-08-15 15:59] LABS: Basophil# 0.07 X10^3/uL; Basophil% 0.9 % (0-1); Eosinophil# 0.11 X10^3/uL; Eosinophils% 1.4 % (0-5); Hematocrit 34.6 % (40-54); Hemoglobin 11.1 g/dL (13.0-16.5); Mean Corp Hgb Conc 32.1 g/dL (32-36); Mean Corpuscular Hgb 27.8 pg (27.0-32.0); Mean Corpuscular Volume 86.7 fL (80-94); Mean Platelet Vol. 10.9 fl (6.2-12.0); Monocyte# 0.34 X10^3/uL; Monocyte% 4.2 % (0-10); NRBC Flagged by Analyzer 0 % (0-5); Neutrophil # 7.01 X10^3/uL (2.7-7.7); POSITIVE DIFFERENTIAL YES; Platelet Count 109 K/mm3 (150-450); RBC Distribution Width CV 16.1 % (11.6-14.6); RBC Distribution Width SD 50.2 fl (35.1-43.9); Red Blood Count 3.99 M/mm3 (4.6-6.2); White Blood Count 8.1 K/mm3 (4.4-11.0)
[2024-08-15 16:21] LABS: Anion Gap 9 (5-15); BUN 60 mg/dL (7-18); BUN/Creat Ratio 7.7 RATIO (10-20); Calcium,Total 9.7 mg/dL (8.5-10.1); Chloride 97 mmol/L (98-107); Creatinine, Serum 7.84 mg/dL (0.70-1.30); EST Glomerular Filtration Rate 8 mL/min (>60); Est Glom Filt Rate - Afr Amer 10 mL/min (>60); Glucose 247 mg/dL (74-106); Potassium 5.8 mmol/L (3.5-5.1); Sodium Level 135 mmol/L (136-145); Troponin-I HS (w/2H Reflex) 16 pg/mL (3.0-78.0)
--- NOTE | 2024-08-15 16:42 | NURSING ---
PCU OBS AGYEPONG CARDIAC ARREST, PULSELESS, ESRD DIALYSIS PT, HYPERKALEMIA, DIABETES
--- NOTE | 2024-08-15 17:04 | PCM.HP.STD ---
[facility] - General General Date of Service: 08/15/24 Chief Complaint: Unresponsiveness [facility] Narrative DARREN FERNANDO, is a 43 M with a significant history of hypertension; end-stage renal disease on dialysis from type 2 diabetes mellitus; who presented emergency department because of cardiac arrest requiring chest compressions of 4 to 5 minutes at dialysis center. Reportedly while patient was having dialysis he became lightheaded, he was hypotensive. He required IV fluid boluses. He lost his pulses and CPR was started. Reportedly his pulses were checked with ultrasound and Doppler and was found to have no pulses and for which reason chest compression were done. Reportedly patient achieved ROSC and was transported to emergency department. The patient reports that in the last 5-6 dialysis he has felt lightheaded when he was 1 to 1/2 hours into dialysis . At the emergency department patient complained of feeling cold. Also complaining of chest soreness that he attributed to chest compressions. Potassium was 5.8. His EKG showed a prolonged QTc interval and actually improved from previous. He reports that he has a scheduled outpatient echocardiogram ordered because of thickening of cardoso of the heart. [facility] Medical History Diabetes Kidney stones Dialysis patient Kidney disease Non-smoker On home oxygen therapy Surgically constructed arteriovenous fistula Skin ulcer of abdominal wall with fat layer exposed End stage renal disease on dialysis Insulin dependent diabetes mellitus History of abdominal abscess Nonhealing surgical wound CKD (chronic kidney disease) Neuropathy CKD (chronic kidney disease) stage 3, GFR 30-59 ml/min HTN (hypertension) DM2 (diabetes mellitus, type 2) Home Medications ?Medication ?Instructions ?Recorded ?Last Taken ?Type insulin glargine 100 unit/mL 60 unit subcut [facility] diabetes 01/21/22 08/05/24 History subcutaneous cartridge carvedilol 25 mg tablet 50 mg PO BID blood pressure 08/06/24 08/06/24 History furosemide 80 mg tablet 80 mg PO DAILY diuretic 08/06/24 08/05/24 History hydralazine 50 mg tablet 50 mg PO TID blood pressure 08/06/24 08/06/24 History alprazolam 1 mg tablet 1 mg PO UD PRN anxiety #40 tabs 08/07/24 Unknown Rx Allergy/AdvReac Type Severity Reaction Status Date / Time sitagliptin (From NovuvAdwings) AdvReac Upset Verified 08/06/24 15:50 Stomach Social History Smoking Status: Never smoker ROS ROS Narrative Pertinent positives and pertinent negatives as noted in HPI. All other systems were reviewed and are negative Vital Signs Vital Signs Vital Signs: 08/15/24 15:33 08/15/24 15:33 08/15/24 15:39 Temperature 96.8 F L 96.8 F L Temperature Source Axillary Axillary Pulse Rate 82 82 82 Respiratory Rate 26 H 27 H 26 H Respiratory Effort Respiratory Pattern Blood Pressure 190/101 H 190/101 H 190/101 H Blood Pressure Mean 130 130 130 Pulse Ox 98 96 96 Oxygen Delivery Method Nasal Cannula Nasal Cannula Oxygen Flow Rate (L/min) 2 2 08/15/24 15:43 08/15/24 15:43 08/15/24 15:51 Temperature Temperature Source Pulse Rate Respiratory Rate Respiratory Effort Normal Respiratory Pattern Normal Blood Pressure Blood Pressure Mean Pulse Ox 99 97 Oxygen Delivery Method Nasal Cannula Nasal Cannula Oxygen Flow Rate (L/min) 2 2 Weight Weight: 159.4 kg Body Mass Index (BMI) 42.7 Physical Exam Narrative Physical exam: General: Shivering. Well-nourished, well-developed. Head: Normocephalic, atraumatic, no tenderness Eyes: Vision is grossly intact. EOMI ENT, no trauma, moist mucous membranes, no rhinorrhea Neck: Nontender, No thyromegaly. CVS: Regular rate and rhythm. S1-S2 present. No murmur, gallop or rub. Respiratory : Tender chest. Clear to auscultation bilaterally, chest wall nontender Abdomen: Soft, nontender, nondistended, normal bowel sounds, no masses : Deferred Back: Nontender, no CVA tenderness, no midline spinal tenderness, deformities, step-offs Extremities: 4+ edema of bilateral lower legs and feet. Skin: Normal color, no trauma, abrasions Neuro: Alert, oriented, cranial nerves II through XII grossly intact. Psychiatry: Normal mood. Normal affect. Not depressed. Not anxious. Results Lab / Micro Data 08/15/24 15:42 08/15/24 15:42 Labs: Laboratory Results - last 24 hr 08/15/24 15:36: POC Glucose 238 H 08/15/24 15:42: WBC 8.1, RBC 3.99 L, Hgb 11.1 L, Hct 34.6 L, MCV 86.7, MCH 27.8, MCHC 32.1, RDW Std Deviation 50.2 H, RDW Coeff of Juli 16.1 H, Plt Count 109 L, MPV 10.9, Immature Gran % (Auto) 1.500 H, Neut % (Auto) 87.0 H, Lymph % (Auto) 5.0 L, [place] % (Auto) 4.2, Eos % (Auto) 1.4, Baso % (Auto) 0.9, Absolute Neuts (auto) 7.0, Absolute Lymphs (auto) 0.40 L, Nucleated RBC % 0, Sodium 135 L, Potassium 5.8 H, Chloride 97 L, Carbon Dioxide 29.0, Anion Gap 9, BUN 60 H, Creatinine 7.84 H*, Estim Creat Clear Calc 19.70, Est GFR (MDRD) Af Amer 10 L, Est GFR (MDRD) Non-Af 8 L, BUN/Creatinine Ratio 7.7 L, Glucose 247 H, Calcium 9.7, Troponin I High Sens 16 Rhythm Strip Rhythm Strip: Sinus Rhythm Rate: 82 Ectopy: None Imaging Radiology Impression Chest X-Ray 08/15/24 15:56 IMPRESSION: Possible mild left pleural effusion. Bibasilar atelectasis. Electronically Signed: Gilbert Wade DO at 16:19 EDT Reading Location ID and State: [address] [place] [address] Tel [phone], Service support , Assessment & Plan Assessment/Plan (1) Acute hyperkalemia: (2) Dialysis patient: (3) History of end stage renal disease: (4) Cardiac arrest with pulseless electrical activity: (5) Syncope: QUALIFIERS: Syncope type: unspecified Qualified Code(s): R55 - Syncope and collapse (6) HTN (hypertension): QUALIFIERS: Hypertension type: primary hypertension Qualified Code(s): I10 - Essential (primary) hypertension (7) History of diabetes mellitus: (8) Insulin dependent diabetes mellitus: (9) DM2 (diabetes mellitus, type 2): QUALIFIERS: Diabetes mellitus exterminator helper insulin use: with senior care use Diabetes mellitus complication status: with kidney complications Diabetes mellitus complication detail: with chronic kidney disease Chronic kidney disease stage: on chronic dialysis Qualified Code(s): E11.22 - Type 2 diabetes mellitus with diabetic chronic kidney disease; N18.6 - End stage renal disease; Z79.4 - watermelon inspector (current) use of insulin; Z99.2 - Dependence on renal dialysis PLAN: Plan Cardiac arrest with hypotension Labs and imaging reviewed. Imaging independently interpreted by myself included chest Xray with results showing possible mild left pleural effusion. Basilar atelectasis. Agrees with delayed interpretation. Status post ROSC. Observe at progressive care unit on telemetry. Echocardiogram ordered. Hyperkalemia On presentation potassium was 5.8. With recent reported cardiac arrest hyperkalemia orders placed. Calcium gluconate ordered. Kayexalate with MiraLAX ordered. Observe on telemetry. Trend BMP. Hypertension On presentation to the ED patient was actually hypertensive with multiple blood pressures reading. However hold blood pressure medication has been held. As needed hydralazine ordered. Trend. Prolonged QTc QTc on presentation was 493. Review of records showed previous QTc of 513. EKG was independently interpreted. EKG with Q waves in inferior leads, unchanged from EKG on August 06, 2024. End-stage disease on dialysis Renal diet; calorie controlled diet Nephrology consult. Diabetes mellitus Blood glucose is not within goal. Home basal insulin continued. Accu-Cheks correction scale insulin ordered. DVT prophylaxis Subcutaneous heparin ordered. Advance care planning: Discussed with patient and family advanced directives as well as CODE STATUS. Explained various CODE STATUS: FULL CODE, DNR CCA, DNR CCA with no intubation, and DNR CC- and what each meant. Patient elected to be a full code with CPR and intubation if warranted. Order was placed. Her mother is a surrogate decision maker. Time spent on discussion 16 minutes. Time spent in the patient's overall evaluation,decision-making process, review of diagnostic data, adjustment of management, discussion with other providers, nursing and ancillary staff involved in patient's care documentation, 75 minutes. Charges/Coding Visit Charges Inpatient E&M: 82533 Init Hosp L3 Procedures Hospitalists Procedures: 95245 Advncd Care Plan 30 Min
[2024-08-15] MEDS: Acetaminophen 500 MG Tablet 1000 MG PO ×2 (17:12→23:02)
[2024-08-15 17:22] LABS: Magnesium 2.5 mg/dL (1.6-2.6); Phosphorus 7.6 mg/dL (2.5-4.9)
[2024-08-15 17:56] LABS: Reflex Troponin-HS? (from REC) Y
--- NOTE | 2024-08-15 18:28 | ECHOCS_ITS ---
Reason For Study: CARDIAC ARREST Procedure This was a 2D Doppler, Color Flow transthoracic echocardiogram. The study was technically difficult. Contrast injection was performed. Exam performed portable in patient room. Left Ventricle Normal LV size. Moderate concentric left ventricular hypertrophy. The left ventricular ejection fraction is 50 %. No regional wall motion abnormalities noted. Right Ventricle Normal RV size. Normal systolic function. Atria The left atrium is mildly enlarged. Normal right atrium. Mitral Valve Normal mitral valve. Tricuspid Valve Normal tricuspid valve. Mild tricuspid valve insufficiency. Pulmonary artery systolic pressure is 24 mmHg. Pulmonic Valve Normal pulmonic valve. Great Vessels Mildly dilated aortic root. The pulmonary artery is normal size. Normal inferior vena cava. Pericardium/Pleural No pericardial effusion. Medication Diluted definity 2ml given slow IV push to enhance endocardial definition. MMode/2D Measurements & Calculations LVIDd: 4.9 cm IVSd: 1.5 cm LVOT diam: 2.3 cm LVIDs: 3.4 cm LVPWd: 1.5 cm LVOT area: 4.2 cm2 RVDd: 5.2 cm FS: 30.3 % asc Aorta Diam: 3.4 cm LAV(MOD-bp): 76.1 ml LVAd ap4: 50.9 cm2 LAV(MOD-bp) Indexed: 27.6 ml/m2 LVLd ap4: 10.5 cm LAV(MOD-sp2): 72.6 ml EDV(MOD-sp4): 198.4 ml LAV(MOD-sp4): 76.8 ml EDV(sp4-el): 208.1 ml LVAs ap4: 36.8 cm2 LVLs ap4: 9.6 cm ESV(MOD-sp4): 113.4 ml ESV(sp4-el): 120.0 ml EF(MOD-sp4): 42.9 % EF(sp4-el): 42.3 % LVAd ap2: 54.4 cm2 SV(MOD-sp4): 85.0 ml SV(MOD-sp2): 82.2 ml LVLd ap2: 10.8 cm EDV(MOD-sp2): 219.3 ml EDV(sp2-el): 232.3 ml LVAs ap2: 39.4 cm2 LVLs ap2: 9.5 cm ESV(MOD-sp2): 137.1 ml ESV(sp2-el): 139.3 ml EF(MOD-sp2): 37.5 % SV(sp4-el): 88.1 ml Ao sinus diam: 3.[address] Junction: 3.1 cm LA dimension(2D): 4.9 cm LA A4 area: 24.9 cm2 RA A4 area: 18.7 cm2 TAPSE: 1.6 cm Time Measurements MV dec time: 0.22 sec Doppler Measurements & Calculations MV E max destin: 94.8 cm/sec Lat Peak E' Destin: 10.6 cm/sec Med Peak E' Destin: 6.3 cm/sec MV A max destin: 63.3 cm/sec E/E' lat: 8.9 E/E' med: 15.0 MV E/A: 1.5 MV dec slope: 431.5 cm/sec2 Ao V2 max: 117.8 cm/sec LV V1 max: 96.3 cm/sec Ao max P.6 mmHg LV V1 max P.7 mmHg Ao V2 mean: 87.8 cm/sec LV V1 mean P.2 mmHg Ao mean P.3 mmHg LV V1 mean: 71.7 cm/sec Ao V2 VTI: 25.5 cm LV V1 VTI: 19.9 cm AV (velocity ratio): 0.78 ELVA(I,D): 3.3 cm2 ELVA(V,D): 3.5 cm2 SV(LVOT): 84.0 ml PA V2 max: 53.9 cm/sec TR max destin: 228.1 cm/sec PA max PG (full): 0.01 mmHg TR max P.8 mmHg ECHO/Echo Complete W/ Contrast Interpretation Summary Normal LV size. Moderate concentric left ventricular hypertrophy. The left ventricular ejection fraction is 50 %. The left atrium is mildly enlarged. Ordering Physician: Antony Robbins Referring Physician: BIB DUBOSE Performed By: Alaina Stevenson RDCS
[2024-08-15] MEDS: Sodium Polystyrene Sulfonate 15 GM/60 ML UDC 30 GM PO (18:57)
[2024-08-15] MEDS: Polyethylene Glycol 3350 17 GM PACKET PO (20:13)
[2024-08-15] MEDS: Calcium Gluconate IV 2 GM in 0.9% Normal Saline (100mL Bag) 100 ML IV (20:13)
[2024-08-15] MEDS: Insulin Glargine-YFGN 100 UNIT/ML Pen 60 UNIT SC (20:23)
[2024-08-15] MEDS: Insulin Lispro 100 UNIT/ML INSULN.PEN SC (20:23)
[2024-08-15] MEDS: 0.9% Saline Lock 10 ML Syringe IV ×2 (20:24→23:03)
[2024-08-15] MEDS: Heparin Injection (Vial) 5,000 UNIT/ML VIAL 5000 UNIT SC (20:24)
[2024-08-15 20:55] LABS: Bedside Glucose 201 mg/dL (74-106)
[2024-08-15 22:00] LABS: Troponin-I HS 39 pg/mL (3.0-78.0)
[2024-08-15 23:08] LABS: AST(SGOT) 12 U/L (15-37); Alanine Aminotransfer ALT/SGPT 16 U/L (16-61); Albumin, Serum 3.4 g/dL (3.2-5.0); Alkaline Phosphatase 81 U/L (45-117); Bilirubin, Direct 0.21 mg/dL (0.00-0.30); Globulin 3.8 g/dL (2.2-4.2); Protein, Total 7.2 g/dL (6.4-8.2)
[2024-08-16] VITALS (20 sets, daily range): BP systolic 67–310; BP diastolic 84–98; PULSE 70–80; RESP 12–18; TEMP 36.3–36.6; O2SAT 91–98; BMI 40.6; BMI 40.2
[2024-08-16 06:02] LABS: Absolute Neutrophil Count 5.4 X10^3/uL (2.0-7.7); Basophil# 0.04 X10^3/uL; Basophil% 0.6 % (0-1); Eosinophils% 1.5 % (0-5); Hematocrit 28.8 % (40-54); Hemoglobin 9.5 g/dL (13.0-16.5); Lymphocyte % 8.9 % (19-41); Mean Corpuscular Hgb 28.6 pg (27.0-32.0); Mean Corpuscular Volume 86.7 fL (80-94); Mean Platelet Vol. 11.1 fl (6.2-12.0); Monocyte# 0.56 X10^3/uL; Monocyte% 8.3 % (0-10); NRBC Flagged by Analyzer 0 % (0-5); Neutrophil # 5.39 X10^3/uL (2.7-7.7); Neutrophil % 80.3 % (47-70); POSITIVE DIFFERENTIAL YES; Platelet Count 118 K/mm3 (150-450); RBC Distribution Width CV 16.1 % (11.6-14.6); RBC Distribution Width SD 50.2 fl (35.1-43.9); Red Blood Count 3.32 M/mm3 (4.6-6.2); White Blood Count 6.7 K/mm3 (4.4-11.0)
[2024-08-16 06:32] LABS: Anion Gap 10 (5-15); BUN 66 mg/dL (7-18); BUN/Creat Ratio 7.7 RATIO (10-20); Calcium,Total 9.4 mg/dL (8.5-10.1); Chloride 98 mmol/L (98-107); Creatinine, Serum 8.52 mg/dL (0.70-1.30); EST Glomerular Filtration Rate 7 mL/min (>60); Est Glom Filt Rate - Afr Amer 9 mL/min (>60); Estimated Creatinine Clearance 17.63 ml/min; Glucose 138 mg/dL (74-106); Potassium 4.7 mmol/L (3.5-5.1); Sodium Level 134 mmol/L (136-145)
[2024-08-16] MEDS: Heparin Injection (Vial) 5,000 UNIT/ML VIAL 5000 UNIT SC (06:32)
[2024-08-16] MEDS: Acetaminophen 500 MG Tablet 1000 MG PO ×2 (06:32→14:13)
[2024-08-16 06:46] LABS: Bedside Glucose 128 mg/dL (74-106)
[2024-08-16] MEDS: Insulin Lispro 100 UNIT/ML INSULN.PEN SC ×2 (11:31→17:09)
[2024-08-16 11:46] LABS: Bedside Glucose 163 mg/dL (74-106)
[2024-08-16] MEDS: PureFlow B 2K Dialysis Soln 1 BAG 6 BAG PF (12:15)
[2024-08-16] MEDS: 0.9% Normal Saline 1,000 ML IV.SOLN. 1000 ML OPERA.SITE (12:16)
--- NOTE | 2024-08-16 15:14 | PCM.DC.SUM ---
Providers Date of Admission: 08/15/24 Date of Discharge: 08/16/24 Primary Care Physician: MEHDI Rosales Consultations 08/15/24 18:28 Consult: Nephrology Routine Consulting Provider: Lamont Ardon Reason for Consult: esrd on dialysis; hyperkalemia;cardiac arrest EMERGENT Consult: No MD Notified: Yes Date Notified: 08/15/24 Time Notified: 18:34 Method of Notification: Answering Service Reason For Visit: CARDIAC ARREST Diagnosis Discharge Diagnosis (1) Acute hyperkalemia: Status: Acute Code(s): E87.5 - Hyperkalemia (2) Dialysis patient: Status: Acute Code(s): Z99.2 - Dependence on renal dialysis (3) History of end stage renal disease: Status: Acute Code(s): Z87.448 - Personal history of other diseases of urinary system (4) Cardiac arrest with pulseless electrical activity: Status: Acute Code(s): I46.9 - Cardiac arrest, cause unspecified (5) Syncope: Status: Acute Code(s): R55 - Syncope and collapse Qualifiers: Syncope type: unspecified Qualified Code(s): R55 - Syncope and collapse (6) HTN (hypertension): Status: Chronic Code(s): I10 - Essential (primary) hypertension Qualifiers: Hypertension type: primary hypertension Qualified Code(s): I10 - Essential (primary) hypertension (7) History of diabetes mellitus: Status: Acute Code(s): Z86.39 - Personal history of other endocrine, nutritional and metabolic disease (8) Insulin dependent diabetes mellitus: Status: Acute (9) DM2 (diabetes mellitus, type 2): Status: Acute Code(s): E11.9 - Type 2 diabetes mellitus without complications Qualifiers: Diabetes mellitus correction insulin use: with exterminator helper termite use Diabetes mellitus complication status: with kidney complications Diabetes mellitus complication detail: with chronic kidney disease Chronic kidney disease stage: on chronic dialysis Qualified Code(s): E11.22 - Type 2 diabetes mellitus with diabetic chronic kidney disease; N18.6 - End stage renal disease; Z79.4 - senior care (current) use of insulin; Z99.2 - Dependence on renal dialysis Medications at Discharge Home Medications insulin glargine 100 unit/mL subcutaneous cartridge 60 unit subcut [facility] diabetes 01/21/22 carvedilol 25 mg tablet 50 mg PO BID blood pressure 08/06/24 furosemide 80 mg tablet 80 mg PO DAILY diuretic 08/06/24 hydralazine 50 mg tablet 50 mg PO TID blood pressure 08/06/24 alprazolam 1 mg tablet 1 mg PO UD PRN anxiety #40 tabs 08/07/24 Hospital Course Operations None Procedures 2-D Echocardiogram, EKG and - (Chest x-ray) Summary of Care Provided Minutes Spent on Discharge: 25 Hospital Course: Mr. Eden is a 43-year-old white male who presented to the emergency department at [facility] on 08/16/2024 due to unresponsiveness. Information was given by EMS and the dialysis center at which she gets his outpatient dialysis. He typically has dialysis on Tuesday, Tuesday, and Tuesday and he has been having intermittent episodes of unresponsiveness while he has been on dialysis. He has been a dialysis patient for 2 years and has tolerated it well up until this point in time. Per discussion with nephrology he has been having issues like this intermittently and what seems to be happening is his blood pressure will go from 170 systolic to 60s systolic very rapidly causing presyncope and syncope. It was reported by the dialysis center that they did not feel pulses they started CPR which lasted about 5 minutes then he came to with no medications given and no shocks delivered. He was not on a monitor at the time of the episode. He had an event similar to this about 2 weeks ago and was hospitalized with a negative workup at that time. Patient reported he just feels lightheaded like he is going to pass out prior to the episodes occurring. He denied any chest pain or shortness of breath associated with the events and states that he is having some mild chest pain now related to his CPR which is being addressed with Tylenol. Vital signs at the time of admission showed a temperature of 96.8, heart rate 82, respiratory rate was 26, blood pressure was 190/110 and pulse ox was 98% on 2 L nasal cannula. Neurologically he was intact and had normal strength and a negative neuro exam in the emergency department at the time of arrival. CBC was overtly unremarkable only showing chronic stable anemia and thrombocytopenia. His chemistry panel showed mild hyponatremia the sodium of 135, hyperkalemia at 5.8 with a serum creatinine of 7.84 and a BUN of 60. He did not get a full run of his dialysis at that time. Glucose was 247. LFTs and bilirubin were normal. Cardiac enzymes were cycled and were unremarkable. EKG at the time of arrival to the emergency department was normal sinus rhythm with a QTc of [address]-T wave changes concerning for acute ischemia. Chest x-ray showed possibly a small left pleural effusion with no other acute abnormalities. He was admitted to the telemetry floor and monitored on telemetry overnight with no abnormalities noted. We did obtain an echocardiogram which demonstrated normal LV size with normal function having an EF of 50% with moderate concentric LVH and mild left atrial enlargement but no wall motion abnormalities or valvular abnormalities. Right ventricular systolic pressures were 24 mmHg. His antihypertensives were held and he was dialyzed per nephrology's recommendations. He had no issues while on dialysis and Dr. Ardon is recommended that we hold his antihypertensives on dialysis days prior to dialysis given the issues that have been ongoing. There is initial concern that his arrest was PEA however we have no proof of this and I suspect per discussion with nephrology that his syncopal episode and altered mental status was related to a drop in his blood pressure causing decreased perfusion and reduction in palpable pulses is due to the same. The event is not consistent with a cardiac arrest. With his negative workup at his last hospitalization and this hospitalization nephrology felt it was prudent to send him home but we will send him with an event monitor. Dr. Ardon did discuss with him pursuing daily home dialysis that would be less aggressive however he declined at this time. He is to follow-up with his primary care physician within [address] Ardon as recommended by nephrology. Discharge diagnoses: Syncope Dialysis tolerance issues related to labile blood pressures Hyperkalemia-resolved Essential hypertension DM-2 End-stage renal disease-HD dependent Morbid obesity Anxiety Physical Exam Const alert, oriented x3, no apparent distress and no limitations; Negative for average body habitus or healthy appearing Constitutional Narrative: Morbidly obese, middle-aged, white male, sitting up in bed, his mother is at the bedside, appears comfortable, nontoxic General Appearance: cooperative, comfortable, well kempt and well developed Orientation / Consciousness: awake, oriented to person, oriented to place and oriented to time Exam Limitations: no limitations Nutritional Appearance: morbidly obese HEENT normocephalic, head/scalp atraumatic and hearing grossly normal bilaterally HEENT Narrative: Mallampati 3-4, no thrush Resp normal respiratory effort, no retractions, no use of accessory muscles and clear to auscultation bilaterally Resp Narrative: Distant due to body habitus Auscultation: Negative for rales, rhonchi or wheezes Cardio regular rate, regular rhythm, S1 normal heart sound, S2 normal heart sound, no murmurs, no rub, no gallops and no clicks GI normal to inspection, nondistended, normoactive bowel sounds, soft to palpation and non-tender GI Narrative: Large protuberant abdomen, small umbilical hernia Extremity Extremity Narrative: No clubbing or cyanosis, chronic appearing bilateral lower extremity edema Skin skin turgor normal and no jaundice Skin Narrative: Skin is dry Neuro oriented x3 and moves all extremities Speech: speech normal Psych Psych Narrative: Affect is slightly flat but eye contact is good, patient interacts appropriately and answers all questions Weight / BMI Weight Weight: 151.5 kg Body Mass Index (BMI) 40.6 ABG / Lab / Microbiology Data 08/16/24 05:33 08/16/24 05:33 Laboratory: Laboratory Results - last 24 hr 08/15/24 15:36: POC Glucose 238 H 08/15/24 15:42: WBC 8.1, RBC 3.99 L, Hgb 11.1 L, Hct 34.6 L, MCV 86.7, MCH 27.8, MCHC 32.1, RDW Std Deviation 50.2 H, RDW Coeff of Juli 16.1 H, Plt Count 109 L, MPV 10.9, Immature Gran % (Auto) 1.500 H, Neut % (Auto) 87.0 H, Lymph % (Auto) 5.0 L, [place] % (Auto) 4.2, Eos % (Auto) 1.4, Baso % (Auto) 0.9, Absolute Neuts (auto) 7.0, Absolute Lymphs (auto) 0.40 L, Nucleated RBC % 0, Sodium 135 L, Potassium 5.8 H, Chloride 97 L, Carbon Dioxide 29.0, Anion Gap 9, BUN 60 H, Creatinine 7.84 H*, Estim Creat Clear Calc 19.70, Est GFR (MDRD) Af Amer 10 L, Est GFR (MDRD) Non-Af 8 L, BUN/Creatinine Ratio 7.7 L, Glucose 247 H, Calcium 9.7, Phosphorus 7.6 H, Magnesium 2.5, Troponin I High Sens 16 08/15/24 20:18: POC Glucose 201 H 08/15/24 21:35: Total Bilirubin 0.60, Direct Bilirubin 0.21, AST 12 L, ALT 16, Alkaline Phosphatase 81, Troponin I High Sens 39, Total Protein 7.2, Albumin 3.4, Globulin 3.8 08/16/24 05:33: WBC 6.7, RBC 3.32 L, Hgb 9.5 L, Hct 28.8 L, MCV 86.7, MCH 28.6, MCHC 33.0, RDW Std Deviation 50.2 H, RDW Coeff of Juli 16.1 H, Plt Count 118 L, MPV 11.1, Immature Gran % (Auto) 0.400, Neut % (Auto) 80.3 H, Lymph % (Auto) 8.9 L, [place] % (Auto) 8.3, Eos % (Auto) 1.5, Baso % (Auto) 0.6, Absolute Neuts (auto) 5.4, Absolute Lymphs (auto) 0.60 L, Nucleated RBC % 0, Sodium 134 L, Potassium 4.7, Chloride 98, Carbon Dioxide 26.0, Anion Gap 10, BUN 66 H, Creatinine 8.52 H*, Estim Creat Clear Calc 17.63, Est GFR (MDRD) Af Amer 9 L, Est GFR (MDRD) Non-Af 7 L, BUN/Creatinine Ratio 7.7 L, Glucose 138 H, Calcium 9.4 08/16/24 06:29: POC Glucose 128 H 08/16/24 11:27: POC Glucose 163 H Radiography Diagnostic Testing: Radiology Impression Chest X-Ray 08/15/24 15:56 IMPRESSION: Possible mild left pleural effusion. Bibasilar atelectasis. Electronically Signed: Gilbert Wade DO at 16:19 EDT Reading Location ID and State: [facility] / [place] Tel [phone], Service support , Echocardiogram 08/15/24 18:28 Interpretation Summary Normal LV size. Moderate concentric left ventricular hypertrophy. The left ventricular ejection fraction is 50 %. The left atrium is mildly enlarged. Ordering Physician: Antony Robbins Referring Physician: BIB HENDRICKSON Performed By: Alaina Stevenson RDCS D/C Instructions Discharge Diet: Low fat / Low cholesterol, 1800 Calorie Control Diet and Renal Diet Discharge Activity: Return to Normal Activity Return to work on: 08/18/24 Meaningful Use Info Meaningful Use Meaningful Use Diagnoses (Choose all that apply): None applicable Ischemic Stroke Statin Dosing Therapy Reference: STATIN DOSE THERAPY REFERENCE: * Patients > 75 years receive moderate or high dose statin therapy. * Patients 75 years or YOUNGER should receive HIGH intensity statin dose unless contraindicated. You will be required to document reason for non-treatment if statin daily dose does not meet guidelines. HIGH DOSE STATIN THERAPY DAILY Atorvastatin > than or = to 40 mg Rosuvastatin > than or = to 20 mg Amlodipine + Atorvastatin > than or = to 2.5/40 mg Ezetimibe + Simvastatin 10/80 mg Simvastatin 80mg Discharge Plan Admission Admit Date/Time: 08/15/24 16:47 Primary Reason for Your Visit: Unresponsiveness Attending Provider: Danica Barnhart Primary Care Provider: Ryan Hendrickson Consulting Providers: Lamont Ardon; Antony Robbins Instructions Additional Instructions / Restrictions: 1. Please hold your blood pressure medications on the morning of dialysis days per nephrology 2. Event monitor will be sent to your house. Please wear for the recommended period of time and send back as instructed in the packet. Discharge Orders/Prescriptions Prescriptions: No Action insulin glargine 100 unit/mL Cartridge 60 unit SUBCUT QHS carvedilol 25 mg tablet 50 mg PO BID furosemide 80 mg tablet 80 mg PO DAILY hydralazine 50 mg tablet 50 mg PO TID alprazolam 1 mg tablet 1 mg PO UD PRN (Reason: anxiety) Qty: 40 0RF Rx Instructions: 1/2 to one- 1/2 hr before dialysis for anxiety, use caution if driving, can cause sleepiness Other Ambulatory Orders: 30 Day Event Recorder Preventi (Urgent) Timeframe: 1 Day Facility: [facility] - Location: Cardiovascular Services Ordered By: Dr. Danica Barnhart Referrals / Follow Up: Lamont Ardon MD [Med Staff - Consulting] - See Referral Note (As recommended by Dr. Ardon) Ryan Hendrickson PA [Primary Care Provider] - Within 1 Week Disposition Disposition (needs filled in before D/C Order can be placed): Home, Self Care Charges/Coding Visit Charges Inpatient E&M: 76744 Disch Hosp
--- NOTE | 2024-08-16 15:45 | CASEMGMT ---
RN?CM?JOB PLACEMENT COUNSELOR?CM?to room to meet with patient for initial transition planning/care coordination?assessment.?RN?CM?introduced self and role at [facility].? Pt voices understanding and consents to?assessment?at this time.? Pt resting in bed in no distress at this time, just finishing up dialysis. Pt's momEmilia, @ bedside, and pt agreeable to her being present during assessment. Pt is A/O at this time and answers all questions appropriately.?? Care providers, pharmacy, and demographics verified/updated at this time. PCP: MEHDI Hendrickson Specialists: Dr Ardon or MEHDI Dobbins-nephrology. Pt working on getting appt w/social psychologist @ [facility], [facility]. HD: Pt goes to [facility], chair time form 2-6 PM. Insurance: [employer] Prescription Benefit:?yes LNOK: MomEmilia Living Arrangements: Lives w/his mom. Independent. Transportation:?Pt drives. Mom also drives and will take him to OP HD tomorrow. DME: ?States has the following DME:?[employer] C[employer]. Pt states has all supplies, insulin, needles, and medication needed. Pt wishes to return home and states has no concerns with going home. PLAN:??Home w/mother's support and discharge plans in place. Roel VILLALTAN?RN?CM
[2024-08-16] MEDS: hydrALAZINE 50 MG Tablet PO (16:34)
--- NOTE | 2024-08-16 17:50 | CON.PCM.RE_ITS ---
Assessment & Plan Assessment/Plan (1) ESRD (end stage renal disease): PLAN: On hemodialysis, currently 4 times a week. Significant fluid gains in between dialysis. Any attempt at fluid removal resulted in significant hypotension. Of note, he tolerates ultrafiltration very well. We have been able to take up to 4 L of. However as soon as he started dialysis with fluid removal, he starts having significant hypotension. Discussed with dialysis staff, discussed with patient. Will cut back on blood flow rate to 400 mL. We will do dialysis 4 hours each treatment, extra ultrafiltration on Tuesday. His target weight is about 10 to 12 kg of dry weight. Will try to remove this fluid slowly. I also asked him not to take any blood pressure medications on the morning of dialysis. Echocardiogram is not impressive. CT PE study was negative previous admission. I do not think this is an allergic reaction to dialyzer since he tolerates ultrafiltration very well. In the past he has tried to do peritoneal dialysis but did not work out, ended up with a massive infection. I talked to him about home hemodialysis. He has been extensively counseled about it. He has refused consistently. His mother works as a [employer] driver recruiter, unable to help him with the needle placement. HPI Consult Data Date of Consult: 08/16/24 HPI Narrative Reason for Consultation: ESRD HPI Narrative: DARREN FERNANDO, is a 43 M who presents Who was admitted to the hospital after a episode of hypotension, syncope, possible transient cardiac arrest. He is well- known to me as outpatient. ESRD on hemodialysis Tuesday, Tuesday, Tuesday. Recently on dialysis 4 times a week. Has been struggling with blood pressure, significant hypotension during dialysis. Yesterday he was set for dialysis and about an hour to dialysis his blood pressure dropped significantly. Had presyncopal episode, 911 was called, immediately resuscitated with IV fluids. There might have been a brief episode of loss of pulse. Currently alert, awake. Denies any complaints. Has significant lower extremity edema. Usually gained significant amount of weight in between dialysis. [facility] Medical History Diabetes Kidney stones Dialysis patient Kidney disease Non-smoker On home oxygen therapy Surgically constructed arteriovenous fistula Skin ulcer of abdominal wall with fat layer exposed End stage renal disease on dialysis Insulin dependent diabetes mellitus History of abdominal abscess Nonhealing surgical wound CKD (chronic kidney disease) Neuropathy CKD (chronic kidney disease) stage 3, GFR 30-59 ml/min HTN (hypertension) DM2 (diabetes mellitus, type 2) Home Medications ?Medication ?Instructions ?Recorded ?Last Taken ?Type insulin glargine 100 unit/mL 60 unit subcut QHS diabetes 01/21/22 08/05/24 History subcutaneous cartridge carvedilol 25 mg tablet 50 mg PO BID blood pressure 08/06/24 08/06/24 History furosemide 80 mg tablet 80 mg PO DAILY diuretic 08/06/24 08/05/24 History hydralazine 50 mg tablet 50 mg PO TID blood pressure 08/06/24 08/06/24 History alprazolam 1 mg tablet 1 mg PO UD PRN anxiety #40 tabs 08/07/24 Unknown Rx Allergy/AdvReac Type Severity Reaction Status Date / Time sitagliptin (From ) AdvReac Upset Verified 08/06/24 15:50 Stomach Social History Smoking Status: Never smoker ROS ROS Narrative negative except above Physical Exam Narrative Alert awake oriented x 3 no obvious distress no pallor no icterus no JVD s1s2 no murmurs lungs clear abdomen soft no organomegaly no edema no cyanosis Lab / Micro Data 08/16/24 05:33 08/16/24 05:33 Labs: Laboratory Results - last 24 hr 08/15/24 20:18: POC Glucose 201 H 08/15/24 21:35: Total Bilirubin 0.60, Direct Bilirubin 0.21, AST 12 L, ALT 16, Alkaline Phosphatase 81, Troponin I High Sens 39, Total Protein 7.2, Albumin 3.4, Globulin 3.8 08/16/24 05:33: WBC 6.7, RBC 3.32 L, Hgb 9.5 L, Hct 28.8 L, MCV 86.7, MCH 28.6, MCHC 33.0, RDW Std Deviation 50.2 H, RDW Coeff of Juli 16.1 H, Plt Count 118 L, MPV 11.1, Immature Gran % (Auto) 0.400, Neut % (Auto) 80.3 H, Lymph % (Auto) 8.9 L, [place] % (Auto) 8.3, Eos % (Auto) 1.5, Baso % (Auto) 0.6, Absolute Neuts (auto) 5.4, Absolute Lymphs (auto) 0.60 L, Nucleated RBC % 0, Sodium 134 L, Potassium 4.7, Chloride 98, Carbon Dioxide 26.0, Anion Gap 10, BUN 66 H, Creatinine 8.52 H*, Estim Creat Clear Calc 17.63, Est GFR (MDRD) Af Amer 9 L, Est GFR (MDRD) Non-Af 7 L, BUN/Creatinine Ratio 7.7 L, Glucose 138 H, Calcium 9.4 08/16/24 06:29: POC Glucose 128 H 08/16/24 11:27: POC Glucose 163 H Rhythm Strip Rhythm Strip: Sinus Rhythm Rate: 82 Ectopy: None Imaging Radiology Impression Echocardiogram 08/15/24 18:28 Interpretation Summary Normal LV size. Moderate concentric left ventricular hypertrophy. The left ventricular ejection fraction is 50 %. The left atrium is mildly enlarged. Ordering Physician: Antony Robbins Referring Physician: BIB DUBOSE Performed By: Alaina Stevenson RDCS
[2024-08-16 18:13] LABS: Bedside Glucose 232 mg/dL (74-106)
== END 2024-08-16 15:19 | disposition home or self-care (01) ==
LOC: ED 16:37 → PCU 18:03
PROVIDERS: Internal Medicine; Admitting Provider Hospitalist; Emergency Provider Emergency Medicine; PCP Physician Assistant; Visit Provider Internal Medicine
DX: R55 Syncope and collapse (principal); I12.0 Hypertensive chronic kidney disease with stage 5 chronic kidney disease or end stage renal disease; N18.6 End stage renal disease; E66.01 Morbid (severe) obesity due to excess calories; Z68.41 Body mass index [BMI] 40.0-44.9, adult; E11.22 Type 2 diabetes mellitus with diabetic chronic kidney disease; Z79.4 Long term (current) use of insulin; E11.40 Type 2 diabetes mellitus with diabetic neuropathy, unspecified; T80.89XA Other complications following infusion, transfusion and therapeutic injection, initial encounter; E87.5 Hyperkalemia; R60.0 Localized edema; F41.9 Anxiety disorder, unspecified; D69.6 Thrombocytopenia, unspecified; D64.9 Anemia, unspecified; Z79.899 Other long term (current) drug therapy; Z99.81 Dependence on supplemental oxygen; R94.31 Abnormal electrocardiogram [ECG] [EKG]; Y84.1 Kidney dialysis as the cause of abnormal reaction of the patient, or of later complication, without mention of misadventure at the time of the procedure
CPT/HCPCS: 71046; 80048; 80076; 82962; 83735; 84100; 84484; 85025; 90937; 93005; 93306; 96365; 96366; 96372; 99221; 99285; J7030; Q9957; A4216; C8929; G0257; G0378; J0612

== ENCOUNTER 2024-08-31 14:20 | Emergency (ER) | payer OTHER, SELFPAY ==
[2024-08-31] VITALS (16 sets, daily range): BP systolic 168–210; BP diastolic 84–109; PULSE 64–79; RESP 10–25; TEMP 36.6; O2SAT 91–98; BMI 40.8
--- NOTE | 2024-08-31 14:49 | EKG12_ITS ---
Test Reason : SOB Blood Pressure : / mmHG Vent. Rate : 078 BPM Atrial Rate : 078 BPM P-R Int : 166 ms QRS Dur : 090 ms QT Int : 430 ms P-R-T Axes : 083 -34 029 degrees QTc Int : 490 ms Normal sinus rhythm Left axis deviation Pulmonary disease pattern Minimal voltage criteria for LVH, may be normal variant ( R in aVL ) Nonspecific T wave abnormality Abnormal ECG Confirmed by J CARLOS ADKINS, NIA ([id number]), manager editorial ARLETTE VILLASENOR ([id number]) on 09/03/2024 9:26:57 AM Referred By: Confirmed By:NIA WHITMAN MD
--- NOTE | 2024-08-31 15:05 | RAD_ITS ---
STUDY: X-RAY CHEST REASON FOR EXAM: Male, 43 years old. Chest pain TECHNIQUE: PA and lateral views of the chest. COMPARISON: Comparison is made with prior study August 15, 2024. FINDINGS: EKG electrodes are seen. Persistent increased markings at the lung bases slightly worse on the left side although these have improved. This is suggestive of bibasilar atelectasis. There is no demonstrated pleural abnormality. Normal size heart. Normal mediastinum and ana. Normal visualized pulmonary arteries. Normal visualized aortic arch and descending thoracic aorta. There are diffuse degenerative changes of the visualized thoracic spine. Increased kyphosis. Normal visualized ribs, clavicles, and shoulders. There is no demonstrated abnormality of the visualized soft tissue structures of the upper abdomen. RAD/Chest PA and Lateral IMPRESSION: Residual bibasilar atelectasis is more apparent on the left side although there has been improvement. Electronically Signed: Ludwin Conte MD at 15:24 EDT ,
[2024-08-31 15:07] LABS: Absolute Lymphocyte Count 0.51 X10^3/uL (0.83-4.51); Absolute Neutrophil Count 7.8 X10^3/uL (2.0-7.7); Basophil# 0.03 X10^3/uL; Basophil% 0.3 % (0-1); Eosinophil# 0.11 X10^3/uL; Eosinophils% 1.2 % (0-5); Hematocrit 31.8 % (40-54); Hemoglobin 10.4 g/dL (13.0-16.5); Lymphocyte # 0.51 X10^3/ul (0.83-4.51); Lymphocyte % 5.7 % (19-41); Mean Corp Hgb Conc 32.7 g/dL (32-36); Mean Corpuscular Hgb 28.5 pg (27.0-32.0); Mean Corpuscular Volume 87.1 fL (80-94); Monocyte# 0.38 X10^3/uL; Monocyte% 4.3 % (0-10); NRBC Flagged by Analyzer 0 % (0-5); Neutrophil % 87.6 % (47-70); POSITIVE DIFFERENTIAL YES; Platelet Count 106 K/mm3 (150-450); RBC Distribution Width CV 16.5 % (11.6-14.6); RBC Distribution Width SD 51.3 fl (35.1-43.9); Red Blood Count 3.65 M/mm3 (4.6-6.2); White Blood Count 8.9 K/mm3 (4.4-11.0)
[2024-08-31 15:24] LABS: Anion Gap 10 (5-15); BUN 46 mg/dL (7-18); BUN/Creat Ratio 7.1 RATIO (10-20); Calcium,Total 9.5 mg/dL (8.5-10.1); Chloride 94 mmol/L (98-107); EST Glomerular Filtration Rate 10 mL/min (>60); Est Glom Filt Rate - Afr Amer 12 mL/min (>60); Estimated Creatinine Clearance 23.17 ml/min; Glucose 218 mg/dL (74-106); Potassium 4.3 mmol/L (3.5-5.1); Sodium Level 136 mmol/L (136-145); Troponin-I HS 16 pg/mL (3.0-78.0)
[2024-08-31] MEDS: hydrALAZINE 20 MG/ML Vial IV (15:30)
--- NOTE | 2024-08-31 15:37 | EX.ED.DYSGE1 ---
HPI History of Present Illness Chief Complaint: Shortness of Breath Narrative Narrative: Patient is a 43-year-old male with past medical history of end-stage renal disease on dialysis Tuesday, diabetes, hypertension, recent cardiac arrest who presents to the emergency department the chief complaint of shortness of breath. Patient states that he was at dialysis and was about 1 hour to 1-1/2 hours into the session when he became acutely short of breath. He states that the last time this happened he ended up going into cardiac arrest and was brought here. He states that is currently wearing a Holter monitor from his last visit. He states that currently he feels short of breath and notes that it hurts for him to cough and this has been going on since the chest compressions performed. Patient states that he is not normally on oxygen at baseline. [facility] Medical History Cardiac arrest Left atrial dilation GERD (gastroesophageal reflux disease) SOB (shortness of breath) Hypercholesterolemia History of diabetes mellitus Dialysis patient History of end stage renal disease Diabetes Kidney stones Dialysis patient Kidney disease Non-smoker On home oxygen therapy Surgically constructed arteriovenous fistula Skin ulcer of abdominal wall with fat layer exposed End stage renal disease on dialysis History of abdominal abscess Nonhealing surgical wound CKD (chronic kidney disease) Neuropathy CKD (chronic kidney disease) stage 3, GFR 30-59 ml/min HTN (hypertension) Home Medications ?Medication ?Instructions ?Recorded ?Last Taken ?Type insulin glargine 100 unit/mL 60 unit subcut QHS diabetes 01/21/22 08/05/24 History subcutaneous cartridge carvedilol 25 mg tablet 50 mg PO BID blood pressure 08/06/24 08/06/24 History furosemide 80 mg tablet 80 mg PO DAILY diuretic 08/06/24 08/05/24 History hydralazine 50 mg tablet 50 mg PO TID blood pressure 08/06/24 08/06/24 History alprazolam 1 mg tablet 1 mg PO UD PRN anxiety #40 tabs 08/07/24 Unknown Rx Allergy/AdvReac Type Severity Reaction Status Date / Time sitagliptin (From Novuv) AdvReac Upset Verified 08/31/24 14:26 Stomach Family History Mother Hypertension Father Diabetes Thyroid disorder Grandmother Cancer Surgical History [place] teeth removed History of tonsillectomy History of hernia repair History of esophagogastroduodenoscopy (EGD) History of colonoscopy Social History Smoking Status: Never smoker ROS ROS ED ROS Narrative Constitutional: Denies any fevers, chills, headaches, lightness, dizziness Eyes: Denies change in vision double vision blurry vision Cardiovascular: Denies chest pain or palpitations Respiratory: Complains of shortness of breath and cough as noted above Abdomen: Denies abdominal pain nausea vomit diarrhea : Denies any painful urination, hematuria, polyuria Neurological: Denies any numbness, weakness, tingling Musculoskeletal: Complains of chest wall discomfort from chest compressions as noted above Skin: Denies rashes or lesions EXAM Physical Exam Narrative Exam Narrative: General: Patient lying in bed rest comfortably did not appear to be acute distress Head: Atraumatic, normocephalic Eyes: PERRL bilateral, EOMI buttock no conjunctival injection noted Neck: Soft, supple, trachea midline Cardiovascular: Regular rate and rhythm no murmurs gallops rubs noted Respiratory: Diminished breath sounds bilaterally at the bases no wheezing noted Abdomen: Soft, nontender to palpation, bowel sounds present x 4 Extremities: Patient has 2+ pitting edema bilateral lower extremities he states that he has chronic swelling, +5/5 strength noted in the bilateral upper and lower extremities. Neurological: Patient follow commands knew that he was at [facility] year is 2023 Skin: Warm, dry, intact Const Vital Signs: 08/31/24 14:21 08/31/24 14:26 08/31/24 14:32 Temperature 97.8 F 97.8 F Temperature Source Oral Oral Pulse Rate 79 79 Respiratory Rate 20 H 25 H Respiratory Effort Short of Breath Blood Pressure 198/108 H 210/109 H Blood Pressure Mean 138 142 Pulse Ox 91 97 Oxygen Delivery Method Room Air Nasal Cannula Nasal Cannula Oxygen Flow Rate (L/min) 2 2 08/31/24 14:49 08/31/24 15:18 08/31/24 15:26 Temperature 97.8 F Temperature Source Oral Pulse Rate 76 Respiratory Rate 12 Respiratory Effort Blood Pressure 197/100 H Blood Pressure Mean 132 Pulse Ox 98 98 Oxygen Delivery Method Nasal Cannula Nasal Cannula Room Air Oxygen Flow Rate (L/min) 2 2 08/31/24 15:52 08/31/24 16:00 08/31/24 16:00 Temperature 97.8 F Temperature Source Oral Pulse Rate 75 74 Respiratory Rate 21 H 20 H Respiratory Effort Blood Pressure 183/92 H 169/85 H 169/85 H Blood Pressure Mean 122 113 113 Pulse Ox 94 94 Oxygen Delivery Method Room Air Room Air Oxygen Flow Rate (L/min) 08/31/24 16:49 08/31/24 17:00 08/31/24 17:00 Temperature 97.8 F Temperature Source Oral Pulse Rate 72 72 Respiratory Rate 17 25 H Respiratory Effort Blood Pressure 195/92 H 182/92 H 182/92 H Blood Pressure Mean 126 122 122 Pulse Ox 95 93 Oxygen Delivery Method Room Air Oxygen Flow Rate (L/min) 08/31/24 18:00 08/31/24 19:00 08/31/24 19:16 Temperature Temperature Source Pulse Rate 75 72 Respiratory Rate 12 25 H Respiratory Effort Blood Pressure 176/88 H 192/88 H 184/93 H Blood Pressure Mean 117 122 123 Pulse Ox 97 98 Oxygen Delivery Method Nasal Cannula Oxygen Flow Rate (L/min) 1 08/31/24 20:00 08/31/24 21:12 Temperature Temperature Source Pulse Rate 72 70 Respiratory Rate 16 16 Respiratory Effort Blood Pressure 168/89 H 172/87 H Blood Pressure Mean 115 115 Pulse Ox 98 96 Oxygen Delivery Method Room Air Nasal Cannula Oxygen Flow Rate (L/min) 1 MDM MDM MDM Narrative Medical decision making narrative: Patient is a 43-year-old male who presented to the emerged part with a chief complaint of shortness of breath during dialysis. Patient will have a workup performed here on the differential diagnosis of elevated to states secondary to bleeding dialysis ACS, pneumonia, pneumothorax. Once workup is obtained reviewed he will be reevaluated. Patient was attempted to be removed from oxygen however he immediately desaturated to 88% on room air this was replaced. Patient's CBC was reviewed and showed a white blood count of 8.9, hemoglobin 10.4, platelet count was noted be 106, patient is chronically thrombocytopenic, sodium normal 136 potassium normal 4.3, creatinine was 6.50 however he is end-stage renal disease on dialysis, glucose of 218. Patient troponin was noted to be 16. Patient's EKG reviewed and showed sinus rhythm with a rate of 78 bpm. This was reviewed by myself. Patient's chest x-ray reviewed by myself and by radiology which showed residual basilar atelectasis more prominent on left although there is been improvement. At this point time the patient is unable to obtain dialysis here over the weekend due to staffing issues therefore the patient will require transfer as well as there is no vascular surgery on he does have a bleeding fistula from the venous site with the arterial catheter remained in place as there is difficulty getting the bleeding to stop. Did discuss case with [facility] Rosa Mariamnamee Woodruff who will accept patient for admission. Patient was notified with all question concerns answered. Lab Data Labs: Laboratory Results - last 24 hr 08/31/24 14:51 WBC 8.9 RBC 3.65 L Hgb 10.4 L Hct 31.8 L MCV 87.1 MCH 28.5 MCHC 32.7 RDW Std Deviation 51.3 H RDW Coeff of Juli 16.5 H Plt Count 106 L MPV 12.0 Immature Gran % (Auto) 0.900 Neut % (Auto) 87.6 H Lymph % (Auto) 5.7 L Cobb % (Auto) 4.3 Eos % (Auto) 1.2 Baso % (Auto) 0.3 Absolute Neuts (auto) 7.8 H Absolute Lymphs (auto) 0.51 L Nucleated RBC % 0 Sodium 136 Potassium 4.3 Chloride 94 L Carbon Dioxide 32.0 Anion Gap 10 BUN 46 H Creatinine 6.50 H Estim Creat Clear Calc 23.17 Est GFR (MDRD) Af Amer 12 L Est GFR (MDRD) Non-Af 10 L BUN/Creatinine Ratio 7.1 L Glucose 218 H Calcium 9.5 Troponin I High Sens 16 Radiography Diagnostic Testing: Clinical Impression(s) from Imaging Studies Chest X-Ray 08/31/24 15:05 IMPRESSION: Residual bibasilar atelectasis is more apparent on the left side although there has been improvement. Electronically Signed: Ludwin Conte MD at 15:24 EDT , Discharge Plan Triage Chief Complaint: Shortness of Breath ED Provider: Jose R Lentz Dx/Rx/DC Orders Clinical Impression: Hypoxia, Hemorrhage of arteriovenous fistula Prescriptions: No Action insulin glargine 100 unit/mL Cartridge 60 unit SUBCUT QHS carvedilol 25 mg tablet 50 mg PO BID furosemide 80 mg tablet 80 mg PO DAILY hydralazine 50 mg tablet 50 mg PO TID alprazolam 1 mg tablet 1 mg PO UD PRN (Reason: anxiety) Qty: 40 0RF Rx Instructions: 1/2 to one- 1/2 hr before dialysis for anxiety, use caution if driving, can cause sleepiness Primary Care Provider: Ryan Hendrickson Referrals: Ryan Hendrickson, PA [Primary Care Provider] - Print Language: Cambodian Disposition Disposition: DC/Tx to Another Type of HCF
--- NOTE | 2024-08-31 15:44 | ED.RN ---
atm technician attempted to remove venous dialysis catheter. Bleeding was unable to be controlled. Dr. Lentz bedside to assist controlling bleeding. 4x4, tape, and coban applied to maintain pressure on area.
[2024-08-31] MEDS: cloNIDine HCl 0.1 MG Tablet PO ×2 (16:43→19:55)
--- NOTE | 2024-08-31 16:46 | ED.RN ---
Dr. Lentz bedside to remove dressing and assess dialysis fistula bleeding. Dressings removed due to patient reporting cold feeling in R hand fingers and skin discoloration, pulses present. Bleeding has not stopped. Surgifoam, 4x4, abdominal pad and coban reapplied to area. Pulses present.
[2024-08-31] MEDS: Acetaminophen 500 MG Tablet 1000 MG PO (19:14)
--- NOTE | 2024-08-31 23:02 | ED.RN ---
Report given to More trujillo [facility].
[2024-08-31] MEDS: Ondansetron 4 MG/2 ML Vial IV (23:45)
[2024-09-01] VITALS: BP 171/81; PULSE 68; RESP 19; O2SAT 93
[2024-09-01 01:00] VITALS: BP 166/80; PULSE 80; RESP 20; O2SAT 96
[2024-09-01 01:03] VITALS: BP 166/83; PULSE 88; RESP 19; TEMP 37.1; O2SAT 96
[2024-09-01 02:00] VITALS: BP 171/87; PULSE 68; RESP 17; O2SAT 96
== END 2024-09-01 02:54 | disposition other institution (70) ==
PROVIDERS: Emergency Provider Emergency Medicine; PCP Physician Assistant; Visit Provider Emergency Medicine
DX: R09.02 Hypoxemia (principal); N18.6 End stage renal disease; I12.0 Hypertensive chronic kidney disease with stage 5 chronic kidney disease or end stage renal disease; E11.22 Type 2 diabetes mellitus with diabetic chronic kidney disease; E11.40 Type 2 diabetes mellitus with diabetic neuropathy, unspecified; Z79.4 Long term (current) use of insulin; Z99.2 Dependence on renal dialysis; Z79.899 Other long term (current) drug therapy
CPT/HCPCS: 71046; 80048; 84484; 85025; 93005; 96374; 96375; 99285; A4216; J2405

== ENCOUNTER 2025-01-10 10:04 | Inpatient (IN) | payer OTHER, SELFPAY ==
[2025-01-10] VITALS (18 sets, daily range): BP systolic 151–280; BP diastolic 65–99; PULSE 64–76; RESP 15–18; TEMP 36.6–37.2; O2SAT 96–100; BMI 40.5; BMI 40.4; BMI 39.1
--- NOTE | 2025-01-10 10:40 | EX.ED.DYSGE1 ---
HPI History of Present Illness Chief Complaint: Diarrhea Informant: patient Onset/Context/Timing Onset: Days Context: Gradual Onset Timing: Continuous Current Severity: Mild Maximum Severity: Mild Narrative Narrative: 44-year-old male history of NCVs Redd[facility] dialysis has been on dialysis for 3 years. Also history of diabetes. States he is mom recently tested positive for the flu he has had diarrhea for multiple days greater than 10 episodes a day but says it is slowly getting better. Now it is more soft stool. Not watery. No blood. Said he has missed dialysis since Tuesday he is normally 4 times a week Tuesday and Tuesday and he has not gone Tuesday or Tuesday of this week because he has not felt well because the diarrhea they have been unable to get him rescheduled. He came in to be evaluated. Denies any vomiting. Denies any fever. No shortness of breath or chest pain. Prior similar symptoms: Yes Recent Illness/Hospitalization: No PFSH PFSH Medical History Cardiac arrest Left atrial dilation GERD (gastroesophageal reflux disease) SOB (shortness of breath) Hypercholesterolemia History of diabetes mellitus Dialysis patient History of end stage renal disease Diabetes Kidney stones Dialysis patient Kidney disease Non-smoker On home oxygen therapy Surgically constructed arteriovenous fistula Skin ulcer of abdominal wall with fat layer exposed End stage renal disease on dialysis History of abdominal abscess Nonhealing surgical wound CKD (chronic kidney disease) Neuropathy CKD (chronic kidney disease) stage 3, GFR 30-59 ml/min HTN (hypertension) Home Medications ?Medication ?Instructions ?Recorded ?Last Taken ?Type carvedilol 25 mg tablet 50 mg PO BID blood pressure 08/06/24 08/06/24 History hydralazine 50 mg tablet 50 mg PO TID blood pressure 08/06/24 08/06/24 History alprazolam 1 mg tablet 0.25 mg PO QDAY anxiety 09/24/24 Unknown History amlodipine 5 mg tablet 5 mg PO QDAY 09/24/24 Unknown History cholecalciferol (vitamin D3) 1,250 1,250 mcg PO .3xweek 09/24/24 Unknown History mcg (50,000 unit) capsule cyclobenzaprine 5 mg tablet 5 mg PO TID PRN 09/24/24 Unknown History fluticasone propionate 50 2 inh inhalation BID 09/24/24 Unknown History mcg/actuation blister powder for inhalation insulin glargine 100 unit/mL 25 unit subcut QHS diabetes 09/24/24 Unknown History subcutaneous cartridge lanthanum 1,000 mg oral powder 1,000 mg PO TID 09/24/24 Unknown History packet (Fosrenol) torsemide 100 mg tablet 100 mg PO QAM 09/24/24 Unknown History valsartan 40 mg tablet 40 mg PO QDAY 09/24/24 Unknown History vitamin B complex-vitamin C-folic 1 tab PO QDAY 09/24/24 Unknown History acid 0.8 mg tablet (Sofie-Tejinder) Allergy/AdvReac Type Severity Reaction Status Date / Time sitagliptin (From NovuvVidedressing) AdvReac Upset Verified 01/10/25 10:05 Stomach Family History Mother Hypertension Father Diabetes Thyroid disorder Grandmother Cancer Surgical History [place] teeth removed History of tonsillectomy History of hernia repair History of esophagogastroduodenoscopy (EGD) History of colonoscopy Social History household members: family housing: house current occupational status: employed Smoking Status: Never smoker ROS ROS ED ROS Narrative General malaise. Diarrhea. Constitutional Constitutional ED: Denies chills or fever(s) Eyes Eyes: Denies blurry vision ENT ENT ED: Denies ear pain Cardiovascular Cardiovascular: Denies chest pain Respiratory/Chest Respiratory/Chest: Denies cough or dyspnea Gastrointestinal Gastrointestinal: Reports diarrhea; Denies abdominal pain, constipation, melena, nausea or vomiting Genitourinary Genitourinary ED: Denies dysuria or hematuria Musculoskeletal Musculoskeletal: Denies arthralgias Integumentary Denies abscess Neurologic Neurologic: Denies headache(s) Psychiatric Psychiatric: Denies anxiety Endocrine Endocrinology: Denies cold intolerance Hematologic/Lymphatic Hematologic/Lymphatic: Reports none Allergic/Immunologic Allergic/Immunologic ED: Denies mouth swelling, tongue swelling or urticaria EXAM Physical Exam Narrative Exam Narrative: 44-year-old male sitting upright in bed. Vital signs are stable he is afebrile he does not look septic toxic he is in no distress. His pulse ox 100% on room air no signs of hypoxia. H EENT exam pupils round reactive light. Moist mucous membranes. Neck nontender no JVD. No lymphadenopathy. Lungs clear to auscultation bilaterally. Heart regular rhythm rate about 65 no murmur. Chest wall ribs nontender. Abdomen soft nontender. No peritoneal signs. Moving all 4 extremities. Normal strength. He is 1-2+ pitting edema both lower extremities that is chronic. He has a sore on his right mid tibia that is not infected. He has normal cto strength. Normal dorsi plantarflexion. Back nontender. Neurologically he is awake and alert no focal motor deficits. Answering questions and following commands. Const Vital Signs: 01/10/25 10:05 Temperature 97.8 F Temperature Source Temporal Pulse Rate 68 Respiratory Rate 18 Blood Pressure 202/93 H Blood Pressure Mean 129 Pulse Ox 100 Oxygen Delivery Method Room Air Positive well nourished and well developed; Negative for cachectic, contractures or unkempt General Appearance ED: well developed and NAD; Negative for unkempt, cachectic, contractures, cyanotic, diaphoretic or pallor Nutritional Appearance: Negative for cachectic HEENT Reports moist mucous membranes Eyes PERRL and EOMs intact bilaterally Neck no lymphadenopathy, supple and no JVD Chest Wall inspection of chest normal and palpation of chest normal Resp normal respiratory effort and clear to auscultation bilaterally Cardio regular rate, regular rhythm, S1 normal heart sound, S2 normal heart sound and no murmurs GI normal to inspection, nondistended, normoactive bowel sounds, non-tender, non-distended and no masses Palpation: soft; Negative for tender or guarding Back/Spine no CVA tenderness General Back: Negative for CVA tenderness Cervical Spine: Negative for cervical spine tenderness Thoracic Spine / Upper Back: Negative for thoracic spinal tenderness or paraspinal muscle tenderness Lumbar Spine / Lower Back: Negative for lumbar spinal tenderness Extremity Negative for normal to inspection Extremity Narrative: 1-2+ pitting edema bilaterally. Chronic. General Extremety ED: Yes edema; Negative for tenderness General Extremity: edema Neuro oriented x3, CN's II-XII intact bilaterally and no sensory deficits noted Sensorium / Orientation: alert Motor Exam: strength 5/5 throughout Psych mental status grossly normal Appearance: Negative for unkempt Attitude: No agitated Mood & Affect: Negative for depressed, anxious or tearful Skin no rashes or lesions noted and no wounds General Skin Exam: Negative for jaundice or pallor Lesions: No lesion noted Rashes: No rashes noted MDM MDM MDM Narrative Medical decision making narrative: 44-year-old male diarrhea for days and missed dialysis the last 2 times. With generally not feeling well. Screening labs and COVID and flu testing being obtained. Repeat exam at 11:36 AM unchanged. Patient be started on hyperkalemia protocol and admitted to the hospital. Will be treated with IV Calcium gluconate, albuterol aerosol and insulin. I will be admitted. History & Record Review Discussion w/independent historian: Patient Additional record(s) reviewed:: Prior inpatient record, Prior outpatient record, Prior ED visit and Prior labs Lab Data Attestation: I reviewed the patient's lab results. Lab results narrative: CBC shows a white count of 5.8. H&H 10.0 and 29 consistent with his baseline chronic anemia. Platelets 149. Electrolytes show potassium of 6.7. Gap of 21. BUN of 108 creatinine of 11.8 consistent with his end-stage renal disease and not being dialyzed for several days. Glucose 150. Labs: Laboratory Results - last 24 hr 01/10/25 10:43 WBC 5.8 RBC 3.53 L Hgb 10.0 L Hct 29.9 L MCV 84.7 MCH 28.3 MCHC 33.4 RDW Std Deviation 48.8 H RDW Coeff of Juli 15.8 H Plt Count 149 L MPV 11.2 Immature Gran % (Auto) 0.700 Neut % (Auto) 78.1 H Lymph % (Auto) 9.6 L Quay % (Auto) 7.9 Eos % (Auto) 2.8 Baso % (Auto) 0.9 Absolute Neuts (auto) 4.5 Absolute Lymphs (auto) 0.56 L Nucleated RBC % 0 Sodium 137 Potassium 6.7 H* Chloride 96 L Carbon Dioxide 20.2 L Anion Gap 21 H BUN 108 H* Creatinine 11.80 H* Estim Creat Clear Calc 12.57 L Est GFR (MDRD) Non-Af 5 L BUN/Creatinine Ratio 9.2 L Glucose 150 H Calcium 9.4 Radiography Chest X-Ray - ED: 2 View, Read by ED Physician, Read by Radiologist, Heart, Lungs, Mediastinum, Bony Structures, No Acute Disease and Chronic Changes Diagnostic Testing: Clinical Impression(s) from Imaging Studies Chest X-Ray 01/10/25 10:50 IMPRESSION: 1. Limited hypoinflated exam. Findings suggestive of possible hypovolemia. No overt pulmonary edema. 2. Question hilar/mediastinal lymphadenopathy versus enlargement of the pulmonary arteries. Recommend outpatient CT chest, ideally with IV contrast. 3. Additional description as above. Reading Location: [facility] Chest x-ray, 2 views, interpreted by myself and the radiologist shows chronic changes. No acute process. Rhythm Strip Rhythm Strip: Sinus Rhythm Rate: 66 Ectopy: None EKG Initial EKG: Attestation: I personally reviewed and interpreted this EKG as follows: Interpretation: Sinus Rhythm and No Acute Injury Pattern Comments: Normal sinus rhythm. Rate of 66. No acute signs of TX or ischemia. Discharge Plan Dx/Rx/DC Orders Clinical Impression: Diarrhea, End stage chronic kidney disease, Acute uremia, Acute hyperkalemia, Chronic acquired lymphedema Disposition Disposition: Acute Care Hospital [facility]
--- NOTE | 2025-01-10 10:50 | RAD_ITS ---
PROCEDURE: CHEST PA AND LATERAL REASON FOR EXAM: Weakness TECHNIQUE: PA and lateral views of the chest were obtained. COMPARISON: 08/31/2024 FINDINGS: Exam limited by hypoinflation and exaggerated thoracolumbar kyphosis. Heart: Partially obscured, grossly unremarkable. Mediastinum: Central vascular prominence. Similar contours including fullness of the bilateral ana. Lungs/pleura: Hypoinflation with vascular crowding. No convincing focal consolidation. No pleural effusion or visible pneumothorax. Bones: Demineralization. Exaggerated thoracolumbar kyphosis as above. RAD/Chest PA and Lateral IMPRESSION: 1. Limited hypoinflated exam. Findings suggestive of possible hypovolemia. No overt pulmonary edema. 2. Question hilar/mediastinal lymphadenopathy versus enlargement of the pulmona ry arteries. Recommend outpatient CT chest, ideally with IV contrast. 3. Additional description as above. Reading Location: [id number]
[2025-01-10 10:59] LABS: Absolute Lymphocyte Count 0.56 X10^3/uL (0.83-4.51); Absolute Neutrophil Count 4.5 X10^3/uL (2.0-7.7); Basophil# 0.05 X10^3/uL; Basophil% 0.9 % (0-1); Eosinophil# 0.16 X10^3/uL; Eosinophils% 2.8 % (0-5); Hematocrit 29.9 % (40-54); Lymphocyte # 0.56 X10^3/ul (0.83-4.51); Lymphocyte % 9.6 % (19-41); Mean Corp Hgb Conc 33.4 g/dL (32-36); Mean Corpuscular Hgb 28.3 pg (27.0-32.0); Mean Corpuscular Volume 84.7 fL (80-94); Mean Platelet Vol. 11.2 fl (6.2-12.0); Monocyte# 0.46 X10^3/uL; Monocyte% 7.9 % (0-10); NRBC Flagged by Analyzer 0 % (0-5); Neutrophil # 4.54 X10^3/uL (2.7-7.7); Neutrophil % 78.1 % (47-70); POSITIVE DIFFERENTIAL YES; Platelet Count 149 K/mm3 (150-450); RBC Distribution Width CV 15.8 % (11.6-14.6); RBC Distribution Width SD 48.8 fl (35.1-43.9); Red Blood Count 3.53 M/mm3 (4.6-6.2); White Blood Count 5.8 K/mm3 (4.4-11.0)
[2025-01-10 11:22] LABS: Anion Gap 21 (5-15); BUN 108 mg/dL (4-19); BUN/Creat Ratio 9.2 RATIO (10-20); Calcium,Total 9.4 mg/dL (7.6-11.0); Carbon Dioxide 20.2 mmol/L (21.0-32.0); Chloride 96 mmol/L (98-108); EST Glomerular Filtration Rate 5 (>60); Estimated Creatinine Clearance 12.57 ml/min (50-250); Glucose 150 mg/dL (70-99); Potassium 6.7 mmol/L (3.3-5.1); Sodium Level 137 mmol/L (133-145)
[2025-01-10] MEDS: Albuterol *CONC* 2.5mg/0.5mL VIAL.NEB. 10 MG INHALATION (11:41)
--- NOTE | 2025-01-10 11:56 | PN.HOSP_ITS ---
Objective Data Objective Data Vital Signs: Vital Signs Temp Pulse Resp BP Pulse Ox O2 Del Method 97.8 F 68 18 202/93 H 100 Room Air 01/10/25 10:05 01/10/25 10:05 01/10/25 10:05 01/10/25 10:05 01/10/25 10:05 01/10/25 10:05 Oxygen Delivery Method Room Air Weight: 332 lb 11.2 oz Body Mass Index (BMI) 40.5 Lab / Micro Data 01/10/25 10:43 01/10/25 10:43 Labs: Laboratory Results - last 24 hr 01/10/25 10:43: WBC 5.8, RBC 3.53 L, Hgb 10.0 L, Hct 29.9 L, MCV 84.7, MCH 28.3, MCHC 33.4, RDW Std Deviation 48.8 H, RDW Coeff of Juli 15.8 H, Plt Count 149 L, MPV 11.2, Immature Gran % (Auto) 0.700, Neut % (Auto) 78.1 H, Lymph % (Auto) 9.6 L, Gilchrist % (Auto) 7.9, Eos % (Auto) 2.8, Baso % (Auto) 0.9, Absolute Neuts (auto) 4.5, Absolute Lymphs (auto) 0.56 L, Nucleated RBC % 0, Sodium 137, Potassium 6.7 H*, Chloride 96 L, Carbon Dioxide 20.2 L, Anion Gap 21 H, BUN 108 H*, Creatinine 11.80 H*, Estim Creat Clear Calc 12.57 L, Est GFR (MDRD) Non-Af 5 L, B UN/Creatinine Ratio 9.2 L, Glucose 150 H, Calcium 9.4 Radiography Diagnostic Testing: Radiology Impression Chest X-Ray 01/10/25 10:50 IMPRESSION: 1. Limited hypoinflated exam. Findings suggestive of possible hypovolemia. No overt pulmonary edema. 2. Question hilar/mediastinal lymphadenopathy versus enlargement of the pulmonary arteries. Recommend outpatient CT chest, ideally with IV contrast. 3. Additional description as above. Reading Location: [facility] Rhythm Strip Rhythm Strip: Sinus Rhythm Rate: 66 Ectopy: None Assessment & Plan Assessment/Plan PLAN: Plan Laboratory Results 01/10/25 10:43: WBC 5.8, RBC 3.53 L, Hgb 10.0 L, Hct 29.9 L, MCV 84.7, MCH 28.3, MCHC 33.4, RDW Std Deviation 48.8 H, RDW Coeff of Juli 15.8 H, Plt Count 149 L, MPV 11.2, Immature Gran % (Auto) 0.700, Neut % (Auto) 78.1 H, Lymph % (Auto) 9.6 L, Gilchrist % (Auto) 7.9, Eos % (Auto) 2.8, Baso % (Auto) 0.9, Absolute Neuts (auto) 4.5, Absolute Lymphs (auto) 0.56 L, Nucleated RBC % 0, Sodium 137, Potassium 6.7 H*, Chloride 96 L, Carbon Dioxide 20.2 L, Anion Gap 21 H, BUN 108 H*, Creatinine 11.80 H*, Estim Creat Clear Calc 12.57 L, Est GFR (MDRD) Non-Af 5 L, B UN/Creatinine Ratio 9.2 L, Glucose 150 H, Calcium 9.4 Clinical Impression(s) from Imaging Studies Chest X-Ray 01/10/25 10:50
[2025-01-10] MEDS: Insulin Lispro 10 UNIT in Syringe 0 ML 6 UNIT IV (12:03)
[2025-01-10] MEDS: Calcium Gluconate IV 3 GM in Syringe 1 EACH IV (12:03)
--- NOTE | 2025-01-10 12:25 | PCM.HP.STD ---
HPI - General General Date of Admission: 01/10/25 Date of Service: 01/10/25 Chief Complaint: Diarrhea for 4-5 days. missed hemodialysis 2 sessions, feeling generalized weakness. HPI Narrative DARREN FERNANDO, is a 44 M with multiple comorbidities came to ED for feeling generalized weak, stated that his legs gave out while he tried to stand up from the car and fell back in the seat. This started about 4 to 5 days ago he started having diarrhea which was liquid every 1-2 hours, more than 10 times per day. For last 2 to 3 days it is more soft without any blood or mucus. He said his mom had flu for 1 week probably he was exposed to that. He is on hemodialysis M, W, F and S and his last dialysis was Tuesday therefore he missed Tuesday and Tuesday. In ED, his blood pressure was very high, 202/93, heart rate 68 for blood. No hypoxia or tachypnea. Denies fever or chills or chest pain or shortness of breath. He said that his blood pressure was very high but then gets normal after dialysis. Labs reviewed in the ED, significant for hyperkalemia and had cocktail with calcium gluconate given in the ED. Patient is going to have dialysis soon. [facility] Medical History Cardiac arrest Left atrial dilation GERD (gastroesophageal reflux disease) SOB (shortness of breath) Hypercholesterolemia History of diabetes mellitus Dialysis patient History of end stage renal disease Diabetes Kidney stones Dialysis patient Kidney disease Non-smoker On home oxygen therapy Surgically constructed arteriovenous fistula Skin ulcer of abdominal wall with fat layer exposed End stage renal disease on dialysis History of abdominal abscess Nonhealing surgical wound CKD (chronic kidney disease) Neuropathy CKD (chronic kidney disease) stage 3, GFR 30-59 ml/min HTN (hypertension) Home Medications ?Medication ?Instructions ?Recorded ?Last Taken ?Type carvedilol 25 mg tablet 50 mg PO BID blood pressure 08/06/24 01/09/25 History hydralazine 50 mg tablet 50 mg PO TID blood pressure 08/06/24 01/09/25 History amlodipine 5 mg tablet 5 mg PO QDAY 09/24/24 01/09/25 History cholecalciferol (vitamin D3) 1,250 1,250 mcg PO MOWEFR 09/24/24 Unknown History mcg (50,000 unit) capsule cyclobenzaprine 5 mg tablet 5 mg PO TID PRN muscle spasm 09/24/24 Unknown History torsemide 100 mg tablet 100 mg PO QAM 09/24/24 01/09/25 History valsartan 40 mg tablet 40 mg PO DAILY 09/24/24 01/09/25 History calcium acetate(phosphat bind) 667 2,668 mg PO TID 01/10/25 Unknown History mg capsule insulin glargine 100 unit/mL (3 25 unit subcut QHS 01/10/25 01/09/25 History mL) subcutaneous pen Allergy/AdvReac Type Severity Reaction Status Date / Time sitagliptin (From ) AdvReac Upset Verified 01/10/25 10:05 Stomach Family History Mother Hypertension Father Diabetes Thyroid disorder Grandmother Cancer Surgical History [place] teeth removed History of tonsillectomy History of hernia repair History of esophagogastroduodenoscopy (EGD) History of colonoscopy Social History household members: family and other housing: house current occupational status: employed Smoking Status: Never smoker ROS ROS Narrative Constitutional: Reports acute onset of fatigue and weakness. No fever. HEENT: Reports systems reviewed and no addt'l complaints, except as documented Respiratory/Chest: No acute shortness of breath or respiratory distress or wheezing. Denies flulike symptoms. CVS: No chest pain or shortness of breath. Gastrointestinal: Denies coffee ground emesis, hematemesis or vomiting. Diarrhea getting better as mentioned and HPI. Genitourinary: On hemodialysis. Denies burning urination or new urinary tract symptoms Musculoskeletal: Denies acute joint pain or limited range of motion. No acute injury Neurologic: Denies seizure-like symptoms. skin: Chronic papular nodular lesions in the back for 2 to 3 years Endocrinology: Reports systems reviewed and no addt'l complaints, except as documented Hematologic/Lymphatic: Reports systems reviewed and no addt'l complaints, except as documented Rest 14 ROS are negative except as mentioned in HPI Vital Signs Vital Signs Vital Signs: 01/10/25 10:05 01/10/25 12:00 01/10/25 12:05 Temperature 97.8 F Temperature Source Temporal Pulse Rate 68 67 64 Respiratory Rate 18 16 16 Respiratory Pattern Normal Blood Pressure 202/93 H 195/97 H Blood Pressure Mean 129 129 Pulse Ox 100 98 Oxygen Delivery Method Room Air Room Air 01/10/25 12:08 Temperature 98.7 F Temperature Source Pulse Rate 64 Respiratory Rate 16 Respiratory Pattern Blood Pressure 195/97 H Blood Pressure Mean 129 Pulse Ox 98 Oxygen Delivery Method Weight Weight: 332 lb 11.2 oz Body Mass Index (BMI) 40.5 Physical Exam Narrative General: Alert, Oriented x3, Cooperative HEENT: Atraumatic, PERRLA, EOMI, Normocephalic Oral: Oral mucosa very dry. No Gingival or Mucosal Lesions/ Ulcerations Neck: Supple, No JVD, Negative Carotid Bruits Chest wall/Lungs: Significant kyphosis. Air entry diminished in bilateral lung bases. No crepitation/rhonchi Cardiovascular: Regular rate, Regular Rhythm, Normal S1, Normal S2, No M/G/R Abdomen: Bowel Sounds Present, Soft, Non Tender, Non-Distended : No dysuria. No renal angle tenderness. No suprapubic tenderness. Extremities: Right arm AV fistula. No edema, Capillary Refill Less than 3 Seconds Skin: Chronic papular and nodular lesions on the back Musculoskeletal: No Tenderness to Palpation of Joints or Extremities Neurological: Cranial nerves II-XII grossly intact, DTR 2+/4. No acute focal neurological deficit. Psych/Mental Status: Flat affect Results Lab / Micro Data 01/10/25 10:43 01/10/25 10:43 Labs: Laboratory Results - last 24 hr 01/10/25 10:43: WBC 5.8, RBC 3.53 L, Hgb 10.0 L, Hct 29.9 L, MCV 84.7, MCH 28.3, MCHC 33.4, RDW Std Deviation 48.8 H, RDW Coeff of Juli 15.8 H, Plt Count 149 L, MPV 11.2, Immature Gran % (Auto) 0.700, Neut % (Auto) 78.1 H, Lymph % (Auto) 9.6 L, [place] % (Auto) 7.9, Eos % (Auto) 2.8, Baso % (Auto) 0.9, Absolute Neuts (auto) 4.5, Absolute Lymphs (auto) 0.56 L, Nucleated RBC % 0, Sodium 137, Potassium 6.7 H*, Chloride 96 L, Carbon Dioxide 20.2 L, Anion Gap 21 H, BUN 108 H*, Creatinine 11.80 H*, Estim Creat Clear Calc 12.57 L, Est GFR (MDRD) Non-Af 5 L, BUN/Creatinine Ratio 9.2 L, Glucose 150 H, Calcium 9.4 Micro: Microbiology 01/10/25 10:43 Mucosa - Nose SARS-CoV-2, Influenza & RSV (PCR) - Final Rhythm Strip Rhythm Strip: Sinus Rhythm Rate: 66 Ectopy: None Imaging Radiology Impression Chest X-Ray 01/10/25 10:50 IMPRESSION: 1. Limited hypoinflated exam. Findings suggestive of possible hypovolemia. No overt pulmonary edema. 2. Question hilar/mediastinal lymphadenopathy versus enlargement of the pulmonary arteries. Recommend outpatient CT chest, ideally with IV contrast. 3. Additional description as above. Reading Location: [facility] Assessment & Plan Assessment/Plan (1) Acute hyperkalemia: (2) Diarrhea: (3) Chronic acquired lymphedema: PLAN: Plan This 44-year-old gentleman being admitted for missing hemodialysis, hypertensive urgency and hyperkalemia with increased anion gap metabolic acidosis. 1. Acute hyperkalemia and high anion gap metabolic acidosis due to missed hemodialysis, ESRD on hemodialysis, , , and Tuesday: Patient is being admitted in PCU. Serum potassium 6.7, BUN 108, creatinine 1.8, anion gap 21. Bicarb 20. Patient had hyperkalemia cocktail given in ED. Twelve-lead EKG reviewed, individually reviewed and shows NSR 66 bpm, QTc 492 ms, LVH, LAD with slightly prolonged QT interval. No change from the previous EKG of August 2024. 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 Repeat potassium after hemodialysis. Chest x-ray shows central vascular prominence and fullness of bilateral ana. Hypoinflation with vascular crowding. No focal consolidation or pleural effusion. 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 Locally, he follows Dr. Ardon 2. Acute onset of fatigue/muscle weakness probably due to missed hemodialysis, hyperkalemia and recovering from diarrhea: PT and OT ordered 3. Recovering diarrhea probably viral: Patient had diarrhea which is getting better now softer stool for 2 to 3 days with no blood or mucus. Therefore, enteric pathogen panel and C. difficile discontinued. Patient denied any recent antibiotic intake. Triple PCR for SARS-CoV-2, flu and RSV are negative 4. Hypertensive urgency: Systolic blood pressure was in 200. Hydralazine 10 mg IV every 4 hourly as needed ordered for SBP more than 180 mmHg. Home antihypertensive medications resumed. Patient on amlodipine, carvedilol, hydralazine, torsemide and valsartan 5. Anemia of CKD/ESRD: H&H 10/30%. Platelet count 100 49K, mild thrombocytopenia. Monitor CBC Recent admission in August 2024 for unresponsiveness and cardiac arrest related to hypotension: In August 2024 while patient having hemodialysis outside he became lightheaded, hypotensive and lost pulse and CPR was started. ROSC was obtained at that time. DVT prophylaxis, high risk: Heparin 5000 subcutaneous twice daily Living will/advanced directive/end of life care: Patient does not have living will or advanced directive. After discussion of benefits/risks procedures involved with full code, DNR CC arrest and DNR CC, the patient opted for full code. Patient does want artificial life support including intubation, tube feed, ventilator and/chest compression, central venous catheter, vasopressor and DC shock if needed Total time spent in [id number] encounter in discussion of advanced directive 17 minutes. Microbiology Past 72 Hours 01/10/25 10:43 Mucosa - Nose SARS-CoV-2, Influenza & RSV (PCR) - Final Laboratory Results 01/10/25 10:43: WBC 5.8, RBC 3.53 L, Hgb 10.0 L, Hct 29.9 L, MCV 84.7, MCH 28.3, MCHC 33.4, RDW Std Deviation 48.8 H, RDW Coeff of Juli 15.8 H, Plt Count 149 L, MPV 11.2, Immature Gran % (Auto) 0.700, Neut % (Auto) 78.1 H, Lymph % (Auto) 9.6 L, [place] % (Auto) 7.9, Eos % (Auto) 2.8, Baso % (Auto) 0.9, Absolute Neuts (auto) 4.5, Absolute Lymphs (auto) 0.56 L, Nucleated RBC % 0, Sodium 137, Potassium 6.7 H*, Chloride 96 L, Carbon Dioxide 20.2 L, Anion Gap 21 H, BUN 108 H*, Creatinine 11.80 H*, Estim Creat Clear Calc 12.57 L, Est GFR (MDRD) Non-Af 5 L, BUN/Creatinine Ratio 9.2 L, Glucose 150 H, Calcium 9.4 Clinical Impression(s) from Imaging Studies Chest X-Ray 01/10/25 10:50 IMPRESSION: 1. Limited hypoinflated exam. Findings suggestive of possible hypovolemia. No overt pulmonary edema. 2. Question hilar/mediastinal lymphadenopathy versus enlargement of the pulmonary arteries. Recommend outpatient CT chest, ideally with IV contrast. 3. Additional description as above. Charges/Coding Visit Charges Inpatient E&M: 45134 Init Hosp L3 Procedures Hospitalists Procedures: 09345 Advncd Care Plan 30 Min
[2025-01-10 13:33] LABS: Magnesium 2.3 mg/dL (1.5-2.2)
[2025-01-10] MEDS: 0.9% Normal Saline 1,000 ML IV.SOLN. 1000 ML OPERA.SITE (13:52)
[2025-01-10] MEDS: PureFlow B 2K Dialysis Soln 1 BAG 6 BAG PF (13:52)
--- NOTE | 2025-01-10 15:26 | PCM.CONS.R ---
Assessment & Plan Assessment/Plan (1) End stage chronic kidney disease: PLAN: On hemodialysis, 4 times a week. Last dialysis was Tuesday. Could not go to dialysis due to weakness. Severe watery diarrhea, nonbloody. Mother had influenza A. Currently breathing looks acceptable. Potassium is high at 6.7. Will plan for dialysis today. Likely repeat dialysis tomorrow. HPI Consult Data Date of Consult: 01/10/25 HPI Narrative Reason for Consultation: esrd HPI Narrative: DARRNE FERNANDO, is a 44 M who presents To the hospital with generalized weakness. Nephrology on consultation in view of ESRD. ESRD on hemodialysis, 4 times a week. He gets dialysis Tuesday, Tuesday, Tuesday, Tuesday. Complaining of diarrhea since last week. Loose bowel movement, nonbloody. His mother had influenza A recently. Low-grade fevers. No abdominal pain. Has a fistula for access. [facility] Medical History Cardiac arrest Left atrial dilation GERD (gastroesophageal reflux disease) SOB (shortness of breath) Hypercholesterolemia History of diabetes mellitus Dialysis patient History of end stage renal disease Diabetes Kidney stones Dialysis patient Kidney disease Non-smoker On home oxygen therapy Surgically constructed arteriovenous fistula Skin ulcer of abdominal wall with fat layer exposed End stage renal disease on dialysis History of abdominal abscess Nonhealing surgical wound CKD (chronic kidney disease) Neuropathy CKD (chronic kidney disease) stage 3, GFR 30-59 ml/min HTN (hypertension) Home Medications ?Medication ?Instructions ?Recorded ?Last Taken ?Type carvedilol 25 mg tablet 50 mg PO BID blood pressure 08/06/24 01/09/25 History hydralazine 50 mg tablet 50 mg PO TID blood pressure 08/06/24 01/09/25 History amlodipine 5 mg tablet 5 mg PO QDAY blood pr 09/24/24 01/09/25 History cholecalciferol (vitamin D3) 1,250 1,250 mcg PO MOWEFR Supplement 09/24/24 Unknown History mcg (50,000 unit) capsule cyclobenzaprine 5 mg tablet 5 mg PO TID PRN muscle spasm 09/24/24 Unknown History torsemide 100 mg tablet 100 mg PO QAM water pill 09/24/24 01/09/25 History valsartan 40 mg tablet 40 mg PO DAILY BP 09/24/24 01/09/25 History calcium acetate(phosphat bind) 667 2,668 mg PO TID dialysis 01/10/25 Unknown History mg capsule insulin glargine 100 unit/mL (3 25 unit subcut QHS Diabetes 01/10/25 01/09/25 History mL) subcutaneous pen Allergy/AdvReac Type Severity Reaction Status Date / Time sitagliptin (From Januvia) AdvReac Upset Verified 01/10/25 10:05 Stomach Family History Mother Hypertension Father Diabetes Thyroid disorder Grandmother Cancer Surgical History [place] teeth removed History of tonsillectomy History of hernia repair History of esophagogastroduodenoscopy (EGD) History of colonoscopy Social History (Updated 01/10/25 @ 13:23 by Tri Patel) household members: family and other housing: house current occupational status: employed Smoking Status: Never smoker ROS ROS Narrative negative except above Physical Exam Narrative Alert awake oriented x 3 no obvious distress no pallor no icterus no JVD s1s2 no murmurs lungs clear abdomen soft no organomegaly Lab / Micro Data 01/10/25 10:43 01/10/25 10:43 Labs: Laboratory Results - last 24 hr 01/10/25 10:43: WBC 5.8, RBC 3.53 L, Hgb 10.0 L, Hct 29.9 L, MCV 84.7, MCH 28.3, MCHC 33.4, RDW Std Deviation 48.8 H, RDW Coeff of Juli 15.8 H, Plt Count 149 L, MPV 11.2, Immature Gran % (Auto) 0.700, Neut % (Auto) 78.1 H, Lymph % (Auto) 9.6 L, [place] % (Auto) 7.9, Eos % (Auto) 2.8, Baso % (Auto) 0.9, Absolute Neuts (auto) 4.5, Absolute Lymphs (auto) 0.56 L, Nucleated RBC % 0, Sodium 137, Potassium 6.7 H*, Chloride 96 L, Carbon Dioxide 20.2 L, Anion Gap 21 H, BUN 108 H*, Creatinine 11.80 H*, Estim Creat Clear Calc 12.57 L, Est GFR (MDRD) Non-Af 5 L, BUN/Creatinine Ratio 9.2 L, Glucose 150 H, Calcium 9.4, Magnesium 2.3 H Micro: Microbiology 01/10/25 10:43 Mucosa - Nose SARS-CoV-2, Influenza & RSV (PCR) - Final Rhythm Strip Rhythm Strip: Sinus Rhythm Rate: 66 Ectopy: None Imaging Radiology Impression Chest X-Ray 01/10/25 10:50 IMPRESSION: 1. Limited hypoinflated exam. Findings suggestive of possible hypovolemia. No overt pulmonary edema. 2. Question hilar/mediastinal lymphadenopathy versus enlargement of the pulmonary arteries. Recommend outpatient CT chest, ideally with IV contrast. 3. Additional description as above. Reading Location: [id number]
[2025-01-10 19:18] LABS: Potassium 5.1 mmol/L (3.3-5.1)
[2025-01-10] MEDS: hydrALAZINE 50 MG Tablet PO (20:54)
[2025-01-10] MEDS: Carvedilol 25 MG Tablet 50 MG PO (20:54)
[2025-01-10] MEDS: Heparin Injection (Vial) 5,000 UNIT/ML VIAL 5000 UNIT SC (20:55)
[2025-01-10] MEDS: Insulin Glargine-YFGN 100 UNIT/ML Pen 25 UNIT SC (21:01)
[2025-01-10 21:14] LABS: Bedside Glucose 164 mg/dL (74-106)
[2025-01-10] MEDS: Acetaminophen 325 MG Tablet 650 MG PO (23:25)
[2025-01-11] VITALS (15 sets, daily range): BP systolic 145–292; BP diastolic 60–98; PULSE 64–86; RESP 14–18; TEMP 36.7–37.2; O2SAT 96–100; BMI 40.7
[2025-01-11] MEDS: cycloBENZAPRine HCl 5 MG TABLET PO (02:01)
[2025-01-11 05:45] LABS: Absolute Lymphocyte Count 0.59 X10^3/uL (0.83-4.51); Absolute Neutrophil Count 3.6 X10^3/uL (2.0-7.7); Basophil# 0.06 X10^3/uL; Basophil% 1.2 % (0-1); Eosinophil# 0.18 X10^3/uL; Eosinophils% 3.7 % (0-5); Hematocrit 26.7 % (40-54); Lymphocyte # 0.59 X10^3/ul (0.83-4.51); Mean Corp Hgb Conc 33.7 g/dL (32-36); Mean Corpuscular Hgb 28.2 pg (27.0-32.0); Mean Corpuscular Volume 83.7 fL (80-94); Mean Platelet Vol. 11.3 fl (6.2-12.0); Monocyte# 0.46 X10^3/uL; Monocyte% 9.4 % (0-10); NRBC Flagged by Analyzer 0 % (0-5); Neutrophil # 3.59 X10^3/uL (2.7-7.7); Neutrophil % 73.1 % (47-70); POSITIVE DIFFERENTIAL YES; Platelet Count 134 K/mm3 (150-450); RBC Distribution Width CV 15.8 % (11.6-14.6); RBC Distribution Width SD 47.8 fl (35.1-43.9); Red Blood Count 3.19 M/mm3 (4.6-6.2); White Blood Count 4.9 K/mm3 (4.4-11.0)
[2025-01-11] MEDS: hydrALAZINE 50 MG Tablet PO (06:20)
[2025-01-11 06:32] LABS: Anion Gap 17 (5-15); BUN 83 mg/dL (4-19); BUN/Creat Ratio 9.1 RATIO (10-20); Calcium,Total 8.9 mg/dL (7.6-11.0); Carbon Dioxide 22.9 mmol/L (21.0-32.0); Chloride 99 mmol/L (98-108); Creatinine, Serum 9.14 mg/dL (0.70-1.20); EST Glomerular Filtration Rate 7 (>60); Estimated Creatinine Clearance 16.28 ml/min (50-250); Glucose 119 mg/dL (70-99); Potassium 5.3 mmol/L (3.3-5.1); Sodium Level 138 mmol/L (133-145)
[2025-01-11 07:18] LABS: Bedside Glucose 111 mg/dL (74-106)
[2025-01-11] MEDS: amLODIPine 5 MG Tablet PO (08:59)
[2025-01-11] MEDS: Calcium Acetate 667 MG Capsule 2668 MG PO ×3 (08:59→16:33)
[2025-01-11] MEDS: Losartan Potassium 25 MG Tablet PO (08:59)
[2025-01-11] MEDS: Carvedilol 25 MG Tablet 50 MG PO (08:59)
[2025-01-11] MEDS: Torsemide 100 MG Tablet PO (09:00)
--- NOTE | 2025-01-11 09:44 | PCM.PN.HOSP ---
Reason for Visit Reason for Visit: Diagnoses Hyperkalemia (01/10/25) Lymphedema, not elsewhere classified (01/10/25) End stage renal disease (01/10/25) Diarrhea, unspecified (01/10/25) Objective Data Objective Data Vital Signs: Vital Signs Temp Pulse Resp BP Pulse Ox O2 Del Method 98.7 F 64 14 164/87 H 100 Room Air 01/11/25 08:57 01/11/25 08:57 01/11/25 08:57 01/11/25 08:57 01/11/25 08:57 01/11/25 08:57 Oxygen Delivery Method Room Air Weight: 334 lb 7.06 oz Body Mass Index (BMI) 40.7 Intake & Output: Intake and Output for Last 24 Hours 01/09/25 01/10/25 01/11/25 23:59 23:59 23:59 Intake Total 450 / 450 Output Total 4980 / 4980 Balance -4530 / -4530 Lab / Micro Data 01/11/25 05:26 01/11/25 05:26 Labs: Laboratory Results - last 24 hr 01/10/25 10:43: WBC 5.8, RBC 3.53 L, Hgb 10.0 L, Hct 29.9 L, MCV 84.7, MCH 28.3, MCHC 33.4, RDW Std Deviation 48.8 H, RDW Coeff of Juli 15.8 H, Plt Count 149 L, MPV 11.2, Immature Gran % (Auto) 0.700, Neut % (Auto) 78.1 H, Lymph % (Auto) 9.6 L, [place] % (Auto) 7.9, Eos % (Auto) 2.8, Baso % (Auto) 0.9, Absolute Neuts (auto) 4.5, Absolute Lymphs (auto) 0.56 L, Nucleated RBC % 0, Sodium 137, Potassium 6.7 H*, Chloride 96 L, Carbon Dioxide 20.2 L, Anion Gap 21 H, BUN 108 H*, Creatinine 11.80 H*, Estim Creat Clear Calc 12.57 L, Est GFR (MDRD) Non-Af 5 L, BUN/Creatinine Ratio 9.2 L, Glucose 150 H, Calcium 9.4, Magnesium 2.3 H 01/10/25 18:29: Potassium 5.1 01/10/25 20:52: POC Glucose 164 H 01/11/25 05:26: WBC 4.9, RBC 3.19 L, Hgb 9.0 L, Hct 26.7 L, MCV 83.7, MCH 28.2, MCHC 33.7, RDW Std Deviation 47.8 H, RDW Coeff of Juli 15.8 H, Plt Count 134 L, MPV 11.3, Immature Gran % (Auto) 0.600, Neut % (Auto) 73.1 H, Lymph % (Auto) 12.0 L, [place] % (Auto) 9.4, Eos % (Auto) 3.7, Baso % (Auto) 1.2 H, Absolute Neuts (auto) 3.6, Absolute Lymphs (auto) 0.59 L, Nucleated RBC % 0, Sodium 138, Potassium 5.3 H, Chloride 99, Carbon Dioxide 22.9, Anion Gap 17 H, BUN 83 H, Creatinine 9.14 H*, Estim Creat Clear Calc 16.28 L, Est GFR (MDRD) Non-Af 7 L, BUN/Creatinine Ratio 9.1 L, Glucose 119 H, Calcium 8.9 01/11/25 06:19: POC Glucose 111 H Micro: Microbiology 01/10/25 10:43 Mucosa - Nose SARS-CoV-2, Influenza & RSV (PCR) - Final Radiography Diagnostic Testing: Radiology Impression Chest X-Ray 01/10/25 10:50 IMPRESSION: 1. Limited hypoinflated exam. Findings suggestive of possible hypovolemia. No overt pulmonary edema. 2. Question hilar/mediastinal lymphadenopathy versus enlargement of the pulmonary arteries. Recommend outpatient CT chest, ideally with IV contrast. 3. Additional description as above. Reading Location: [facility] Rhythm Strip Rhythm Strip: Sinus Rhythm Rate: 66 Ectopy: None Physical Exam Narrative Seen and examined. Patient had 4 L of fluid removed yesterday and plan for another 4 L of fluid removal today. Blood pressure profile is better, systolic in 150s to 160s. No chest pain or shortness of breath. Diarrhea is resolved. General: Alert, Oriented x3, Cooperative HEENT: Atraumatic, PERRLA, EOMI, Normocephalic Oral: Oral mucosa very dry. No Gingival or Mucosal Lesions/ Ulcerations Neck: Supple, No JVD, Negative Carotid Bruits Chest wall/Lungs: Significant kyphosis. Air entry diminished in bilateral lung bases. No crepitation/rhonchi Cardiovascular: Regular rate, Regular Rhythm, Normal S1, Normal S2, No M/G/R Abdomen: Bowel Sounds Present, Soft, Non Tender, Non-Distended : No dysuria. No renal angle tenderness. No suprapubic tenderness. Extremities: Right arm AV fistula. No edema, Capillary Refill Less than 3 Seconds Skin: Chronic papular and nodular lesions on the back Musculoskeletal: No Tenderness to Palpation of Joints or Extremities Neurological: Cranial nerves II-XII grossly intact, DTR 2+/4. No acute focal neurological deficit. Psych/Mental Status: Flat affect Assessment & Plan Assessment/Plan (1) Acute hyperkalemia: (2) Diarrhea: (3) Chronic acquired lymphedema: PLAN: Plan This 44-year-old gentleman being admitted for missing hemodialysis, hypertensive urgency and hyperkalemia with increased anion gap metabolic acidosis. 1. Acute hyperkalemia and high anion gap metabolic acidosis due to missed hemodialysis, ESRD on hemodialysis, , , and Tuesday: Patient is being admitted in PCU. Serum potassium 6.7, BUN 108, creatinine 1.8, anion gap 21. Bicarb 20. Patient had hyperkalemia cocktail given in ED. Twelve-lead EKG reviewed, individually reviewed and shows NSR 66 bpm, QTc 492 ms, LVH, LAD with slightly prolonged QT interval. No change from the previous EKG of August 2024. 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 Repeat potassium after hemodialysis. Chest x-ray shows central vascular prominence and fullness of bilateral ana. Hypoinflation with vascular crowding. No focal consolidation or pleural effusion. 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 Locally, he follows Dr. Ardon 01/11: Hyperkalemia resolved, K5.3. Getting hemodialysis today with another 4 L of fluid removal. Nephrology note reviewed. 2. Acute onset of fatigue/muscle weakness probably due to missed hemodialysis, hyperkalemia and recovering from diarrhea: PT and OT ordered 3. Recovering diarrhea probably viral: Patient had diarrhea which is getting better now softer stool for 2 to 3 days with no blood or mucus. Therefore, enteric pathogen panel and C. difficile discontinued. Patient denied any recent antibiotic intake. Triple PCR for SARS-CoV-2, flu and RSV are negative 01/11: Diarrhea has resolved. 4. Hypertensive urgency: Systolic blood pressure was in 200. Hydralazine 10 mg IV every 4 hourly as needed ordered for SBP more than 180 mmHg. Home antihypertensive medications resumed. Patient on amlodipine, carvedilol, hydralazine, torsemide and valsartan 01/11: Hydralazine dose increased to 75 mg daily. Isosorbide mononitrate 25 mg daily added. Rest of her medications to continue. 5. Anemia of CKD/ESRD: H&H 10/30%. Platelet count 149K, mild thrombocytopenia. Monitor CBC 01/11: H&H 9.0/26%. Platelet count 134,000. Recent admission in August 2024 for unresponsiveness and cardiac arrest related to hypotension: In August 2024 while patient having hemodialysis outside he became lightheaded, hypotensive and lost pulse and CPR was started. ROSC was obtained at that time. DVT prophylaxis, high risk of thrombosis/DVT: Heparin 5000 subcutaneous twice daily Living will/advanced directive/end of life care: Patient does not have living will or advanced directive. After discussion of benefits/risks procedures involved with full code, DNR CC arrest and DNR CC, the patient opted for full code. Patient does want artificial life support including intubation, tube feed, ventilator and/chest compression, central venous catheter, vasopressor and DC shock if needed Total time spent in [id number] encounter in discussion of advanced directive 17 minutes. Microbiology Past 72 Hours 01/10/25 10:43 Mucosa - Nose SARS-CoV-2, Influenza & RSV (PCR) - Final Laboratory Results 01/10/25 18:29: Potassium 5.1 01/10/25 20:52: POC Glucose 164 H 01/11/25 05:26: WBC 4.9, RBC 3.19 L, Hgb 9.0 L, Hct 26.7 L, MCV 83.7, MCH 28.2, MCHC 33.7, RDW Std Deviation 47.8 H, RDW Coeff of Juli 15.8 H, Plt Count 134 L, MPV 11.3, Immature Gran % (Auto) 0.600, Neut % (Auto) 73.1 H, Lymph % (Auto) 12.0 L, [place] % (Auto) 9.4, Eos % (Auto) 3.7, Baso % (Auto) 1.2 H, Absolute Neuts (auto) 3.6, Absolute Lymphs (auto) 0.59 L, Nucleated RBC % 0, Sodium 138, Potassium 5.3 H, Chloride 99, Carbon Dioxide 22.9, Anion Gap 17 H, BUN 83 H, Creatinine 9.14 H*, Estim Creat Clear Calc 16.28 L, Est GFR (MDRD) Non-Af 7 L, BUN/Creatinine Ratio 9.1 L, Glucose 119 H, Calcium 8.9 01/11/25 06:19: POC Glucose 111 H 01/11/25 11:24: POC Glucose 166 H 4 Clinical Impression(s) from Imaging Studies Chest X-Ray 01/10/25 10:50 IMPRESSION: 1. Limited hypoinflated exam. Findings suggestive of possible hypovolemia. No overt pulmonary edema. 2. Question hilar/mediastinal lymphadenopathy versus enlargement of the pulmonary arteries. Recommend outpatient CT chest, ideally with IV contrast. 3. Additional description as above. Charges/Coding Visit Charges Inpatient E&M: 93228 Subs Hosp L2
[2025-01-11] MEDS: Heparin Injection (Vial) 5,000 UNIT/ML VIAL 5000 UNIT SC (11:33)
[2025-01-11] MEDS: Insulin Lispro 100 UNIT/ML INSULN.PEN SC ×2 (11:37→16:43)
[2025-01-11 12:18] LABS: Bedside Glucose 166 mg/dL (74-106)
--- NOTE | 2025-01-11 13:18 | PN.RENAL_ITS ---
Subjective Subjective Diarrhea is resolved. Weakness better. Able to get about 5 L out yesterday. Objective Data Objective Data Vital Signs: Vital Signs Temp Pulse Resp BP Pulse Ox O2 Del Method 98.1 F 64 14 174/89 H 98 Room Air 01/11/25 12:20 01/11/25 12:20 01/11/25 12:20 01/11/25 12:30 01/11/25 12:20 01/11/25 12:20 Oxygen Delivery Method Room Air Weight: 151.7 kg Body Mass Index (BMI) 40.7 Intake & Output: Intake and Output for Last 24 Hours 01/09/25 01/10/25 01/11/25 23:59 23:59 23:59 Intake Total 450 / 450 450 / 450 Output Total 4980 / 4980 Balance -4530 / -4530 450 / 450 Lab / Micro Data 01/11/25 05:26 01/11/25 05:26 Labs: Laboratory Results - last 24 hr 01/10/25 10:43: Magnesium 2.3 H 01/10/25 18:29: Potassium 5.1 01/10/25 20:52: POC Glucose 164 H 01/11/25 05:26: WBC 4.9, RBC 3.19 L, Hgb 9.0 L, Hct 26.7 L, MCV 83.7, MCH 28.2, MCHC 33.7, RDW Std Deviation 47.8 H, RDW Coeff of Juli 15.8 H, Plt Count 134 L, MPV 11.3, Immature Gran % (Auto) 0.600, Neut % (Auto) 73.1 H, Lymph % (Auto) 12.0 L, [place] % (Auto) 9.4, Eos % (Auto) 3.7, Baso % (Auto) 1.2 H, Absolute Neuts (auto) 3.6, Absolute Lymphs (auto) 0.59 L, Nucleated RBC % 0, Sodium 138, P otassium 5.3 H, Chloride 99, Carbon Dioxide 22.9, Anion Gap 17 H, BUN 83 H, C reatinine 9.14 H*, Estim Creat Clear Calc 16.28 L, Est GFR (MDRD) Non-Af 7 L, B UN/Creatinine Ratio 9.1 L, Glucose 119 H, Calcium 8.9 01/11/25 06:19: POC Glucose 111 H 01/11/25 11:24: POC Glucose 166 H Micro: Microbiology 01/10/25 10:43 Mucosa - Nose SARS-CoV-2, Influenza & RSV (PCR) - Final Rhythm Strip Rhythm Strip: Sinus Rhythm Rate: 66 Ectopy: None Physical Exam Narrative Alert awake oriented x 3 no obvious distress no pallor no icterus no JVD s1s2 no murmurs lungs clear abdomen soft no organomegaly Assessment & Plan Assessment/Plan (1) End stage chronic kidney disease: PLAN: On hemodialysis, 4 times a week. Seen on dialysis today. Will plan for another 4 L of fluid removal today. If he gets discharged end of today or early tomorrow, he can go to his usual dialysis treatment tomorrow. Hyperkalemia. Potassium is better. Should improve further with dialysis today Volume overload. Slowly getting better. Blood pressure is better than before. Continue 4 times a week dialysis as outpatient
--- NOTE | 2025-01-11 15:07 | CASEMGMT ---
OLIIVA TANG Assessment: Face to Face with pt for initial transition planning/care coordination assessment. RN CLYDE introduced self and role at [facility], pt voices understanding and consents to assessment. Pt is A&O x4 and answers all questions appropriately at this time. Care providers, pharmacy, and demographics verified/updated. Strata: 3 Admitting Dx: Diarrhea PCP: Eddei Specialists: [facility] Preferred [facility]acy[facility] Insurance: [employer] Prescription Benefit: yes LNOK: Daniel Nieto Living Arrangements: Pt lives with mom in a multilevel home with 4 steps to enter. ADLs: Pt is I at baseline with ADLs and IADLs. Transportation: Pt drives self and denies concerns with transportation. DME: [employer] and supplies HHC/SNF: Previously at [facility] Pt states no concerns with going home at time of dc. Pt states no further concerns/needs. CM to follow. Advised pt to ask CM if any further question/concerns/needs arise, voices understanding. Pt Goal: Home Plan: Home with dialysis and family support. Lisa BAKER CM
--- NOTE | 2025-01-11 15:13 | PCM.DC ---
Discharge Instructions Diet Discharge Diet: Low fat / Low cholesterol, 1800 Calorie Control Diet and 2000 mg Sodium Diet DC O2, CPAP, BIPAP needs Home O2 Discharge instructions: No Dressing / Incision Discharge Activity: Return to Normal Activity Weight Bearing Status: Weight bearing as tolerated Dressing / Incision Call your doctor if you observe: Fever of 101 or Higher, Coldness, Increased Pain, Numbness or Tingling, Change in Color, Inability to urinate, Inability to have a bowel movement, Shortness of breath, Dizziness, Fainting spells, Swelling in the ankles, Chest pain, Prolonged hiccupping, Increased palpitations (irregular heartbeat) and Calf discomfort Follow Up Care When: IN 2 WEEKS Test Results: Test results from this visit will be discussed in further detail at your follow-up appointment, if applicable. Discharge Plan Admission Admit Date/Time: 01/10/25 11:56 Primary Reason for Your Visit: Missed hemodialysis, hyperkalemia, hypertensive urgency Attending Provider: King Rodriguez Primary Care Provider: Mana Morgan DIRECT RESPONSE CONSULTANT Consulting Providers: Lamont Ardon Instructions Additional Instructions / Restrictions: Patient was advised to go tomorrow on 01/12/2025 for dialysis. Discharge Orders/Prescriptions Prescriptions: New isosorbide mononitrate 30 mg Tablet Extended Release 24 Hr 30 mg PO DAILY 30 Days Qty: 30 0RF Rx Instructions: Hold for SBP less than 130 mmHg hydralazine 100 mg tablet 100 mg PO TID 30 Days Qty: 90 2RF Rx Instructions: Hold for SBP less than 130 mmHg amlodipine 10 mg tablet 10 mg PO DAILY 30 Days Qty: 30 2RF Rx Instructions: Hold for SBP less than 130 mmHg Continued torsemide 100 mg tablet 100 mg PO QAM valsartan 40 mg tablet 40 mg PO DAILY cholecalciferol (vitamin D3) 1,250 mcg (50,000 unit) capsule 1,250 mcg PO MOWEFR cyclobenzaprine 5 mg tablet 5 mg PO TID PRN (Reason: muscle spasm) carvedilol 25 mg tablet 50 mg PO BID insulin glargine 100 unit/mL (3 mL) insulin pen 25 unit subcut QHS calcium acetate(phosphat bind) 667 mg capsule 2,668 mg PO TID Patient Comments: PT STATES HE TAKES 4 CAPSULES WITH MEALS Discontinued amlodipine 5 mg tablet 5 mg PO QDAY hydralazine 50 mg tablet 50 mg PO TID Referrals / Follow Up: Lamont Ardon MD [Med Staff - Consulting] - Within 1 Month Mana Morgan NP, DIRECT RESPONSE CONSULTANT-C [Primary Care Provider] - Disposition Disposition (needs filled in before D/C Order can be placed): Home, Self Care
--- NOTE | 2025-01-11 15:16 | CASEMGMT ---
OLIVIA TANG notified hospitalist pt has dialysis scheduled at 8:45 tomorrow morning, hospitalist will DC pt today. OLIVIA TANG into pt room, informed pt he will be DC'd today and instructed to go to dialysis appointment tomorrow. Pt states understanding. OLIVIA TANG asked pt if he would like this OLIVIA TANG to call [facility] to notify pt will be at appointment tomorrow. Pt denies and states he will call them now. Denies further questions or concerns at this time.
--- NOTE | 2025-01-11 15:21 | PCM.DC.SUM ---
Providers Date of Admission: 01/10/25 Date of Discharge: 01/11/25 Primary Care Physician: Mana Morgan, EDMUNDO Consultations 01/10/25 12:36 Consult: Nephrology Routine Consulting Provider: Lamont Ardon Reason for Consult: URGENT Dialysis EMERGENT Consult: No MD Notified: Yes Date Notified: 01/10/25 Time Notified: 12:36 Method of Notification: Verbal Reason For Visit: DIARRHEA Diagnosis Discharge Diagnosis (1) Acute hyperkalemia: Status: Acute Code(s): E87.5 - Hyperkalemia (2) Diarrhea: Status: Acute Code(s): R19.7 - Diarrhea, unspecified (3) Chronic acquired lymphedema: Status: Chronic Code(s): I89.0 - Lymphedema, not elsewhere classified Plan This 44-year-old gentleman being admitted for missing hemodialysis, hypertensive urgency and hyperkalemia with increased anion gap metabolic acidosis. 1. Acute hyperkalemia and high anion gap metabolic acidosis due to missed hemodialysis, ESRD on hemodialysis, , , and Tuesday: Patient is being admitted in PCU. Serum potassium 6.7, BUN 108, creatinine 1.8, anion gap 21. Bicarb 20. Patient had hyperkalemia cocktail given in ED. Twelve-lead EKG reviewed, individually reviewed and shows NSR 66 bpm, QTc 492 ms, LVH, LAD with slightly prolonged QT interval. No change from the previous EKG of August 2024. Discussed with the patient leadership program internship Dr. Ardon and he will get dialysis. Repeat potassium after hemodialysis. Chest x-ray shows central vascular prominence and fullness of bilateral ana. Hypoinflation with vascular crowding. No focal consolidation or pleural effusion. He follows [facility] leadership program internship probably is on transplant list for kidney. Locally, he follows Dr. Ardon 01/11: Hyperkalemia resolved, K5.3, repeat potassium 5.1. Getting hemodialysis today with another 4 L of fluid removal. Nephrology note reviewed. Patient is discharged as we do not have inpatient dialysis resource for tomorrow morning therefore advised to go outpatient for dialysis tomorrow on 01/12/2025. 2. Acute onset of fatigue/muscle weakness probably due to missed hemodialysis, hyperkalemia and recovering from diarrhea: PT and OT ordered 3. Recovering diarrhea probably viral: Patient had diarrhea which is getting better now softer stool for 2 to 3 days with no blood or mucus. Therefore, enteric pathogen panel and C. difficile discontinued. Patient denied any recent antibiotic intake. Triple PCR for SARS-CoV-2, flu and RSV are negative 01/11: Diarrhea has resolved. 4. Hypertensive urgency: Systolic blood pressure was in 200. Hydralazine 10 mg IV every 4 hourly as needed ordered for SBP more than 180 mmHg. Home antihypertensive medications resumed. Patient on amlodipine, carvedilol, hydralazine, torsemide and valsartan 01/11: Hydralazine dose increased to 75 mg daily. Isosorbide mononitrate 25 mg daily added. Rest of her medications to continue. 01/12: Hydralazine dose increased to 100 mg daily and amlodipine 10 mg daily. Prescription was given for hydralazine, amlodipine and isosorbide mononitrate. 5. Anemia of CKD/ESRD: H&H 10/30%. Platelet count 149K, mild thrombocytopenia. Monitor CBC 01/11: H&H 9.0/26%. Platelet count 134,000. Recent admission in August 2024 for unresponsiveness and cardiac arrest related to hypotension: In August 2024 while patient having hemodialysis outside he became lightheaded, hypotensive and lost pulse and CPR was started. ROSC was obtained at that time. DVT prophylaxis, high risk of thrombosis/DVT: Heparin 5000 subcutaneous twice daily Living will/advanced directive/end of life care: Patient does not have living will or advanced directive. After discussion of benefits/risks procedures involved with full code, DNR CC arrest and DNR CC, the patient opted for full code. Patient does want artificial life support including intubation, tube feed, ventilator and/chest compression, central venous catheter, vasopressor and DC shock if needed Total time spent in [id number] encounter in discussion of advanced directive 17 minutes. Microbiology Past 72 Hours 01/10/25 10:43 Mucosa - Nose SARS-CoV-2, Influenza & RSV (PCR) - Final Laboratory Results 01/10/25 18:29: Potassium 5.1 01/10/25 20:52: POC Glucose 164 H 01/11/25 05:26: WBC 4.9, RBC 3.19 L, Hgb 9.0 L, Hct 26.7 L, MCV 83.7, MCH 28.2, MCHC 33.7, RDW Std Deviation 47.8 H, RDW Coeff of Juli 15.8 H, Plt Count 134 L, MPV 11.3, Immature Gran % (Auto) 0.600, Neut % (Auto) 73.1 H, Lymph % (Auto) 12.0 L, [place] % (Auto) 9.4, Eos % (Auto) 3.7, Baso % (Auto) 1.2 H, Absolute Neuts (auto) 3.6, Absolute Lymphs (auto) 0.59 L, Nucleated RBC % 0, Sodium 138, Potassium 5.3 H, Chloride 99, Carbon Dioxide 22.9, Anion Gap 17 H, BUN 83 H, Creatinine 9.14 H*, Estim Creat Clear Calc 16.28 L, Est GFR (MDRD) Non-Af 7 L, BUN/Creatinine Ratio 9.1 L, Glucose 119 H, Calcium 8.9 01/11/25 06:19: POC Glucose 111 H 01/11/25 11:24: POC Glucose 166 H 4 Clinical Impression(s) from Imaging Studies Chest X-Ray 01/10/25 10:50 IMPRESSION: 1. Limited hypoinflated exam. Findings suggestive of possible hypovolemia. No overt pulmonary edema. 2. Question hilar/mediastinal lymphadenopathy versus enlargement of the pulmonary arteries. Recommend outpatient CT chest, ideally with IV contrast. 3. Additional description as above. Medications at Discharge Home Medications carvedilol 25 mg tablet 50 mg PO BID blood pressure 08/06/24 cholecalciferol (vitamin D3) 1,250 mcg (50,000 unit) capsule 1,250 mcg PO MOWEFR Supplement 09/24/24 cyclobenzaprine 5 mg tablet 5 mg PO TID PRN muscle spasm 09/24/24 torsemide 100 mg tablet 100 mg PO QAM water pill 09/24/24 valsartan 40 mg tablet 40 mg PO DAILY BP 09/24/24 calcium acetate(phosphat bind) 667 mg capsule 2,668 mg PO TID dialysis 01/10/25 insulin glargine 100 unit/mL (3 mL) subcutaneous pen 25 unit subcut QHS Diabetes 01/10/25 amlodipine 10 mg tablet 10 mg PO DAILY 1 month #30 tabs 01/11/25 hydralazine 100 mg tablet 100 mg PO TID 1 month #90 tabs 01/11/25 isosorbide mononitrate 30 mg tablet,extended release 24 hr 30 mg PO DAILY 30 days #30 tabs 01/11/25 Physical Exam Narrative Please see progress for further detail findings Correction: Patient has bilateral lower extremity lymphedema, chronic. Weight / BMI Weight Weight: 334 lb 7.06 oz Body Mass Index (BMI) 40.7 ABG / Lab / Microbiology Data 01/11/25 05:26 01/11/25 05:26 Laboratory: Laboratory Results - last 24 hr 01/10/25 18:29: Potassium 5.1 01/10/25 20:52: POC Glucose 164 H 01/11/25 05:26: WBC 4.9, RBC 3.19 L, Hgb 9.0 L, Hct 26.7 L, MCV 83.7, MCH 28.2, MCHC 33.7, RDW Std Deviation 47.8 H, RDW Coeff of Juli 15.8 H, Plt Count 134 L, MPV 11.3, Immature Gran % (Auto) 0.600, Neut % (Auto) 73.1 H, Lymph % (Auto) 12.0 L, [place] % (Auto) 9.4, Eos % (Auto) 3.7, Baso % (Auto) 1.2 H, Absolute Neuts (auto) 3.6, Absolute Lymphs (auto) 0.59 L, Nucleated RBC % 0, Sodium 138, Potassium 5.3 H, Chloride 99, Carbon Dioxide 22.9, Anion Gap 17 H, BUN 83 H, Creatinine 9.14 H*, Estim Creat Clear Calc 16.28 L, Est GFR (MDRD) Non-Af 7 L, BUN/Creatinine Ratio 9.1 L, Glucose 119 H, Calcium 8.9 01/11/25 06:19: POC Glucose 111 H 01/11/25 11:24: POC Glucose 166 H Microbiology: Microbiology 01/10/25 10:43 Mucosa - Nose SARS-CoV-2, Influenza & RSV (PCR) - Final D/C Instructions Discharge Diet: Low fat / Low cholesterol, 1800 Calorie Control Diet and 2000 mg Sodium Diet Weight Bearing Status: Weight bearing as tolerated Call your doctor if you observe: Fever of 101 or Higher, Coldness, Increased Pain, Numbness or Tingling, Change in Color, Inability to urinate, Inability to have a bowel movement, Shortness of breath, Dizziness, Fainting spells, Swelling in the ankles, Chest pain, Prolonged hiccupping, Increased palpitations (irregular heartbeat) and Calf discomfort DC O2, CPAP, BIPAP Needs Home O2 Discharge instructions: No When: IN 2 WEEKS Meaningful Use Info Meaningful Use Meaningful Use Diagnoses (Choose all that apply): None applicable Ischemic Stroke Statin Dosing Therapy Reference: STATIN DOSE THERAPY REFERENCE: * Patients > 75 years receive moderate or high dose statin therapy. * Patients 75 years or YOUNGER should receive HIGH intensity statin dose unless contraindicated. You will be required to document reason for non-treatment if statin daily dose does not meet guidelines. HIGH DOSE STATIN THERAPY DAILY Atorvastatin > than or = to 40 mg Rosuvastatin > than or = to 20 mg Amlodipine + Atorvastatin > than or = to 2.5/40 mg Ezetimibe + Simvastatin 10/80 mg Simvastatin 80mg Discharge Plan Admission Admit Date/Time: 01/10/25 11:56 Primary Reason for Your Visit: Missed hemodialysis, hyperkalemia, hypertensive urgency Attending Provider: King Rodriguez Primary Care Provider: Mana Morgan SR COMMUNITY MANAGER Consulting Providers: Lamont Ardon Instructions Additional Instructions / Restrictions: Patient was advised to go tomorrow on 01/12/2025 for dialysis. Discharge Orders/Prescriptions Prescriptions: New isosorbide mononitrate 30 mg Tablet Extended Release 24 Hr 30 mg PO DAILY 30 Days Qty: 30 0RF Rx Instructions: Hold for SBP less than 130 mmHg hydralazine 100 mg tablet 100 mg PO TID 30 Days Qty: 90 2RF Rx Instructions: Hold for SBP less than 130 mmHg amlodipine 10 mg tablet 10 mg PO DAILY 30 Days Qty: 30 2RF Rx Instructions: Hold for SBP less than 130 mmHg Continued torsemide 100 mg tablet 100 mg PO QAM valsartan 40 mg tablet 40 mg PO DAILY cholecalciferol (vitamin D3) 1,250 mcg (50,000 unit) capsule 1,250 mcg PO MOWEFR cyclobenzaprine 5 mg tablet 5 mg PO TID PRN (Reason: muscle spasm) carvedilol 25 mg tablet 50 mg PO BID insulin glargine 100 unit/mL (3 mL) insulin pen 25 unit subcut QHS calcium acetate(phosphat bind) 667 mg capsule 2,668 mg PO TID Patient Comments: PT STATES HE TAKES 4 CAPSULES WITH MEALS Discontinued amlodipine 5 mg tablet 5 mg PO QDAY hydralazine 50 mg tablet 50 mg PO TID Referrals / Follow Up: Lamont Ardon MD [Med Staff - Consulting] - Within 1 Month Mana Morgan NP, SR COMMUNITY MANAGER-C [Primary Care Provider] - Disposition Disposition (needs filled in before D/C Order can be placed): Home, Self Care Charges/Coding Visit Charges Inpatient E&M: 20677 Disch Hosp >30min
[2025-01-11] MEDS: Isosorbide Mononitrate 30 MG Tablet PO (16:25)
[2025-01-11] MEDS: PureFlow B 2K Dialysis Soln 1 BAG 6 BAG PF (16:30)
[2025-01-11] MEDS: 0.9% Normal Saline 1,000 ML IV.SOLN. 1000 ML OPERA.SITE (16:30)
[2025-01-11 17:03] LABS: Bedside Glucose 152 mg/dL (74-106)
== END 2025-01-11 17:10 | disposition home or self-care (01) | DRG 682 ==
LOC: ED 11:38 → PCU 12:03
PROVIDERS: Admitting Provider Internal Medicine; Emergency Provider Emergency Medicine; PCP Registered Nurse; Visit Provider Internal Medicine
DX: I12.0 Hypertensive chronic kidney disease with stage 5 chronic kidney disease or end stage renal disease (principal); N18.6 End stage renal disease; E87.20 Acidosis, unspecified; E11.22 Type 2 diabetes mellitus with diabetic chronic kidney disease; D63.1 Anemia in chronic kidney disease; I16.0 Hypertensive urgency; Z99.2 Dependence on renal dialysis; E87.5 Hyperkalemia; Z79.4 Long term (current) use of insulin; Z79.899 Other long term (current) drug therapy
CPT/HCPCS: 36415; 71046; 80048; 82962; 83735; 84132; 85025; 87631; 90937; 93005; 94640; 99285; A4216; G0257; J0612

== ENCOUNTER 2025-09-23 09:24 | Emergency (ER) | payer OTHER, SELFPAY ==
[2025-09-23 09:24] VITALS: BP 156/87; PULSE 73; RESP 18; TEMP 36.3; O2SAT 96; BMI 38.9
--- NOTE | 2025-09-23 09:42 | CT_ITS ---
PROCEDURE: SINUS/FACIAL BONE WITH CONTRAS 09/23/2025 REASON FOR EXAM: PERIORBITAL CELLULITIS TECHNIQUE: Procedure Code: CTSIW Modality: CT Procedure: SINUS/FACIAL BONE WITH CONTRAS Coronal and Sagittal reconstruction series were provided. CONTRAST: Isovue-300 VOLUME: 100 mL One or more dose reduction techniques were used (e.g., Automated exposure control, adjustment of the mA and/or kV according to patient size, use of iterative reconstruction technique). RADIATION DOSE SUMMARY: CTDlvol: 29.38 mGy DLP: 606.22 mGycm COMPARISON: None FINDINGS: Frontal: Frontal sinuses clear. Ethmoid: Ethmoid sinuses are clear. Sphenoid: Sphenoid sinuses clear. Maxillary: Maxillary sinuses are clear. Turbinates: Prominence of both inferior turbinates. Nasal Septum: Midline Mastoids/Middle Ears: Clear. Mild degree of soft tissue swelling overlying both orbital regions slightly more prominent on the right side. CT/Sinus/Facial Bone WITH Contras IMPRESSION: Mild degree of soft tissue swelling overlying both orbital regions slightly mor e prominent on the right side. The sinuses are clear. Reading Location: [id number]
[2025-09-23] MEDS: Tetracaine 0.5% Ophthalmic Bottle 1 DRP EACH EYE (09:47)
--- NOTE | 2025-09-23 10:04 | EDS_ITS ---
HPI History of Present Illness Chief Complaint: Eye Problem Narrative Narrative: Chief complaint and HPI: 44-year-old male with past medical history of ESRD on HD Tuesday/Tuesday/Tuesday, GERD, HTN, DM presents for evaluation of bilateral upper eyelid and forehead edema. Patient states yesterday he developed swelling to the right upper eyelid. States it then spread to the forehead and left upper eyelid. States his forehead feels tight in which he has a mild headache. He states he was concerned this is a sinus infection secondary to the swelling although he denies any fever, ear pain, sinus pressure, rhinorrhea/congestion, sore throat. He denies any vision changes, hearing changes, neurological deficit. Triage note states that right eye is painful however patient denies this to me. States neither eye hurts. Denies any chest pain, shortness of breath, difficulty swallowing, dental pain. Denies any new facial products. Patient states he went to urgent care prior to arrival here, they thought that it was edema secondary to fluid overload and recommended he receive dialysis. He is due for dialysis at 2 PM. Review of systems: See HPI Medications: As listed on the chart Allergies: As listed on the chart PFSH: Per chart Vital signs: As listed on the chart. Reviewed. Physical exam: Gen: A&O x3, NAD Head: Normocephalic, atraumatic, patient has a small scab to the midline of the forehead with induration but no fluctuance or drainage, no warmth, mild/minimal erythema around the scab, the entire forehead is edematous Eye: Periorbital edema to the bilateral upper eyelids and forehead, no erythema/ecchymosis/warmth, PERRL, EOMI without pain, no proptosis, no scleral chemosis or injection, no lacerations, no foreign body, no enophthalmos, A fluorescein dye was instilled and under UV light no uptake was identified, negative Seidels sign. Intraocular pressures were 17 bilaterally. Visual Acuity 20/30 in the left eye, 20/25 in the right eye, patient wears glasses. ENT: TMs clear BL, moist mucous membranes, tolerating secretions, normal phonation, no dental infection or gingival swelling, posterior oropharynx unremarkable, uvula midline, tonsils not enlarged, no submandibular/sublingual swelling Neck: Trachea midline, Full ROM, No meningismus, no lymphadenopathy, no swelling CV: RRR, no murmurs, + right upper extremity fistula with good thrill Resp: Lungs CTA BL, no w/r/c, no stridor Musc: Full ROM Skin: Warm, dry, no rash Neuro: Alert, oriented, grossly intact, sensation intact Psych: Cooperative, appropriate mood and affect [facility] Medical History Cardiac arrest Left atrial dilation GERD (gastroesophageal reflux disease) SOB (shortness of breath) Hypercholesterolemia History of diabetes mellitus Dialysis patient History of end stage renal disease Diabetes Kidney stones Dialysis patient Kidney disease Non-smoker On home oxygen therapy Surgically constructed arteriovenous fistula Skin ulcer of abdominal wall with fat layer exposed End stage renal disease on dialysis History of abdominal abscess Nonhealing surgical wound CKD (chronic kidney disease) Neuropathy CKD (chronic kidney disease) stage 3, GFR 30-59 ml/min HTN (hypertension) Home Medications Medication Instructions Recorded Last Taken Type carvedilol 25 mg tablet 50 mg PO BID blood pressure 08/06/24 01/09/25 History cholecalciferol (vitamin D3) 1,250 1,250 mcg PO MOWEFR Supplement 09/24/24 Unknown History mcg (50,000 unit) capsule cyclobenzaprine 5 mg tablet 5 mg PO TID PRN muscle spa sm 09/24/24 Unknown History torsemide 100 mg tablet 100 mg PO QAM water pill 01/09/25 History valsartan 40 mg tablet 40 mg PO DAILY BP 09/24/24 0 01/09/25 History calcium acetate(phosphat bind) 667 2,668 mg PO TID adriane lysis 01/10/25 Unknown History mg capsule insulin glargine 100 unit/mL (3 25 unit subcut QHS Adriane betes 01/10/25 01/09/25 History mL) subcutaneous pen amlodipine 10 mg tablet 10 mg PO DAILY 1 month #30 t abs 01/11/25 Unknown Rx hydralazine 100 mg tablet 100 mg PO TID 1 month #90 ta bs 01/11/25 Unknown Rx isosorbide mononitrate 30 mg 30 mg PO DAILY 30 days #3 0 tabs 01/11/25 Unknown Rx tablet,extended release 24 hr Allergy/AdvReac Type Severity Reaction Status Date / Time sitagliptin (From ) AdvReac Upset Verified 01/10/25 10:05 Stomach Family History Mother Hypertension Father Diabetes Thyroid disorder Grandmother Cancer Surgical History [place] teeth removed History of tonsillectomy History of hernia repair History of esophagogastroduodenoscopy (EGD) History of colonoscopy Social History household members: family and other housing: house current occupational status: employed Smoking Status: Never smoker EXAM Physical Exam Const Vital Signs: 09/23/25 09:24 Temperature 97.4 F L Temperature Source Oral Pulse Rate 73 Respiratory Rate 18 Blood Pressure 156/87 H Blood Pressure Mean 110 Pulse Ox 96 Oxygen Delivery Method Room Air MDM MDM MDM Narrative Medical decision making narrative: 44-year-old male with past medical history of ESRD on HD Tuesday/Tuesday/Tuesday, GERD, HTN, DM presents for evaluation of bilateral upper eyelid and forehead edema. Patient states yesterday he developed swelling to the right upper eyelid. States it then spread to the forehead and left upper eyelid. States his forehead feels tight in which he has a mild headache. He states he was concerned this is a sinus infection secondary to the swelling although he denies any fever, ear pain, sinus pressure, rhinorrhea/congestion, sore throat, neurological deficits, vision changes, hearing changes, eye pain. Patient is due for dialysis at 2 PM. See physical exam findings. Concern is for periorbital cellulitis. Patient has no pain with eye movement and EOMI intact. Low suspicion for orbital cellulitis. Patient has a lot of induration without fluctuance, given the amount of swelling will perform CT of the face to rule out underlying abscess. Will obtain basic labs. CBC without leukocytosis. Patient has baseline anemia with a hemoglobin of 10.9. Known thrombocytopenia at 84. History of this in the past. Patient not having any bleeding. BMP shows ESRD with a BUN of 53 and a creatinine of 7.4. Patient is getting dialysis today at [address] of the face shows mild degree of soft tissue swelling overlying both orbital region slightly more prominent on the right side. Sinuses are clear. Patient's symptoms are secondary to periorbital cellulitis. Per guidelines treatment is clindamycin plus amoxicillin given patient's ESRD on dialysis I did talk to pharmacy. Appropriate dosing for the patient and clindamycin 300 mg every 8 hours as this is not renally adjusted. Recommended amoxicillin 500 mg daily given his ESRD. He has not have this until after his dialysis today as it will be renally cleared with dialysis. Will give the the first dose of clindamycin here in the emergency department. He was educated that he needs to take his amoxicillin after dialysis along with the rest of the clindamycin. He confirmed understand the plan. Follow-up with primary care adrian dolan. Return back to ED if symptoms worsen. Was educated on orbital cellulitis warning signs. Impression: 1. Periorbital cellulitis 2. ESRD on HD 3. Chronic anemia 4. Chronic thrombocytopenia Discharge Plan Triage Chief Complaint: Eye Problem ED Provider: Aditya Meyers Dx/Rx/DC Orders Prescriptions: No Action torsemide 100 mg tablet 100 mg PO QAM valsartan 40 mg tablet 40 mg PO DAILY cholecalciferol (vitamin D3) 1,250 mcg (50,000 unit) capsule 1,250 mcg PO MOWEFR cyclobenzaprine 5 mg tablet 5 mg PO TID PRN (Reason: muscle spasm) carvedilol 25 mg tablet 50 mg PO BID insulin glargine 100 unit/mL (3 mL) insulin pen 25 unit subcut QHS calcium acetate(phosphat bind) 667 mg capsule 2,668 mg PO TID Patient Comments: PT STATES HE TAKES 4 CAPSULES WITH MEALS isosorbide mononitrate 30 mg Tablet Extended Release 24 Hr 30 mg PO DAILY 30 Days Qty: 30 0RF Rx Instructions: Hold for SBP less than 130 mmHg hydralazine 100 mg tablet 100 mg PO TID 30 Days Qty: 90 2RF Rx Instructions: Hold for SBP less than 130 mmHg amlodipine 10 mg tablet 10 mg PO DAILY 30 Days Qty: 30 2RF Rx Instructions: Hold for SBP less than 130 mmHg Primary Care Provider: Mana Morgan NP Referrals: Mana Morgan NP, [employer] [Primary Care Provider, Medical] Print Language: Tuvaluan
[2025-09-23 10:06] LABS: Hematocrit 33.4 % (40-54); Hemoglobin 10.9 g/dL (13.0-16.5); Immature Granulocytes Count 0.030 X10^3/uL (0.0-0.0); Mean Corp Hgb Conc 32.6 g/dL (32-36); Mean Corpuscular Volume 89.1 fL (80-94); Mean Platelet Vol. 10.6 fl (6.2-12.0); NRBC Flagged by Analyzer 0 % (0-5); POSITIVE COUNT YES; POSITIVE DIFFERENTIAL YES; Platelet Count 84 K/mm3 (150-450); RBC Distribution Width CV 15.9 % (11.6-14.6); RBC Distribution Width SD 50.9 fl (35.1-43.9); Red Blood Count 3.75 M/mm3 (4.6-6.2); White Blood Count 6.8 K/mm3 (4.4-11.0)
[2025-09-23 10:09] LABS: Differential Indicated SCAN CRITERIA MET
[2025-09-23 10:31] LABS: Anion Gap 18 (5-15); BUN 53 mg/dL (4-19); BUN/Creat Ratio 7.2 RATIO (10-20); Calcium,Total 9.2 mg/dL (7.6-11.0); Carbon Dioxide 27.5 mmol/L (21.0-32.0); Chloride 92 mmol/L (98-108); Estimated Creatinine Clearance 19.65 ml/min (50-250); Glucose 178 mg/dL (70-99); Potassium 4.8 mmol/L (3.3-5.1)
[2025-09-23 11:24] VITALS: BP 178/89; PULSE 69; RESP 23; O2SAT 95
[2025-09-23 12:17] VITALS: BP 177/81; PULSE 74; RESP 16; TEMP 37.1; O2SAT 100
== END 2025-09-23 12:18 | disposition home or self-care (01) ==
PROVIDERS: Emergency Provider Surgery; PCP Registered Nurse; Visit Provider Surgery
DX: L03.213 Periorbital cellulitis (principal); I12.0 Hypertensive chronic kidney disease with stage 5 chronic kidney disease or end stage renal disease; N18.6 End stage renal disease; E11.22 Type 2 diabetes mellitus with diabetic chronic kidney disease; Z99.2 Dependence on renal dialysis; D64.9 Anemia, unspecified; D69.6 Thrombocytopenia, unspecified; E78.00 Pure hypercholesterolemia, unspecified; K21.9 Gastro-esophageal reflux disease without esophagitis
CPT/HCPCS: 70487; 80048; 85025; 99285; Q9967; A4216

== ENCOUNTER 2025-09-25 15:02 | Emergency (ER) | payer OTHER, SELFPAY ==
[2025-09-25 15:04] VITALS: BP 169/84; PULSE 72; RESP 18; TEMP 35.9; O2SAT 97; BMI 38.7
--- NOTE | 2025-09-25 15:21 | EDS_ITS ---
HPI History of Present Illness Chief Complaint: Eye Problem Detail of Chief Complaint: Swelling of right and left upper eyelid Informant: patient Onset/Context/Timing Location: Bilateral Eyes Onset: Days Context: Sudden Onset Timing: Continuous and Waxes and wanes Current Severity: Moderate Maximum Severity: Severe Worsened by: Concern he has preseptal cellulitis Relieved by: nothing Associated Symptoms Associated Symptoms - Eyes: Negative for Burning, Crusting, Drainage, Eyelid swelling, Foreign body sensation, Itching, Matting, Pain, Photophobia or Redness History of injury: No Visual correction: Glasses Narrative Narrative: Patient is a 44-year-old male with history of hypertension, end-stage renal disease on hemodialysis Tuesday, Tuesday and Tuesday. He was scheduled for dialysis today at . He called the facility and informed him he would not be there. He also has history of type 2 diabetes. Sugars have not been much higher than normal. He does endorse chills with subjective fever. He states he was told he had a scratch/abrasion hairline noted by the physician on Tuesday. The physician at that time was not concerned. Patient denies double vision, blurred vision or loss of vision. Patient denies neck pain or neck stiffness. Prior similar symptoms: Yes Recent Illness/Hospitalization: Yes [facility] Medical History Chronic acquired lymphedema Acute hyperkalemia Cardiac arrest Left atrial dilation GERD (gastroesophageal reflux disease) SOB (shortness of breath) Hypercholesterolemia History of diabetes mellitus Dialysis patient History of end stage renal disease Diabetes Kidney stones Dialysis patient Kidney disease Non-smoker On home oxygen therapy Surgically constructed arteriovenous fistula Skin ulcer of abdominal wall with fat layer exposed End stage renal disease on dialysis History of abdominal abscess Nonhealing surgical wound CKD (chronic kidney disease) Neuropathy CKD (chronic kidney disease) stage 3, GFR 30-59 ml/min HTN (hypertension) Home Medications ?Medication ?Instructions ?Recorded ?Last Taken ?Type carvedilol 25 mg tablet 50 mg PO BID blood pressure 08/06/24 01/09/25 History cholecalciferol (vitamin D3) 1,250 1,250 mcg PO MOWEFR Supplement 09/24/24 Unknown History mcg (50,000 unit) capsule cyclobenzaprine 5 mg tablet 5 mg PO TID PRN muscle spa sm 09/24/24 Unknown History torsemide 100 mg tablet 100 mg PO QAM water pill 01/09/25 History valsartan 40 mg tablet 40 mg PO DAILY BP 09/24/24 0 01/09/25 History calcium acetate(phosphat bind) 667 2,668 mg PO TID adriane lysis 01/10/25 Unknown History mg capsule insulin glargine 100 unit/mL (3 25 unit subcut QHS Adriane betes 01/10/25 01/09/25 History mL) subcutaneous pen amlodipine 10 mg tablet 10 mg PO DAILY 1 month #30 t abs 01/11/25 Unknown Rx hydralazine 100 mg tablet 100 mg PO TID 1 month #90 ta bs 01/11/25 Unknown Rx isosorbide mononitrate 30 mg 30 mg PO DAILY 30 days #3 0 tabs 01/11/25 Unknown Rx tablet,extended release 24 hr amoxicillin 500 mg tablet 500 mg PO DAILY 7 days #7 ta bs 09/23/25 Unknown Rx clindamycin HCl 300 mg capsule 300 mg PO TID 7 days #2 1 caps 09/23/25 Unknown Rx (Cleocin HCl) Allergy/AdvReac Type Severity Reaction Status Date / Time sitagliptin (From ) AdvReac Upset Verified 09/25/25 15:03 Stomach Family History Mother Hypertension Father Diabetes Thyroid disorder Grandmother Cancer Surgical History [place] teeth removed History of tonsillectomy History of hernia repair History of esophagogastroduodenoscopy (EGD) History of colonoscopy Social History household members: family and other housing: house current occupational status: employed Smoking Status: Never smoker ROS ROS ED Constitutional Constitutional ED: Reports chills, fever(s) and subjective; Denies sweats or weight loss Eyes Eyes: Denies blurry vision, change in vision or diplopia ENT ENT ED: Denies ear pain, rhinorrhea or sore throat Cardiovascular Cardiovascular: Denies chest pain, palpitations or racing heartbeat Respiratory/Chest Respiratory/Chest: Denies cough, dyspnea or dyspnea on exertion Gastrointestinal Gastrointestinal: Denies nausea or vomiting Integumentary Reports rash; Denies abscess or Abrasions Neurologic Neurologic: Denies headache(s) Psychiatric Psychiatric: Denies anxiety or depression Endocrine Endocrinology: Denies polydipsia, polyphagia or polyuria EXAM Physical Exam Const Vital Signs: 09/25/25 15:04 Temperature 96.6 F L Temperature Source Temporal Pulse Rate 72 Respiratory Rate 18 Blood Pressure 169/84 H Blood Pressure Mean 112 Pulse Ox 97 Oxygen Delivery Method Room Air Positive well nourished, well developed and obese General Appearance ED: well developed and NAD Nutritional Appearance: obese HEENT HEENT Narrative: Patient has a small eschar hairline noted. He has significant tenderness to palpation and there is fluctuant. There appears to be purulent material noted near the eschar. There is no significant warmth. There is discoloration in the area compared to his normal skin color. It is more of a purpleish color. It is not indurated. Eyes Eyes Narrative: Pupils are equal round reactive to light. Extraocular muscles are intact. Conjunctive but is pale. Patient has significant edema of his right and left upper eyelids. There is some slight discoloration. There is no warmth or induration. Findings are not in my opinion consistent with preseptal cellulitis. This may be due to the fact that he has an abscess near the hairline versus renal disease. He is symptoms are not suggestive of thyroid disease. Neck no lymphadenopathy, supple and no JVD Resp normal respiratory effort, no retractions, no use of accessory muscles and clear to auscultation bilaterally Cardio regular rate, regular rhythm, S1 normal heart sound, S2 normal heart sound and no murmurs Neuro oriented x3 and CN's II-XII intact bilaterally Sensorium / Orientation: alert Psych Psych Narrative: Normal Skin Skin Narrative: Wound near hairline previously described MDM MDM MDM Narrative Medical decision making narrative: Since patient complains of subjective fever with chills will obtain CBC to assess white count and differential. Since he is diabetic we will obtain electrolyte panel assess glucose and CO2 anion gap. Will obtain consent for I&D of scalp/forehead abscess. Lab Data Attestation: I reviewed the patient's lab results. Lab results narrative: CBC reveals mild anemia with an H&H of 10.6 and 31.5. This is essentially patient's baseline. Differential is unremarkable. Basic metabolic panel reveals elevated creatinine which is not unexpected since he is on hemodialysis. BUN and creatinine are 58 and 7.77. Glucose is elevated 171. CO2 and anion gap are normal. Procedures Other Procedures Procedure(s): Incision and drainage note scalp/forehead abscess. Patient was explained risk benefits. Consent was obtained. Patient was anesthetized by a supraorbital and supratrochlear nerve block on the right. Incision was made near the hairline. There was some small amount of purulent drainage. The there was fluctuance noted caudal and cephalad to the incision si te. This was undermined using Isabel clamp. Additional point material was noted. Cavity was irrigated. Using 1/4 inch iodoform gauze wick was placed to keep the track and incision open. Patient was instructed to continue taking the antibiotics he was prescribed on Tuesday. Discharge Plan Triage Chief Complaint: Eye Problem ED Provider: Kirk Conti Dx/Rx/DC Orders Clinical Impression: Acute abscess of face, End-stage renal disease on hemodialysis, Periorbital edema of both eyes, Type 1 diabetes mellitus with hyperglycemia Instructions: ED Abscess Incision And Drainage Prescriptions: No Action torsemide 100 mg tablet 100 mg PO QAM valsartan 40 mg tablet 40 mg PO DAILY cholecalciferol (vitamin D3) 1,250 mcg (50,000 unit) capsule 1,250 mcg PO MOWEFR cyclobenzaprine 5 mg tablet 5 mg PO TID PRN (Reason: muscle spasm) carvedilol 25 mg tablet 50 mg PO BID insulin glargine 100 unit/mL (3 mL) insulin pen 25 unit subcut QHS calcium acetate(phosphat bind) 667 mg capsule 2,668 mg PO TID Patient Comments: PT STATES HE TAKES 4 CAPSULES WITH MEALS isosorbide mononitrate 30 mg Tablet Extended Release 24 Hr 30 mg PO DAILY 30 Days Qty: 30 0RF Rx Instructions: Hold for SBP less than 130 mmHg hydralazine 100 mg tablet 100 mg PO TID 30 Days Qty: 90 2RF Rx Instructions: Hold for SBP less than 130 mmHg amlodipine 10 mg tablet 10 mg PO DAILY 30 Days Qty: 30 2RF Rx Instructions: Hold for SBP less than 130 mmHg clindamycin HCl [Cleocin HCl] 300 mg capsule 300 mg PO TID 7 Days Qty: 21 0RF amoxicillin 500 mg tablet 500 mg PO DAILY 7 Days Qty: 7 0RF Rx Instructions: On dialysis days take after dialysis Primary Care Provider: Mana Morgan NP Referrals: Mana Morgan NP, [employer] [Primary Care Provider, Medical] - 2 Days for wound check Activity Restrictions/Additional Instructions: Have your provider checked your wound in 2 days and remove the wick. If you are unable to be seen by your provider you may return to the emergency room for follow-up. Take antibiotics as prescribed by Dr. Cabello Print Language: Russian Disposition Disposition: Home, Self Care
[2025-09-25] MEDS: Lidocaine 1% (20 ml mdv) 20 ML Vial INFILT (15:32)
[2025-09-25 15:42] LABS: Hematocrit 31.5 % (40-54); Hemoglobin 10.6 g/dL (13.0-16.5); Immature Granulocytes Count 0.030 X10^3/uL (0.0-0.0); Mean Corp Hgb Conc 33.7 g/dL (32-36); Mean Corpuscular Volume 87.3 fL (80-94); Mean Platelet Vol. 10.9 fl (6.2-12.0); NRBC Flagged by Analyzer 0 % (0-5); POSITIVE COUNT YES; POSITIVE DIFFERENTIAL YES; Platelet Count 80 K/mm3 (150-450); RBC Distribution Width CV 15.5 % (11.6-14.6); RBC Distribution Width SD 49.1 fl (35.1-43.9); Red Blood Count 3.61 M/mm3 (4.6-6.2); White Blood Count 5.8 K/mm3 (4.4-11.0)
[2025-09-25 16:34] LABS: Anion Gap 15 (5-15); BUN 58 mg/dL (4-19); BUN/Creat Ratio 7.5 RATIO (10-20); Calcium,Total 9.1 mg/dL (7.6-11.0); Carbon Dioxide 30.4 mmol/L (21.0-32.0); Chloride 92 mmol/L (98-108); Estimated Creatinine Clearance 18.66 ml/min (50-250); Glucose 171 mg/dL (70-99); Potassium 4.8 mmol/L (3.3-5.1)
[2025-09-25 16:59] VITALS: BP 166/82; PULSE 80; RESP 14; TEMP 36.8; O2SAT 100
== END 2025-09-25 17:05 | disposition home or self-care (01) ==
PROVIDERS: Emergency Provider Emergency Medicine; PCP Registered Nurse; Visit Provider Emergency Medicine
DX: L02.01 Cutaneous abscess of face (principal); I12.0 Hypertensive chronic kidney disease with stage 5 chronic kidney disease or end stage renal disease; N18.6 End stage renal disease; E10.65 Type 1 diabetes mellitus with hyperglycemia; E10.22 Type 1 diabetes mellitus with diabetic chronic kidney disease; E78.00 Pure hypercholesterolemia, unspecified; Z99.2 Dependence on renal dialysis; K21.9 Gastro-esophageal reflux disease without esophagitis; E66.9 Obesity, unspecified; D64.9 Anemia, unspecified; H05.223 Edema of bilateral orbit
CPT/HCPCS: 10060; 80048; 85025; 87070; 87077; 87186; 87205; 99284; A4216